=== PATIENT | female | born 1990 | race Two or more races ===

== ENCOUNTER 2018-09-20 16:09 | Emergency (ER) | payer SELFPAY ==
[~2018-09-20] VITALS: Ht 167.6 cm; Wt 143.6 kg
[2018-09-20] MEDS ORDERED: IV NORMAL SALINE 1000ML BAG 1,000 ML IV ONE (18:30)
[2018-09-20] MEDS ORDERED: ONDANSETRON PF 4 MG/2 ML VIAL. IV ONE (18:45)
[2018-09-20] MEDS ORDERED: MORPHINE SULFATE 4 MG/ML VIAL. IV ONE (18:45)
[2018-09-20] MEDS ORDERED: KETOROLAC 15 MG/ML VIAL. IV ONE (19:00)
[2018-09-20] MEDS ORDERED: PROCHLORPERAZINE 10 MG/2 ML VIAL. IV ONE (19:00)
--- NOTE | 2018-09-20 19:04 | RAD ---
CT Head and cervical spine without contrast 09/20/2018 Clinical Indication: Fall with head trauma and neck pain Comparison: None Technique: Multiple CT images of the head and cervical spine were obtained without contrast. *One or more of the following individualized dose reduction techniques were utilized for this examination: 1. Automated exposure control. 2. Adjustment of the mA and/or kV according to patient size. 3. Use of iterative reconstruction technique. Findings: Head: Ventricles and subarachnoid spaces are normal in size and configuration for age. No acute intracranial hemorrhage or extra-axial fluid collection. The chakraborty-white matter interfaces are maintained. No midline shift. The basal cisterns are patent. Inferior left maxillary sinus mucosal retention cyst. Cervical spine: No acute cervical spine fracture or traumatic malalignment. Atlantoaxial articulation is maintained. Vertebral body heights and disc spaces are maintained. The paraspinal soft tissues are unremarkable. No significant spinal canal or neural foraminal narrowing. The visualized lung apices are clear. There is a right central venous catheter partially visualized. Impression: Head: No acute intracranial hemorrhage Cervical spine: No acute cervical spine fracture or traumatic malalignment. Electronically signed by: Surendra Haney MD (09/20/2018 7:01 PM) [facility]
--- NOTE | 2018-09-20 19:40 | PHYS DOC ---
Past Medical History Past Medical History: Anxiety, Cancer, Migraines, Other Additional Past Medical Histor: WPW,Seizure, appendocele ca Past Surgical History: Appendectomy, Cholecystectomy, Hysterectomy, Tonsillectomy, Other Additional Past Surgical Histo: Rt.knee repair acl/mcl, cardiac ablation Alcohol Use: None Drug Use: None Adult General Chief Complaint Chief Complaint: MECHANICAL FALL HPI HPI Patient is a 28 year old female who presents to the emergency Department today with multiple complaints after falling approximately 8 feet from the top of the ladder. Patient states she was standing on the top of a ladder when she lost her balance and fell backwards. Patient states that it was a witnessed fall and that her sister states that she had lost consciousness for approximately 5 or 6 seconds. Patient states she vomited times one following the fall. In addition patient states that she saw bright lights in her right eye. Patient now complains of head, neck, right forearm, right lateral ankle, and right knee pain after the fall. In addition is a fall patient reports concerns about recent nausea and vomiting that she experienced on , Friday, and Friday this week. She states that she had vomited all day today until she fell but she had been vomiting every time she tried to eat anything for the 3 previous days. She states she had been taking Keflex for a recent urinary tract infection but was unable to keep it down for the last 3 days. The prescription of Keflex was 4 times a day for 10 days. Patient states she was able to take 7 days of medication before the vomiting started. She denies any dysuria, or increased urinary frequency at this time she denies any fever or abdominal pain. Review of Systems Review of Systems Constitutional: Denies fever or chills [] Eyes: See HPI HENT: Denies nasal congestion or sore throat [] Respiratory: Denies cough or shortness of breath [] Cardiovascular: No additional information not addressed in HPI [] GI: Denies abdominal pain or diarrhea, see HPI : Denies dysuria or hematuria, reports recent UTI [] Musculoskeletal: See HPI Integument: Denies rash or skin lesions [] Neurologic: Denies focal weakness or sensory changes; reports headache All other systems were reviewed and found to be within normal limits, except as documented in this note. Current Medications Current Medications Current Medications Medications (Trade) Dose Ordered Sig/Lyndsey Start Time Stop Time Status Last Admin Dose Admin Acetaminophen (Tylenol) 1,000 mg 1X ONCE 09/20/18 20:30 09/20/18 20:31 DC 09/20/18 20:23 1,000 MG Ketorolac Tromethamine (Toradol 15mg Vial) 15 mg 1X ONCE 09/20/18 19:00 09/20/18 19:01 DC Morphine Sulfate (Morphine Sulfate) 4 mg 1X ONCE 09/20/18 18:45 09/20/18 18:45 DC Ondansetron HCl (Zofran) 4 mg 1X ONCE 09/20/18 18:45 09/20/18 18:46 Cancel Prochlorperazine Edisylate (Compazine) 10 mg 1X ONCE 09/20/18 19:00 09/20/18 19:01 DC 09/20/18 19:58 10 MG Sodium Chloride 1,000 ml @ 1,000 mls/hr 1X ONCE 09/20/18 18:30 09/20/18 19:29 DC 09/20/18 19:59 1,000 MLS/HR Allergies Allergies Allergies Coded Allergies Type Severity Reaction Last Updated Verified Iodinated Contrast- Oral and IV Dye Allergy Severe Hives 05/02/17 Yes latex Allergy Severe Anaphylaxis 11/27/14 Yes ondansetron Allergy Severe Anaphylaxis 09/20/18 Yes fentanyl Allergy Intermediate ITCHY 09/20/18 Yes ketorolac Allergy Intermediate Hives 09/20/18 Yes morphine Allergy Intermediate "I JUST DON'T LIKE IT,IT MAKES ME FEEL LIKE I'M GOING TO 09/20/18 Yes tramadol Allergy Intermediate 09/20/18 Yes Physical Exam Physical Exam Constitutional: Well developed, well nourished, no acute distress, non-toxic appearance, obese. [] HENT: Normocephalic, atraumatic, bilateral external ears normal, bilateral TMs normal, oropharynx moist, no oral exudates, nose normal. [] Eyes: PERRLA, conjunctiva normal, no discharge. [] Neck: Normal range of motion, mildline bony cervical tenderness, supple, no stridor. [] Cardiovascular:Heart rate regular rhythm, no murmur [] Lungs & Thorax: Bilateral breath sounds clear to auscultation [] Skin: Warm, dry, no erythema, no rash, no bruising. [] Back: T spine and L spine bony tenderness Extremities: No cyanosis, no clubbing, ROM intact, no edema; reports tenderness with palpation of right anterior knee, negative anterior and posterior drawer testing, pt did not tolerate valgus maneuver; R lateral ankle tenderness to palpation, no deformity, limited ROM of R ankle due to pain. [] Neurologic: Alert and oriented X 3, normal motor function, normal sensory function, no focal deficits noted. [] Psychologic: Affect normal, judgement normal, mood normal. [] Current Patient Data Vital Signs Vital Signs Date Time Temp Pulse Resp B/P (MAP) Pulse Ox O2 Delivery O2 Flow Rate FiO2 09/20/18 20:30 102 99 09/20/18 16:50 98.3 20 133/73 (93) Room Air 98.3 Lab Values Laboratory Tests Test 09/20/18 19:46 09/20/18 19:50 Urine Collection Type Unknown Urine Color Yellow Urine Clarity Clear Urine pH 7.0 Urine Specific Orient 1.010 Urine Protein Negative mg/dL (NEG-TRACE) Urine Glucose (UA) Negative mg/dL (NEG) Urine Ketones (Stick) Negative mg/dL (NEG) Urine Blood Negative (NEG) Urine Nitrite Negative (NEG) Urine Bilirubin Negative (NEG) Urine Urobilinogen Dipstick 1.0 mg/dL (0.2 mg/dL) Urine Leukocyte Esterase Negative (NEG) Urine RBC Occ /HPF (0-2) Urine WBC Occ /HPF (0-4) Urine Squamous Epithelial Cells Mod /LPF Urine Bacteria 0 /HPF (0-FEW) Urine Mucus Slight /LPF Urine Yeast Present /HPF White Blood Count 11.8 x10^3/uL (4.0-11.0) H Red Blood Count 4.41 x10^6/uL (3.50-5.40) Hemoglobin 12.7 g/dL (12.0-15.5) Hematocrit 37.9 % (36.0-47.0) Mean Corpuscular Volume 86 fL (79-100) Mean Corpuscular Hemoglobin 29 pg (25-35) Mean Corpuscular Hemoglobin Concent 34 g/dL (31-37) Red Cell Distribution Width 14.2 % (11.5-14.5) Platelet Count 411 x10^3/uL (140-400) H Neutrophils (%) (Auto) 73 % (31-73) Lymphocytes (%) (Auto) 18 % (24-48) L Monocytes (%) (Auto) 7 % (0-9) Eosinophils (%) (Auto) 2 % (0-3) Basophils (%) (Auto) 1 % (0-3) Neutrophils # (Auto) 8.6 x10^3uL (1.8-7.7) H Lymphocytes # (Auto) 2.1 x10^3/uL (1.0-4.8) Monocytes # (Auto) 0.8 x10^3/uL (0.0-1.1) Eosinophils # (Auto) 0.2 x10^3/uL (0.0-0.7) Basophils # (Auto) 0.1 x10^3/uL (0.0-0.2) Sodium Level 138 mmol/L (136-145) Potassium Level 4.4 mmol/L (3.5-5.1) Chloride Level 100 mmol/L (98-107) Carbon Dioxide Level 26 mmol/L (21-32) Anion Gap 12 (6-14) Blood Urea Nitrogen 8 mg/dL (7-20) Creatinine 0.6 mg/dL (0.6-1.0) Estimated GFR (Cockcroft-Gault) 120.8 BUN/Creatinine Ratio 13 (6-20) Glucose Level 76 mg/dL (70-99) Calcium Level 9.1 mg/dL (8.5-10.1) Total Bilirubin 0.6 mg/dL (0.2-1.0) Aspartate Amino Transferase (AST) 39 U/L (15-37) H Alanine Aminotransferase (ALT) 36 U/L (14-59) Alkaline Phosphatase 107 U/L (46-116) Total Protein 7.3 g/dL (6.4-8.2) Albumin 3.3 g/dL (3.4-5.0) L Albumin/Globulin Ratio 0.8 (1.0-1.7) L Laboratory Tests 09/20/18 19:50 Laboratory Tests 09/20/18 19:50 EKG EKG [] Radiology/Procedures Radiology/Procedures PROCEDURE: CT HEAD AND CERVICAL SPINE WO CT Head and cervical spine without contrast 09/20/2018 Clinical Indication: Fall with head trauma and neck pain Comparison: None Technique: Multiple CT images of the head and cervical spine were obtained without contrast. *One or more of the following individualized dose reduction techniques were utilized for this examination: 1. Automated exposure control. 2. Adjustment of the mA and/or kV according to patient size. 3. Use of iterative reconstruction technique. Findings: Head: Ventricles and subarachnoid spaces are normal in size and configuration for age. No acute intracranial hemorrhage or extra-axial fluid collection. The chakraborty-white matter interfaces are maintained. No midline shift. The basal cisterns are patent. Inferior left maxillary sinus mucosal retention cyst. Cervical spine: No acute cervical spine fracture or traumatic malalignment. Atlantoaxial articulation is maintained. Vertebral body heights and disc spaces are maintained. The paraspinal soft tissues are unremarkable. No significant spinal canal or neural foraminal narrowing. The visualized lung apices are clear. There is a right central venous catheter partially visualized. Impression: Head: No acute intracranial hemorrhage Cervical spine: No acute cervical spine fracture or traumatic malalignment.[] Course & Med Decision Making Course & Med Decision Making Pertinent Labs and Imaging studies reviewed. (See chart for details) 1939- C-collar removed after CT results back and negative Pt was offered ankle air splint and declined, states she has walking boot at home if needed. Dx: fall from ladder, R ankle contusion, R knee contusion, thoracic back pain, lumbar back pain, head injury with LOC, R forearm contusion, nausea & vomiting IV infiltrated before all of the fluids were infused. Pt was given IV compazine and reported nausea was better. PT able to tolerate PO fluids and crackers, tylenol was given for pain. Pt advised that UTI has resolved and negative radiology studies. Recommend tylenol or ibuprofen as needed for pain. Apply ice to sore areas every hour and then as needed for comfort. Follow up with PCP this week, return to ER if symptoms worsen. Patient verbalized an understanding of home care, medications, follow-up, and return to ED instructions and was in agreement with the plan of care. [] Dragon Disclaimer Dragon Disclaimer This electronic medical record was generated, in whole or in part, using a voice recognition dictation system. Departure Departure Impression: Primary Impression: Fall from ladder Additional Impressions: Right ankle sprain Contusion of right knee, initial encounter Contusion of forearm, right Back pain Head injury, acute, with loss of consciousness Nausea & vomiting Disposition: 01 HOME, SELF-CARE Condition: STABLE Referrals: VALERIA EVERETT MD (PCP) Patient Instructions: Back Pain, Adult, [id number], Contusion, Nazr-cx-Mzxt, Fall Prevention and Home Safety, [id number], Nausea and Vomiting, Xdwz-[id number] Scripts No Active Prescriptions or Reported Meds Problem Qualifiers Primary Impression: Fall from ladder Encounter type: initial encounter Qualified Codes: W11.XXXA - Fall on and from ladder, initial encounter Additional Impressions: Right ankle sprain Encounter type: initial encounter Involved ligament of ankle: unspecified ligament Qualified Codes: S93.401A - Sprain of unspecified ligament of right ankle, initial encounter Contusion of forearm, right Encounter type: initial encounter Qualified Codes: S50.11XA - Contusion of right forearm, initial encounter Back pain Back pain location: back pain in other location Chronicity: acute Qualified Codes: M54.9 - Dorsalgia, unspecified Head injury, acute, with loss of consciousness Encounter type: initial encounter Qualified Codes: S06.9X9A - Unspecified intracranial injury with loss of consciousness of unspecified duration, initial encounter Nausea & vomiting Vomiting type: unspecified Vomiting Intractability: non-intractable Qualified Codes: R11.2 - Nausea with vomiting, unspecified [employer] Sep 20, 2018 19:40
[2018-09-20 19:55] LABS: BILIRUBIN,URINE NEGATIVE (NEG); CLARITY,URINE CLEAR; COLOR,URINE YELLOW; NITRITE,URINE NEGATIVE (NEG); PROTEIN,URINE NEGATIVE (NEG-TRACE)
[2018-09-20 20:12] LABS: BACTERIA,URINE 0 /HPF (0-FEW); RBC,URINE OCC /HPF (0-2); SQUAMOUS EPITHELIAL CELL,UR MOD /LPF; WBC,URINE OCC /HPF (0-4); YEAST,URINE PRESENT /HPF
[2018-09-20 20:14] LABS: BASO # 0.1 x10^3/uL (0.0-0.2); BASO % 1 % (0-3); EOS # 0.2 x10^3/uL (0.0-0.7); EOS % 2 % (0-3); HEMATOCRIT 37.9 % (36.0-47.0); HEMOGLOBIN 12.7 g/dL (12.0-15.5); LYMPH # 2.1 x10^3/uL (1.0-4.8); LYMPH % 18 % (24-48); MEAN CORPUSCULAR HEMOGLOBIN 29 pg (25-35); MEAN CORPUSCULAR HGB CONC 34 g/dL (31-37); MEAN CORPUSCULAR VOLUME 86 fL (79-100); MONO # 0.8 x10^3/uL (0.0-1.1); MONO % 7 % (0-9); NEUT # 8.6 x10^3uL (1.8-7.7); NEUT % 73 % (31-73); PLATELET COUNT 411 x10^3/uL (140-400); RED BLOOD COUNT 4.41 x10^6/uL (3.50-5.40); RED CELL DISTRIBUTION WIDTH 14.2 % (11.5-14.5); WHITE BLOOD COUNT 11.8 x10^3/uL (4.0-11.0)
--- NOTE | 2018-09-20 20:19 | RAD ---
3 view right ankle 09/20/2018 CLINICAL INDICATION: Fall from 8 foot ladder COMPARISON: None. FINDINGS: No acute fracture or traumatic malalignment. Joint spaces maintained. Ankle mortise and talar dome are maintained. IMPRESSION: No acute osseous abnormality. Electronically signed by: Surendra Haney MD (09/20/2018 8:15 PM) [facility]
--- NOTE | 2018-09-20 20:20 | RAD ---
Two-view right forearm 09/20/2018 CLINICAL INDICATION: Fall with right forearm pain. COMPARISON: None. FINDINGS: No acute fracture or traumatic malalignment. Visualized soft tissues unremarkable. IMPRESSION: No acute osseous abnormality. Electronically signed by: Surendra Haney MD (09/20/2018 8:16 PM) [facility]
--- NOTE | 2018-09-20 20:21 | RAD ---
Two-view thoracic spine 09/20/2018 CLINICAL INDICATION: Fall with back pain. COMPARISON: None. FINDINGS: AP and lateral views were submitted. Cervical thoracic junction is not well visualized due to overlying soft tissues. Vertebral body heights and disc spaces are maintained on the AP view. Right upper quadrant cholecystectomy clips. There is a right IJ chest port with distal tip terminating in the right atrium. IMPRESSION: No radiographic evidence of acute thoracic spinal abnormality. Electronically signed by: Surendra Haney MD (09/20/2018 8:17 PM) [facility]
--- NOTE | 2018-09-20 20:21 | RAD ---
3 view right knee 09/20/2018 CLINICAL INDICATION: Fall with right knee pain. COMPARISON: 06/10/2015 FINDINGS: No acute fracture or traumatic malalignment. Joint spaces maintained. No significant knee joint effusion. Normal bony alignment. IMPRESSION: No acute osseous abnormality. Electronically signed by: Surendra Haney MD (09/20/2018 8:18 PM) [facility]
--- NOTE | 2018-09-20 20:22 | RAD ---
3 view lumbar spine 09/20/2018 CLINICAL INDICATION: Fall with back pain. COMPARISON: None. FINDINGS: Lateral view is limited due to body habitus. Normal lumbar alignment. Vertebral body heights and disc spaces are preserved. Surgical clips overlying the right lower quadrant. No listhesis. IMPRESSION: No radiographic evidence of acute lumbar spine abnormality. Electronically signed by: Surendra Haney MD (09/20/2018 8:19 PM) [facility]
[2018-09-20 20:25] LABS: CALCIUM 9.1 mg/dL (8.5-10.1); CREATININE 0.6 mg/dL (0.6-1.0); GFR 120.8; POTASSIUM 4.4 mmol/L (3.5-5.1)
[2018-09-20 20:30] VITALS: BP 144/86
[2018-09-20] MEDS ORDERED: ACETAMINOPHEN 500 MG TABLET PO ONE (20:30)
[2018-09-20 20:31] LABS: ALBUMIN 3.3 g/dL (3.4-5.0); ALBUMIN/GLOBULIN RATIO 0.8 (1.0-1.7); TOTAL BILIRUBIN 0.6 mg/dL (0.2-1.0); TOTAL PROTEIN 7.3 g/dL (6.4-8.2)
== END 2018-09-20 20:55 | disposition home or self-care (01) ==
LOC: ER 16:09
DX: S06.899A Other specified intracranial injury with loss of consciousness of unspecified duration, initial encounter (principal); S93.491A Sprain of other ligament of right ankle, initial encounter; S50.11XA Contusion of right forearm, initial encounter; S80.01XA Contusion of right knee, initial encounter; R11.2 Nausea with vomiting, unspecified; M54.5 Low back pain; M54.2 Cervicalgia; M54.6 Pain in thoracic spine; F41.9 Anxiety disorder, unspecified; G43.909 Migraine, unspecified, not intractable, without status migrainosus; Z90.89 Acquired absence of other organs; Z90.49 Acquired absence of other specified parts of digestive tract; Z90.710 Acquired absence of both cervix and uterus; Z91.040 Latex allergy status; Z88.8 Allergy status to other drugs, medicaments and biological substances; Z88.5 Allergy status to narcotic agent; Z91.041 Radiographic dye allergy status; W11.XXXA Fall on and from ladder, initial encounter; Y93.89 Activity, other specified; Y92.89 Other specified places as the place of occurrence of the external cause; Y99.8 Other external cause status
CPT/HCPCS: 36415; 70450; 72072; 72100; 72125; 73090; 73562; 73610; 80053; 81001; 85025; 96361; 96374; 99285; J0780; J7030

== ENCOUNTER 2019-04-30 10:39 | Day surgery (SDC) | payer OTHER ==
[~2019-04-30] VITALS: Ht 169.5 cm; Wt 148.7 kg
[~2019-04-30 10:39] MED LIST: ALPR2TAB5 PO; BACITRACIN TOPICAL OINT 14GM TUBE. TP ONE; BACITRACIN/POLYMYXIN B OPHTH OINTMENT 3.5GM TUBE. ONE; BUPIVAC MPF-EPI 0.5%-1:200000 30 ML VIAL. ONE; BUPIVACAINE MPF 0.5% 30 ML VIAL. ONE; DIPH25CA58 PO; HEPARIN SODIUM 5,000 UNIT in IV NORMAL SALINE 500ML BAG 500 ML IRR ONE; IV RINGERS,LACTATED 1000ML 1,000 ML IV SCH; LIDO30CR TP; LORA1TAB PO; MULT-121 PO; NEOMY/BACITR/POLYMYXIN OINT PACKET. TP ONE; PROCHLORPERAZINE 10 MG/2 ML VIAL. IV PRN; ZOLP12.54 PO; ceFAZolin SODIUM 3 GM in IV DEXTROSE 5% 100ML 100 ML IV PRN
[2019-04-30] MEDS ORDERED: DEXAMETHASONE SOD PHOS 4 MG/ML VIAL ONE (11:58)
[2019-04-30] MEDS ORDERED: PROPOFOL 0 ML IV ONE (11:58)
[2019-04-30] MEDS ORDERED: ONDANSETRON PF 4 MG/2 ML VIAL. ONE (11:58)
[2019-04-30] MEDS ORDERED: fentaNYL PF VIAL 100 MCG/2 ML VIAL ONE (11:58)
[2019-04-30] MEDS ORDERED: LIDOCAINE 2% PF 5 ML VIAL. ONE (11:58)
[2019-04-30] MEDS ORDERED: SCOPOLAMINE 1.5MG PATCH. TD ONE (12:00)
[2019-04-30] MEDS ORDERED: diphenhydrAMINE 50 MG/ML VIAL ONE (12:26)
[2019-04-30] MEDS ORDERED: PROPOFOL 20 ML IV ONE ×2 (12:37→12:51)
[2019-04-30] MEDS ORDERED: FAMOTIDINE 20 MG/2 ML VIAL ONE (13:12)
[2019-04-30] MEDS ORDERED: SEVOFLURANE 61 TO 120 MINUTES. IH ONE (14:09)
[2019-04-30] MEDS: HYDROmorphone 2 MG/ML VIAL IV PRN ×2 (14:51→15:11)
--- NOTE | 2019-04-30 15:07 | PDOC ---
BRIEF OPERATIVE NOTE Date: Apr 30, 2019 Pre-Op Diagnosis subcutaneous mass, left posterior neck needs venous access Post-Op Diagnosis same Procedure Performed excision mass left posterior neck attempted placement left subclavian power port repositioning right power port Surgeon Collin Anesthesia Type: General Blood Loss 25cc IV Fluid 800cc Specimens Obtained [id number] mass Findings lipoma Complications none Operative Note dictation system unavailable at this time HESHAM ADDISON MD Apr 30, 2019 15:07
--- NOTE | 2019-04-30 15:11 | DISCH ---
DISCHARGE INSTRUCTIONS Condition on Discharge Condition on Discharge: Stable Activity After Discharge Activity Instructions for Disc: Activity as tolerated, Avoid exertion Lifting Instructions after Dis: No heavy lifting Driving Instructions after Dis: Do not drive today Diet after Discharge Diet after Discharge: GI Soft Wound Incision Care Wound/Incision Care: Ice to area for comfort Other wound/incision instructi: may shower Friday Follow-Up Follow Up With: Collin two weeks HESHAM ADDISON MD Apr 30, 2019 15:11
[2019-04-30] MEDS ORDERED: HYDROcodone/APAP 10/325 1 TAB TABLET ONE (15:13)
[2019-04-30] MEDS ORDERED: HYDR-2769 PO (15:23)
[2019-04-30] MEDS ORDERED: DOCU-150 PO (15:24)
[2019-04-30] MEDS ORDERED: HYDROcodone/APAP 10/325 1 TAB TABLET PO ONE (15:30)
[2019-04-30 16:00] VITALS: BP 139/68
--- NOTE | 2019-04-30 16:29 | RAD ---
AP chest, 04/30/2019: HISTORY: Check Port-A-Cath placement Comparison is made to a study from 11/22/2015. A right Port-A-Cath has been inserted extending into the inferior aspect of the superior vena cava. The heart is at the upper limits of normal in size accentuated by the AP technique. The pulmonary vascularity is normal. No pulmonary infiltrate is seen. There is no evidence of pleural fluid or pneumothorax. IMPRESSION: The right Port-A-Cath extends into the superior vena cava. Electronically signed by: Juan C Hnery MD (04/30/2019 4:27 PM) [facility]
--- NOTE | 2019-05-03 14:12 | OP ---
DATE OF SURGERY: 04/30/2019 This report unable to be dictated postop due to malfunction of the dictation system. PREOPERATIVE DIAGNOSIS: Subcutaneous mass, left posterior neck and needs venous access. POSTOPERATIVE DIAGNOSIS: Subcutaneous mass, left posterior neck and needs venous access. PROCEDURES: 1. Excision mass, left posterior neck. 2. Attempted placement, left subclavian PowerPort. 3. Repositioning right PowerPort. SURGEON: Hesham Addison MD ANESTHESIA: General. ESTIMATED BLOOD LOSS: 25 mL. IV FLUID: 800 mL. DESCRIPTION OF PROCEDURE: The patient brought to the operating suite, given a general LMA and placed in the right lateral decubitus position. Left posterior neck was prepped and draped in usual sterile fashion. The incision, which had been outlined with the patient's assistance in preop holding was infiltrated with local anesthetic, incised and a subcutaneous mass 7 x 6 x 2 cm was removed intact. Hemostasis with cautery. Wound closed with interrupted inverted 3-0 Vicryl in subcutaneous tissue and a subcuticular 4-0 Monocryl with Steri-Strips for the skin. The patient then placed supine. The infraclavicular areas were prepped and draped in usual sterile fashion. Left side was approached with the patient in Trendelenburg and local anesthetic. The left subclavian vein was cannulated. Guidewire passed and a pocket incision created. The catheter was cut to an appropriate length. Fluoroscopic observation attempting to dilate the tract for the catheter was unsuccessful due to the course. Right side was approached. Old port delivered and the catheter accepted a guidewire. In light of this, a new port was placed and then the catheter attached. There was good flow into and out at completion. Pocket incision was closed with 3-0 Vicryl. Skin incisions were closed with 4-0 Monocryl. Steri-Strips and sterile dressings applied. Postop upright chest x-ray showed the tip of the catheter to reside in superior vena cava without evidence of a pneumothorax. The patient tolerated the procedure well and was taken to postop area in stable condition. HESHAM ADDISON MD DR: JESSICA/kira JOB#: [id number] / [id number]
--- NOTE | 2019-05-04 15:06 | PATHOLOGY ---
[facility] Accession Number: [id number] . 01 Material submitted: . neck - EXCISION OF NECK MASS, LIPOMA . 01 Clinical history: . Neck mass . 02 Diagnosis: Adipose tissue, neck mass excision: - Lipoma. (JPM:stephane; 05/04/2019) MBR/05/04/2019 . 02 Comment: There is no evidence of malignancy. (LAQUITAM:stephane; 05/04/2019) . 02 Electronically signed: . Isaak Parmar MD, Pathologist NPI- [id number] . 01 Gross description: . The specimen is received in formalin, labeled "Hill, Kathy, lipoma." The container is not labeled with the specimen site. Per the requisition, the specimen site is "neck mass." Received is a partially encapsulated segment of yellow lobulated tissue measuring 5.8 x 5.5 x 2.9 cm. Sectioning reveals yellow homogeneous cut surfaces throughout and patient intake representative sections are submitted in A1-A3. (SD; 05/03/2019) SYU/SYU . 02 Pathologist provided ICD-10: D17.79 . 02 CPT . 773797 Specimen Comment: A courtesy copy of this report has been sent to Specimen Comment: [phone], . Specimen Comment: Report sent to / DR EVERETT Performed at: 01 [facility] [address], [place] [id number] MD Juliano Turcios MD Phone: [phone] Performed at: 02 [facility] [address], [place] [id number] MD Isaak Parmar MD Phone: [phone]
== END 2019-04-30 16:28 | disposition home or self-care (01) ==
LOC: SURG 10:39
PROVIDERS: ATTEND Surgery
DX: T82.898A Other specified complication of vascular prosthetic devices, implants and grafts, initial encounter (principal); D17.0 Benign lipomatous neoplasm of skin and subcutaneous tissue of head, face and neck; Y83.8 Other surgical procedures as the cause of abnormal reaction of the patient, or of later complication, without mention of misadventure at the time of the procedure; Z90.49 Acquired absence of other specified parts of digestive tract; Z90.710 Acquired absence of both cervix and uterus; Z98.890 Other specified postprocedural states; Z72.89 Other problems related to lifestyle
CPT/HCPCS: 21552; 36561; 36597; 71045; 77001; 88304; A7015; C1788; J0780; J1100; J1170; J1200; J1644; J2001; J2405; J2704; J3010; J3490; J7040; 36556

== ENCOUNTER 2019-05-04 14:50 | Inpatient (IN) | payer OTHER ==
[~2019-05-04] VITALS: Ht 168.9 cm; Wt 147.4 kg
[~2019-05-04 14:50] MED LIST changes: -BACITRACIN TOPICAL OINT 14GM TUBE. TP ONE; -BACITRACIN/POLYMYXIN B OPHTH OINTMENT 3.5GM TUBE. ONE; -BUPIVAC MPF-EPI 0.5%-1:200000 30 ML VIAL. ONE; -BUPIVACAINE MPF 0.5% 30 ML VIAL. ONE; +DOCU-150 PO; -HEPARIN SODIUM 5,000 UNIT in IV NORMAL SALINE 500ML BAG 500 ML IRR ONE; +HYDR-2769 PO; -IV RINGERS,LACTATED 1000ML 1,000 ML IV SCH; -NEOMY/BACITR/POLYMYXIN OINT PACKET. TP ONE; -PROCHLORPERAZINE 10 MG/2 ML VIAL. IV PRN; -ceFAZolin SODIUM 3 GM in IV DEXTROSE 5% 100ML 100 ML IV PRN
[2019-05-04 15:00] VITALS: BP 128/80
--- NOTE | 2019-05-04 16:12 | PDOC ---
Provider Note Provider Note SURG Kathy is four days post op attempted placement of left subclavian power port, repositioning right subclavian power port, excision mass left posterior neck. Developed fever, nausea and vomiting. Obs for labs and fluids HESHAM ADDISON MD May 04, 2019 16:12
[2019-05-04] MEDS ORDERED: ALPRAZolam 1 MG TABLET PO PRN (16:15)
[2019-05-04] MEDS ORDERED: ZOLPIDEM 5 MG TABLET. PO PRN ×2 (16:15→16:30)
[2019-05-04] MEDS ORDERED: LORazepam 1 MG TABLET PO PRN (16:15)
[2019-05-04] MEDS ORDERED: PROMETHAZINE 25 MG SUPP.RECT. PR PRN (16:15)
--- NOTE | 2019-05-04 16:41 | PDOC2 ---
CONSULT Date of Consult Date of Consult DATE: 05/04/19 TIME: 16:37 Reason for Consult Reason for Consult: Medical Management Referring Physician Referring Physician: Dr. 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 Since 2 days ago she has developed nausea and vomiting as well as fever and chills and pain in her post-op sites. She also noted a blotchy rash all over her body yesterday, scheduled an appointment for post-op follow up. Today had a fever of 101.3F and took tylenol and ibuprofen with improvement in her temperature. She has not been able to hold down her meds from her nausea and vomiting. She also notes left upper extremity and left lower extremity swelling and some pain over the past few days. No chest pain, no shortness of breath, no recent sick contacts. She works 70 hours per week for [employer], wishes to get home and back to work. She is 4 days post-op for a left posterior neck mass excision and right subclavian port-a-cath repositioning as well as attempted left subclavian port-a -cath insertion. Past Medical History Cardiovascular: Other (Lipkrp-Wdduckklg-Rhyyz s/p ablation) Pulmonary: No pertinent hx GI: No pertinent hx Heme/Onc: Cancer Hepatobiliary: No pertinent hx Psych: Anxiety Rheumatologic: No pertinent hx Infectious disease: No pertinent hx ENT: No pertinent hx Renal/: No pertinent hx Endocrine: No pertinent hx Past Surgical History Past Surgical History: Appendectomy, Cholecystectomy, Tonsillectomy, Hysterectomy, Other (Breast reduction. Cardiac ablation) Family History Family History: Cancer (Thyroid cancer in father. Breast cancer mother) Social History No ALCOHOL: rare Drugs: None Lives: with Family Domestic Violence: Neg Current Medications Current Medications Current Medications Potassium Chloride/Sodium Chloride 1,000 ml @ 100 mls/hr Q10H IV ; Start 05/04/19 at 16:15 Diphenhydramine HCl (Benadryl) 50 mg QHS PO ; Start 05/04/19 at 21:00 Docusate Sodium (Colace) 100 mg BID PO ; Start 05/04/19 at 21:00 Acetaminophen/ Hydrocodone Bitart (Lortab 10/325) 1 tab PRN Q4HRS PRN PO PAIN; Start 05/04/19 at 16:15 Lorazepam (Ativan) 1 mg PRN Q6HRS PRN PO SEVERE ANXIETY; Start 05/04/19 at 16:15 Alprazolam (Xanax) 2 mg PRN BID PRN PO ANXIETY / AGITATION; Start 05/04/19 at 16:15; Stop 05/04/19 at 16:22; Status DC Multivitamins (Thera M Plus) 1 tab DAILY PO ; Start 05/05/19 at 09:00 Zolpidem Tartrate (Ambien) 5 mg PRN QHS PRN PO INSOMNIA; Start 05/04/19 at 16:15; Stop 05/04/19 at 16:22; Status DC Promethazine HCl (Phenergan Supp) 25 mg PRN Q6HRS PRN MA NAUSEA/VOMITING; Start 05/04/19 at 16:15 Alprazolam (Xanax) 1 mg PRN TID PRN PO ANXIETY / AGITATION; Start 05/04/19 at 16:30 Zolpidem Tartrate (Ambien) 5 mg PRN QHS PRN PO INSOMNIA, MRX1; Start 05/04/19 at 16:30; Stop 05/04/19 at 16:31; Status DC Non-Formulary Medication 1 ea QHS PO ; Start 05/04/19 at 21:00 Active Scripts Active Reported Stool Softener (Docusate Sodium) 100 Mg Capsule 100 Mg PO BID Hydrocodone-Apap 10-325 (Hydrocodone Bit/Acetaminophen) 1 Tab Tablet 1 Tab PO Q4-6HRS PRN LAST DOSE GIVEN: 3:20 pm so next dose at 7:20 pm as needed for pain Lidocaine-Prilocaine Cream (Lidocaine/Prilocaine) 30 Gm Cream..g. 1 Tawnya TP UD Multiple Vitamins (Multivitamin) 1 Each Tablet 1 Each PO DAILY Zolpidem Tartrate Er (Zolpidem Tartrate) 12.5 Mg Tab.mphase 12.5 Mg PO PRN QHS PRN Benadryl (Diphenhydramine Hcl) 25 Mg Capsule 2 Cap PO DAILY Lorazepam 1 Mg Tablet 1 Tab PO PRN PRN Alprazolam 2 Mg Tablet 1 Tab PO PRN BID PRN Allergies Allergies: Coded Allergies: Iodinated Contrast- Oral and IV Dye (Verified Allergy, Severe, Hives, 04/30/19) difficulty breathing and throat swelling the second time she had iv contrast per patient latex (Verified Allergy, Severe, Anaphylaxis, 04/30/19) ondansetron (Verified Allergy, Severe, Anaphylaxis, 04/30/19) fentanyl (Verified Allergy, Intermediate, ITCHY, 04/30/19) ketorolac (Verified Allergy, Intermediate, Hives, 04/30/19) morphine (Verified Allergy, Intermediate, "I JUST DON'T LIKE IT,IT MAKES ME FEEL LIKE I'M GOING TO , 04/30/19) tramadol (Verified Allergy, Intermediate, 04/30/19) coconut (Verified Allergy, Unknown, Hives, 04/30/19) Uncoded Allergies: SEAFOODS (Allergy, Unknown, ANAPHYLAXIS, 04/29/19) ROS General: YES: Chills, Appetite; No: Night Sweats, Fatigue, Malaise, Other PSYCHOLOGICAL ROS: YES: Anxiety; No: Behavioral Disorder, Concentration difficultie, Decreased libido, Depression, Disorientation, Hallucinations, Hostility, Irritablity, Memory difficulties, Mood Swings, Obsessive thoughts, Physical abuse, Sexual abuse, Sleep disturbances, Suicidal ideation, Other Eyes: No Blurry vision, No Decreased vision, No Double vision, No Dry eyes, No Excessive tearing, No Eye Pain, No Itchy Eyes, No Loss of vision, No Photophobia, No Scotomata, No Uses contacts, No Uses glasses, No Other HEENT: No: Heacaches, Visual Changes, Hearing change, Nasal congestion, Nasal discharge, Oral lesions, Sinus pain, Sore Throat, Epistaxis, Sneezing, Snoring, Tinnitus, Vertigo, Vocal changes, Other ALLERGY AND IMMUNOLOGY: No: Hives, Insect Bite Sensitivity, Itchy/Watery Eyes, Nasal Congestion, Post Nasal Drip, Seasonal Allergies, Other Hematological and Lymphatic: YES: Blood Clots; No: Bleeding Problems, Blood Transfusions, Brusing, Night Sweats, Pallor, Swollen Lymph Nodes, Other ENDOCRINE: No: Breast Changes, Galactorrhea, Hair Pattern Changes, Hot Flashes, Malaise/lethargy, Mood Swings, Palpitations, Polydipsia/polyuria, Skin Changes, Temperature Intolerance, Unexpected Weight Changes, Other Breast: No New/Changing Breast Lumps, No Nipple changes, No Nipple discharge, No Other Respiratory: No: Cough, Hemoptysis, Orthopnea, Pleuritic Pain, Shortness of breath, SOB with excertion, Sputum Changes, Stridor, Tachypnea, Wheezing, Other Cardiovascular: No Chest Pain, No Palpitations, No Orthopnea, No Paroxysmal Noc. Dyspnea, No Edema, No Lt Headedness, No Other Gastrointestinal: Yes Nausea, Yes Vomiting; No Abdominal Pain, No Diarrhea, No Constipation, No Melena, No Hematochezia, No Other Genitourinary: No Dysuria, No Frequency, No Incontinence, No Hematuria, No Retention, No Discharge, No Urgency, No Pain, No Flank Pain, No Other, No , No , No , No , No , No , No Musculoskeletal: No Gait Disturbance, No Joint Pain, No Joint Stiffness, No Joint Swelling, No Muscle Pain, No Muscular Weakness, No Pain In:, No Swelling In:, No Other Neurological: No Behavorial Changes, No Bowel/Bladder ControlChng, No Confusion, No Dizziness, No Gait Disturbance, No Headaches, No Impaired Coord/balance, No Memory Loss, No Numbness/Tingling, No Seizures, No Speech Problems, No Tremors, No Visual Changes, No Weakness, No Other Skin: No Dry Skin, No Eczema, No Hair Changes, No Lumps, No Mole Changes, No Mottling, No Nail Changes, No Pruritus, No Rash, No Skin Lesion Changes, No Other, No Acne Physical Exam General: Alert, Oriented X3, Cooperative, No acute distress HEENT: Atraumatic, PERRLA, EOMI, Mucous membr. moist/pink Lungs: Clear to auscultation, Normal air movement Heart: Regular rate, Normal S1, Normal S2, No murmurs Abdomen: Normal bowel sounds, Soft, No tenderness, No hepatosplenomegaly, No masses Extremities: No clubbing, No cyanosis, No edema, Normal pulses, No tenderness/swelling Skin: Other (Left neck site tender, no redness, bilateral port sites clean, not red. Some bruising on left breast.) Neuro: Normal gait, Normal speech, Normal tone, Sensation intact, Reflexes 2+ Psych/Mental Status: Mental status NL, Mood NL MUSCULOSKELETAL: No joint tenderness, No deformity Vitals VITALS Vital Signs Date Time Temp Pulse Resp B/P (MAP) Pulse Ox O2 Delivery O2 Flow Rate FiO2 05/04/19 15:00 98.3 110 18 128/80 (96) 96 Room Air 98.3 Assessment/Plan Assessment/Plan A/P: Intractable nausea and vomiting - primary reason for admission, unable to hold down food or meds. Will give compazine, reglan. She had a cardiac arrest in 2016 after zofran administration, will avoid this. Abdominal exam is benign. Fever and chills - will check blood, urine cultures, CXR. Monitor for further fever. tylenol prn. Will get IS. Surgery for dressing changes to wounds Left upper and lower extremity swelling - left arm could be due to her recent surgical procedure. Left leg concerning as she previously had a DVT there (traumatic), will get US to r/o thrombosis Morbid obesity - counseled on weight loss, exercise H/O LLE DVT - due to sports trauma playing soccer. WPW s/p ablation 2016 - successful. 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 Anxiety - cont xanax prn. Can have IV ativan prn Insomnia - as above. also on XR ambien FEN - General diet, ADAT PPX - SCDs, r/o DVT, ambulatory FULL CODE Inpatient for fever/chills and intractable nausea and vomiting. LAVERN BURKETT MD May 04, 2019 16:41
[2019-05-04] MEDS: POTASSIUM CL 20MEQ-0.45% NACL 1,000 ML IV SCH (16:59)
[2019-05-04] MEDS: PROCHLORPERAZINE 10 MG/2 ML VIAL. IV PRN (16:59)
[2019-05-04] MEDS ORDERED: diphenhydrAMINE HCL 25 MG CAPSULE PO PRN (17:00)
--- NOTE | 2019-05-04 17:00 | NUR ---
Pt arrived to unit at 1540, from Dr Polanco's office. Pt had surgery for lipoma removal and central port replacement on 04/30. Dx admission fever/N/V post op. Pt alert and oriented x4, talkative and pleasant. Surgical incisions to left posterior neck, left upper chest and right upper chest. Neck and L chest have steri strips, R chest has well approximated incision with intact sutures, site of new port placement (L chest port removed). Pt stated that she did not want her port accessed, Pt is a hard stick, orders received from Dr Polanco for anesthesia stick. Access obtained by Anesthesiologist after REGIONAL ACCOUNT EXECUTIVE tried with no success. Home medications reviewed with Pt and restarted by Dr Polanco. Pt brought own Lortab and Ambien bottles from pharmacy. Thirty three half pills with sticker indicating Lortab sent to pharmacy for safekeeping and Ambien sent to pharmacy for verification and use during Pt stay. Pt requested for nursing and medical staff not to discuss anything related to Pt's medical history in front of boyfriend or any visitors for that matter. Admission assessment in progress.
[2019-05-04 17:05] LABS: BASO # 0.1 x10^3/uL (0.0-0.2); BASO % 1 % (0-3); EOS # 0.1 x10^3/uL (0.0-0.7); EOS % 1 % (0-3); HEMATOCRIT 39.1 % (36.0-47.0); HEMOGLOBIN 12.9 g/dL (12.0-15.5); LYMPH # 2.3 x10^3/uL (1.0-4.8); LYMPH % 23 % (24-48); MEAN CORPUSCULAR HEMOGLOBIN 29 pg (25-35); MEAN CORPUSCULAR HGB CONC 33 g/dL (31-37); MEAN CORPUSCULAR VOLUME 89 fL (79-100); MONO # 0.6 x10^3/uL (0.0-1.1); MONO % 6 % (0-9); NEUT # 6.9 x10^3uL (1.8-7.7); NEUT % 69 % (31-73); PLATELET COUNT 373 x10^3/uL (140-400); RED BLOOD COUNT 4.41 x10^6/uL (3.50-5.40); RED CELL DISTRIBUTION WIDTH 13.1 % (11.5-14.5)
[2019-05-04 17:27] LABS: ALBUMIN 3.7 g/dL (3.4-5.0); CALCIUM 9.3 mg/dL (8.5-10.1); CREATININE 0.8 mg/dL (0.6-1.0); GFR 86.7; POTASSIUM 3.9 mmol/L (3.5-5.1)
[2019-05-04] MEDS ORDERED: METOCLOPRAMIDE HCL 10 MG/2 ML VIAL. IV PRN (17:45)
[2019-05-04] MEDS: MORPHINE SULFATE 2 MG/ML VIAL. IV PRN (17:51)
[2019-05-04 19:00] VITALS: BP 106/69
--- NOTE | 2019-05-04 20:00 | NUR ---
patient frequently touching the sutures on her right chest, "the stitches are poking me in the face and neck." Site cleansed with Chrloraprep stick and bordered gauze applied.
[2019-05-04] MEDS ORDERED: diphenhydrAMINE HCL 25 MG CAPSULE PO SCH (21:00)
[2019-05-04] MEDS: DOCUSATE SODIUM 100 MG CAPSULE. PO SCH (21:30)
[2019-05-04] MEDS: ALPRAZolam 1 MG TABLET PO PRN (21:31)
[2019-05-04] MEDS: ZOLPIDEM 12.5 MG PO SCH (21:31)
--- NOTE | 2019-05-04 21:35 | NUR ---
Voided 25cc cloudy dark yellow urine. Sample to lab. MRSA sample sent earlier.
[2019-05-04 21:49] LABS: BILIRUBIN,URINE NEGATIVE (NEG); CLARITY,URINE CLOUDY; COLOR,URINE YELLOW; NITRITE,URINE NEGATIVE (NEG); PROTEIN,URINE NEGATIVE (NEG-TRACE); UROBILINOGEN,URINE 0.2 mg/dL (0.2 mg/dL)
[2019-05-04 21:58] LABS: SQUAMOUS EPITHELIAL CELL,UR MOD /LPF
[2019-05-04 21:59] LABS: AMORPHOUS SEDIMENT,UR PRESENT /HPF; BACTERIA,URINE FEW /HPF (0-FEW); RBC,URINE 0 /HPF (0-2); WBC,URINE RARE /HPF (0-4)
[2019-05-04 22:11] LABS: U PREG PATIENT NEGATIVE (NEG)
[2019-05-04 23:00] VITALS: BP 108/62
[2019-05-05] MEDS: MORPHINE SULFATE 2 MG/ML VIAL. IV PRN ×4 (01:46→20:41)
[2019-05-05] MEDS: PROCHLORPERAZINE 10 MG/2 ML VIAL. IV PRN ×4 (01:51→20:40)
[2019-05-05] MEDS: POTASSIUM CL 20MEQ-0.45% NACL 1,000 ML IV SCH ×3 (02:15→23:09)
[2019-05-05] MEDS: HYDROcodone/APAP 10/325 1 TAB TABLET PO PRN ×2 (05:32→11:42)
[2019-05-05 07:00] VITALS: BP 110/67
--- NOTE | 2019-05-05 07:48 | RAD ---
Left lower extremity venous ultrasound, 05/04/2019: History: Left leg swelling Duplex evaluation including grayscale, color flow and spectral Doppler analysis was performed. The femoral and popliteal veins show no filling defects to suggest DVT. The visualized calf veins are unremarkable. IMPRESSION: There is no sonographic evidence of deep vein thrombosis in the left lower extremity Electronically signed by: Juan C Henry MD (05/05/2019 7:45 AM) [facility]
[2019-05-05] MEDS: DOCUSATE SODIUM 100 MG CAPSULE. PO SCH ×2 (08:11→20:41)
[2019-05-05] MEDS: MULTIVITAMIN with MINERAL TABLET. PO SCH (08:11)
--- NOTE | 2019-05-05 08:23 | RAD ---
Chest, 2 views, 05/04/2019: HISTORY: Fever Comparison is made to a study from 04/30/2019. A right Port-A-Cath extends into the inferior aspect of the superior vena cava. The heart size and pulmonary vascularity are normal. No pulmonary infiltrate is seen. There is no evidence of pleural fluid. IMPRESSION: No acute cardiopulmonary abnormality is detected. Electronically signed by: Juan C Henry MD (05/05/2019 8:19 AM) [facility]
--- NOTE | 2019-05-05 08:39 | PDOC ---
ELIZABETH PENG [employer]SEMBL[employer] 05/05/19 0839: SURGICAL PROGRESS NOTE Subjective poor appetite feels worse today nausea, ashley after lortab feels chills headache body aches Vital Signs Vital Signs Date Time Temp Pulse Resp B/P (MAP) Pulse Ox O2 Delivery O2 Flow Rate FiO2 05/05/19 08:13 92 Room Air 05/05/19 07:00 98.4 88 18 110/67 (81) 98.4 I&O Intake and Output 05/05/19 07:00 Intake Total 500 ml Output Total 25 ml Balance 475 ml Intake Oral 500 ml Output Urine Total 25 ml # Voids 3 General: Alert, Oriented X3, Cooperative, No acute distress HEENT: Other (port incision c/d/i) Abdomen: Soft, No tenderness Labs Laboratory Tests Test 05/04/19 16:45 05/04/19 21:35 White Blood Count 10.0 x10^3/uL (4.0-11.0) Red Blood Count 4.41 x10^6/uL (3.50-5.40) Hemoglobin 12.9 g/dL (12.0-15.5) Hematocrit 39.1 % (36.0-47.0) Mean Corpuscular Volume 89 fL (79-100) Mean Corpuscular Hemoglobin 29 pg (25-35) Mean Corpuscular Hemoglobin Concent 33 g/dL (31-37) Red Cell Distribution Width 13.1 % (11.5-14.5) Platelet Count 373 x10^3/uL (140-400) Neutrophils (%) (Auto) 69 % (31-73) Lymphocytes (%) (Auto) 23 % (24-48) Monocytes (%) (Auto) 6 % (0-9) Eosinophils (%) (Auto) 1 % (0-3) Basophils (%) (Auto) 1 % (0-3) Neutrophils # (Auto) 6.9 x10^3uL (1.8-7.7) Lymphocytes # (Auto) 2.3 x10^3/uL (1.0-4.8) Monocytes # (Auto) 0.6 x10^3/uL (0.0-1.1) Eosinophils # (Auto) 0.1 x10^3/uL (0.0-0.7) Basophils # (Auto) 0.1 x10^3/uL (0.0-0.2) Sodium Level 140 mmol/L (136-145) Potassium Level 3.9 mmol/L (3.5-5.1) Chloride Level 104 mmol/L (98-107) Carbon Dioxide Level 25 mmol/L (21-32) Anion Gap 11 (6-14) Blood Urea Nitrogen 10 mg/dL (7-20) Creatinine 0.8 mg/dL (0.6-1.0) Estimated GFR (Cockcroft-Gault) 86.7 Glucose Level 85 mg/dL (70-99) Calcium Level 9.3 mg/dL (8.5-10.1) Albumin 3.7 g/dL (3.4-5.0) Urine Collection Type Unknown Urine Color Yellow Urine Clarity Cloudy Urine pH 5.0 Urine Specific Lydia 1.025 Urine Protein Negative mg/dL (NEG-TRACE) Urine Glucose (UA) Negative mg/dL (NEG) Urine Ketones (Stick) Negative mg/dL (NEG) Urine Blood Negative (NEG) Urine Nitrite Negative (NEG) Urine Bilirubin Negative (NEG) Urine Urobilinogen Dipstick 0.2 mg/dL (0.2 mg/dL) Urine Leukocyte Esterase Negative (NEG) Urine RBC 0 /HPF (0-2) Urine WBC Rare /HPF (0-4) Urine Squamous Epithelial Cells Mod /LPF Urine Amorphous Sediment Present /HPF Urine Bacteria Few /HPF (0-FEW) Urine Mucus Mod /LPF Urine Test Negative (NEG) Laboratory Tests Test 05/04/19 16:45 05/04/19 21:35 White Blood Count 10.0 x10^3/uL (4.0-11.0) Red Blood Count 4.41 x10^6/uL (3.50-5.40) Hemoglobin 12.9 g/dL (12.0-15.5) Hematocrit 39.1 % (36.0-47.0) Mean Corpuscular Volume 89 fL (79-100) Mean Corpuscular Hemoglobin 29 pg (25-35) Mean Corpuscular Hemoglobin Concent 33 g/dL (31-37) Red Cell Distribution Width 13.1 % (11.5-14.5) Platelet Count 373 x10^3/uL (140-400) Neutrophils (%) (Auto) 69 % (31-73) Lymphocytes (%) (Auto) 23 % (24-48) Monocytes (%) (Auto) 6 % (0-9) Eosinophils (%) (Auto) 1 % (0-3) Basophils (%) (Auto) 1 % (0-3) Neutrophils # (Auto) 6.9 x10^3uL (1.8-7.7) Lymphocytes # (Auto) 2.3 x10^3/uL (1.0-4.8) Monocytes # (Auto) 0.6 x10^3/uL (0.0-1.1) Eosinophils # (Auto) 0.1 x10^3/uL (0.0-0.7) Basophils # (Auto) 0.1 x10^3/uL (0.0-0.2) Sodium Level 140 mmol/L (136-145) Potassium Level 3.9 mmol/L (3.5-5.1) Chloride Level 104 mmol/L (98-107) Carbon Dioxide Level 25 mmol/L (21-32) Anion Gap 11 (6-14) Blood Urea Nitrogen 10 mg/dL (7-20) Creatinine 0.8 mg/dL (0.6-1.0) Estimated GFR (Cockcroft-Gault) 86.7 Glucose Level 85 mg/dL (70-99) Calcium Level 9.3 mg/dL (8.5-10.1) Albumin 3.7 g/dL (3.4-5.0) Urine Collection Type Unknown Urine Color Yellow Urine Clarity Cloudy Urine pH 5.0 Urine Specific Lydia 1.025 Urine Protein Negative mg/dL (NEG-TRACE) Urine Glucose (UA) Negative mg/dL (NEG) Urine Ketones (Stick) Negative mg/dL (NEG) Urine Blood Negative (NEG) Urine Nitrite Negative (NEG) Urine Bilirubin Negative (NEG) Urine Urobilinogen Dipstick 0.2 mg/dL (0.2 mg/dL) Urine Leukocyte Esterase Negative (NEG) Urine RBC 0 /HPF (0-2) Urine WBC Rare /HPF (0-4) Urine Squamous Epithelial Cells Mod /LPF Urine Amorphous Sediment Present /HPF Urine Bacteria Few /HPF (0-FEW) Urine Mucus Mod /LPF Urine Test Negative (NEG) Problem List Problems Medical Problems: (1) Fever and chills Status: Acute (2) Intractable vomiting with nausea Status: Acute (3) Left upper extremity swelling Status: Acute (4) Swelling of left lower extremity Status: Acute Assessment/Plan imaging and labs stable observation HESHAM ADDISON MD 05/05/19 1103: SURGICAL PROGRESS NOTE Assessment/Plan pt seen asking if she could go home has tolerated some full liquids, afebrile see how lunch goes possible home today ELIZABETH PENG APRN May 05, 2019 08:39 HESHAM ADDISON MD May 05, 2019 11:03
--- NOTE | 2019-05-05 09:36 | RAD ---
Left upper extremity venous ultrasound, 05/04/2019: HISTORY: Arm swelling Duplex evaluation of the major veins in the left upper extremity was attempted including grayscale, color-flow and spectral Doppler analysis. Patent internal jugular, subclavian and axillary veins were visible. The basilic veins could not be adequately visualized due to their depth. Patent basilic, cephalic, radial and ulnar veins were visualized. IMPRESSION: No DVT was identified, although the basilic veins in the upper arm were not adequately visualized. Electronically signed by: Juan C Henry MD (05/05/2019 9:33 AM) [facility]
--- NOTE | 2019-05-05 10:31 | NUR ---
SW following for discharge planning. Discussed with RN, pt is from home with boyfriend. RN advised no SW needs at this time. SW will continue to follow.
--- NOTE | 2019-05-05 10:45 | PDOC ---
PROGRESS NOTES History of Present Illness History of Present Illness Assessment/Plan Assessment/Plan A/P: Intractable nausea and vomiting - primary reason for admission, unable to hold down food or meds. Will give compazine, reglan. She had a cardiac arrest in 2016 after zofran administration, will avoid this. Abdominal exam is benign. Fever and chills - will check blood, urine cultures, CXR. Monitor for further fever. tylenol prn. Will get IS. Surgery for dressing changes to wounds Left upper and lower extremity swelling - left arm could be due to her recent surgical procedure. Left leg concerning as she previously had a DVT there (traumatic), will get US to r/o thrombosis Morbid obesity - counseled on weight loss, exercise H/O LLE DVT - due to sports trauma playing soccer. WPW s/p ablation 2016 - successful. 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 Anxiety - cont xanax prn. Can have IV ativan prn Insomnia - as above. also on XR ambien morbid obesity, extreme FEN - General diet, ADAT PPX - SCDs, r/o DVT, ambulatory FULL CODE Inpatient for fever/chills and intractable nausea and vomiting. iv fluid support 05/05 still has persistent nausea 27 min pt exam, chart review, > 50% of time spent with exam, chart review, pt care coordination Vitals Vitals Vital Signs Date Time Temp Pulse Resp B/P (MAP) Pulse Ox O2 Delivery O2 Flow Rate FiO2 05/05/19 10:09 92 Room Air 05/05/19 07:00 98.4 88 18 110/67 (81) 98.4 Physical Exam General: Alert, Oriented X3, Cooperative, No acute distress Heart: Regular rate, Normal S1, Normal S2, No murmurs Lungs: Clear Abdomen: Soft, No tenderness Extremities: No clubbing, No cyanosis, No edema, Normal pulses, No tenderness/swelling Skin: Other (Left neck site tender, no redness, bilateral port sites clean, not red. Some bruising on left breast.) Labs LABS Left upper extremity venous ultrasound, 05/04/2019: HISTORY: Arm swelling Duplex evaluation of the major veins in the left upper extremity was attempted including grayscale, color-flow and spectral Doppler analysis. Patent internal jugular, subclavian and axillary veins were visible. The basilic veins could not be adequately visualized due to their depth. Patent basilic, cephalic, radial and ulnar veins were visualized. IMPRESSION: No DVT was identified, although the basilic veins in the upper arm were not adequately visualized. Electronically signed by: Juan C Henry MD (05/05/2019 9:33 AM) [facility] HISTORY: Fever Comparison is made to a study from 04/30/2019. A right Port-A-Cath extends into the inferior aspect of the superior vena cava. The heart size and pulmonary vascularity are normal. No pulmonary infiltrate is seen. There is no evidence of pleural fluid. IMPRESSION: No acute cardiopulmonary abnormality is detected. Electronically signed by: Juan C Henry MD (05/05/2019 8:19 AM) [facility] Laboratory Tests Test 05/04/19 16:45 05/04/19 21:35 White Blood Count 10.0 x10^3/uL (4.0-11.0) Red Blood Count 4.41 x10^6/uL (3.50-5.40) Hemoglobin 12.9 g/dL (12.0-15.5) Hematocrit 39.1 % (36.0-47.0) Mean Corpuscular Volume 89 fL (79-100) Mean Corpuscular Hemoglobin 29 pg (25-35) Mean Corpuscular Hemoglobin Concent 33 g/dL (31-37) Red Cell Distribution Width 13.1 % (11.5-14.5) Platelet Count 373 x10^3/uL (140-400) Neutrophils (%) (Auto) 69 % (31-73) Lymphocytes (%) (Auto) 23 % (24-48) Monocytes (%) (Auto) 6 % (0-9) Eosinophils (%) (Auto) 1 % (0-3) Basophils (%) (Auto) 1 % (0-3) Neutrophils # (Auto) 6.9 x10^3uL (1.8-7.7) Lymphocytes # (Auto) 2.3 x10^3/uL (1.0-4.8) Monocytes # (Auto) 0.6 x10^3/uL (0.0-1.1) Eosinophils # (Auto) 0.1 x10^3/uL (0.0-0.7) Basophils # (Auto) 0.1 x10^3/uL (0.0-0.2) Sodium Level 140 mmol/L (136-145) Potassium Level 3.9 mmol/L (3.5-5.1) Chloride Level 104 mmol/L (98-107) Carbon Dioxide Level 25 mmol/L (21-32) Anion Gap 11 (6-14) Blood Urea Nitrogen 10 mg/dL (7-20) Creatinine 0.8 mg/dL (0.6-1.0) Estimated GFR (Cockcroft-Gault) 86.7 Glucose Level 85 mg/dL (70-99) Calcium Level 9.3 mg/dL (8.5-10.1) Albumin 3.7 g/dL (3.4-5.0) Urine Collection Type Unknown Urine Color Yellow Urine Clarity Cloudy Urine pH 5.0 Urine Specific [place] 1.025 Urine Protein Negative mg/dL (NEG-TRACE) Urine Glucose (UA) Negative mg/dL (NEG) Urine Ketones (Stick) Negative mg/dL (NEG) Urine Blood Negative (NEG) Urine Nitrite Negative (NEG) Urine Bilirubin Negative (NEG) Urine Urobilinogen Dipstick 0.2 mg/dL (0.2 mg/dL) Urine Leukocyte Esterase Negative (NEG) Urine RBC 0 /HPF (0-2) Urine WBC Rare /HPF (0-4) Urine Squamous Epithelial Cells Mod /LPF Urine Amorphous Sediment Present /HPF Urine Bacteria Few /HPF (0-FEW) Urine Mucus Mod /LPF Urine Test Negative (NEG) Assessment and Plan Assessmemt and Plan Problems Medical Problems: (1) Fever and chills Status: Acute (2) Intractable vomiting with nausea Status: Acute (3) Left upper extremity swelling Status: Acute (4) Swelling of left lower extremity Status: Acute Comment Review of Relevant I have reviewed the following items lady (where applicable) has been applied. Labs Laboratory Tests Test 05/04/19 16:45 05/04/19 21:35 White Blood Count 10.0 x10^3/uL (4.0-11.0) Red Blood Count 4.41 x10^6/uL (3.50-5.40) Hemoglobin 12.9 g/dL (12.0-15.5) Hematocrit 39.1 % (36.0-47.0) Mean Corpuscular Volume 89 fL (79-100) Mean Corpuscular Hemoglobin 29 pg (25-35) Mean Corpuscular Hemoglobin Concent 33 g/dL (31-37) Red Cell Distribution Width 13.1 % (11.5-14.5) Platelet Count 373 x10^3/uL (140-400) Neutrophils (%) (Auto) 69 % (31-73) Lymphocytes (%) (Auto) 23 % (24-48) Monocytes (%) (Auto) 6 % (0-9) Eosinophils (%) (Auto) 1 % (0-3) Basophils (%) (Auto) 1 % (0-3) Neutrophils # (Auto) 6.9 x10^3uL (1.8-7.7) Lymphocytes # (Auto) 2.3 x10^3/uL (1.0-4.8) Monocytes # (Auto) 0.6 x10^3/uL (0.0-1.1) Eosinophils # (Auto) 0.1 x10^3/uL (0.0-0.7) Basophils # (Auto) 0.1 x10^3/uL (0.0-0.2) Sodium Level 140 mmol/L (136-145) Potassium Level 3.9 mmol/L (3.5-5.1) Chloride Level 104 mmol/L (98-107) Carbon Dioxide Level 25 mmol/L (21-32) Anion Gap 11 (6-14) Blood Urea Nitrogen 10 mg/dL (7-20) Creatinine 0.8 mg/dL (0.6-1.0) Estimated GFR (Cockcroft-Gault) 86.7 Glucose Level 85 mg/dL (70-99) Calcium Level 9.3 mg/dL (8.5-10.1) Albumin 3.7 g/dL (3.4-5.0) Urine Collection Type Unknown Urine Color Yellow Urine Clarity Cloudy Urine pH 5.0 Urine Specific [place] 1.025 Urine Protein Negative mg/dL (NEG-TRACE) Urine Glucose (UA) Negative mg/dL (NEG) Urine Ketones (Stick) Negative mg/dL (NEG) Urine Blood Negative (NEG) Urine Nitrite Negative (NEG) Urine Bilirubin Negative (NEG) Urine Urobilinogen Dipstick 0.2 mg/dL (0.2 mg/dL) Urine Leukocyte Esterase Negative (NEG) Urine RBC 0 /HPF (0-2) Urine WBC Rare /HPF (0-4) Urine Squamous Epithelial Cells Mod /LPF Urine Amorphous Sediment Present /HPF Urine Bacteria Few /HPF (0-FEW) Urine Mucus Mod /LPF Urine Test Negative (NEG) Laboratory Tests Test 05/04/19 16:45 05/04/19 21:35 White Blood Count 10.0 x10^3/uL (4.0-11.0) Red Blood Count 4.41 x10^6/uL (3.50-5.40) Hemoglobin 12.9 g/dL (12.0-15.5) Hematocrit 39.1 % (36.0-47.0) Mean Corpuscular Volume 89 fL (79-100) Mean Corpuscular Hemoglobin 29 pg (25-35) Mean Corpuscular Hemoglobin Concent 33 g/dL (31-37) Red Cell Distribution Width 13.1 % (11.5-14.5) Platelet Count 373 x10^3/uL (140-400) Neutrophils (%) (Auto) 69 % (31-73) Lymphocytes (%) (Auto) 23 % (24-48) Monocytes (%) (Auto) 6 % (0-9) Eosinophils (%) (Auto) 1 % (0-3) Basophils (%) (Auto) 1 % (0-3) Neutrophils # (Auto) 6.9 x10^3uL (1.8-7.7) Lymphocytes # (Auto) 2.3 x10^3/uL (1.0-4.8) Monocytes # (Auto) 0.6 x10^3/uL (0.0-1.1) Eosinophils # (Auto) 0.1 x10^3/uL (0.0-0.7) Basophils # (Auto) 0.1 x10^3/uL (0.0-0.2) Sodium Level 140 mmol/L (136-145) Potassium Level 3.9 mmol/L (3.5-5.1) Chloride Level 104 mmol/L (98-107) Carbon Dioxide Level 25 mmol/L (21-32) Anion Gap 11 (6-14) Blood Urea Nitrogen 10 mg/dL (7-20) Creatinine 0.8 mg/dL (0.6-1.0) Estimated GFR (Cockcroft-Gault) 86.7 Glucose Level 85 mg/dL (70-99) Calcium Level 9.3 mg/dL (8.5-10.1) Albumin 3.7 g/dL (3.4-5.0) Urine Collection Type Unknown Urine Color Yellow Urine Clarity Cloudy Urine pH 5.0 Urine Specific [place] 1.025 Urine Protein Negative mg/dL (NEG-TRACE) Urine Glucose (UA) Negative mg/dL (NEG) Urine Ketones (Stick) Negative mg/dL (NEG) Urine Blood Negative (NEG) Urine Nitrite Negative (NEG) Urine Bilirubin Negative (NEG) Urine Urobilinogen Dipstick 0.2 mg/dL (0.2 mg/dL) Urine Leukocyte Esterase Negative (NEG) Urine RBC 0 /HPF (0-2) Urine WBC Rare /HPF (0-4) Urine Squamous Epithelial Cells Mod /LPF Urine Amorphous Sediment Present /HPF Urine Bacteria Few /HPF (0-FEW) Urine Mucus Mod /LPF Urine Test Negative (NEG) Medications Current Medications Potassium Chloride/Sodium Chloride 1,000 ml @ 100 mls/hr Q10H IV Last administered on 05/05/19at 02:15; Start 05/04/19 at 16:15 Diphenhydramine HCl (Benadryl) 50 mg QHS PO ; Start 05/04/19 at 21:00; Stop 05/04/19 at 21:00; Status DC Docusate Sodium (Colace) 100 mg BID PO Last administered on 05/05/19at 08:11; Start 05/04/19 at 21:00 Acetaminophen/ Hydrocodone Bitart (Lortab 10/325) 1 tab PRN Q4HRS PRN PO PAIN Last administered on 05/05/19at 05:32; Start 05/04/19 at 16:15 Lorazepam (Ativan) 1 mg PRN Q6HRS PRN PO SEVERE ANXIETY; Start 05/04/19 at 16:15 Alprazolam (Xanax) 2 mg PRN BID PRN PO ANXIETY / AGITATION; Start 05/04/19 at 16:15; Stop 05/04/19 at 16:22; Status DC Multivitamins (Thera M Plus) 1 tab DAILY PO Last administered on 05/05/19at 08:11; Start 05/05/19 at 09:00 Zolpidem Tartrate (Ambien) 5 mg PRN QHS PRN PO INSOMNIA; Start 05/04/19 at 16:1 5; Stop 05/04/19 at 16:22; Status DC Promethazine HCl (Phenergan Supp) 25 mg PRN Q6HRS PRN NE NAUSEA/VOMITING; Start 05/04/19 at 16:15 Alprazolam (Xanax) 1 mg PRN TID PRN PO ANXIETY / AGITATION Last administered on 05/04/19at 21:31; Start 05/04/19 at 16:30 Zolpidem Tartrate (Ambien) 5 mg PRN QHS PRN PO INSOMNIA, MRX1; Start 05/04/19 at 16:30; Stop 05/04/19 at 16:31; Status DC Non-Formulary Medication 1 ea QHS PO Last administered on 05/04/19at 21:31; Start 05/04/19 at 21:00 Diphenhydramine HCl (Benadryl) 50 mg PRN Q6HRS PRN PO itching Last administered on 05/04/19at 17:51; Start 05/04/19 at 17:00 Prochlorperazine Edisylate (Compazine) 10 mg PRN Q6HRS PRN IV NAUSEA/VOMITING Last administered on 05/05/19at 08:12; Start 05/04/19 at 16:45 Morphine Sulfate (Morphine Sulfate) 2 mg PRN Q6HRS PRN IV PAIN Last administered on 05/05/19at 08:13; Start 05/04/19 at 17:30 Metoclopramide HCl (Reglan Vial) 10 mg PRN Q6HRS PRN IV NAUSEA/VOMITING; Start 05/04/19 at 17:45 Active Scripts Active Reported Stool Softener (Docusate Sodium) 100 Mg Capsule 100 Mg PO BID Hydrocodone-Apap 10-325 (Hydrocodone Bit/Acetaminophen) 1 Tab Tablet 1 Tab PO Q4-6HRS PRN LAST DOSE GIVEN: 3:20 pm so next dose at 7:20 pm as needed for pain Lidocaine-Prilocaine Cream (Lidocaine/Prilocaine) 30 Gm Cream..g. 1 Tawnya TP UD Multiple Vitamins (Multivitamin) 1 Each Tablet 1 Each PO DAILY Zolpidem Tartrate Er (Zolpidem Tartrate) 12.5 Mg Tab.mphase 12.5 Mg PO PRN QHS PRN Benadryl (Diphenhydramine Hcl) 25 Mg Capsule 2 Cap PO DAILY Lorazepam 1 Mg Tablet 1 Tab PO PRN PRN Alprazolam 2 Mg Tablet 1 Tab PO PRN BID PRN Vitals/I & O Vital Sign - Last 24 Hours 05/04/19 05/04/19 05/04/19 05/04/19 15:00 16:45 17:51 19:00 Temp 98.3 98.1 98.3 98.1 Pulse 110 97 Resp 18 18 B/P (MAP) 128/80 (96) 106/69 (81) Pulse Ox 96 96 66 O2 Delivery Room Air Room Air Room Air Room Air 05/04/19 05/05/19 05/05/19 05/05/19 23:00 01:46 02:02 02:20 Temp 98.0 98.0 98.0 98.0 Pulse 95 Resp 18 20 20 B/P (MAP) 108/62 (77) Pulse Ox 92 O2 Delivery Room Air Room Air 05/05/19 05/05/19 05/05/19 05/05/19 05:32 07:00 07:20 08:13 Temp 98.4 98.4 Pulse 88 Resp 16 18 B/P (MAP) 110/67 (81) Pulse Ox 94 92 92 O2 Delivery Room Air Room Air Room Air Room Air 05/05/19 10:09 Pulse Ox 92 O2 Delivery Room Air Intake and Output 05/04/19 05/04/19 05/05/19 15:00 23:00 07:00 Intake Total 500 ml Output Total 25 ml Balance 475 ml CAT CHRIS MD May 05, 2019 10:44
[2019-05-05 11:00] VITALS: BP 100/61
[2019-05-05 15:00] VITALS: BP 116/74
[2019-05-05] MEDS ORDERED: IV NORMAL SALINE 1000ML BAG 1,000 ML IV ONE (15:15)
--- NOTE | 2019-05-05 16:46 | RAD ---
CT of the abdomen and pelvis without contrast, 05/05/2019: HISTORY: Abdominal pain, history of appendiceal cancer Multidetector CT imaging was performed without oral or IV contrast as requested. Comparison is made to a study from 10/18/2015. The gallbladder is surgically absent. The unopacified liver shows no abnormality. No pancreatic abnormality is seen. The spleen is of normal size. The unopacified kidneys are unremarkable. No adrenal abnormality is detected. The abdominal aorta is of normal caliber. No abdominal or pelvic adenopathy is seen. Reportedly the patient has undergone a prior hysterectomy. There is a 5.3 cm pelvic mass on the left which is likely of ovarian origin. This may be a cyst, although an accurate CT number cannot be obtained on these scans due to streak artifacts. The bowel loops are not dilated. There are surgical sutures related to the cecum in this patient with a given history of appendiceal surgery. No free fluid or free air is evident in the abdomen or pelvis. IMPRESSION: 1. Left-sided pelvic mass which is probably of ovarian origin. Sonographic evaluation is suggested, although that may be compromised by the patient's size. 2. Otherwise no acute abdominal or pelvic abnormality is detected. PQRS Compliance Statement: One or more of the following individualized dose reduction techniques were utilized for this examination: 1. Automated exposure control 2. Adjustment of the mA and/or kV according to patient size 3. Use of iterative reconstruction technique Electronically signed by: Juan C Henry MD (05/05/2019 4:43 PM) [facility]
--- NOTE | 2019-05-05 16:55 | PDOC2 ---
GI CONSULT Reason For Consult: Intractable vomiting, h/o appendix cancer HPI: HPI: 28 y/o female admitted w/ n/v and fever. Ate a cheese sandwich and some fruit for lunch - tolerating this w/o vomiting. Last vomited yesterday. Still has some nausea but feels better overall. Reviewed surgery note - possible DC tod ay. Symptoms began Friday. Wasn't feeling well after neck mass (lipoma) excision and port repositioning on Friday. Otherwise denies precipitating events. Denies reflux/heartburn, dysphagia, hematemesis, abd pain, diarrhea, constipation, and weight loss. Hospitalist ordered CT A/P which is pending. We saw her in 2017 for n/v, abd cramping, and fever. Extensive records reviewed at that time. S/p cholecystectomy for biliary dyskinesia. 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 In 01/2017, she underwent laparoscopic robotic-assisted hysterectomy, bilateral salpingectomy, and right oophorectomy for dysfunctional uterine bleeding w/ post-operative complication of pelvic abscess requiring transvaginal drainage of seroma. Chronic intermittent issues w/ nausea, dyspepsia, abd pain (burnin g/cramping/bloating), blood-streaked stools, and subjective fever. EGD and colonoscopy path 12/2015 (Dr. Bishop): antral biopsy w/ reactive gastropathy (no H. pylori), and normal descending colon biopsy. EGD and colonoscopy 06/2016 (Dr. Parrish): normal except for internal hemorrhoids and prominent external hemorrhoidal vein. EGD, EUS, and colonoscopy 10/2016 (Dr. Garvin): normal EGD, normal pancreatobiliary exam, poor prep w/ solid stool (incomplete exam), and large internal hemorrhoids. SBS 10/2016: unremarkable. Abd US 10/2016: fatty liver, s/p cholecystectomy. Colonoscopy 12/2016 (Dr. Calhoun): granularity at appendiceal orifice (path w/o significant abnormalities). EGD 03/2017 (Dr. Calhoun): normal esophagus, bile-induced gastritis (no H. pylori or intestinal metaplasia), normal duodenum. 4 hour GES 04/2017: normal. Suggestions have been made to try Miralax, Metamucil, Levsin, and use wet wipes. SBS negative 04/2017. BRYCE negative 04/2017, Cortisol 4.1 at that time. She now reports EGD at [facility] ~6 months ago for hematemesis after swallowing a quarter doing a magic trick with her niece. EGD reportedly revealed an ulcer. She was advised to take Protonix. She didn't take it for long because she was uninsured. Now works at [employer] at [employer]. 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 s/p appendectomy, laparoscopic robotic-assisted hysterectomy, bilateral salpingectomy, right oophorectomy, transvaginal drainage of seroma, tonsillectomy, wisdom teeth extraction FH: Family History: Cancer, Other (adopted - biological father had colon cancer and biological mother had breast cancer) Social History: Smoke: No ALCOHOL: rare Drugs: None ROS: GEN: Denies fevers, chills, sweats HEENT: Denies blurred vision, sore throat CV: Denies chest pain RESP: Denies shortness of air, cough GI: Per HPI : Denies hematuria, dysuria ENDO: Denies weight changes NEURO: Denies confusion, dizziness MSK: Denies weakness, joint pain/swelling SKIN: Denies jaundice, pruritus Vitals: Vitals: Vital Signs Date Time Temp Pulse Resp B/P (MAP) Pulse Ox O2 Delivery O2 Flow Rate FiO2 05/05/19 15:00 98.4 101 18 116/74 (88) 96 Room Air 98.4 Labs: Labs: Laboratory Tests Test 05/04/19 16:45 05/04/19 19:50 05/04/19 21:35 White Blood Count 10.0 x10^3/uL (4.0-11.0) Red Blood Count 4.41 x10^6/uL (3.50-5.40) Hemoglobin 12.9 g/dL (12.0-15.5) Hematocrit 39.1 % (36.0-47.0) Mean Corpuscular Volume 89 fL (79-100) Mean Corpuscular Hemoglobin 29 pg (25-35) Mean Corpuscular Hemoglobin Concent 33 g/dL (31-37) Red Cell Distribution Width 13.1 % (11.5-14.5) Platelet Count 373 x10^3/uL (140-400) Neutrophils (%) (Auto) 69 % (31-73) Lymphocytes (%) (Auto) 23 % (24-48) Monocytes (%) (Auto) 6 % (0-9) Eosinophils (%) (Auto) 1 % (0-3) Basophils (%) (Auto) 1 % (0-3) Neutrophils # (Auto) 6.9 x10^3uL (1.8-7.7) Lymphocytes # (Auto) 2.3 x10^3/uL (1.0-4.8) Monocytes # (Auto) 0.6 x10^3/uL (0.0-1.1) Eosinophils # (Auto) 0.1 x10^3/uL (0.0-0.7) Basophils # (Auto) 0.1 x10^3/uL (0.0-0.2) Sodium Level 140 mmol/L (136-145) Potassium Level 3.9 mmol/L (3.5-5.1) Chloride Level 104 mmol/L (98-107) Carbon Dioxide Level 25 mmol/L (21-32) Anion Gap 11 (6-14) Blood Urea Nitrogen 10 mg/dL (7-20) Creatinine 0.8 mg/dL (0.6-1.0) Estimated GFR (Cockcroft-Gault) 86.7 Glucose Level 85 mg/dL (70-99) Calcium Level 9.3 mg/dL (8.5-10.1) Albumin 3.7 g/dL (3.4-5.0) Nasal Screen MRSA (PCR) Negative (Negative) Urine Collection Type Unknown Urine Color Yellow Urine Clarity Cloudy Urine pH 5.0 Urine Specific [place] 1.025 Urine Protein Negative mg/dL (NEG-TRACE) Urine Glucose (UA) Negative mg/dL (NEG) Urine Ketones (Stick) Negative mg/dL (NEG) Urine Blood Negative (NEG) Urine Nitrite Negative (NEG) Urine Bilirubin Negative (NEG) Urine Urobilinogen Dipstick 0.2 mg/dL (0.2 mg/dL) Urine Leukocyte Esterase Negative (NEG) Urine RBC 0 /HPF (0-2) Urine WBC Rare /HPF (0-4) Urine Squamous Epithelial Cells Mod /LPF Urine Amorphous Sediment Present /HPF Urine Bacteria Few /HPF (0-FEW) Urine Mucus Mod /LPF Urine Test Negative (NEG) Allergies: Coded Allergies: Fish Containing Products (Verified Allergy, Severe, Anaphylaxis, 05/05/19) Iodinated Contrast- Oral and IV Dye (Verified Allergy, Severe, Hives, 04/30/19) difficulty breathing and throat swelling the second time she had iv contrast per patient latex (Verified Allergy, Severe, Anaphylaxis, 04/30/19) ondansetron (Verified Allergy, Severe, Anaphylaxis, 04/30/19) shellfish derived (Verified Allergy, Severe, Anaphylaxis, 05/05/19) coconut (Verified Allergy, Intermediate, Hives, 05/05/19) fentanyl (Verified Allergy, Intermediate, ITCHY, 04/30/19) ketorolac (Verified Allergy, Intermediate, Hives, 04/30/19) morphine (Verified Allergy, Intermediate, "I JUST DON'T LIKE IT,IT MAKES ME FEEL LIKE I'M GOING TO , 04/30/19) tramadol (Verified Allergy, Intermediate, 04/30/19) Medications: Current Medications Medications (Trade) Dose Ordered Sig/Lyndsey Route PRN Reason Start Time Stop Time Status Last Admin Dose Admin Docusate Sodium (Colace) 100 mg BID PO 05/04/19 21:00 05/05/19 08:11 Multivitamins (Thera M Plus) 1 tab DAILY PO 05/05/19 09:00 05/05/19 08:11 Non-Formulary Medication 1 ea QHS PO 05/04/19 21:00 05/04/19 21:31 Diphenhydramine HCl (Benadryl) 50 mg PRN Q6HRS PRN PO itching 05/04/19 17:00 05/04/19 17:51 Prochlorperazine Edisylate (Compazine) 10 mg PRN Q6HRS PRN IV NAUSEA/VOMITING 05/04/19 16:45 05/05/19 14:20 Morphine Sulfate (Morphine Sulfate) 2 mg PRN Q6HRS PRN IV PAIN 05/04/19 17:30 05/05/19 14:20 Imaging: Imaging: CXR 05/04 IMPRESSION: No acute cardiopulmonary abnormality is detected. LE US IMPRESSION: There is no sonographic evidence of deep vein thrombosis in the left lower extremity UE US IMPRESSION: No DVT was identified, although the basilic veins in the upper arm were not adequately visualized. PE: GEN: NAD HEENT: Atraumatic, PERRL LUNGS: CTAB HEART: RRR ABD: NABS, obese, soft, non-tender EXTREMITY: No edema SKIN: No rashes, no jaundice NEURO/PSYCH: A & O �3 A/P: A/P: Recent lipoma excision and port repositioning N/v, ?fever -- Chronic GI issues as above. ?possible discharge today Vomiting resolved, tolerating PO. Never had abd pain. Add PPI, ask for records from [facility], recheck Cortisol. Narcotics won't help nausea - avoid if possible. ALONDRA COTA May 05, 2019 16:55
[2019-05-05] MEDS: PANTOPRAZOLE 40 MG TABLET.DR. PO SCH (17:42)
[2019-05-05] MEDS: ALPRAZolam 1 MG TABLET PO PRN ×2 (17:42→20:41)
[2019-05-05 19:00] VITALS: BP 110/64
[2019-05-05] MEDS: ZOLPIDEM 12.5 MG PO SCH (20:53)
[2019-05-05 23:00] VITALS: BP 105/65
[2019-05-06] MEDS: PROCHLORPERAZINE 10 MG/2 ML VIAL. IV PRN (02:58)
[2019-05-06] MEDS: MORPHINE SULFATE 2 MG/ML VIAL. IV PRN (02:59)
[2019-05-06 03:00] VITALS: BP_SYST 100; BP_SYST 137; BP_DIAS 81; BP_DIAS 91
[2019-05-06 07:00] VITALS: BP 121/86
[2019-05-06] MEDS: POTASSIUM CL 20MEQ-0.45% NACL 1,000 ML IV SCH (08:15)
[2019-05-06] MEDS: DOCUSATE SODIUM 100 MG CAPSULE. PO SCH (08:20)
[2019-05-06] MEDS: PANTOPRAZOLE 40 MG TABLET.DR. PO SCH (08:20)
[2019-05-06] MEDS: MULTIVITAMIN with MINERAL TABLET. PO SCH (08:20)
[2019-05-06] MEDS: ALPRAZolam 1 MG TABLET PO PRN (08:23)
[2019-05-06] MEDS: HYDROcodone/APAP 10/325 1 TAB TABLET PO PRN (08:24)
[2019-05-06] MEDS ORDERED: OXYC1TAB15 PO (08:36)
[2019-05-06] MEDS ORDERED: PROM25SU3 PR (08:36)
--- NOTE | 2019-05-06 08:39 | DISCH ---
DISCHARGE INSTRUCTIONS Condition on Discharge Condition on Discharge: Stable Activity After Discharge Activity Instructions for Disc: Activity as tolerated, Avoid exertion Lifting Instructions after Dis: No heavy lifting Driving Instructions after Dis: Do not drive today Diet after Discharge Diet after Discharge: GI Soft Wound Incision Care Wound/Incision Care: Ice to area for comfort, May get incision wet Other wound/incision instructi: ok to shower Contacting the after DC Call your doctor for: Concerns you may have Follow-Up Follow up with: Dr Polanco 1 week, call to schedule [phone] ELIZABETH PENG APRN May 06, 2019 08:39
--- NOTE | 2019-05-06 09:16 | PDOC ---
PROGRESS NOTES History of Present Illness History of Present Illness DISCHARGE DX Assessment/Plan A/P: Intractable nausea and vomiting - primary reason for admission, unable to hold down food or meds. Will give compazine, reglan. She had a cardiac arrest in 2016 after zofran administration, will avoid this. Abdominal exam is benign. Fever and chills - will check blood, urine cultures, CXR. Monitor for further fever. tylenol prn. Will get IS. Surgery for dressing changes to wounds Left upper and lower extremity swelling - left arm could be due to her recent surgical procedure. Left leg concerning as she previously had a DVT there (traumatic), will get US to r/o thrombosis Morbid obesity - counseled on weight loss, exercise H/O LLE DVT - due to sports trauma playing soccer. WPW s/p ablation 2016 - successful. 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 Anxiety - cont xanax prn. Can have IV ativan prn Insomnia - as above. also on XR ambien morbid obesity, extreme 5.3 cm pelvic mass on the left which is likely of ovarian origin. This may be a cyst, although an accurate CT number cannot be obtained on these scans due to streak artifacts. 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 FEN - General diet, ADAT PPX - SCDs, r/o DVT, ambulatory FULL CODE Inpatient for fever/chills and intractable nausea and vomiting. iv fluid support 05/05 still has persistent nausea 28 min pt exam, chart review D/C PLANNING, > 50% of time spent with exam, chart review, pt care coordination Vitals Vitals Vital Signs Date Time Temp Pulse Resp B/P (MAP) Pulse Ox O2 Delivery O2 Flow Rate FiO2 05/06/19 08:24 97 Room Air 05/06/19 07:00 97.7 85 16 121/86 (98) 97.7 Physical Exam General: Alert, Oriented X3, Cooperative, No acute distress Heart: Regular rate, Normal S1, Normal S2, No murmurs Lungs: Clear Abdomen: Soft, No tenderness Extremities: No clubbing, No cyanosis, No edema, Normal pulses, No tenderness/swelling Skin: Other (Left neck site tender, no redness, bilateral port sites clean, not red. Some bruising on left breast.) Labs LABS PROCEDURE: CT ABDOMEN PELVIS WO CONTRAST CT of the abdomen and pelvis without contrast, 05/05/2019: HISTORY: Abdominal pain, history of appendiceal cancer Multidetector CT imaging was performed without oral or IV contrast as requested. Comparison is made to a study from 10/18/2015. The gallbladder is surgically absent. The unopacified liver shows no abnormality. No pancreatic abnormality is seen. The spleen is of normal size. The unopacified kidneys are unremarkable. No adrenal abnormality is detected. The abdominal aorta is of normal caliber. No abdominal or pelvic adenopathy is seen. Reportedly the patient has undergone a prior hysterectomy. There is a 5.3 cm pelvic mass on the left which is likely of ovarian origin. This may be a cyst, although an accurate CT number cannot be obtained on these scans due to streak artifacts. The bowel loops are not dilated. There are surgical sutures related to the cecum in this patient with a given history of appendiceal surgery. No free fluid or free air is evident in the abdomen or pelvis. IMPRESSION: 1. Left-sided pelvic mass which is probably of ovarian origin. Sonographic evaluation is suggested, although that may be compromised by the patient's size. 2. Otherwise no acute abdominal or pelvic abnormality is detected. PQRS Compliance Statement: One or more of the following individualized dose reduction techniques were utilized for this examination: 1. Automated exposure control 2. Adjustment of the mA and/or kV according to patient size 3. Use of iterative reconstruction technique Electronically signed by: Juan C Henry MD (05/05/2019 4:43 PM) [facility] Assessment and Plan Assessmemt and Plan Problems Medical Problems: (1) Fever and chills Status: Acute (2) Intractable vomiting with nausea Status: Acute (3) Left upper extremity swelling Status: Acute (4) Swelling of left lower extremity Status: Acute Comment Review of Relevant I have reviewed the following items lady (where applicable) has been applied. Labs Laboratory Tests Test 05/04/19 16:45 05/04/19 19:50 05/04/19 21:35 White Blood Count 10.0 x10^3/uL (4.0-11.0) Red Blood Count 4.41 x10^6/uL (3.50-5.40) Hemoglobin 12.9 g/dL (12.0-15.5) Hematocrit 39.1 % (36.0-47.0) Mean Corpuscular Volume 89 fL (79-100) Mean Corpuscular Hemoglobin 29 pg (25-35) Mean Corpuscular Hemoglobin Concent 33 g/dL (31-37) Red Cell Distribution Width 13.1 % (11.5-14.5) Platelet Count 373 x10^3/uL (140-400) Neutrophils (%) (Auto) 69 % (31-73) Lymphocytes (%) (Auto) 23 % (24-48) Monocytes (%) (Auto) 6 % (0-9) Eosinophils (%) (Auto) 1 % (0-3) Basophils (%) (Auto) 1 % (0-3) Neutrophils # (Auto) 6.9 x10^3uL (1.8-7.7) Lymphocytes # (Auto) 2.3 x10^3/uL (1.0-4.8) Monocytes # (Auto) 0.6 x10^3/uL (0.0-1.1) Eosinophils # (Auto) 0.1 x10^3/uL (0.0-0.7) Basophils # (Auto) 0.1 x10^3/uL (0.0-0.2) Sodium Level 140 mmol/L (136-145) Potassium Level 3.9 mmol/L (3.5-5.1) Chloride Level 104 mmol/L (98-107) Carbon Dioxide Level 25 mmol/L (21-32) Anion Gap 11 (6-14) Blood Urea Nitrogen 10 mg/dL (7-20) Creatinine 0.8 mg/dL (0.6-1.0) Estimated GFR (Cockcroft-Gault) 86.7 Glucose Level 85 mg/dL (70-99) Calcium Level 9.3 mg/dL (8.5-10.1) Albumin 3.7 g/dL (3.4-5.0) Nasal Screen MRSA (PCR) Negative (Negative) Urine Collection Type Unknown Urine Color Yellow Urine Clarity Cloudy Urine pH 5.0 Urine Specific [place] 1.025 Urine Protein Negative mg/dL (NEG-TRACE) Urine Glucose (UA) Negative mg/dL (NEG) Urine Ketones (Stick) Negative mg/dL (NEG) Urine Blood Negative (NEG) Urine Nitrite Negative (NEG) Urine Bilirubin Negative (NEG) Urine Urobilinogen Dipstick 0.2 mg/dL (0.2 mg/dL) Urine Leukocyte Esterase Negative (NEG) Urine RBC 0 /HPF (0-2) Urine WBC Rare /HPF (0-4) Urine Squamous Epithelial Cells Mod /LPF Urine Amorphous Sediment Present /HPF Urine Bacteria Few /HPF (0-FEW) Urine Mucus Mod /LPF Urine Test Negative (NEG) Microbiology 05/04/19 Blood Culture - Preliminary, Resulted NO GROWTH AFTER 1 DAY Medications Current Medications Potassium Chloride/Sodium Chloride 1,000 ml @ 100 mls/hr Q10H IV Last administered on 05/05/19at 23:09; Start 05/04/19 at 16:15 Diphenhydramine HCl (Benadryl) 50 mg QHS PO ; Start 05/04/19 at 21:00; Stop 05/04/19 at 21:00; Status DC Docusate Sodium (Colace) 100 mg BID PO Last administered on 05/06/19at 08:20; Start 05/04/19 at 21:00 Acetaminophen/ Hydrocodone Bitart (Lortab 10/325) 1 tab PRN Q4HRS PRN PO PAIN Last administered on 05/06/19at 08:24; Start 05/04/19 at 16:15 Lorazepam (Ativan) 1 mg PRN Q6HRS PRN PO SEVERE ANXIETY; Start 05/04/19 at 16:15 Alprazolam (Xanax) 2 mg PRN BID PRN PO ANXIETY / AGITATION; Start 05/04/19 at 16:15; Stop 05/04/19 at 16:22; Status DC Multivitamins (Thera M Plus) 1 tab DAILY PO Last administered on 05/06/19at 08:20; Start 05/05/19 at 09:00 Zolpidem Tartrate (Ambien) 5 mg PRN QHS PRN PO INSOMNIA; Start 05/04/19 at 16:15; Stop 05/04/19 at 16:22; Status DC Promethazine HCl (Phenergan Supp) 25 mg PRN Q6HRS PRN [place] NAUSEA/VOMITING; Start 05/04/19 at 16:15 Alprazolam (Xanax) 1 mg PRN TID PRN PO ANXIETY / AGITATION Last administered on 05/06/19at 08:23; Start 05/04/19 at 16:30 Zolpidem Tartrate (Ambien) 5 mg PRN QHS PRN PO INSOMNIA, MRX1; Start 05/04/19 at 16:30; Stop 05/04/19 at 16:31; Status DC Non-Formulary Medication 1 ea QHS PO Last administered on 05/05/19at 20:53; Start 05/04/19 at 21:00 Diphenhydramine HCl (Benadryl) 50 mg PRN Q6HRS PRN PO itching Last administered on 05/04/19at 17:51; Start 05/04/19 at 17:00 Prochlorperazine Edisylate (Compazine) 10 mg PRN Q6HRS PRN IV NAUSEA/VOMITING Last administered on 05/06/19at 02:58; Start 05/04/19 at 16:45 Morphine Sulfate (Morphine Sulfate) 2 mg PRN Q6HRS PRN IV PAIN Last administered on 05/06/19at 02:59; Start 05/04/19 at 17:30 Metoclopramide HCl (Reglan Vial) 10 mg PRN Q6HRS PRN IV NAUSEA/VOMITING; Start 05/04/19 at 17:45 Sodium Chloride 1,000 ml @ 100 mls/hr 1X ONCE IV ; Start 05/05/19 at 15:15; Stop 05/06/19 at 01:14; Status Cancel Pantoprazole Sodium (Protonix) 40 mg DAILYAC PO Last administered on 05/06/19at 08:20; Start 05/05/19 at 17:00 Active Scripts Active Percocet 5-325 Mg Tablet (Oxycodone/Acetaminophen) 1 Each Tablet 1 Tab PO PRN Q4HRS PRN Promethegan (Promethazine Hcl) 25 Mg Supp.rect 25 Mg [place] PRN Q6HRS PRN Reported Stool Softener (Docusate Sodium) 100 Mg Capsule 100 Mg PO BID Lidocaine-Prilocaine Cream (Lidocaine/Prilocaine) 30 Gm Cream..g. 1 Tawnya TP UD Multiple Vitamins (Multivitamin) 1 Each Tablet 1 Each PO DAILY Zolpidem Tartrate Er (Zolpidem Tartrate) 12.5 Mg Tab.mphase 12.5 Mg PO PRN QHS PRN Benadryl (Diphenhydramine Hcl) 25 Mg Capsule 2 Cap PO DAILY Lorazepam 1 Mg Tablet 1 Tab PO PRN PRN Alprazolam 2 Mg Tablet 1 Tab PO PRN BID PRN Vitals/I & O Vital Sign - Last 24 Hours 05/05/19 05/05/19 05/05/19 05/05/19 11:00 11:42 12:39 14:20 Temp 98.4 98.4 Pulse 91 Resp 18 B/P (MAP) 100/61 (74) Pulse Ox 95 95 95 95 O2 Delivery Room Air Room Air Room Air Room Air 05/05/19 05/05/19 05/05/19 05/05/19 15:00 19:00 20:00 20:41 Temp 98.4 98.9 98.4 98.9 Pulse 101 86 Resp 18 18 B/P (MAP) 116/74 (88) 110/64 (79) Pulse Ox 96 96 96 O2 Delivery Room Air Room Air Room Air Room Air 05/05/19 05/06/19 05/06/19 05/06/19 23:00 02:59 03:00 03:29 Temp 98.6 98.8 98.6 98.8 Pulse 101 84 Resp 18 18 B/P (MAP) 105/65 (78) 100/81 (87) Pulse Ox 96 96 97 97 O2 Delivery Room Air Room Air Room Air Room Air 05/06/19 05/06/19 07:00 08:24 Temp 97.7 97.7 Pulse 85 Resp 16 B/P (MAP) 121/86 (98) Pulse Ox 99 97 O2 Delivery Room Air Room Air CAT CHRIS MD May 06, 2019 09:16
--- NOTE | 2019-05-06 09:20 | NUR ---
Discharge Note: TREVON ALMAGUER LOGAN Discharge instructions and discharge home medications reviewed with Patient and a copy given. All questions have been answered and understanding verbalized. The following instructions and handouts were given: information about nausea and vomiting, follow up info. Discontinued lines and drains: IV line in right hand removed, catheter tip intact. Patient discharged to home with self care with , patient ambulated to discharge vehicle. [employer] got ambien and hydrocodone from pharmacy and returned to patient.
--- NOTE | 2019-05-06 09:24 | PDOC3 ---
Discharge Summary Date of Admission: May 04, 2019 Date of Discharge: May 06, 2019 Follow-Up: 3-5 days Admitting Diagnosis comment: DISCHARGE DX Assessment/Plan A/P: Intractable nausea and vomiting - primary reason for admission, unable to hold down food or meds. Will give compazine, reglan. She had a cardiac arrest in 2016 after zofran administration, will avoid this. Abdominal exam is benign. Fever and chills - will check blood, urine cultures, CXR. Monitor for further fever. tylenol prn. Will get IS. Surgery for dressing changes to wounds Left upper and lower extremity swelling - left arm could be due to her recent surgical procedure. Left leg concerning as she previously had a DVT there (traumatic), will get US to r/o thrombosis Morbid obesity - counseled on weight loss, exercise H/O LLE DVT - due to sports trauma playing soccer. WPW s/p ablation 2016 - successful. 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 Anxiety - cont xanax prn. Can have IV ativan prn Insomnia - as above. also on XR ambien morbid obesity, extreme 5.3 cm pelvic mass on the left which is likely of ovarian origin. This may be a cyst, although an accurate CT number cannot be obtained on these scans due to streak artifacts. 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 FEN - General diet, ADAT PPX - SCDs, r/o DVT, ambulatory FULL CODE Inpatient for fever/chills and intractable nausea and vomiting. iv fluid support 05/05 still has persistent nausea 28 min pt exam, chart review D/C PLANNING, > 50% of time spent with exam, chart review, pt care coordination Vitals Vitals Vital Signs Date Time Temp Pulse Resp B/P (MAP) Pulse Ox O2 Delivery O2 Flow Rate FiO2 05/06/19 08:24 97 Room Air 05/06/19 07:00 97.7 85 16 121/86 (98) 97.7 Physical Exam General: Alert, Oriented X3, Cooperative, No acute distress Heart: Regular rate, Normal S1, Normal S2, No murmurs Lungs: Clear Abdomen: Soft, No tenderness Extremities: No clubbing, No cyanosis, No edema, Normal pulses, No tenderness/swelling Skin: Other (Left neck site tender, no redness, bilateral port sites clean, not red. Some bruising on left breast.) Labs LABS PROCEDURE: CT ABDOMEN PELVIS WO CONTRAST CT of the abdomen and pelvis without contrast, 05/05/2019: HISTORY: Abdominal pain, history of appendiceal cancer Multidetector CT imaging was performed without oral or IV contrast as requested. Comparison is made to a study from 10/18/2015. The gallbladder is surgically absent. The unopacified liver shows no abnormality. No pancreatic abnormality is seen. The spleen is of normal size. The unopacified kidneys are unremarkable. No adrenal abnormality is detected. The abdominal aorta is of normal caliber. No abdominal or pelvic adenopathy is seen. Reportedly the patient has undergone a prior hysterectomy. There is a 5.3 cm pelvic mass on the left which is likely of ovarian origin. This may be a cyst, although an accurate CT number cannot be obtained on these scans due to streak artifacts. The bowel loops are not dilated. There are surgical sutures related to the cecum in this patient with a given history of appendiceal surgery. No free fluid or free air is evident in the abdomen or pelvis. IMPRESSION: 1. Left-sided pelvic mass which is probably of ovarian origin. Sonographic evaluation is suggested, although that may be compromised by the patient's size. 2. Otherwise no acute abdominal or pelvic abnormality is detected. FINAL DIAGNOSIS Problems Medical Problems: (1) Fever and chills Status: Acute (2) Intractable vomiting with nausea Status: Acute (3) Left upper extremity swelling Status: Acute (4) Swelling of left lower extremity Status: Acute Brief Hospital Course Ms. Shultz is a 28 old [sex] who presented with [NECK MASS, VOMITING, INTRACTABLE ] CONDITION AT DISCHARGE: Improved Discharge Medications Current Medications Potassium Chloride/Sodium Chloride 1,000 ml @ 100 mls/hr Q10H IV Last administered on 05/05/19at 23:09; Start 05/04/19 at 16:15 Diphenhydramine HCl (Benadryl) 50 mg QHS PO ; Start 05/04/19 at 21:00; Stop 05/04/19 at 21:00; Status DC Docusate Sodium (Colace) 100 mg BID PO Last administered on 05/06/19 08:20; Start 05/04/19 at 21:00 Acetaminophen/ Hydrocodone Bitart (Lortab 10/325) 1 tab PRN Q4HRS PRN PO PAIN Last administered on 05/06/19at 08:24; Start 05/04/19 at 16:15 Lorazepam (Ativan) 1 mg PRN Q6HRS PRN PO SEVERE ANXIETY; Start 05/04/19 at 16:15 Alprazolam (Xanax) 2 mg PRN BID PRN PO ANXIETY / AGITATION; Start 05/04/19 at 16:15; Stop 05/04/19 at 16:22; Status DC Multivitamins (Thera M Plus) 1 tab DAILY PO Last administered on 05/06/19 08:2 0; Start 05/05/19 at 09:00 Zolpidem Tartrate (Ambien) 5 mg PRN QHS PRN PO INSOMNIA; Start 05/04/19 at 16:15; Stop 05/04/19 at 16:22; Status DC Promethazine HCl (Phenergan Supp) 25 mg PRN Q6HRS PRN [place] NAUSEA/VOMITING; Start 05/04/19 at 16:15 Alprazolam (Xanax) 1 mg PRN TID PRN PO ANXIETY / AGITATION Last administered on 05/06/19at 08:23; Start 05/04/19 at 16:30 Zolpidem Tartrate (Ambien) 5 mg PRN QHS PRN PO INSOMNIA, MRX1; Start 05/04/19 at 16:30; Stop 05/04/19 at 16:31; Status DC Non-Formulary Medication 1 ea QHS PO Last administered on 05/05/19at 20:53; Start 05/04/19 at 21:00 Diphenhydramine HCl (Benadryl) 50 mg PRN Q6HRS PRN PO itching Last administered on 05/04/19at 17:51; Start 05/04/19 at 17:00 Prochlorperazine Edisylate (Compazine) 10 mg PRN Q6HRS PRN IV NAUSEA/VOMITING Last administered on 05/06/19at 02:58; Start 05/04/19 at 16:45 Morphine Sulfate (Morphine Sulfate) 2 mg PRN Q6HRS PRN IV PAIN Last administered on 05/06/19at 02:59; Start 05/04/19 at 17:30 Metoclopramide HCl (Reglan Vial) 10 mg PRN Q6HRS PRN IV NAUSEA/VOMITING; Start 05/04/19 at 17:45 Sodium Chloride 1,000 ml @ 100 mls/hr 1X ONCE IV ; Start 05/05/19 at 15:15; Stop 05/06/19 at 01:14; Status Cancel Pantoprazole Sodium (Protonix) 40 mg DAILYAC PO Last administered on 05/06/19at 08:20; Start 05/05/19 at 17:00 Active Scripts Active Percocet 5-325 Mg Tablet (Oxycodone/Acetaminophen) 1 Each Tablet 1 Tab PO PRN Q4HRS PRN Promethegan (Promethazine Hcl) 25 Mg Supp.rect 25 Mg [place] PRN Q6HRS PRN Reported Stool Softener (Docusate Sodium) 100 Mg Capsule 100 Mg PO BID Lidocaine-Prilocaine Cream (Lidocaine/Prilocaine) 30 Gm Cream..g. 1 [place] TP UD Multiple Vitamins (Multivitamin) 1 Each Tablet 1 Each PO DAILY Zolpidem Tartrate Er (Zolpidem Tartrate) 12.5 Mg Tab.mphase 12.5 Mg PO PRN QHS PRN Benadryl (Diphenhydramine Hcl) 25 Mg Capsule 2 Cap PO DAILY Lorazepam 1 Mg Tablet 1 Tab PO PRN PRN Alprazolam 2 Mg Tablet 1 Tab PO PRN BID PRN Vital Signs Vital Signs Date Time Temp Pulse Resp B/P (MAP) Pulse Ox O2 Delivery O2 Flow Rate FiO2 05/06/19 08:24 97 Room Air 05/06/19 07:00 97.7 85 16 121/86 (98) 97.7 Labs Laboratory Tests Test 05/04/19 16:45 05/04/19 19:50 05/04/19 21:35 White Blood Count 10.0 x10^3/uL (4.0-11.0) Red Blood Count 4.41 x10^6/uL (3.50-5.40) Hemoglobin 12.9 g/dL (12.0-15.5) Hematocrit 39.1 % (36.0-47.0) Mean Corpuscular Volume 89 fL (79-100) Mean Corpuscular Hemoglobin 29 pg (25-35) Mean Corpuscular Hemoglobin Concent 33 g/dL (31-37) Red Cell Distribution Width 13.1 % (11.5-14.5) Platelet Count 373 x10^3/uL (140-400) Neutrophils (%) (Auto) 69 % (31-73) Lymphocytes (%) (Auto) 23 % (24-48) Monocytes (%) (Auto) 6 % (0-9) Eosinophils (%) (Auto) 1 % (0-3) Basophils (%) (Auto) 1 % (0-3) Neutrophils # (Auto) 6.9 x10^3uL (1.8-7.7) Lymphocytes # (Auto) 2.3 x10^3/uL (1.0-4.8) Monocytes # (Auto) 0.6 x10^3/uL (0.0-1.1) Eosinophils # (Auto) 0.1 x10^3/uL (0.0-0.7) Basophils # (Auto) 0.1 x10^3/uL (0.0-0.2) Sodium Level 140 mmol/L (136-145) Potassium Level 3.9 mmol/L (3.5-5.1) Chloride Level 104 mmol/L (98-107) Carbon Dioxide Level 25 mmol/L (21-32) Anion Gap 11 (6-14) Blood Urea Nitrogen 10 mg/dL (7-20) Creatinine 0.8 mg/dL (0.6-1.0) Estimated GFR (Cockcroft-Gault) 86.7 Glucose Level 85 mg/dL (70-99) Calcium Level 9.3 mg/dL (8.5-10.1) Albumin 3.7 g/dL (3.4-5.0) Nasal Screen MRSA (PCR) Negative (Negative) Urine Collection Type Unknown Urine Color Yellow Urine Clarity Cloudy Urine pH 5.0 Urine Specific [place] 1.025 Urine Protein Negative mg/dL (NEG-TRACE) Urine Glucose (UA) Negative mg/dL (NEG) Urine Ketones (Stick) Negative mg/dL (NEG) Urine Blood Negative (NEG) Urine Nitrite Negative (NEG) Urine Bilirubin Negative (NEG) Urine Urobilinogen Dipstick 0.2 mg/dL (0.2 mg/dL) Urine Leukocyte Esterase Negative (NEG) Urine RBC 0 /HPF (0-2) Urine WBC Rare /HPF (0-4) Urine Squamous Epithelial Cells Mod /LPF Urine Amorphous Sediment Present /HPF Urine Bacteria Few /HPF (0-FEW) Urine Mucus Mod /LPF Urine Test Negative (NEG) Allergies Allergies Coded Allergies Type Severity Reaction Last Updated Verified Fish Containing Products Allergy Severe Anaphylaxis 05/05/19 Yes Iodinated Contrast- Oral and IV Dye Allergy Severe Hives 04/30/19 Yes latex Allergy Severe Anaphylaxis 04/30/19 Yes ondansetron Allergy Severe Anaphylaxis 04/30/19 Yes shellfish derived Allergy Severe Anaphylaxis 05/05/19 Yes coconut Allergy Intermediate Hives 05/05/19 Yes fentanyl Allergy Intermediate ITCHY 04/30/19 Yes ketorolac Allergy Intermediate Hives 04/30/19 Yes morphine Allergy Intermediate "I JUST DON'T LIKE IT,IT MAKES ME FEEL LIKE I'M GOING TO 04/30/19 Yes tramadol Allergy Intermediate 04/30/19 Yes Disposition/Orders: D/C to Home Patient Instructions D/C PLANNING 28 MIN CAT CHRIS MD May 06, 2019 09:24
== END 2019-05-06 09:20 | disposition home or self-care (01) | DRG 392 ==
LOC: 4 NORTH 14:50
PROVIDERS: ADMIT Surgery; ATTEND Surgery
DX: R11.2 Nausea with vomiting, unspecified (principal); Z68.43 Body mass index [BMI] 50.0-59.9, adult; E66.01 Morbid (severe) obesity due to excess calories; F41.9 Anxiety disorder, unspecified; J45.909 Unspecified asthma, uncomplicated; G47.00 Insomnia, unspecified; Z86.718 Personal history of other venous thrombosis and embolism; Z80.8 Family history of malignant neoplasm of other organs or systems; Z85.038 Personal history of other malignant neoplasm of large intestine; Z90.49 Acquired absence of other specified parts of digestive tract; Z90.710 Acquired absence of both cervix and uterus; Z80.3 Family history of malignant neoplasm of breast; Z80.0 Family history of malignant neoplasm of digestive organs; Z91.041 Radiographic dye allergy status; Z86.74 Personal history of sudden cardiac arrest; Z88.8 Allergy status to other drugs, medicaments and biological substances; Z88.6 Allergy status to analgesic agent; Z91.040 Latex allergy status; Z88.5 Allergy status to narcotic agent; Z91.013 Allergy to seafood; Z90.721 Acquired absence of ovaries, unilateral
CPT/HCPCS: 36415; 71046; 74176; 80048; 81001; 81025; 82040; 82533; 85025; 87040; 87641; 93971; G0238; J0780; J2270; Q0163

== ENCOUNTER 2019-07-20 14:33 | Emergency (ER) | payer OTHER ==
[~2019-07-20] VITALS: Ht 170.2 cm; Wt 147.0 kg
[~2019-07-20 14:33] MED LIST changes: +DICY10CA3 PO; +FURO40TA4 PO; +HYDR-2761 PO; +LOPE2CAP PO; +OXYC1TAB15 PO; +PANT40TA77 PO; +PRED-220 PO; +PROM25SU3 PR; +QUET25TA5 PO; +TRAZ-118 PO
[2019-07-20 16:48] LABS: BILIRUBIN,URINE NEGATIVE (NEG); CLARITY,URINE CLEAR; COLOR,URINE YELLOW; NITRITE,URINE NEGATIVE (NEG); PROTEIN,URINE NEGATIVE (NEG-TRACE); UROBILINOGEN,URINE 0.2 mg/dL (0.2 mg/dL)
[2019-07-20 16:49] LABS: BACTERIA,URINE FEW /HPF (0-FEW); RBC,URINE 0 /HPF (0-2); SQUAMOUS EPITHELIAL CELL,UR MANY /LPF; WBC,URINE OCC /HPF (0-4)
[2019-07-20] MEDS: diphenhydrAMINE 50 MG/ML VIAL IVP ONE ×2 (16:57→17:20)
[2019-07-20 16:58] LABS: BASO # 0.1 x10^3/uL (0.0-0.2); BASO % 1 % (0-3); EOS # 0.2 x10^3/uL (0.0-0.7); EOS % 2 % (0-3); HEMATOCRIT 31.7 % (36.0-47.0); HEMOGLOBIN 10.7 g/dL (12.0-15.5); LYMPH % 15 % (24-48); MEAN CORPUSCULAR HEMOGLOBIN 30 pg (25-35); MEAN CORPUSCULAR HGB CONC 34 g/dL (31-37); MEAN CORPUSCULAR VOLUME 89 fL (79-100); MONO # 0.8 x10^3/uL (0.0-1.1); MONO % 6 % (0-9); NEUT # 9.8 x10^3/uL (1.8-7.7); NEUT % 76 % (31-73); PLATELET COUNT 385 x10^3/uL (140-400); RED BLOOD COUNT 3.57 x10^6/uL (3.50-5.40); RED CELL DISTRIBUTION WIDTH 13.2 % (11.5-14.5); WHITE BLOOD COUNT 12.8 x10^3/uL (4.0-11.0)
[2019-07-20] MEDS: PROCHLORPERAZINE 10 MG/2 ML VIAL. IV ONE (16:58)
[2019-07-20] MEDS: MORPHINE SULFATE 4 MG/ML VIAL. IV ONE (16:58)
[2019-07-20 17:09] LABS: PROTHROMBIN TIME PATIENT 13.4 SEC (11.7-14.0)
[2019-07-20 17:11] LABS: CALCIUM 8.8 mg/dL (8.5-10.1); CREATININE 1.3 mg/dL (0.6-1.0); GFR 49.1; POTASSIUM 3.9 mmol/L (3.5-5.1)
[2019-07-20 17:17] LABS: ALBUMIN 3.2 g/dL (3.4-5.0); ALBUMIN/GLOBULIN RATIO 0.8 (1.0-1.7); MAGNESIUM 1.7 mg/dL (1.8-2.4); TOTAL BILIRUBIN 0.2 mg/dL (0.2-1.0); TOTAL PROTEIN 7.3 g/dL (6.4-8.2)
[2019-07-20 17:25] LABS: CREATINE KINASE 42 U/L (26-192)
[2019-07-20 17:53] VITALS: BP 120/56
--- NOTE | 2019-07-20 17:54 | PHYS DOC ---
Past Medical History Past Medical History: Anxiety, Cancer (appendix), Migraines, Renal Failure (acute 06/2019), Other Additional Past Medical Histor: WPW,Seizure, appendocele ca, sepsis 06/2019, gastritis, oliguria, insomnia, Past Medical History BRACCA carrier, thyroid mass Past Surgical History: Appendectomy, Cholecystectomy, Hysterectomy, Tonsillectomy, Other Additional Past Surgical Histo: Rt.knee repair acl/mcl, cardiac ablation, breast reduction, portacath Past Surgical History portacath removal Alcohol Use: None Drug Use: None Social History Narrative: lives with Adult General Chief Complaint Chief Complaint: FLANK PAIN HPI HPI Patient is a 29 year old obese female who presents to the emergency department with complaints of decreased urine output for the last 2 days. Patient states th e last time she voided normally was on Friday. She states she has only voided small amounts since then. She also complains of mid to low back pain and bilateral flank pain with nausea and vomiting �3 today. She denies any diarrhea, she reports her last bowel movement was today and normal for herself. Patient denies any chest pain, shortness of breath, or lower extremity swelling. She does complain of a rapid heart rate at this time. She denies any shortness of breath or coughing, she also denies any dizziness or headache. Currently, she rates the discomfort in her back a 10 out of 10 on pain scale, there are no alleviating or exacerbating factors. Patient states she was admitted here for 20 days last month after being diagnosed with sepsis that they thought was from her Port-A-Cath. Patient states that her Port-A-Cath was removed during that stay. Patient states she last had a fever on Friday of 102.4, she has not had a fever since then. Review of Systems Review of Systems Constitutional: see HPI Eyes: Denies change in visual acuity, redness, or eye pain [] HENT: Denies nasal congestion or sore throat [] Respiratory: Denies cough or shortness of breath [] Cardiovascular: No additional information not addressed in HPI [] GI: see HPI : Denies dysuria or hematuria; see HPI[] Musculoskeletal: Denies joint pain; see HPI Integument: Denies rash or skin lesions [] Neurologic: Denies headache, focal weakness or sensory changes [] Endocrine: Denies polyuria or polydipsia [] Complete systems were reviewed and found to be within normal limits, except as documented in this note. Current Medications Current Medications Current Medications Medications (Trade) Dose Ordered Sig/Lyndsey Start Time Stop Time Status Last Admin Dose Admin Diphenhydramine HCl (Benadryl) 25 mg 1X ONCE 07/20/19 17:15 07/20/19 17:17 DC 07/20/19 17:20 25 MG Morphine Sulfate (Morphine Sulfate) 4 mg 1X ONCE 07/20/19 15:45 07/20/19 15:51 DC 07/20/19 17:07 4 MG Prochlorperazine Edisylate (Compazine) 10 mg 1X ONCE 07/20/19 15:45 07/20/19 15:46 DC 07/20/19 17:07 10 MG Allergies Allergies Allergies Coded Allergies Type Severity Reaction Last Updated Verified Fish Containing Products Allergy Severe Anaphylaxis 05/05/19 Yes Iodinated Contrast Media Allergy Severe Hives 04/30/19 Yes latex Allergy Severe Anaphylaxis 04/30/19 Yes ondansetron Allergy Severe Anaphylaxis 04/30/19 Yes shellfish derived Allergy Severe Anaphylaxis 05/05/19 Yes coconut Allergy Intermediate Hives 05/05/19 Yes fentanyl Allergy Intermediate ITCHY 04/30/19 Yes ketorolac Allergy Intermediate Hives 04/30/19 Yes morphine Allergy Intermediate "I JUST DON'T LIKE IT,IT MAKES ME FEEL LIKE I'M GOING TO 04/30/19 Yes tramadol Allergy Intermediate 04/30/19 Yes Physical Exam Physical Exam Constitutional: Well developed, well nourished, no acute distress, non-toxic appearance, obese. [] HENT: Normocephalic, atraumatic, bilateral external ears normal, oropharynx moist, no oral exudates, nose normal. [] Eyes: PERRLA, EOMI, conjunctiva normal, no discharge. [] Neck: Normal range of motion, no stridor. [] Cardiovascular:Heart rate regular tachycardic rhythm, no murmur [] Lungs & Thorax: Bilateral breath sounds clear to auscultation in all samayoa [] Abdomen: soft, no tenderness, no masses, no pulsatile masses. [] Skin: Warm, dry, no erythema, no rash. [] Back: No bony tenderness, Bilateral CVA tenderness. [] Extremities: No tenderness, no cyanosis, no clubbing, ROM intact, no edema. [] Neurologic: Alert and oriented X 3, no focal deficits noted. [] Psychologic: Affect normal, judgement normal, mood normal. [] Current Patient Data Vital Signs Vital Signs Date Time Temp Pulse Resp B/P (MAP) Pulse Ox O2 Delivery O2 Flow Rate FiO2 07/20/19 17:53 102 16 120/56 (77) 98 Room Air 07/20/19 15:05 98.4 98.4 Lab Values Laboratory Tests Test 07/20/19 16:00 07/20/19 16:45 Urine Collection Type Unknown Urine Color Yellow Urine Clarity Clear Urine pH 5.0 Urine Specific [place] 1.010 Urine Protein Negative mg/dL (NEG-TRACE) Urine Glucose (UA) Negative mg/dL (NEG) Urine Ketones (Stick) Negative mg/dL (NEG) Urine Blood Negative (NEG) Urine Nitrite Negative (NEG) Urine Bilirubin Negative (NEG) Urine Urobilinogen Dipstick 0.2 mg/dL (0.2 mg/dL) Urine Leukocyte Esterase Negative (NEG) Urine RBC 0 /HPF (0-2) Urine WBC Occ /HPF (0-4) Urine Squamous Epithelial Cells Many /LPF Urine Bacteria Few /HPF (0-FEW) Urine Mucus Slight /LPF White Blood Count 12.8 x10^3/uL (4.0-11.0) H Red Blood Count 3.57 x10^6/uL (3.50-5.40) Hemoglobin 10.7 g/dL (12.0-15.5) L Hematocrit 31.7 % (36.0-47.0) L Mean Corpuscular Volume 89 fL (79-100) Mean Corpuscular Hemoglobin 30 pg (25-35) Mean Corpuscular Hemoglobin Concent 34 g/dL (31-37) Red Cell Distribution Width 13.2 % (11.5-14.5) Platelet Count 385 x10^3/uL (140-400) Neutrophils (%) (Auto) 76 % (31-73) H Lymphocytes (%) (Auto) 15 % (24-48) L Monocytes (%) (Auto) 6 % (0-9) Eosinophils (%) (Auto) 2 % (0-3) Basophils (%) (Auto) 1 % (0-3) Neutrophils # (Auto) 9.8 x10^3/uL (1.8-7.7) H Lymphocytes # (Auto) 2.0 x10^3/uL (1.0-4.8) Monocytes # (Auto) 0.8 x10^3/uL (0.0-1.1) Eosinophils # (Auto) 0.2 x10^3/uL (0.0-0.7) Basophils # (Auto) 0.1 x10^3/uL (0.0-0.2) Prothrombin Time 13.4 SEC (11.7-14.0) Prothrombin Time INR 1.1 (0.8-1.1) Activated Partial Thromboplast Time 28 SEC (24-38) Sodium Level 142 mmol/L (136-145) Potassium Level 3.9 mmol/L (3.5-5.1) Chloride Level 106 mmol/L (98-107) Carbon Dioxide Level 24 mmol/L (21-32) Anion Gap 12 (6-14) Blood Urea Nitrogen 13 mg/dL (7-20) Creatinine 1.3 mg/dL (0.6-1.0) H Estimated GFR (Cockcroft-Gault) 49.1 BUN/Creatinine Ratio 10 (6-20) Glucose Level 126 mg/dL (70-99) H Lactic Acid Level 1.9 mmol/L (0.4-2.0) Calcium Level 8.8 mg/dL (8.5-10.1) Magnesium Level 1.7 mg/dL (1.8-2.4) L Total Bilirubin 0.2 mg/dL (0.2-1.0) Aspartate Amino Transferase (AST) 19 U/L (15-37) Alanine Aminotransferase (ALT) 21 U/L (14-59) Alkaline Phosphatase 85 U/L (46-116) Creatine Kinase 42 U/L (26-192) Creatine Kinase MB (Mass) < 0.5 ng/mL (0.0-3.6) Creatine Kinase MB Relative Index % (0-4) Troponin I Quantitative < 0.017 ng/mL (0.000-0.055) IY-Uvu-[id number]-Type Natriuretic Peptide 198 pg/mL (0-124) H Total Protein 7.3 g/dL (6.4-8.2) Albumin 3.2 g/dL (3.4-5.0) L Albumin/Globulin Ratio 0.8 (1.0-1.7) L Laboratory Tests 07/20/19 16:45 Laboratory Tests 07/20/19 16:45 EKG EKG 1522- ST rate 112, nonspecific T-wave changes, no STEMI, read by Dr. Hess. [] Radiology/Procedures Radiology/Procedures [] Course & Med Decision Making Course & Med Decision Making Pertinent Labs and Imaging studies reviewed. (See chart for details) dx: decreased urine output, feared condition not demonstrated. 1740- Spoke with patient's PCP Dr. Hi, advised of continued anemia, improving Geospatial Extractor Analysis, normal BUN, normal UA, and negative cardiac work-up. Per Dr. Hi d/c patient to home and advise her to follow up w/urology as planned, see him in the office if needed. Pt was given 50 mg of benadryl, 4 mg or morphine, and 10 mg of compazine in the ER. Her pain improved some and her nausea went away. Pt was advised of lab results and encouraged to take home medications as prescribed and advised to follow up with urology as planned and Dr. Hi as needed. Return to ER if symptoms worsen. Patient verbalized an understanding of home care, medications, follow-up, and return to ED instructions and was in agreement with the plan of care. [] Dragon Disclaimer Dragon Disclaimer This electronic medical record was generated, in whole or in part, using a voice recognition dictation system. Departure Departure Impression: Primary Impression: Decreased urine output Additional Impression: Feared condition not demonstrated Disposition: 01 HOME, SELF-CARE Condition: STABLE Referrals: CARY HI MD (PCP) Patient Instructions: Normal Exam in Emergency Department Additional Instructions: Your Creatinine is 1.3 today which is better than when you were recently discharged. There was no infection present in your urine. Follow up with urology as planned. Your results were shared with Dr. Hi. Return to the ER as needed. Problem Qualifiers SOO SALDANA DRY STARCH SUPERVISOR Jul 20, 2019 17:54
--- NOTE | 2019-07-20 18:36 | EKG ---
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
== END 2019-07-20 18:12 | disposition home or self-care (01) ==
LOC: ER 14:33
DX: R39.12 Poor urinary stream (principal); M54.5 Low back pain; R10.9 Unspecified abdominal pain; R11.2 Nausea with vomiting, unspecified; R00.0 Tachycardia, unspecified; F41.9 Anxiety disorder, unspecified; G43.909 Migraine, unspecified, not intractable, without status migrainosus; Z90.89 Acquired absence of other organs; Z90.49 Acquired absence of other specified parts of digestive tract; Z90.710 Acquired absence of both cervix and uterus; Z88.5 Allergy status to narcotic agent; Z91.041 Radiographic dye allergy status; Z91.013 Allergy to seafood; Z91.018 Allergy to other foods; Z88.8 Allergy status to other drugs, medicaments and biological substances
CPT/HCPCS: 36415; 80053; 81001; 82553; 83605; 83735; 83880; 84484; 85025; 85610; 85730; 93005; 96374; 96375; 99285; J0780; J1200; J2270

== ENCOUNTER 2019-07-29 10:00 | Day surgery (SDC) | payer OTHER ==
[~2019-07-29] VITALS: Ht 167.6 cm; Wt 151.5 kg
[~2019-07-29 10:00] MED LIST changes: -ALBE200T2 PO; -BENZ200C47 PO; -CYCL10TA2 PO; -ESCITALOPRAM OX10 MG PO; -FLUT16SP NS; -HYDR-3164 PO; +IV RINGERS,LACTATED 1000ML 1,000 ML IV SCH; +LIDOCAINE 1% PF 2 ML VIAL. ID PRN; -LIDOCAINE 1%/EPI 1:100,000 20 ML VIAL. ONE; -LIDOCAINE 2% PF 5 ML VIAL. ONE; -METH4TAB6 PO; -ONDANSETRON PF 4 MG/2 ML VIAL. ONE; -PROC10TA57 PO; +PROCHLORPERAZINE 10 MG/2 ML VIAL. IV PRN; -PROPOFOL 50 ML IV ONE; -RACEPINEPHRINE 2.25% 0.5 ML NEBU. ONE; -diphenhydrAMINE 50 MG/ML VIAL ONE
[2019-07-29 10:26] VITALS: BP 121/88
[2019-07-29] MEDS ORDERED: PROPOFOL 40 ML IV ONE (10:58)
[2019-07-29] MEDS ORDERED: MIDAZOLAM HCL/PF 2 MG/2 ML VIAL. ONE (10:58)
[2019-07-29 11:04] LABS: BASO % 1 % (0-3); EOS # 0.1 x10^3/uL (0.0-0.7); EOS % 2 % (0-3); HEMATOCRIT 34.5 % (36.0-47.0); HEMOGLOBIN 11.5 g/dL (12.0-15.5); LYMPH # 1.3 x10^3/uL (1.0-4.8); LYMPH % 18 % (24-48); MEAN CORPUSCULAR HEMOGLOBIN 30 pg (25-35); MEAN CORPUSCULAR HGB CONC 33 g/dL (31-37); MEAN CORPUSCULAR VOLUME 88 fL (79-100); MONO # 0.5 x10^3/uL (0.0-1.1); MONO % 7 % (0-9); NEUT # 5.1 x10^3/uL (1.8-7.7); NEUT % 73 % (31-73); PLATELET COUNT 293 x10^3/uL (140-400); RED CELL DISTRIBUTION WIDTH 13.2 % (11.5-14.5)
[2019-07-29 11:09] LABS: PROTHROMBIN TIME PATIENT 13.8 SEC (11.7-14.0)
[2019-07-29 11:22] LABS: CALCIUM 10.1 mg/dL (8.5-10.1); CREATININE 1.1 mg/dL (0.6-1.0); GFR 59.6
[2019-07-29] MEDS ORDERED: BENZ200C47 PO (11:50)
[2019-07-29] MEDS ORDERED: METH4TAB6 PO (11:50)
[2019-07-29] MEDS ORDERED: ESCITALOPRAM OX10 MG PO (11:50)
[2019-07-29] MEDS ORDERED: CYCL10TA2 PO (11:50)
[2019-07-29] MEDS ORDERED: FLUT16SP NS (11:50)
[2019-07-29] MEDS ORDERED: diphenhydrAMINE 50 MG/ML VIAL ONE (12:35)
[2019-07-29] MEDS ORDERED: RACEPINEPHRINE 2.25% 0.5 ML NEBU. NEB ONE (12:45)
[2019-07-29] MEDS ORDERED: diphenhydrAMINE 50 MG/ML VIAL IVP ONE (12:45)
[2019-07-29] MEDS ORDERED: DEXAMETHASONE SOD PHOS 4 MG/ML VIAL ONE ×3 (12:49→12:51)
[2019-07-29] MEDS ORDERED: DEXAMETHASONE SOD PHOS 20 MG/5 ML VIAL. ONE (12:51)
[2019-07-29] MEDS ORDERED: DEXAMETHASONE SOD PHOS 20 MG/5 ML VIAL. IV ONE ×2 (13:00→13:15)
[2019-07-29 13:09] VITALS: BP 150/77
--- NOTE | 2019-07-30 16:15 | RAD ---
Procedure: Ultrasound and fluoroscopically guided placement of right internal jugular power port.. 07/30/2019 2:12 PM Clinical Indication: Need for long-term central venous access Sedation: Provided by the anesthesia department. Fluoroscopy time: 0.3 minutes Dose area product: 6Gycm2 Consent: The procedure was explained in its entirety to the patient or the patients designated sales representative electric service by a member of the treatment team, including a discussion of the risks, benefits and commonly accepted alternatives to the procedure, as well as the expected consequences of no therapy whatsoever. Discussion of the risks included, but was not limited to, those that are most frequent and those that are rare but possibly severe or life-threatening, as well as the possibility of unforeseen complications. Technique and Findings: All elements of maximal sterile barrier technique including the use of a cap, mask, sterile gown, sterile gloves, large sterile sheet, appropriate hand hygiene, and 2% chlorhexidine for cutaneous antisepsis (or acceptable alternative antiseptic per current guidelines) were followed for this procedure. Following informed consent, and a timeout procedure, the patient was prepped and draped in the usual sterile fashion. Ultrasound interrogation of the right neck revealed patency and compressibility of the right internal jugular vein. A 21-gauge micropuncture was then used to gain access to this vein under ultrasound guidance. A hard copy ultrasound image was recorded. The needle was exchanged over a wire for a sheath. A 1 inch incision was made several centimeters inferior to the venotomy site. A catheter was tunneled from this site dermatotomy site in the neck. Catheter was advanced through peel-away sheath such that its tip was in the proximal right atrium with the patient supine. The catheter was trimmed to length and connected to the port reservoir. The port was found to flush and aspirate normally. The wound was closed in layers using 4-0 Vicryl suture. Sterile dressings were applied. Impression: Successful ultrasound and fluoroscopically guided placement of a right internal jugular PowerPort
== END 2019-07-29 13:24 | disposition home or self-care (01) ==
LOC: SURG 10:00
PROVIDERS: ATTEND Anesthesiology
DX: Z45.2 Encounter for adjustment and management of vascular access device (principal); I87.8 Other specified disorders of veins
CPT/HCPCS: 36415; 36561; 76937; 77001; 80048; 85025; 85610; C1751; C1892; J0696; J0780; J1100; J1200; J2250; J2704

== ENCOUNTER → 2019-07-29 | Outpatient (CLI) | payer OTHER ==
[~2019-07-29] MED LIST changes: +ALBE200T2 PO; +BENZ200C47 PO; +CYCL10TA2 PO; +ESCITALOPRAM OX10 MG PO; +FLUT16SP NS; +HYDR-3164 PO; +LIDOCAINE 1%/EPI 1:100,000 20 ML VIAL. ONE; +LIDOCAINE 2% PF 5 ML VIAL. ONE; +METH4TAB6 PO; +ONDANSETRON PF 4 MG/2 ML VIAL. ONE; +PROC10TA57 PO; +PROPOFOL 50 ML IV ONE; +RACEPINEPHRINE 2.25% 0.5 ML NEBU. ONE; +diphenhydrAMINE 50 MG/ML VIAL ONE
[2019-07-29 13:09] VITALS: BP 150/77
== END ==
LOC: INTRAD 11:02
PROVIDERS: ATTEND Family Medicine
DX: Z45.2 Encounter for adjustment and management of vascular access device (principal); Z53.9 Procedure and treatment not carried out, unspecified reason
CPT/HCPCS: J2001; J2704

== ENCOUNTER 2019-09-17 14:57 | Emergency (ER) | payer SELFPAY ==
[~2019-09-17] VITALS: Ht 167.6 cm; Wt 145.1 kg
[~2019-09-17 14:57] MED LIST changes: +BENZ200C47 PO; +CYCL10TA2 PO; +ESCITALOPRAM OX10 MG PO; +FLUT16SP NS; -IV RINGERS,LACTATED 1000ML 1,000 ML IV SCH; -LIDOCAINE 1% PF 2 ML VIAL. ID PRN; +METH4TAB6 PO; -PROCHLORPERAZINE 10 MG/2 ML VIAL. IV PRN
[2019-09-17 15:39] LABS: BILIRUBIN,URINE NEGATIVE (NEG); CLARITY,URINE CLEAR; COLOR,URINE YELLOW; NITRITE,URINE NEGATIVE (NEG); PROTEIN,URINE NEGATIVE (NEG-TRACE); UROBILINOGEN,URINE 0.2 mg/dL (0.2 mg/dL)
[2019-09-17 15:49] LABS: SQUAMOUS EPITHELIAL CELL,UR MANY /LPF
[2019-09-17 15:51] LABS: BACTERIA,URINE MODERATE /HPF (0-FEW); RBC,URINE 0 /HPF (0-2)
[2019-09-17 15:53] LABS: BARBITURATES NEG (NEG); BENZODIAZEPINES NEG (NEG); CANNABINOIDS NEG (NEG); COCAINE NEG (NEG); METHADONE NEG (NEG); OPIATES NEG (NEG); PHENCYCLIDINE NEG (NEG)
--- NOTE | 2019-09-17 15:53 | PHYS DOC ---
Past Medical History Past Medical History: Anxiety, Cancer, Migraines, Renal Failure, Other Additional Past Medical Histor: WPW,Seizure, appendocele ca, sepsis 06/2019, gastritis, oliguria, insomnia, Past Surgical History: Appendectomy, Cholecystectomy, Hysterectomy, Tonsillectomy, Other Additional Past Surgical Histo: Rt.knee repair acl/mcl, cardiac ablation, breast reduction, portacath Alcohol Use: None Drug Use: None Adult General Chief Complaint Chief Complaint: ABDOMINAL PAIN HPI HPI Patient is a 29 year old female who presents with 2 weeks ago was helping a friend that she's had a baby cleaning up the house. That been food left in a cup pot and when they got to the house maggots were everywhere. Patient states that she'll cleaning everything up. Patient states that she then began to notice in her stools and on her bedsheets worms. Patient asked he has pictures of these worms that she shown staph. Patient states one week ago she began having generalized abdominal pain and vomiting these worms up. She states she is not vomiting every time she eats or drinks but once or twice a day. Patient states that the pain will wrap around to her back at times. Patient states it feels like she's been "punched in the stomach". She rates her pain a 7 out of 10. Review of Systems Review of Systems GI: Worms in stool and vomit. Generalized abdominal pain, nausea, vomiting, denies bloody stools or diarrhea [] Integument: Bruising, red blotches to her legs. Denies rash or skin lesions [] All other systems were reviewed and found to be within normal limits, except as documented in this note. Current Medications Current Medications Current Medications Medications (Trade) Dose Ordered Sig/Lyndsey Start Time Stop Time Status Last Admin Dose Admin Acetaminophen/ Hydrocodone Bitart (Lortab 5/325) 1 tab 1X ONCE 09/17/19 18:00 09/17/19 18:01 DC 09/17/19 18:05 1 TAB Prochlorperazine Edisylate (Compazine) 10 mg 1X ONCE 09/17/19 17:15 09/17/19 17:17 DC 09/17/19 18:06 10 MG Sodium Chloride 1,000 ml @ 1,000 mls/hr 1X ONCE 09/17/19 18:00 09/17/19 18:59 09/17/19 18:05 1,000 MLS/HR Allergies Allergies Allergies Coded Allergies Type Severity Reaction Last Updated Verified Fish Containing Products Allergy Severe Anaphylaxis 05/05/19 Yes Iodinated Contrast Media Allergy Severe Hives 04/30/19 Yes latex Allergy Severe Anaphylaxis 04/30/19 Yes ondansetron Allergy Severe Anaphylaxis 04/30/19 Yes shellfish derived Allergy Severe Anaphylaxis 05/05/19 Yes coconut Allergy Intermediate Hives 05/05/19 Yes fentanyl Allergy Intermediate ITCHY 04/30/19 Yes ketorolac Allergy Intermediate Hives 04/30/19 Yes morphine Allergy Intermediate "I JUST DON'T LIKE IT,IT MAKES ME FEEL LIKE I'M GOING TO 04/30/19 Yes tramadol Allergy Intermediate 04/30/19 Yes Physical Exam Physical Exam Constitutional: Well developed, well nourished, no acute distress, non-toxic appearance. [] HENT: Normocephalic, atraumatic, bilateral external ears normal, oropharynx moist, no oral exudates, nose normal. [] Eyes: PERRLA, EOMI, conjunctiva normal, no discharge. [] Neck: Normal range of motion, no tenderness, supple, no stridor. [] Cardiovascular:Heart rate regular rhythm, no murmur [] Lungs & Thorax: Bilateral breath sounds clear to auscultation [] Abdomen: Bowel sounds normal, soft, no tenderness, no masses, no pulsatile masses. [] Skin: 2 bruises to the left upper thigh. Warm, dry, no erythema, no rash. [] Back: No tenderness, no CVA tenderness. [] Extremities: No tenderness, no cyanosis, no clubbing, ROM intact, no edema. [] Neurologic: Alert and oriented X 3, normal motor function, normal sensory function, no focal deficits noted. [] Psychologic: Affect normal, judgement normal, mood normal. [] Current Patient Data Vital Signs Vital Signs Date Time Temp Pulse Resp B/P (MAP) Pulse Ox O2 Delivery O2 Flow Rate FiO2 09/17/19 16:10 98.7 116 18 125/62 (83) 96 Room Air 98.7 Lab Values Laboratory Tests Test 09/17/19 15:22 09/17/19 16:55 09/17/19 17:53 Urine Collection Type Unknown Urine Color Yellow Urine Clarity Clear Urine pH 5.0 Urine Specific [place] 1.020 Urine Protein Negative mg/dL (NEG-TRACE) Urine Glucose (UA) Negative mg/dL (NEG) Urine Ketones (Stick) Negative mg/dL (NEG) Urine Blood Negative (NEG) Urine Nitrite Negative (NEG) Urine Bilirubin Negative (NEG) Urine Urobilinogen Dipstick 0.2 mg/dL (0.2 mg/dL) Urine Leukocyte Esterase Trace (NEG) Urine RBC 0 /HPF (0-2) Urine WBC 1-4 /HPF (0-4) Urine Squamous Epithelial Cells Many /LPF Urine Bacteria Moderate /HPF (0-FEW) Urine Mucus Mod /LPF Urine Opiates Screen Neg (NEG) Urine Methadone Screen Neg (NEG) Urine Barbiturates Neg (NEG) Urine Phencyclidine Screen Neg (NEG) Urine Amphetamine/Methamphetamine Neg (NEG) Urine Benzodiazepines Screen Neg (NEG) Urine Cocaine Screen Neg (NEG) Urine Cannabinoids Screen Neg (NEG) Urine Ethyl Alcohol Neg (NEG) White Blood Count 14.9 x10^3/uL (4.0-11.0) H Red Blood Count 4.08 x10^6/uL (3.50-5.40) Hemoglobin 11.8 g/dL (12.0-15.5) L Hematocrit 36.2 % (36.0-47.0) Mean Corpuscular Volume 89 fL (79-100) Mean Corpuscular Hemoglobin 29 pg (25-35) Mean Corpuscular Hemoglobin Concent 33 g/dL (31-37) Red Cell Distribution Width 13.0 % (11.5-14.5) Platelet Count 357 x10^3/uL (140-400) Neutrophils (%) (Auto) 79 % (31-73) H Lymphocytes (%) (Auto) 14 % (24-48) L Monocytes (%) (Auto) 5 % (0-9) Eosinophils (%) (Auto) 0 % (0-3) Basophils (%) (Auto) 1 % (0-3) Neutrophils # (Auto) 11.8 x10^3/uL (1.8-7.7) H Lymphocytes # (Auto) 2.1 x10^3/uL (1.0-4.8) Monocytes # (Auto) 0.8 x10^3/uL (0.0-1.1) Eosinophils # (Auto) 0.0 x10^3/uL (0.0-0.7) Basophils # (Auto) 0.2 x10^3/uL (0.0-0.2) Sodium Level 141 mmol/L (136-145) Potassium Level 3.7 mmol/L (3.5-5.1) Chloride Level 105 mmol/L (98-107) Carbon Dioxide Level 26 mmol/L (21-32) Anion Gap 10 (6-14) Blood Urea Nitrogen 9 mg/dL (7-20) Creatinine 0.9 mg/dL (0.6-1.0) Estimated GFR (Cockcroft-Gault) 75.1 BUN/Creatinine Ratio 10 (6-20) Glucose Level 95 mg/dL (70-99) Calcium Level 9.1 mg/dL (8.5-10.1) Total Bilirubin 0.4 mg/dL (0.2-1.0) Aspartate Amino Transferase (AST) 14 U/L (15-37) L Alanine Aminotransferase (ALT) 16 U/L (14-59) Alkaline Phosphatase 105 U/L (46-116) Total Protein 7.6 g/dL (6.4-8.2) Albumin 3.2 g/dL (3.4-5.0) L Albumin/Globulin Ratio 0.7 (1.0-1.7) L Lipase 151 U/L (73-393) Ethyl Alcohol Level < 3 mg/dL (0-10) Lactic Acid Level 1.4 mmol/L (0.4-2.0) Laboratory Tests 09/17/19 16:55 Laboratory Tests 09/17/19 16:55 EKG EKG [] Radiology/Procedures Radiology/Procedures [] Impressions: [facility] [address] [place], [place] [id number] IMAGING REPORT Signed PATIENT: BRITT ALMAGUER V ACCOUNT: [id number] : 1990 LOCATION: ER AGE: 29 SEX: F EXAM STATUS: REG ER ORD. PHYSICIAN: ORVILLE SANCHEZ APRN REASON: worms in stool, worms in vomit, abd pain PROCEDURE: CT ABDOMEN PELVIS WO CONTRAST CT abdomen pelvis without contrast dated 09/17/2019. No comparison available. Clinical data indication: Abdominal pain and vomiting. Worms in stool. TECHNIQUE: Contiguous axial imaging of the abdomen and pelvis performed without the administration of intravenous contrast. One or more of the following individualized dose reduction techniques were utilized for this examination: 1. Automated exposure control 2. Adjustment of the mA and/or kV according to patient size 3. Use of iterative reconstruction technique. FINDINGS: Limited images of lung bases are clear. Heart size within normal limits. No pleural or pericardial effusion. Solid abdominal viscera not well evaluated in the absence of contrast material. No apparent attenuation abnormality of the liver or spleen. Pancreas, adrenal glands and kidneys are unremarkable. No hydronephrosis. The gallbladder is surgically absent. Unopacified GI tract normal in caliber and contour. No focal bowel wall thickening. No inflammatory stranding in the mesentery. Appendix is surgically absent. No ascites or lymphadenopathy. Abdominal aorta normal in caliber. Images of pelvis show nondistended urinary bladder. The uterus is surgically absent. No free pelvic fluid or pelvic lymphadenopathy. Bone windows show no acute findings. IMPRESSION: 1. No acute abnormality of abdomen or pelvis. 2. Status post cholecystectomy, hysterectomy and appendectomy. Electronically signed by: Kannan Robertson MD (09/17/2019 5:35 PM) [facility] DICTATED and SIGNED BY: KANNAN ROBERTSON MD DATE: 09/17/19 1735 [facility] [address] [place] [address] IMAGING REPORT Signed PATIENT: BRITT ALMAGUER V ACCOUNT: [id number] : 1990 LOCATION: ER AGE: 29 SEX: F EXAM STATUS: REG ER ORD. PHYSICIAN: ORVILLE SANCHEZ APRN REASON: vomiting - waiting on preg test PROCEDURE: CHEST PA & LATERAL Two-view chest dated 09/17/2019. Comparison made to 07/13/2019. CLINICAL INDICATION: Vomiting. FINDINGS: PA and lateral views obtained. Heart and mediastinal contours are stable. Right-sided port in place, new from prior study. The previously described left-sided dialysis catheter has been removed. Lungs are clear. No consolidation or pleural effusion. No pneumothorax. IMPRESSION: No acute radiographic abnormality. Electronically signed by: Kannan Robertson MD (09/17/2019 5:40 PM) [facility] DICTATED and SIGNED BY: KANNAN ROBERTSON MD DATE: 09/17/19 047 Course & Med Decision Making Course & Med Decision Making Alert and oriented. Speaks in full clear sentences. Abdomen is soft and nontender. Patient states she's also noticed random bruising in blotches on her legs. Patient also had pictures of blotches that she saw her legs. There is no redness or blotching seemed to her legs bilaterally at this time. I have seen to bruises on her right upper thigh. Lungs are clear to auscultation all lobes. Vital signs within normal limits. Skin pink warm and dry. Ambulatory with a steady gait. No extremity edema. Patient denies chest pain, shortness of air, fever, recent illness, diarrhea, weakness, visual changes, headache, dizziness, numbness or tingling, dysuria, blood in her stools or vomit. During rectal exam there were no worms seen. Patient states the rectal itching is worse at night. Rectal Exam: Normal tone, No mass, Positive control Stool: Brown, no worms Tape Test: No worms seen Light test in a dark room: No worms seen Blood work is unremarkable. Patient's heart rate is in the 110's. Status the patient that she needs fluids because she's been vomiting for the last week and she is probably dehydrated. Patient states that she really needs to get home and she does not want the whole back of fluids it would take too long. Patient has agreed to have the bag of fluids and to drink fluids in the emergency room. Patient states she could just go home and drink a lot of fluids. I stated that you have been nauseated and throwing up and below to keep fluids down and she states yes. Patient agrees to have to bag of normal saline and drinking some fluid in the emergency room. We'll send her home with medication, pain medicine and nausea medicine. Patient is told she needs to follow up as soon as possible with her primary care physician. She agrees to this plan. Kenney Disclaimer Kenney Disclaimer This electronic medical record was generated, in whole or in part, using a voice recognition dictation system. Departure Departure Impression: Primary Impression: Pinworm infection Additional Impressions: Abdominal panniculus Nausea & vomiting Disposition: 01 HOME, SELF-CARE Condition: STABLE Referrals: CARY HI MD (PCP) Patient Instructions: Nausea and Vomiting, Pinworms Additional Instructions: Follow-up with her primary care provider. Take medications as prescribed. Wash hands frequently and all bedding as pinworms are contagious. Scripts Hydrocodone/Apap 5-325 (NORCO 5-325 TABLET) 1 Each Tablet 1 TAB PO PRN Q6HRS PRN for PAIN, #8 TAB 0 Refills Prov: ORVILLE SANCHEZ APRN 09/17/19 Prochlorperazine Maleate (Compazine) 10 Mg Tablet 1 TAB PO Q6HRS for 7 Days, #28 TAB 0 Refills Prov: ORVILLE SANCHEZ APRN 09/17/19 Albendazole (ALBENZA) 200 Mg Tablet 2 TAB PO ONCE for 2 Days, #4 TAB 0 Refills Take 400mg today and then 400mg in 2 weeks. Prov: ORVILLE SANCHEZ APRN 09/17/19 Problem Qualifiers Additional Impressions: Nausea & vomiting Vomiting type: unspecified Vomiting Intractability: non-intractable Qualified Codes: R11.2 - Nausea with vomiting, unspecified ORVILLE SANCHEZ APRN Sep 17, 2019 15:53
[2019-09-17 15:54] LABS: AMPHETAMINE/METHAMPHETAMINE NEG (NEG)
[2019-09-17] MEDS ORDERED: IV NORMAL SALINE 1000ML BAG 1,000 ML IV ONE ×2 (16:00→18:00)
[2019-09-17 17:06] LABS: BASO # 0.2 x10^3/uL (0.0-0.2); BASO % 1 % (0-3); EOS % 0 % (0-3); HEMATOCRIT 36.2 % (36.0-47.0); HEMOGLOBIN 11.8 g/dL (12.0-15.5); LYMPH # 2.1 x10^3/uL (1.0-4.8); LYMPH % 14 % (24-48); MEAN CORPUSCULAR HEMOGLOBIN 29 pg (25-35); MEAN CORPUSCULAR HGB CONC 33 g/dL (31-37); MEAN CORPUSCULAR VOLUME 89 fL (79-100); MONO # 0.8 x10^3/uL (0.0-1.1); MONO % 5 % (0-9); NEUT # 11.8 x10^3/uL (1.8-7.7); NEUT % 79 % (31-73); PLATELET COUNT 357 x10^3/uL (140-400); RED BLOOD COUNT 4.08 x10^6/uL (3.50-5.40); WHITE BLOOD COUNT 14.9 x10^3/uL (4.0-11.0)
[2019-09-17] MEDS ORDERED: PROCHLORPERAZINE 10 MG/2 ML VIAL. IM ONE (17:15)
[2019-09-17 17:21] LABS: CALCIUM 9.1 mg/dL (8.5-10.1); CREATININE 0.9 mg/dL (0.6-1.0); GFR 75.1; POTASSIUM 3.7 mmol/L (3.5-5.1)
[2019-09-17 17:28] LABS: ALBUMIN 3.2 g/dL (3.4-5.0); ALBUMIN/GLOBULIN RATIO 0.7 (1.0-1.7); TOTAL BILIRUBIN 0.4 mg/dL (0.2-1.0); TOTAL PROTEIN 7.6 g/dL (6.4-8.2)
--- NOTE | 2019-09-17 17:37 | RAD ---
CT abdomen pelvis without contrast dated 09/17/2019. No comparison available. Clinical data indication: Abdominal pain and vomiting. Worms in stool. TECHNIQUE: Contiguous axial imaging of the abdomen and pelvis performed without the administration of intravenous contrast. One or more of the following individualized dose reduction techniques were utilized for this examination: 1. Automated exposure control 2. Adjustment of the mA and/or kV according to patient size 3. Use of iterative reconstruction technique. FINDINGS: Limited images of lung bases are clear. Heart size within normal limits. No pleural or pericardial effusion. Solid abdominal viscera not well evaluated in the absence of contrast material. No apparent attenuation abnormality of the liver or spleen. Pancreas, adrenal glands and kidneys are unremarkable. No hydronephrosis. The gallbladder is surgically absent. Unopacified GI tract normal in caliber and contour. No focal bowel wall thickening. No inflammatory stranding in the mesentery. Appendix is surgically absent. No ascites or lymphadenopathy. Abdominal aorta normal in caliber. Images of pelvis show nondistended urinary bladder. The uterus is surgically absent. No free pelvic fluid or pelvic lymphadenopathy. Bone windows show no acute findings. IMPRESSION: 1. No acute abnormality of abdomen or pelvis. 2. Status post cholecystectomy, hysterectomy and appendectomy. Electronically signed by: Kannan Robertson MD (09/17/2019 5:35 PM) [facility]
--- NOTE | 2019-09-17 17:43 | RAD ---
Two-view chest dated 09/17/2019. Comparison made to 07/13/2019. CLINICAL INDICATION: Vomiting. FINDINGS: PA and lateral views obtained. Heart and mediastinal contours are stable. Right-sided port in place, new from prior study. The previously described left-sided dialysis catheter has been removed. Lungs are clear. No consolidation or pleural effusion. No pneumothorax. IMPRESSION: No acute radiographic abnormality. Electronically signed by: Kannan Robertson MD (09/17/2019 5:40 PM) [facility]
[2019-09-17 18:00] VITALS: BP 116/70
[2019-09-17] MEDS ORDERED: HYDROcodone/APAP 5/325MG 1 TAB TABLET PO ONE (18:00)
[2019-09-17] MEDS ORDERED: PROC10TA57 PO (18:45)
[2019-09-17] MEDS ORDERED: HYDR-3164 PO (18:45)
[2019-09-17] MEDS ORDERED: ALBE200T2 PO (18:45)
== END 2019-09-17 19:05 | disposition home or self-care (01) ==
LOC: ER 14:57
DX: S70.12XA Contusion of left thigh, initial encounter (principal); B80 Enterobiasis; E65 Localized adiposity; R11.2 Nausea with vomiting, unspecified; G43.909 Migraine, unspecified, not intractable, without status migrainosus; N19 Unspecified kidney failure; Z90.49 Acquired absence of other specified parts of digestive tract; Z90.89 Acquired absence of other organs; Z88.4 Allergy status to anesthetic agent; Z88.5 Allergy status to narcotic agent; Z88.6 Allergy status to analgesic agent; Z91.040 Latex allergy status; Z91.013 Allergy to seafood; Z91.041 Radiographic dye allergy status; Z91.018 Allergy to other foods; Z88.8 Allergy status to other drugs, medicaments and biological substances; X58.XXXA Exposure to other specified factors, initial encounter; Y93.89 Activity, other specified; Y92.89 Other specified places as the place of occurrence of the external cause; Y99.8 Other external cause status
CPT/HCPCS: 36415; 71046; 74176; 80053; 80307; 81001; 83605; 83690; 85025; 87086; 96360; 96361; 96372; 99285; G0480; J0780; J7030

== ENCOUNTER 2019-11-12 14:30 | Emergency (ER) | payer SELFPAY ==
[~2019-11-12] VITALS: Ht 167.6 cm; Wt 140.6 kg
[~2019-11-12 14:30] MED LIST changes: +ALBE200T2 PO; +HYDR-3164 PO; +PROC10TA57 PO
[2019-11-12 15:14] VITALS: BP 153/80
--- NOTE | 2019-11-12 15:41 | PHYS DOC ---
Past Medical History Past Medical History: Anxiety, Cancer, Migraines, Renal Failure, Other Additional Past Medical Histor: WPW,Seizure, appendocele ca, sepsis 06/2019, gastritis, oliguria, insomnia, Past Surgical History: Appendectomy, Cholecystectomy, Hysterectomy, Tonsillectomy, Other Additional Past Surgical Histo: Rt.knee repair acl/mcl, cardiac ablation, breast reduction, portacath Alcohol Use: None Drug Use: None Adult General Chief Complaint Chief Complaint: FLU SYMPTOM HPI HPI Patient is a 29 year old female who presents with 1 week of dry cough, nausea, fever, nasal congestion, throat pain, body aches, diarrhea. She states she's been taking ibuprofen, Tylenol and cold and flu. States she last took Tylenol 8:00 this morning, ibuprofen at 11:00. Patient states she did not get her flu shot. She is rating her overall discomfort and pain an 8 out of 10. Review of Systems Review of Systems Constitutional: fever or chills [] Eyes: Denies change in visual acuity, redness, or eye pain [] HENT: nasal congestion or sore throat [] Respiratory: cough or denies shortness of breath [] GI: Denies abdominal pain. + nausea, +vomiting, denies bloody stools or +diarrhea [] Musculoskeletal: Body aches Denies back pain or joint pain [] All other systems were reviewed and found to be within normal limits, except as documented in this note. Allergies Allergies Allergies Coded Allergies Type Severity Reaction Last Updated Verified Fish Containing Products Allergy Severe Anaphylaxis 05/05/19 Yes Iodinated Contrast Media Allergy Severe Hives 04/30/19 Yes latex Allergy Severe Anaphylaxis 04/30/19 Yes ondansetron Allergy Severe Anaphylaxis 04/30/19 Yes shellfish derived Allergy Severe Anaphylaxis 05/05/19 Yes coconut Allergy Intermediate Hives 05/05/19 Yes fentanyl Allergy Intermediate ITCHY 04/30/19 Yes ketorolac Allergy Intermediate Hives 04/30/19 Yes morphine Allergy Intermediate "I JUST DON'T LIKE IT,IT MAKES ME FEEL LIKE I'M GOING TO 04/30/19 Yes tramadol Allergy Intermediate 04/30/19 Yes Physical Exam Physical Exam Constitutional: Well developed, well nourished, no acute distress, non-toxic appearance. [] HENT: Normocephalic, atraumatic, bilateral external ears normal, oropharynx moist, no oral exudates, nose normal. Bilateral Tympanic redness. Throat red without swelling or exudates. [] Eyes: PERRLA, EOMI, conjunctiva normal, no discharge. [] Neck: Normal range of motion, no tenderness, supple, no stridor. [] Cardiovascular:Heart rate regular rhythm, no murmur [] Lungs & Thorax: Bilateral breath sounds clear to auscultation [] Abdomen: Bowel sounds normal, soft, no tenderness, no masses, no pulsatile masses. [] Skin: Warm, dry, no erythema, no rash. [] Back: No tenderness, no CVA tenderness. [] Extremities: No tenderness, no cyanosis, no clubbing, ROM intact, no edema. [] Neurologic: Alert and oriented X 3, normal motor function, normal sensory function, no focal deficits noted. [] Psychologic: Affect normal, judgement normal, mood normal. [] Current Patient Data Vital Signs Vital Signs Date Time Temp Pulse Resp B/P (MAP) Pulse Ox O2 Delivery O2 Flow Rate FiO2 11/12/19 15:14 98.2 115 16 153/80 (104) 97 Room Air 98.2 Lab Values Laboratory Tests Test 11/12/19 15:44 Influenza Type A Antigen Negative (NEGATIVE) Influenza Type B Antigen Negative (NEGATIVE) EKG EKG [] Radiology/Procedures Radiology/Procedures [] Impressions: [facility] [address] [place] [address] IMAGING REPORT Signed PATIENT: BRITT ALMAGUER V ACCOUNT: [id number] : 1990 LOCATION: ER AGE: 29 SEX: F EXAM STATUS: REG ER ORD. PHYSICIAN: ORVILLE SANCHEZ APRN REASON: Congestion and cough PROCEDURE: CHEST PA & LATERAL EXAM: CHEST 2 VIEWS. HISTORY: Cough and congestion. COMPARISON: 09/17/2019. FINDINGS: Frontal and lateral views of the chest are obtained. A right-sided port catheter has its tip in the superior cavoatrial junction. There are no confluent infiltrates. The right costophrenic angle is partially excluded, but no pneumothorax or pleural effusion is identified. The heart is not enlarged. Cholecystectomy clips are noted. IMPRESSION: 1. No confluent infiltrates. Electronically signed by: Arthur Issa MD (11/12/2019 3:57 PM) [facility] DICTATED and SIGNED BY: MARGARET ISSA MD DATE: 11/12/19 155 Course & Med Decision Making Course & Med Decision Making Vital signs within normal limits. Afebrile. Abdomen is soft and nontender. No CVA tenderness. Lungs are clear to auscultation all lobes. Postnasal drip is seen. Throat is reddened but there is no swelling or exudates. Bilateral tympanic some reddened. Patient states that she is coughing up green mucus and sometimes blood-tinged. No extremity edema. Alert and oriented. Ambulatory with steady gait. Speaks in full clear sentences. Skin pink warm and dry. Denies any Abdominal pain, chest pain, numbness or tingling, dizziness, syncope, headache, visual changes, dysuria, back pain, neck pain, shortness of breath. Denies recent antibiotics. States she has been using suppository nausea medication at home and states she has plenty of it, so she does not need any prescriptions. Dragon Disclaimer Dragon Disclaimer This electronic medical record was generated, in whole or in part, using a voice recognition dictation system. Departure Departure Impression: Primary Impression: Cough Additional Impressions: Nasal congestion Acute ear pain Fever Nausea Diarrhea Disposition: HOME, SELF-CARE Condition: STABLE Referrals: CARY HI MD (PCP) Patient Instructions: Upper Respiratory Infection, Adult Additional Instructions: Follow up with primary care provider. Drink plenty of fluids. Continue using using your nausea medication. Try immodium for any diarrhea. Scripts Amoxicillin (AMOXICILLIN) 500 Mg Capsule 1 CAP PO BID, #20 CAP Prov: ORVILLE SANCHEZ DOG BARBER 11/12/19 Methylprednisolone (MEDROL) 4 Mg Tab.ds.pk 1 PKG PO UD, #1 PKG Prov: ORVILLE SANCHEZ DOG BARBER 11/12/19 Problem Qualifiers Additional Impressions: Acute ear pain Laterality: bilateral Qualified Codes: H92.03 - Otalgia, bilateral Fever Fever type: unspecified Qualified Codes: R50.9 - Fever, unspecified Diarrhea Diarrhea type: unspecified type Qualified Codes: R19.7 - Diarrhea, unspecified ORVILLE SANCHEZ DOG BARBER Nov 12, 2019 15:41
--- NOTE | 2019-11-12 16:00 | RAD ---
EXAM: CHEST 2 VIEWS. HISTORY: Cough and congestion. COMPARISON: 09/17/2019. FINDINGS: Frontal and lateral views of the chest are obtained. A right-sided port catheter has its tip in the superior cavoatrial junction. There are no confluent infiltrates. The right costophrenic angle is partially excluded, but no pneumothorax or pleural effusion is identified. The heart is not enlarged. Cholecystectomy clips are noted. IMPRESSION: 1. No confluent infiltrates. Electronically signed by: Arthur Issa MD (11/12/2019 3:57 PM) [place] [id number]
[2019-11-12 16:46] LABS: INFLUENZA A PATIENT NEGATIVE (NEGATIVE); INFLUENZA B PATIENT NEGATIVE (NEGATIVE)
[2019-11-12] MEDS ORDERED: AMOX500C PO (16:51)
[2019-11-12] MEDS ORDERED: METH4TAB2 PO (16:51)
== END 2019-11-12 17:02 | disposition home or self-care (01) ==
LOC: ER 14:30
DX: H92.03 Otalgia, bilateral (principal); R11.2 Nausea with vomiting, unspecified; R19.7 Diarrhea, unspecified; R50.9 Fever, unspecified; R09.81 Nasal congestion; F41.9 Anxiety disorder, unspecified; G43.909 Migraine, unspecified, not intractable, without status migrainosus; N18.9 Chronic kidney disease, unspecified; Z90.49 Acquired absence of other specified parts of digestive tract; Z90.89 Acquired absence of other organs; Z90.710 Acquired absence of both cervix and uterus; Z98.890 Other specified postprocedural states; Z91.013 Allergy to seafood; Z88.6 Allergy status to analgesic agent; Z91.041 Radiographic dye allergy status; Z91.040 Latex allergy status; Z88.8 Allergy status to other drugs, medicaments and biological substances; Z91.018 Allergy to other foods
CPT/HCPCS: 71046; 87070; 87804; 87880; 99285

== ENCOUNTER 2020-10-06 17:25 | Emergency (ER) | payer SELFPAY ==
[~2020-10-06] VITALS: Ht 170.2 cm; Wt 143.1 kg
[~2020-10-06 17:25] MED LIST changes: +AMOX500C PO; +LORA2TAB89 PO; +METH4TAB2 PO; +PRAM0.12 PO; -PROM25SU3 PR; +PROM25SU4 PR; +PROM25TA10 PO; +QUET50TA PO; -ZOLP12.54 PO; +ZOLP12.56 PO
[2020-10-06] MEDS ORDERED: IV NORMAL SALINE 1000ML BAG 1,000 ML IV ONE (18:45)
--- NOTE | 2020-10-06 18:58 | PHYS DOC ---
Past Medical History Past Medical History: Anxiety, Cancer, Migraines, Renal Failure, Seizure, Other Additional Past Medical Histor: WPW, appendocele ca, sepsis 06/2019, gastritis, oliguria, insomnia Past Surgical History: Appendectomy, Cholecystectomy, Hysterectomy, Tonsillectomy, Other Additional Past Surgical Histo: Rt.knee repair acl/mcl, cardiac ablation, breast reduction, portacath Smoking Status: Never Smoker Alcohol Use: None Drug Use: None General Adult EDM: Chief Complaint: ABDOMINAL PAIN HPI: HPI: Patient is a 30 year old female who presents with RLQ abdominal pain that is 8/10 and radiates to LLQ. Pt swallowed a tooth pick over a week ago and and had EGD and laproscopic surgery last week. EGD noted ulceration. Laproscopy without acute finding. Pt reports throwing up blood twice this morning and has noticed tarry stools since yesterday. Pt reports nausea and a fever that resolved with Tylenol. Pt also reports a darker color in urine that started yesterday. Review of Systems: Review of Systems: Constitutional: Denies chills, endorses fever Eyes: Denies redness or eye pain HENT: Denies nasal congestion or sore throat Respiratory: Denies cough or shortness of breath Cardiovascular: Denies chest pain, endorses palpitations GI: Endorses abdominal pain, nausea, and vomiting : Denies dysuria, endorses darker color of urine Musculoskeletal: Denies back pain or joint pain Integument: Denies rash or skin lesions Neurologic: Denies headache, focal weakness or sensory changes Complete systems were reviewed and found to be within normal limits, except as documented in this note. Allergies: Allergies: Allergies Coded Allergies Type Severity Reaction Last Updated Verified Fish Containing Products Allergy Severe Anaphylaxis 09/27/20 Yes Iodinated Contrast Media Allergy Severe Hives 09/27/20 Yes latex Allergy Severe Anaphylaxis 09/27/20 Yes ondansetron Allergy Severe Anaphylaxis 09/27/20 Yes shellfish derived Allergy Severe Anaphylaxis 09/27/20 Yes coconut Allergy Intermediate Hives 09/27/20 Yes fentanyl Allergy Intermediate ITCHY 09/27/20 Yes ketorolac Allergy Intermediate Hives 09/27/20 Yes tramadol Allergy Intermediate 09/27/20 Yes Physical Exam: PE: Constitutional: Well developed, well nourished, no acute distress, non-toxic negrita earance, appears comfortable HENT: Normocephalic, atraumatic Eyes: Conjunctiva normal, no discharge Neck: Normal range of motion, no tenderness, supple Lungs & Thorax: No respiratory distress, equal chest rise and fall Abdomen: Soft, mildly tender to palpation in RLQ, BSx4, no masses or organomegaly, scars healing well from abdominal surgery Skin: Warm, dry, no erythema, no rash Back: No tenderness, no CVA tenderness Extremities: No tenderness, ROM intact, no edema Neurologic: Alert and oriented X 3, normal motor function, normal sensory function, no focal deficits noted Psychologic: Affect normal, judgment normal Current Patient Data: Vital Signs: Vital Signs Date Time Temp Pulse Resp B/P (MAP) Pulse Ox O2 Delivery O2 Flow Rate FiO2 10/06/20 18:16 98.5 131 20 157/85 (109) 97 Room Air 98.5 EKG: EKG: [] Radiology/Procedures: Radiology/Procedures: PROCEDURE: ACUTE ABDOMEN SERIES ACUTE ABDOMEN SERIES History: Reason: abdominal pain ER#16 / Spl. Instructions: / History: Technique: Upright and supine views the abdomen. Comparison: CT September 28, 2020 Findings: No consolidation or pleural effusion. Normal heart size. No pneumothorax. Right chest wall port, unchanged. No pneumoperitoneum. Surgical clips right upper quadrant. Mild small bowel gas. Air stool scattered throughout the imaged colon. Postop changes right lower abdomen. Linear calcifications projecting over the left gluteal region. Impression: 1. Nonobstructed bowel gas pattern Electronically signed by: Modesto Beaver DO (10/06/2020 9:45 PM) [facility] Course & Med Decision Making: Course & Med Decision Making Pertinent Labs and Imaging studies reviewed. (See chart for details) 30 yo female pt presents with abdominal pain that is 8/10 that has been getting worse since . Pt swallowed a toothpick over a week ago and had laproscopic surgery and no abnormalities were found. Labs obtained and posted. Abdominal series obtained and demonstrated changes consistent with recent abdominal surgery. Hydrocodone was prescribed for pain control. K-tracs report was obtained and no there were no recent opiate prescriptions. Patient stable for discharge with outpatient follow-up with PCP/GI. Discussed findings and plan with patient, who acknowledges understanding and agreement. Kenney Disclaimer: Kenney Disclaimer: This electronic medical record was generated, in whole or in part, using a voice recognition dictation system. Departure Departure Impression: Primary Impression: Abdominal pain Qualified Codes: R10.30 - Lower abdominal pain, unspecified Disposition: 01 DC HOME SELF CARE/HOMELESS Condition: STABLE Referrals: CARY HI MD (PCP) LALITO ZAVALA MD Patient Instructions: Abdominal Pain (Nonspecific) Scripts Metoclopramide Hcl (REGLAN) 10 Mg Tablet 1 TAB PO Q6HRS PRN for NAUSEA, #14 TAB 0 Refills Prov: JANIE MEJIA DO 10/06/20 Hydrocodone/Apap 5-325 (NORCO 5-325 TABLET) 1 Each Tablet 0.5-1 TAB PO PRN Q6HRS PRN for PAIN, #10 TAB 0 Refills Prov: JANIE MEJIA DO 10/06/20 JANIE MEJIA DO Oct 06, 2020 18:58
[2020-10-06] MEDS ORDERED: FAMOTIDINE 20 MG/2 ML VIAL IVP ONE (19:15)
[2020-10-06] MEDS ORDERED: MORPHINE SULFATE 4 MG/ML VIAL. IV ONE ×2 (19:15→21:15)
[2020-10-06] MEDS ORDERED: METOCLOPRAMIDE HCL 10 MG/2 ML VIAL. IVP ONE (19:15)
[2020-10-06 19:37] LABS: BASO # 0.1 x10^3/uL (0.0-0.2); BASO % 1 % (0-3); EOS # 0.1 x10^3/uL (0.0-0.7); EOS % 1 % (0-3); HEMATOCRIT 39.6 % (36.0-47.0); LYMPH # 2.6 x10^3/uL (1.0-4.8); LYMPH % 22 % (24-48); MEAN CORPUSCULAR HEMOGLOBIN 29 pg (25-35); MEAN CORPUSCULAR HGB CONC 33 g/dL (31-37); MEAN CORPUSCULAR VOLUME 88 fL (79-100); MONO # 0.9 x10^3/uL (0.0-1.1); MONO % 8 % (0-9); NEUT # 8.1 x10^3/uL (1.8-7.7); NEUT % 69 % (31-73); PLATELET COUNT 309 x10^3/uL (140-400); RED BLOOD COUNT 4.53 x10^6/uL (3.50-5.40); RED CELL DISTRIBUTION WIDTH 13.1 % (11.5-14.5); WHITE BLOOD COUNT 11.8 x10^3/uL (4.0-11.0)
[2020-10-06 19:50] LABS: CALCIUM 9.1 mg/dL (8.5-10.1); CREATININE 0.9 mg/dL (0.6-1.0); GFR 74.6; POTASSIUM 3.7 mmol/L (3.5-5.1)
[2020-10-06 19:56] LABS: ALBUMIN 3.5 g/dL (3.4-5.0); ALBUMIN/GLOBULIN RATIO 0.7 (1.0-1.7); MAGNESIUM 2.4 mg/dL (1.8-2.4); TOTAL BILIRUBIN 0.5 mg/dL (0.2-1.0); TOTAL PROTEIN 8.2 g/dL (6.4-8.2)
[2020-10-06 20:21] LABS: BILIRUBIN,URINE NEGATIVE (NEG); CLARITY,URINE CLOUDY; COLOR,URINE YELLOW; NITRITE,URINE NEGATIVE (NEG); PROTEIN,URINE NEGATIVE (NEG-TRACE)
[2020-10-06 20:27] LABS: BACTERIA,URINE MANY /HPF (0-FEW); RBC,URINE 0 /HPF (0-2)
--- NOTE | 2020-10-06 21:48 | RAD ---
ACUTE ABDOMEN SERIES History: Reason: abdominal pain ER#16 / Spl. Instructions: / History: Technique: Upright and supine views the abdomen. Comparison: CT September 28, 2020 Findings: No consolidation or pleural effusion. Normal heart size. No pneumothorax. Right chest wall port, unchanged. No pneumoperitoneum. Surgical clips right upper quadrant. Mild small bowel gas. Air stool scattered throughout the imaged colon. Postop changes right lower abdomen. Linear calcifications projecting over the left gluteal region. Impression: 1. Nonobstructed bowel gas pattern Electronically signed by: Modesto Beaver DO (10/06/2020 9:45 PM) [facility]
[2020-10-06 22:05] VITALS: BP 147/70
[2020-10-06] MEDS ORDERED: ONDA4TAB12 PO (22:16)
[2020-10-06] MEDS ORDERED: HYDR-3164 PO (22:16)
[2020-10-06] MEDS ORDERED: METO10TA81 PO (22:19)
== END 2020-10-06 22:27 | disposition home or self-care (01) ==
LOC: ER 17:25
DX: R10.31 Right lower quadrant pain (principal); R10.32 Left lower quadrant pain; R11.0 Nausea; R50.9 Fever, unspecified; G43.909 Migraine, unspecified, not intractable, without status migrainosus; N19 Unspecified kidney failure; Z90.89 Acquired absence of other organs; Z90.49 Acquired absence of other specified parts of digestive tract; Z90.710 Acquired absence of both cervix and uterus; Z88.4 Allergy status to anesthetic agent; Z88.6 Allergy status to analgesic agent; Z88.5 Allergy status to narcotic agent; Z91.041 Radiographic dye allergy status; Z91.013 Allergy to seafood; Z91.018 Allergy to other foods; Z91.040 Latex allergy status
CPT/HCPCS: 36415; 74022; 80053; 81001; 83690; 83735; 85025; 87086; 96361; 96374; 96375; 96376; 99284; J2270; J2765; J3490; J7030

== ENCOUNTER 2021-03-02 03:43 | Emergency (ER) | payer SELFPAY ==
[~2021-03-02] VITALS: Ht 170.2 cm; Wt 145.5 kg
[~2021-03-02 03:43] MED LIST changes: +ALBE200T13 PO; -ALBE200T2 PO; +METO10TA81 PO; +ONDA4TAB12 PO
--- NOTE | 2021-03-02 04:10 | EKG ---
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
[2021-03-02] MEDS ORDERED: HYDR-2761 PO (04:36)
[2021-03-02 04:48] VITALS: BP 143/76
[2021-03-02] MEDS: HYDROcodone/APAP 5/325MG 1 TAB TABLET PO ONE (04:52)
== END 2021-03-02 05:01 | disposition home or self-care (01) ==
LOC: ER 03:43
DX: T23.101A Burn of first degree of right hand, unspecified site, initial encounter (principal); T31.0 Burns involving less than 10% of body surface; R20.2 Paresthesia of skin; M79.641 Pain in right hand; F41.9 Anxiety disorder, unspecified; G43.909 Migraine, unspecified, not intractable, without status migrainosus; N18.9 Chronic kidney disease, unspecified; Z90.89 Acquired absence of other organs; Z90.710 Acquired absence of both cervix and uterus; Z90.49 Acquired absence of other specified parts of digestive tract; Z98.890 Other specified postprocedural states; Z91.013 Allergy to seafood; Z91.041 Radiographic dye allergy status; Z91.040 Latex allergy status; Z88.8 Allergy status to other drugs, medicaments and biological substances; Z88.6 Allergy status to analgesic agent; Z85.9 Personal history of malignant neoplasm, unspecified; X08.8XXA Exposure to other specified smoke, fire and flames, initial encounter; Y93.89 Activity, other specified; Y92.89 Other specified places as the place of occurrence of the external cause; Y99.8 Other external cause status
CPT/HCPCS: 93005; 99283

== ENCOUNTER 2021-03-09 14:35 | Emergency (ER) | payer SELFPAY ==
[~2021-03-09] VITALS: Ht 172.7 cm; Wt 145.4 kg
[2021-03-09 14:56] VITALS: BP 137/88
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
--- NOTE | 2021-03-09 15:52 | RAD ---
EXAM: CHEST 1 VIEW History: Pain COMPARISON: 11/12/2019 TECHNIQUE: Single portable radiograph of the chest FINDINGS: The cardiac silhouette is unremarkable. The lungs are clear bilaterally. The costophrenic sulci are clear and well demarcated. Right-sided Port-A-Cath is identified. IMPRESSION: No acute cardiopulmonary findings. Electronically signed by: Micheal Brown MD (03/09/2021 3:50 PM) [id number]
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
[2021-03-09] MEDS ORDERED: ACETAMINOPHEN 325 MG TABLET. PO ONE (18:00)
[2021-03-09] MEDS ORDERED: CYCL10TA2 PO (18:06)
[2021-03-09] MEDS ORDERED: diazePAM 5 MG TABLET PO ONE (18:15)
== END 2021-03-09 18:16 | disposition home or self-care (01) ==
LOC: ER 14:35
DX: M79.641 Pain in right hand (principal); R07.89 Other chest pain; R21 Rash and other nonspecific skin eruption; G43.909 Migraine, unspecified, not intractable, without status migrainosus; Z91.041 Radiographic dye allergy status; Z91.040 Latex allergy status; Z88.4 Allergy status to anesthetic agent; Z88.5 Allergy status to narcotic agent; Z88.6 Allergy status to analgesic agent; Z91.013 Allergy to seafood; Z91.018 Allergy to other foods
CPT/HCPCS: 71045; 73120; 99284

== ENCOUNTER 2021-05-03 12:37 | Emergency (ER) | payer SELFPAY ==
[~2021-05-03] VITALS: Ht 167.6 cm; Wt 145.0 kg
[~2021-05-03 12:37] MED LIST changes: -DOCU-150 PO; +DOCU-158 PO; -LIDO30CR TP; +LIDO30CR2 TP
[2021-05-03] MEDS ORDERED: LIDOCAINE 2% Multi-Dose 20 ML VIAL. IJ ONE (14:45)
[2021-05-03 14:50] VITALS: BP 144/85
[2021-05-03] MEDS ORDERED: CEPH500C PO (15:23)
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
== END 2021-05-03 16:13 | disposition home or self-care (01) ==
LOC: ER 12:37
DX: S61.412A Laceration without foreign body of left hand, initial encounter (principal); G43.909 Migraine, unspecified, not intractable, without status migrainosus; N19 Unspecified kidney failure; Z91.013 Allergy to seafood; Z91.040 Latex allergy status; Z88.8 Allergy status to other drugs, medicaments and biological substances; Z91.018 Allergy to other foods; W26.0XXA Contact with knife, initial encounter; Y93.89 Activity, other specified; Y92.89 Other specified places as the place of occurrence of the external cause; Y99.8 Other external cause status
CPT/HCPCS: 12001; 99283

== ENCOUNTER 2021-05-21 15:25 | Emergency (ER) | payer SELFPAY ==
[~2021-05-21 15:25] MED LIST changes: +CEPH500C PO
[2021-05-22] MEDS ORDERED: METO10TA81 PO (13:39)
== END 2021-05-21 19:30 | disposition left against medical advice (07) ==
LOC: ER 15:25
DX: M79.643 Pain in unspecified hand (principal); R22.30 Localized swelling, mass and lump, unspecified upper limb; Z53.21 Procedure and treatment not carried out due to patient leaving prior to being seen by health care provider

== ENCOUNTER 2021-05-22 09:11 | Emergency (ER) | payer SELFPAY ==
[~2021-05-22] VITALS: Ht 170.2 cm; Wt 142.0 kg
[~2021-05-22 09:11] MED LIST changes: -QUET50TA PO; +QUET50TA3 PO
[2021-05-22] MEDS ORDERED: IV NORMAL SALINE 1000ML BAG 1,000 ML IV SCH (10:00)
[2021-05-22] MEDS ORDERED: FAMOTIDINE 20 MG/2 ML VIAL IVP ONE (10:00)
[2021-05-22] MEDS ORDERED: MORPHINE SULFATE 2 MG/ML INJ. IV ONE (10:00)
[2021-05-22] MEDS ORDERED: METOCLOPRAMIDE HCL 10 MG/2 ML VIAL. IVP ONE (10:00)
--- NOTE | 2021-05-22 10:28 | RAD ---
EXAM: Chest, single view. HISTORY: Cough and palpitations COMPARISON: 03/09/2021 FINDINGS: A frontal view of the chest obtained. There is no infiltrate, pleural effusion or pneumotho rax. The heart is normal in size. There is a right port catheter with the tip in the superior cavoatr ial junction. IMPRESSION: No acute pulmonary finding. Electronically signed by: Adrianne Pearson MD (05/22/2021 10:25 AM) [id number]
--- NOTE | 2021-05-22 10:40 | RAD ---
EXAM: Abdomen and pelvis CT without intravenous contrast. HISTORY: Nausea and vomiting. TECHNIQUE: Computed tomographic images of the abdomen and pelvis were obtained without contrast. Mult iplanar reformatting was performed. *One or more of the following individualized dose reduction techniques were utilized for this examina tion: 1. Automated exposure control. 2. Adjustment of the mA and/or kV according to patient size. 3. Use of iterative reconstruction technique. COMPARISON: 09/28/2020. FINDINGS: Evaluation of the lower thorax demonstrates no infiltrate or pleural effusion. The heart is normal in size. No hepatic lesion is seen. The gallbladder is surgically absent. The pancreas, splee n, adrenal glands and left kidney are unremarkable on this noncontrast exam. There is a 1 mm nonobstr ucting right renal stone. The appendix is surgically absent. There is no evidence of bowel obstructio n or abnormal bowel wall thickening. The bladder is nearly empty. The uterus is absent. There is a vieira spected 1.8 cm left ovarian follicle/follicular cyst. The right ovary appears to be absent. The aorta is normal in caliber. There is no lymphadenopathy. There is no suspicious or acute osseous finding. IMPRESSION: 1. No acute abdominal or pelvic finding. 2. 1 mm nonobstructing right renal stone. 3. 1.8 cm physiologic dominant left ovarian follicle/follicular cyst. Electronically signed by: Adrianne Pearson MD (05/22/2021 10:38 AM) [id number]
--- NOTE | 2021-05-22 10:58 | PHYS DOC ---
Past Medical History Past Medical History: Anxiety, Cancer, Migraines, Renal Failure, Seizure, Other Additional Past Medical Histor: WPW, appendocele ca, sepsis 06/2019, gastritis, oliguria, insomnia Past Surgical History: Appendectomy, Cholecystectomy, Hysterectomy, Tonsillectomy, Other Additional Past Surgical Histo: Rt.knee repair acl/mcl, cardiac ablation, breast reduction, portacath Smoking Status: Never Smoker Alcohol Use: None Drug Use: None General Adult EDM: Chief Complaint: MULTIPLE COMPLAINTS HPI: HPI: Patient is a 30 year old female who presents with 5 days of nausea vomiting, fever on Friday and Friday, nasal congestion, generalized weakness and body aches, intermittent palpitations. She states has been taking Tylenol ibuprofen. She said her main complaint is that she just cannot keep anything down. States she is had a slight cough. She denies shortness of breath, chest pain, abdominal pain, dizziness, syncope, vision change, numbness or tingling, focal weakness. She did get the [employer] vaccine. 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 She states about 3 weeks ago she was in here for a laceration to the left palm and it busted open about a week ago and was draining purulent fluid and was tender. She states it automatic lump making machine tender. Patient is rating her generalized aching pain at a 7 out of 10. Review of Systems: Review of Systems: Constitutional: + fever or chills. [] Eyes: Denies change in visual acuity. [] HENT: + nasal congestion or denies sore throat. [] Respiratory: + cough or denies shortness of breath. [] Cardiovascular: Denies chest pain or edema. [] GI: Denies abdominal pain, +nausea, +vomiting, denies bloody stools or diarrhea. [] : Denies dysuria. [] Musculoskeletal: Denies back pain or joint pain. + Generalized aches and weakness [] Integument: Denies rash. [] Neurologic: + Intermittent headache, denies focal weakness or sensory changes. [] Endocrine: Denies polyuria or polydipsia. [] Lymphatic: Denies swollen glands. [] Psychiatric: Denies depression or anxiety. [] Heart Score: C/O Chest Pain: No HEART Score for Chest Pain: HEART Score for Chest Pain Response (Comments) Value History Slighlty/Non-Suspicious 0 ECG Normal 0 Age < 45 0 Risk Factors 1 or 2 Risk Factors 1 Troponin < Normal Limit 0 Total 1 Risk Factors: Risk Factors: DM, Current or recent (<one month) smoker, HTN, HLP, family history of CAD, obesity. Risk Scores: Score 0 - 3: 2.5% MACE over next 6 weeks - Discharge Home Score 4 - 6: 20.3% MACE over next 6 weeks - Admit for Clinical Observation Score 7 - 10: 72.7% MACE over next 6 weeks - Early Invasive Strategies Current Medications: Current Medications Medications (Trade) Dose Ordered Sig/Lyndsey Start Time Stop Time Status Last Admin Dose Admin Famotidine (Pepcid Vial) 20 mg 1X ONCE 05/22/21 10:00 05/22/21 10:06 DC Metoclopramide HCl (Reglan Vial) 10 mg 1X ONCE 05/22/21 10:00 05/22/21 10:06 DC Morphine Sulfate (Morphine Sulfate) 2 mg 1X ONCE 05/22/21 10:00 05/22/21 10:09 DC Sodium Chloride 1,000 ml @ 1,000 mls/hr Q1H 05/22/21 10:00 05/22/21 10:59 Allergies: Allergies: Allergies Coded Allergies Type Severity Reaction Last Updated Verified Fish Containing Products Allergy Severe Anaphylaxis 09/27/20 Yes Iodinated Contrast Media Allergy Severe Hives 09/27/20 Yes latex Allergy Severe Anaphylaxis 09/27/20 Yes ondansetron Allergy Severe Anaphylaxis 09/27/20 Yes shellfish derived Allergy Severe Anaphylaxis 09/27/20 Yes coconut Allergy Intermediate Hives 09/27/20 Yes fentanyl Allergy Intermediate ITCHY 09/27/20 Yes ketorolac Allergy Intermediate Hives 09/27/20 Yes tramadol Allergy Intermediate 09/27/20 Yes Physical Exam: PE: Constitutional: Well developed, well nourished, no acute distress, non-toxic appearance. [] HENT: Normocephalic, atraumatic, bilateral external ears normal, oropharynx moist, no oral exudates, nose normal. [] Eyes: PERRLA, EOMI, conjunctiva normal, no discharge. [] Neck: Normal range of motion, no tenderness, supple, no stridor. [] Cardiovascular:Heart rate regular rhythm, no murmur [] Lungs & Thorax: Bilateral upper breath sounds clear lower diminished to auscultation [] Abdomen: Bowel sounds normal, soft, no tenderness, no masses, no pulsatile masses. [] Skin: Warm, dry, no erythema, no rash. [] Back: No tenderness, no CVA tenderness. [] Extremities: No tenderness, no cyanosis, no clubbing, ROM intact, no edema. [] Neurologic: Alert and oriented X 3, normal motor function, normal sensory function, no focal deficits noted. [] Psychologic: Affect normal, judgement normal, mood normal. [] EKG: EK and read by Dr. Rodriguez sinus rhythm and no STEMI Radiology/Procedures: Radiology/Procedures: [] Impression: [facility] [address] [place], [place] [id number] IMAGING REPORT Signed PATIENT: BRITT ALMAGUER V ACCOUNT: [id number] : 1990 LOCATION: ER AGE: 30 SEX: F EXAM STATUS: REG ER ORD. PHYSICIAN: ORVILLE SANCHEZ APRN REASON: nausea and vomiting, fever PROCEDURE: CT ABDOMEN PELVIS WO CONTRAST EXAM: Abdomen and pelvis CT without intravenous contrast. HISTORY: Nausea and vomiting. TECHNIQUE: Computed tomographic images of the abdomen and pelvis were obtained without contrast. Multiplanar reformatting was performed. *One or more of the following individualized dose reduction techniques were utilized for this examination: 1. Automated exposure control. 2. Adjustment of the mA and/or kV according to patient size. 3. Use of iterative reconstruction technique. COMPARISON: 09/28/2020. FINDINGS: Evaluation of the lower thorax demonstrates no infiltrate or pleural effusion. The heart is normal in size. No hepatic lesion is seen. The gallblad lesley is surgically absent. The pancreas, spleen, adrenal glands and left kidney are unremarkable on this noncontrast exam. There is a 1 mm nonobstructing right renal stone. The appendix is surgically absent. There is no evidence of bowel obstruction or abnormal bowel wall thickening. The bladder is nearly empty. The uterus is absent. There is a suspected 1.8 cm left ovarian follicle/follicular cyst. The right ovary appears to be absent. The aorta is normal in caliber. There is no lymphadenopathy. There is no suspicious or acute osseous finding. IMPRESSION: 1. No acute abdominal or pelvic finding. 2. 1 mm nonobstructing right renal stone. 3. 1.8 cm physiologic dominant left ovarian follicle/follicular cyst. Electronically signed by: Adrianne Zuñiga MD (05/22/2021 10:38 AM) [id number] DICTATED and SIGNED BY: ADRIANNE ZUÑIGA MD DATE: 05/22/21 [id number] [facility] [address] [place] [address] IMAGING REPORT Signed PATIENT: BRITT ALMAGUER V ACCOUNT: [id number] : 1990 LOCATION: ER AGE: 30 SEX: F EXAM STATUS: REG ER ORD. PHYSICIAN: ORVILLE SANCHEZ APRN REASON: cough, palpitations, fever PROCEDURE: PORTABLE CHEST 1V EXAM: Chest, single view. HISTORY: Cough and palpitations COMPARISON: 03/09/2021 FINDINGS: A frontal view of the chest obtained. There is no infiltrate, pleural effusion or pneumothorax. The heart is normal in size. There is a right port catheter with the tip in the superior cavoatrial junction. IMPRESSION: No acute pulmonary finding. Electronically signed by: Adrianne Zuñiga MD (05/22/2021 10:25 AM) [id number] DICTATED and SIGNED BY: ADRIANNE ZUÑIGA MD DATE: 05/22/21 [id number] Course & Med Decision Making: Course & Med Decision Making Pertinent Labs and Imaging studies reviewed. (See chart for details) See HPI. Alert and oriented x4. Ambulatory with a steady gait. Speaks in full clear sentences. Upper lung lobes are clear and lower lung lobes are diminished. No focal weakness. No extremity swelling. Abdomen is soft and nontender. No respiratory distress. Blood work came back within normal limits. CT abdomen pelvis showed no acute findings. There is a right renal stone that is nonobstructing and still in the kidney. Patient is stable and in no distress. She is given a liter of fluids and Reglan. Patient will be p.o. challenged and she will be discharged home. Patient was successfully p.o. challenge. Patient is stable and is discharged home. [] Dragon Disclaimer: Dragon Disclaimer: This electronic medical record was generated, in whole or in part, using a voice recognition dictation system. Departure Departure Impression: Primary Impression: Nausea & vomiting Qualified Codes: R11.2 - Nausea with vomiting, unspecified Disposition: HOME / SELF CARE / HOMELESS Condition: STABLE Referrals: CARY HI MD (PCP) Patient Instructions: Nausea and Vomiting, [id number] Additional Instructions: Follow-up with primary care provider. Drink plenty of fluids. Take medication as prescribed and with food. Scripts Metoclopramide Hcl (REGLAN) 10 Mg Tablet 1 TAB PO TID for 5 Days, #15 TAB 0 Refills before food and bedtime Prov: ORVILLE SANCHEZ APRN 05/22/21 ORVILLE SANCHEZ APRN May 22, 2021 10:58
[2021-05-22 11:04] LABS: BILIRUBIN,URINE NEGATIVE (NEG); CLARITY,URINE CLEAR; COLOR,URINE YELLOW; NITRITE,URINE NEGATIVE (NEG); PROTEIN,URINE NEGATIVE (NEG-TRACE); UROBILINOGEN,URINE 0.2 mg/dL (0.2 mg/dL)
[2021-05-22 11:16] LABS: BACTERIA,URINE FEW /HPF (0-FEW); RBC,URINE 0 /HPF (0-2); YEAST,URINE PRESENT /HPF
[2021-05-22 12:25] LABS: BASO % 0 % (0-3); EOS # 0.1 x10^3/uL (0.0-0.7); EOS % 2 % (0-3); HEMATOCRIT 40.4 % (36.0-47.0); HEMOGLOBIN 13.2 g/dL (12.0-15.5); LYMPH # 2.1 x10^3/uL (1.0-4.8); LYMPH % 23 % (24-48); MEAN CORPUSCULAR HEMOGLOBIN 29 pg (25-35); MEAN CORPUSCULAR HGB CONC 33 g/dL (31-37); MEAN CORPUSCULAR VOLUME 90 fL (79-100); MONO # 0.6 x10^3/uL (0.0-1.1); MONO % 7 % (0-9); NEUT # 6.3 x10^3/uL (1.8-7.7); NEUT % 69 % (31-73); PLATELET COUNT 335 x10^3/uL (140-400); RED BLOOD COUNT 4.49 x10^6/uL (3.50-5.40); WHITE BLOOD COUNT 9.2 x10^3/uL (4.0-11.0)
[2021-05-22 12:39] LABS: CALCIUM 8.9 mg/dL (8.5-10.1); CREATININE 0.7 mg/dL (0.6-1.0); GFR 99.6; POTASSIUM 4.4 mmol/L (3.5-5.1)
[2021-05-22 12:44] LABS: ALBUMIN 3.1 g/dL (3.4-5.0); ALBUMIN/GLOBULIN RATIO 0.9 (1.0-1.7); TOTAL BILIRUBIN 0.4 mg/dL (0.2-1.0); TOTAL PROTEIN 6.5 g/dL (6.4-8.2)
[2021-05-22] MEDS ORDERED: FLUCONAZOLE 100 MG TABLET. PO ONE (13:00)
[2021-05-22] MEDS ORDERED: METO10TA81 PO (13:39)
[2021-05-22 13:40] VITALS: BP 126/74
--- NOTE | 2021-05-22 17:57 | NUR ---
IP: Informed pt of negative covid test. Pt verbalized understanding.
== END 2021-05-22 13:40 | disposition home or self-care (01) ==
LOC: ER 09:11
DX: R11.2 Nausea with vomiting, unspecified (principal); Z20.822 Contact with and (suspected) exposure to COVID-19; R50.9 Fever, unspecified; R09.81 Nasal congestion; R53.1 Weakness; R00.2 Palpitations; R05 Cough; G43.909 Migraine, unspecified, not intractable, without status migrainosus; Z90.89 Acquired absence of other organs; Z90.49 Acquired absence of other specified parts of digestive tract; Z90.710 Acquired absence of both cervix and uterus; Z91.041 Radiographic dye allergy status; Z88.4 Allergy status to anesthetic agent; Z88.5 Allergy status to narcotic agent; Z88.6 Allergy status to analgesic agent; Z91.040 Latex allergy status; Z91.013 Allergy to seafood
CPT/HCPCS: 36415; 71045; 74176; 80053; 81001; 83690; 84484; 85025; 93005; 96361; 96374; 96375; 99285; J2270; J2765; J3490; J7030; U0003; U0005

== ENCOUNTER 2021-07-20 21:48 | Inpatient (IN) | payer SELFPAY ==
[~2021-07-20] VITALS: Ht 167.6 cm; Wt 168.5 kg
--- NOTE | 2021-07-20 22:14 | PHYS DOC ---
Past Medical History Past Medical History: Anxiety, Cancer, Migraines, Renal Failure, Seizure, Other Additional Past Medical Histor: WPW, appendocele ca, sepsis 06/2019, gastritis, oliguria, insomnia (ORVILLE SANCHEZ TRAVELING REPAIR ACCOUNTANT) Past Surgical History: Appendectomy, Cholecystectomy, Hysterectomy, Tons illectomy, Other Additional Past Surgical Histo: Rt.knee repair acl/mcl, cardiac ablation, breast reduction, portacath (ORVILLE SANCHEZ TRAVELING REPAIR ACCOUNTANT) Smoking Status: Never Smoker Alcohol Use: None Drug Use: None (ORVILLE SANCHEZ TRAVELING REPAIR ACCOUNTANT) General Adult EDM: Chief Complaint: RAPID HEART RATE HPI: HPI: Patient is a 31 year old female who presents with sleeping prior to coming began feeling her heart racing with chest tightness shortness of breath. She states that she passed out and her witnessed this. She states that she hit her right shoulder on the side of the bathtub. She states that she did not hit her head. She states she does have some right-sided neck tightness. She is on heparin as a blood thinner. Rating her discomfort about 9 out of 10. Patient has a history of anxiety, WPW, appendiceal cancer, ACL and MCL surgery, cardiac ablation, Port-A-Cath in place, migraine, renal failure, seizure, appendectomy, cholecystectomy, hysterectomy, tonsillectomy, gastritis, PE, oliguria, insomnia, A. fib, sepsis. (ORVILLE SANCHEZ TRAVELING REPAIR ACCOUNTANT) Review of Systems: Review of Systems: Constitutional: Denies fever or chills. [] Eyes: Denies change in visual acuity. [] HENT: Denies nasal congestion or sore throat. [] Respiratory: Denies cough or shortness of breath. [] Cardiovascular: + chest tightness pain, +tachycardia or denies edema. [] GI: Denies abdominal pain, nausea, vomiting, bloody stools or diarrhea. [] : Denies dysuria. [] Musculoskeletal: Denies back pain or +right shoulder joint pain. [] Integument: Denies rash. [] Neurologic: Denies headache, focal weakness or sensory changes. +Syncope[] Endocrine: Denies polyuria or polydipsia. [] Lymphatic: Denies swollen glands. [] Psychiatric: Denies depression or anxiety. [] (ORVILLE SANCHEZ TRAVELING REPAIR ACCOUNTANT) Heart Score: C/O Chest Pain: Yes HEART Score for Chest Pain: HEART Score for Chest Pain Response (Comments) Value History Slighlty/Non-Suspicious 0 ECG Nonspecific Repolarizatio 1 Age < 45 0 Risk Factors 1 or 2 Risk Factors 1 Troponin < Normal Limit 0 Total 2 Risk Factors: Risk Factors: DM, Current or recent (<one month) smoker, HTN, HLP, family history of CAD, obesity. Risk Scores: Score 0 - 3: 2.5% MACE over next 6 weeks - Discharge Home Score 4 - 6: 20.3% MACE over next 6 weeks - Admit for Clinical Observation Score 7 - 10: 72.7% MACE over next 6 weeks - Early Invasive Strategies (ORVILLE SANCHEZ APRN) Current Medications: Current Medications Medications (Trade) Dose Ordered Sig/Lyndsey Start Time Stop Time Status Last Admin Dose Admin Diltiazem HCl (Cardizem Iv Push) 10 mg 1X ONCE 07/20/21 22:00 07/20/21 22:01 UNV Sodium Chloride 1,000 ml @ 1,000 mls/hr Q1H 07/20/21 22:00 07/20/21 22:59 UNV (ORVILLE SANCHEZ APRN) Allergies: Allergies: Allergies Coded Allergies Type Severity Reaction Last Updated Verified Fish Containing Products Allergy Severe Anaphylaxis 09/27/20 Yes Iodinated Contrast Media Allergy Severe Hives 09/27/20 Yes latex Allergy Severe Anaphylaxis 09/27/20 Yes ondansetron Allergy Severe Anaphylaxis 09/27/20 Yes shellfish derived Allergy Severe Anaphylaxis 09/27/20 Yes coconut Allergy Intermediate Hives 09/27/20 Yes fentanyl Allergy Intermediate ITCHY 09/27/20 Yes ketorolac Allergy Intermediate Hives 09/27/20 Yes tramadol Allergy Intermediate 09/27/20 Yes (ORVILLE SANCHEZ APRN) Physical Exam: PE: Constitutional: Well developed, well nourished, no acute distress, non-toxic appearance. [] HENT: Normocephalic, atraumatic, bilateral external ears normal, oropharynx moist, no oral exudates, nose normal. [] Eyes: PERRLA, EOMI, conjunctiva normal, no discharge. [] Neck: Normal range of motion, no tenderness, supple, no stridor. [] Cardiovascular:Heart rate tachycardia regular rhythm, no murmur [] Lungs & Thorax: Bilateral breath sounds clear to auscultation [] Abdomen: Bowel sounds normal, soft, no tenderness, no masses, no pulsatile masses. [] Skin: Warm, clammy, no erythema, no rash. Right shoulder scant bruising[] Back: No tenderness, no CVA tenderness. [] Extremities: No tenderness, no cyanosis, no clubbing, Right shoulder ROM intact but limited due to pain, no edema. [] Neurologic: Alert and oriented X 3, normal motor function, normal sensory function, no focal deficits noted. [] Psychologic: Affect normal, judgement normal, mood normal. [] (ORVILLE SANCHEZ APRN) Current Patient Data: Labs: Laboratory Tests Test 07/20/21 22:50 White Blood Count 16.4 x10^3/uL (4.0-11.0) Red Blood Count 4.33 x10^6/uL (3.50-5.40) Hemoglobin 12.9 g/dL (12.0-15.5) Hematocrit 38.7 % (36.0-47.0) Mean Corpuscular Volume 90 fL (79-100) Mean Corpuscular Hemoglobin 30 pg (25-35) Mean Corpuscular Hemoglobin Concent 33 g/dL (31-37) Red Cell Distribution Width 12.8 % (11.5-14.5) Platelet Count 360 x10^3/uL (140-400) Neutrophils (%) (Auto) 77 % (31-73) Lymphocytes (%) (Auto) 17 % (24-48) Monocytes (%) (Auto) 5 % (0-9) Eosinophils (%) (Auto) 0 % (0-3) Basophils (%) (Auto) 1 % (0-3) Neutrophils # (Auto) 12.6 x10^3/uL (1.8-7.7) Lymphocytes # (Auto) 2.7 x10^3/uL (1.0-4.8) Monocytes # (Auto) 0.9 x10^3/uL (0.0-1.1) Eosinophils # (Auto) 0.1 x10^3/uL (0.0-0.7) Basophils # (Auto) 0.1 x10^3/uL (0.0-0.2) Prothrombin Time 12.9 SEC (11.7-14.0) Prothromb Time International Ratio 1.0 (0.8-1.1) Activated Partial Thromboplast Time 30 SEC (24-38) D-Dimer (Mitzi) 0.60 ug/mlFEU (0.00-0.50) (FRIDA PARRISH DO) EKG: EK and read by Dr. Parrish as Afib but no STEMI [address]rish as Sinus Tachycardia and no STEMI (ORVILLE SANCHEZ APRN) Radiology/Procedures: Radiology/Procedures: [] Impression: [facility] [address] [place] [address] IMAGING REPORT Signed PATIENT: BRITT ALMAGUER V ACCOUNT: [id number] : 1990 LOCATION: ER AGE: 31 SEX: F EXAM STATUS: PRE ER ORD. PHYSICIAN: ORVILLE SANCHEZ APRN REASON: hit shoulder on bath tub PROCEDURE: PORTABLE CHEST 1V Exam: Chest one view INDICATION: Hit shoulder on bathtub TECHNIQUE: Frontal view of the chest Comparisons: 05/22/2021 FINDINGS: Right anterior chest wall port with catheter tip at the SVC. The cardiomediastinal silhouette and pulmonary vessels are within normal limits. The lung and pleural spaces are clear. IMPRESSION: No acute cardiopulmonary process. Electronically signed by: Sissy Chambers MD (07/20/2021 10:49 PM) [facility] DICTATED and SIGNED BY: SISSY CHAMBERS MD DATE: 07/20/21 [id number] [facility] [address] [place] [address] IMAGING REPORT Signed PATIENT: BRITT ALMAGUER V ACCOUNT: [id number] : 1990 LOCATION: ER AGE: 31 SEX: F EXAM STATUS: PRE ER ORD. PHYSICIAN: ORVILLE SANCHEZ APRN REASON: hit shoulder on bath tub PROCEDURE: SHOULDER 2+V RIGHT Exam: Right shoulder 3 views INDICATION: Hit shoulder on bathtub TECHNIQUE: Frontal view of the right shoulder with internal and external rotation and transscapular Y views Comparisons: None FINDINGS: Bone mineralization is normal. No acute or healed fractures. Soft tissues are unremarkable. Joint spaces are well-maintained. IMPRESSION: No acute osseous abnormality Electronically signed by: Sisys Chambers MD (07/20/2021 10:48 PM) [facility] DICTATED and SIGNED BY: SISSY CHAMBERS MD DATE: 07/20/21 [id number] (ORVILLE SANCHEZ APRN) Radiology/Procedures: CT head without contrast: Reason for examination: Syncope. Helical images were obtained through the brain with no contrast administered. Reconstruction was performed in sagittal and coronal planes. Ventricular systems are symmetric and not dilated. No midline shift is seen. There is no evidence of intracranial hemorrhage, infarct, mass or edema. No abnormalities of seen at the orbits. The paranasal sinuses and mastoid air cells are clear. No acute skull abnormality is seen. IMPRESSION: No acute intracranial abnormality evident. CT cervical spine without contrast: Helical images were obtained through the cervical spine from skull base through the thoracic apices with no contrast administered. Reconstruction was performed in sagittal and coronal planes. C1 ring is intact. The odontoid process appears to be intact and normally centered between the lateral masses of C1. The vertebral bodies of the cervical spine are normally aligned anteriorly and posteriorly. No acute fracture or subluxation is seen. Posterior elements are intact. The intervertebral discs are maintained. Prevertebral soft tissues are normal. No spinal stenosis is apparent. IMPRESSION: No acute abnormality evident in the cervical spine. Exposure: One or more of the following individualized dose reduction techniques were utilized for this examination: 1. Automated exposure control 2. Adjustment of the mA and/or kV according to patient size 3. Use of iterative reconstruction technique. Electronically signed by: Francesca Song MD (07/21/2021 1:18 AM) (FRIDA PARRISH DO) Course & Med Decision Making: Course & Med Decision Making Pertinent Labs and Imaging studies reviewed. (See chart for details) See HPI. Alert and oriented x4. Ambulatory steady gait. Speaks in full clear sentences. Skin pink warm and clammy. Lungs are clear to all station all lobes. Her heart rate is at 130. Otherwise stable vital signs. 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 Patient states that her primary care has been following up with her heart medication. Limited range of motion to the right shoulder from injury. No deformity or swelling. Pulses are present. Cap refill less than 2 seconds. Chest x-ray shows no acute findings. EKG looks like a regular tachycardia. Shoulder x-ray shows no acute findings. Patient is given 10 mg diltiazem IV push per Dr. Parrish. 2300: Patient is reported off to Dr Parrish. [] (ORVILLE SANCHEZ TRAVELING REPAIR ACCOUNTANT) Course & Med Decision Making Patient was signed out to me at 2300, pending labs diagnostics and admission. Heart rate was tachycardic but appeared regular after diltiazem was administer ed. Unknown to us, the patient did have an allergy to diltiazem that she did not mention. She began to have hives, complained that her throat was swelling up after the medication was given. She was treated with epinephrine, Solu- Medrol, Pepcid, Benadryl with significant improvement. Her heart rate slowed to the low 100s and she felt much improved. The nurses were able to place a left hand IV, but were unable to draw additional labs after the initial set was hemolyzed. The patient would not allow for the lab draws after laborer/grade check attempted as well. Since the patient has a history of pulmonary embolisms, D- dimer was high today, I cannot rule out this diagnosis as a cause of her tachycardia and we will start her on a heparin drip and admit her to the hosp ital for an IR consult to assist with obtaining labs and further access. Patient is amenable to this plan. Patient will be admitted under Dr. Harris. Patient was admitted in improved condition (FRIDA PARRISH DO) Dragon Disclaimer: Kenney Disclaimer: This electronic medical record was generated, in whole or in part, using a voice recognition dictation system. (ORVILLE SANCHEZ TRAVELING REPAIR ACCOUNTANT) Departure Departure Impression: Primary Impression: Tachycardia Disposition: ADMITTED INPATIENT Admitting Physician: JODI Phillip) (FRIDA PARRISH DO) Condition: IMPROVED Referrals: CARY HI MD (PCP) Scripts Trazodone Hcl (TRAZODONE HCL) 50 Mg Tablet 50 MG PO PRN QHS PRN for INSOMNIA for 14 Days, #14 TAB Prov: CAT CHRIS MD 07/23/21 ORVILLE SANCHEZ APRN Jul 20, 2021 22:14 FRIDA PARRISH DO Jul 21, 2021 00:31
[2021-07-20] MEDS ORDERED: IV NORMAL SALINE 1000ML BAG 1,000 ML IV SCH (22:30)
--- NOTE | 2021-07-20 22:50 | RAD ---
Exam: Right shoulder 3 views INDICATION: Hit shoulder on bathtub TECHNIQUE: Frontal view of the right shoulder with internal and external rotation and transscapular Y views Comparisons: None FINDINGS: Bone mineralization is normal. No acute or healed fractures. Soft tissues are unremarkable. Joint spa shoaib are well-maintained. IMPRESSION: No acute osseous abnormality Electronically signed by: Sissy Blanco MD (07/20/2021 10:48 PM) [facility]
--- NOTE | 2021-07-20 22:51 | RAD ---
Exam: Chest one view INDICATION: Hit shoulder on bathtub TECHNIQUE: Frontal view of the chest Comparisons: 05/22/2021 FINDINGS: Right anterior chest wall port with catheter tip at the SVC. The cardiomediastinal silhouette and pulmonary vessels are within normal limits. The lung and pleural spaces are clear. IMPRESSION: No acute cardiopulmonary process. Electronically signed by: Sissy Blanco MD (07/20/2021 10:49 PM) [facility]
[2021-07-20 22:58] LABS: BASO # 0.1 x10^3/uL (0.0-0.2); BASO % 1 % (0-3); EOS # 0.1 x10^3/uL (0.0-0.7); EOS % 0 % (0-3); HEMATOCRIT 38.7 % (36.0-47.0); HEMOGLOBIN 12.9 g/dL (12.0-15.5); LYMPH # 2.7 x10^3/uL (1.0-4.8); LYMPH % 17 % (24-48); MEAN CORPUSCULAR HEMOGLOBIN 30 pg (25-35); MEAN CORPUSCULAR HGB CONC 33 g/dL (31-37); MEAN CORPUSCULAR VOLUME 90 fL (79-100); MONO # 0.9 x10^3/uL (0.0-1.1); MONO % 5 % (0-9); NEUT # 12.6 x10^3/uL (1.8-7.7); NEUT % 77 % (31-73); PLATELET COUNT 360 x10^3/uL (140-400); RED BLOOD COUNT 4.33 x10^6/uL (3.50-5.40); RED CELL DISTRIBUTION WIDTH 12.8 % (11.5-14.5); WHITE BLOOD COUNT 16.4 x10^3/uL (4.0-11.0)
[2021-07-20] MEDS ORDERED: diphenhydrAMINE 50 MG/ML VIAL ONE (23:14)
[2021-07-20 23:23] LABS: PROTHROMBIN TIME PATIENT 12.9 SEC (11.7-14.0)
[2021-07-20] MEDS ORDERED: METOCLOPRAMIDE HCL 10 MG/2 ML VIAL. IVP ONE (23:30)
[2021-07-20] MEDS ORDERED: diphenhydrAMINE 50 MG/ML VIAL IV ONE (23:45)
[2021-07-20] MEDS ORDERED: methylPREDNISolone SOD SUCC PF 125 MG/2 ML VIAL. IV ONE (23:45)
[2021-07-20] MEDS ORDERED: EPINEPHrine 1 MG/ML VIAL IM ONE (23:45)
[2021-07-20] MEDS ORDERED: FAMOTIDINE 20 MG/2 ML VIAL IVP ONE (23:45)
[2021-07-21] MEDS ORDERED: ANTI-COAG MONITOR BY PHARMACY. MC PRN (00:30)
[2021-07-21] MEDS ORDERED: ACETAMINOPHEN 500 MG TABLET PO ONE (00:30)
[2021-07-21] MEDS ORDERED: ACETAMINOPHEN 325 MG TABLET. PO PRN (00:30)
[2021-07-21] MEDS ORDERED: HEPARIN for IV BOLUS 10,000 UNIT/10 ML VIAL. IV PRN ×5 (00:30→13:45)
[2021-07-21] MEDS ORDERED: MORPHINE SULFATE 4 MG/ML INJ. IVP ONE (01:00)
--- NOTE | 2021-07-21 01:20 | RAD ---
CT head without contrast: Reason for examination: Syncope. Helical images were obtained through the brain with no contrast administered. Reconstruction was perf ormed in sagittal and coronal planes. Ventricular systems are symmetric and not dilated. No midline shift is seen. There is no evidence of intracranial hemorrhage, infarct, mass or edema. No abnormalities of seen at the orbits. The paranasa l sinuses and mastoid air cells are clear. No acute skull abnormality is seen. IMPRESSION: No acute intracranial abnormality evident. CT cervical spine without contrast: Helical images were obtained through the cervical spine from skull base through the thoracic apices w ith no contrast administered. Reconstruction was performed in sagittal and coronal planes. C1 ring is intact. The odontoid process appears to be intact and normally centered between the latera l masses of C1. The vertebral bodies of the cervical spine are normally aligned anteriorly and java j2ee software engineer iorly. No acute fracture or subluxation is seen. Posterior elements are intact. The intervertebral di scs are maintained. Prevertebral soft tissues are normal. No spinal stenosis is apparent. IMPRESSION: No acute abnormality evident in the cervical spine. Exposure: One or more of the following individualized dose reduction techniques were utilized for thi s examination: 1. Automated exposure control 2. Adjustment of the mA and/or kV according to patient size 3. Use of iterative reconstruction technique. Electronically signed by: Francesca Song MD (07/21/2021 1:18 AM) HOME
[2021-07-21] MEDS: HEPARIN 25,000UTS/250ML PREMIX 250 ML IV PRN ×2 (01:51→10:18)
[2021-07-21 02:15] VITALS: BP 127/68
--- NOTE | 2021-07-21 02:19 | EKG ---
[facility] [address] [place] [address] Test Date: 2021-07-20 Test Time: 21:57:56 Pat Name: BRITT ALMAGUER Department: Room: Gender: F Nurse Head: : 1990 Requested By: ORVILLE SANCHEZ Order Number: [id number] Reading MD: Measurements Intervals [place] Rate: 130 P: [place]: QRS: 23 QRSD: 76 T: 56 QT: 342 QTc: 510 Interpretive Statements ACCELERATED JUNCTIONAL RHYTHM COMPLEX(ES) WITH ABERRANT INTRAVENTRICULAR CONDUCTION ABNORMAL ECG RI6.02 No previous ECG available for comparison
--- NOTE | 2021-07-21 02:20 | EKG ---
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
[2021-07-21] MEDS: MORPHINE SULFATE 4 MG/ML INJ. IVP PRN ×6 (02:41→22:16)
[2021-07-21] MEDS ORDERED: LORA2TAB89 PO (03:09)
[2021-07-21] MEDS ORDERED: FAMO-63 PO (03:09)
[2021-07-21] MEDS ORDERED: DIPH25CA58 PO (03:09)
[2021-07-21] MEDS ORDERED: ATEN50TA PO (03:09)
[2021-07-21] MEDS ORDERED: ENOX120D SQ (03:11)
[2021-07-21] MEDS ORDERED: RIVA20TA2 PO (03:11)
[2021-07-21] MEDS ORDERED: PROM12.554 RC (03:11)
[2021-07-21 07:00] VITALS: BP 130/77
--- NOTE | 2021-07-21 09:08 | PDOC1 ---
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 Apparently she was sleeping she went to the bathroom and she started experiencing heart palpitations and she knew that she have atrial fibrillation. She did have a nausea vomiting episode that she knows she is has atrial fibrillation's whenever she vomits. Her did witness her passing out and stated that she did hit her right shoulder on the bathtub. Denies any head trauma however patient did have loss of consciousness in the first thing she remembered when she woke up was arriving at the hospital. Currently patient does have some right-sided neck tightness and pain. She is on Lovenox and Xarelto for blood thinner she follows up with a first breaker feeder for this. Patient is unclear with his history for her anticoagulation, but apparently she states that she had a pulmonary embolism while she was on blood thinners as well. Currently denies any headaches, chest pain, abdominal pain, diarrhea, dysuria, fevers or chills or cough. Past Medical/Surgical History: PMH/PSH: Past Medical History: Anxiety, Ovarian CA s/p chemoTx, Migraines, Renal Failure, Seizure, WPW, appendocele ca, sepsis 06/2019, gastritis, oliguria, insomnia Past Surgical History: Appendectomy, Cholecystectomy, [place]-BSO, Tonsillectomy, Rt.knee repair acl/mcl, cardiac ablation, breast reduction, portacath Allergies: Allergies: Coded Allergies: Fish Containing Products (Verified Allergy, Severe, Anaphylaxis, 09/27/20) Iodinated Contrast Media (Verified Allergy, Severe, Hives, 09/27/20) difficulty breathing and throat swelling the second time she had iv contrast per patient diltiazem (Verified Allergy, Severe, Anaphylaxis, 07/21/21) latex (Verified Allergy, Severe, Anaphylaxis, 09/27/20) ondansetron (Verified Allergy, Severe, Anaphylaxis, 09/27/20) shellfish derived (Verified Allergy, Severe, Anaphylaxis, 09/27/20) coconut (Verified Allergy, Intermediate, Hives, 09/27/20) fentanyl (Verified Allergy, Intermediate, ITCHY, 09/27/20) ketorolac (Verified Allergy, Intermediate, Hives, 09/27/20) tramadol (Verified Allergy, Intermediate, 09/27/20) Family History: Family History: Reviewed with no relevant findings Social History: Social History: Smoking Status: Never Smoker Alcohol Use: None Drug Use: None Current Medications: Current Medications Current Medications Sodium Chloride 1,000 ml @ 1,000 mls/hr Q1H IV Last administered on 07/20/21at 22:58; Start 07/20/21 at 22:30; Stop 07/20/21 at 23:29; Status DC Diltiazem HCl (Cardizem Iv Push) 10 mg 1X ONCE IVP Last administered on 07/20/21at 22:57; Start 07/20/21 at 22:30; Stop 07/20/21 at 22:31; Status DC Metoclopramide HCl (Reglan Vial) 10 mg 1X ONCE IVP Last administered on 07/20/21at 23:32; Start 07/20/21 at 23:30; Stop 07/20/21 at 23:31; Status DC Diphenhydramine HCl (Benadryl) 50 mg STK-MED ONCE .ROUTE ; Start 07/20/21 at 23:14; Stop 07/20/21 at 23:14; Status DC Methylprednisolone Sodium Succinate (SOLU-Medrol 125MG VIAL) 125 mg 1X ONCE IV Last administered on 07/20/21at 23:41; Start 07/20/21 at 23:45; Stop 07/20/21 at 23:46; Status DC Diphenhydramine HCl (Benadryl) 50 mg 1X ONCE IV Last administered on 07/20/21at 23:30; Start 07/20/21 at 23:45; Stop 07/20/21 at 23:46; Status DC Famotidine (Pepcid Vial) 20 mg 1X ONCE IVP Last administered on 07/20/21at 23:38; Start 07/20/21 at 23:45; Stop 07/20/21 at 23:46; Status DC Epinephrine HCl (Adrenalin) 0.3 mg 1X ONCE IM Last administered on 07/20/21at 23:31; Start 07/20/21 at 23:45; Stop 07/20/21 at 23:46; Status DC Acetaminophen (Tylenol) 1,000 mg 1X ONCE PO ; Start 07/21/21 at 00:30; Stop 07/21/21 at 00:31; Status DC Morphine Sulfate (Morphine Sulfate) 4 mg 1X ONCE IVP Last administered on 07/21/21at 00:35; Start 07/21/21 at 01:00; Stop 07/21/21 at 01:01; Status DC Heparin Sodium/ Dextrose 250 ml @ 0 mls/hr CONT PRN IV PER PROTOCOL Last administered on 07/21/21at 01:51; Start 07/21/21 at 00:30 Heparin Sodium (Porcine) (Heparin Sodium) 4,300 unit PRN Q6HRS PRN IV FOR UFH LEVEL LESS THAN 0.2; Start 07/21/21 at 00:30 Heparin Sodium (Porcine) (Heparin Sodium) 2,150 unit PRN Q6HRS PRN IV FOR UFH LEVEL 0.2 - 0.29; Start 07/21/21 at 00:30 Morphine Sulfate (Morphine Sulfate) 4 mg PRN Q4HRS PRN IVP SEVERE PAIN 7-10 Last administered on 07/21/21at 05:53; Start 07/21/21 at 00:30; Stop 07/22/21 at 00:29 Acetaminophen (Tylenol) 650 mg PRN Q4HRS PRN PO FEVER > 100.3'F; Start 07/21/21 at 00:30; Stop 07/22/21 at 00:29 Info (Anti-Coagulation Monitoring By Pharmacy) 1 each PRN DAILY PRN MC PER PROTOCOL Last administered on 07/21/21at 03:23; Start 07/21/21 at 00:30 Active Scripts Active Trazodone Hcl 50 Mg Tablet 1 Tab PO PRN QHS PRN 30 Days Reported Xarelto (Rivaroxaban) 20 Mg Tablet 1 Tab PO BID 30 Days with food Lovenox (Enoxaparin Sodium) 120 Mg/0.8 Ml Disp.syrin 120 Mg SQ BID Promethazine Hcl 12.5 Mg Supp.rect 1 Supp RC Q4-6HRS 4 Days Atenolol 50 Mg Tablet 1 Tab PO BID Pepcid (Famotidine) 20 Mg Tablet 20 Mg PO BID Benadryl (Diphenhydramine Hcl) 25 Mg Capsule 2 Cap PO QHS 30 Days Ativan (Lorazepam) 2 Mg Tablet 4 Mg PO BID Quetiapine Fumarate 50 Mg Tablet 1 Tab PO QHS Pramipexole Dihydrochloride (Pramipexole Di-Hcl) 0.125 Mg Tablet 2 Tab PO BID ROS: Review of Systems Review of System REVIEW OF SYSTEMS: GENERAL: Denies weakness SKIN: No bruising, hair changes or rashes. EYES: No blurred, double or loss of vision. NOSE AND THROAT: No history of nosebleeds, hoarseness or sore throat. HEART: No history of palpitations, chest pain or shortness of breath on exertion. LUNGS: Denies cough, hemoptysis, wheezing or shortness of breath. GASTROINTESTINAL: Denies changes in appetite, nausea, vomiting, diarrhea or constipation. GENITOURINARY: No history of frequency, urgency, hesitancy or nocturia. NEUROLOGIC: Denies history of numbness, tingling, or tremor. PSYCHIATRIC: No history of panic, anxiety or depression. ENDOCRINE: No history of heat or cold intolerance, polyuria or polydipsia. EXTREMITIES: Denies joint pain, pain on walking or stiffness. Physical Exam: Vital Signs: Vital Signs Date Time Temp Pulse Resp B/P (MAP) Pulse Ox O2 Delivery O2 Flow Rate FiO2 07/21/21 07:00 98.2 103 16 130/77 (94) 94 Room Air 98.2 Physcial Exam: GEN: No apparent distress. Alert and oriented HEENT: Normal cephalic, atraumatic, external auditory canals are patent EYES: Extraocular muscles are intact, pupil are equally round and reactive to light and accommodation MUSCULOSKELETAL: Well developed , well nourished, good range of motion ENDOCRINE: No thyromegaly was palpated LYMPHATICS: No cervical chain or axillary nodes were noted HEMATOPOIETIC: No bruising NECK: Supple, no JVD, no thyromegaly was noted LUNGS: Clear to auscultation in all lung [place] without rhonchi or wheezing HEART: RRR, S!, S2 present. Peripheral pulses intact, no obvious murmurs noted ABDOMEN: Soft, nontender. Positive bowel sounds, no organomegaly, normal bowel sounds EXTREMITIES: Without clubbing, cyanosis, or edema. Pedal pulses intact. Neg ative Homans sign NEUROLOGIC: Normal speech and tone. A&O x 3, moves all extremities, no obvious focal deficits PSYCHIATRIC: Normal affect, normal mood. Stable SKIN: No ulcerations or rashes, good skin turgor, no jaundice VASCULAR: Good capillary refill, neurovascular bundle appears to be intact Labs: Labs: Laboratory Tests Test 07/20/21 22:50 07/21/21 00:40 White Blood Count 16.4 x10^3/uL (4.0-11.0) Red Blood Count 4.33 x10^6/uL (3.50-5.40) Hemoglobin 12.9 g/dL (12.0-15.5) Hematocrit 38.7 % (36.0-47.0) Mean Corpuscular Volume 90 fL (79-100) Mean Corpuscular Hemoglobin 30 pg (25-35) Mean Corpuscular Hemoglobin Concent 33 g/dL (31-37) Red Cell Distribution Width 12.8 % (11.5-14.5) Platelet Count 360 x10^3/uL (140-400) Neutrophils (%) (Auto) 77 % (31-73) Lymphocytes (%) (Auto) 17 % (24-48) Monocytes (%) (Auto) 5 % (0-9) Eosinophils (%) (Auto) 0 % (0-3) Basophils (%) (Auto) 1 % (0-3) Neutrophils # (Auto) 12.6 x10^3/uL (1.8-7.7) Lymphocytes # (Auto) 2.7 x10^3/uL (1.0-4.8) Monocytes # (Auto) 0.9 x10^3/uL (0.0-1.1) Eosinophils # (Auto) 0.1 x10^3/uL (0.0-0.7) Basophils # (Auto) 0.1 x10^3/uL (0.0-0.2) Prothrombin Time 12.9 SEC (11.7-14.0) Prothromb Time International Ratio 1.0 (0.8-1.1) Activated Partial Thromboplast Time 30 SEC (24-38) D-Dimer (Mitzi) 0.60 ug/mlFEU (0.00-0.50) SARS-CoV-2 Antigen (Rapid) Negative (NEGATIVE) Laboratory Tests Test 07/20/21 22:50 07/21/21 00:40 White Blood Count 16.4 x10^3/uL (4.0-11.0) Red Blood Count 4.33 x10^6/uL (3.50-5.40) Hemoglobin 12.9 g/dL (12.0-15.5) Hematocrit 38.7 % (36.0-47.0) Mean Corpuscular Volume 90 fL (79-100) Mean Corpuscular Hemoglobin 30 pg (25-35) Mean Corpuscular Hemoglobin Concent 33 g/dL (31-37) Red Cell Distribution Width 12.8 % (11.5-14.5) Platelet Count 360 x10^3/uL (140-400) Neutrophils (%) (Auto) 77 % (31-73) Lymphocytes (%) (Auto) 17 % (24-48) Monocytes (%) (Auto) 5 % (0-9) Eosinophils (%) (Auto) 0 % (0-3) Basophils (%) (Auto) 1 % (0-3) Neutrophils # (Auto) 12.6 x10^3/uL (1.8-7.7) Lymphocytes # (Auto) 2.7 x10^3/uL (1.0-4.8) Monocytes # (Auto) 0.9 x10^3/uL (0.0-1.1) Eosinophils # (Auto) 0.1 x10^3/uL (0.0-0.7) Basophils # (Auto) 0.1 x10^3/uL (0.0-0.2) Prothrombin Time 12.9 SEC (11.7-14.0) Prothromb Time International Ratio 1.0 (0.8-1.1) Activated Partial Thromboplast Time 30 SEC (24-38) D-Dimer (Mitzi) 0.60 ug/mlFEU (0.00-0.50) SARS-CoV-2 Antigen (Rapid) Negative (NEGATIVE) Images: Images PROCEDURE: PORTABLE CHEST 1V Exam: Chest one view INDICATION: Hit shoulder on bathtub TECHNIQUE: Frontal view of the chest Comparisons: 05/22/2021 FINDINGS: Right anterior chest wall port with catheter tip at the SVC. The cardiomediastinal silhouette and pulmonary vessels are within normal limits. The lung and pleural spaces are clear. IMPRESSION: No acute cardiopulmonary process. PROCEDURE: CT HEAD AND CERVICAL SPINE WO CT head without contrast: Reason for examination: Syncope. Helical images were obtained through the brain with no contrast administered. Reconstruction was performed in sagittal and coronal planes. Ventricular systems are symmetric and not dilated. No midline shift is seen. There is no evidence of intracranial hemorrhage, infarct, mass or edema. No abnormalities of seen at the orbits. The paranasal sinuses and mastoid air cells are clear. No acute skull abnormality is seen. IMPRESSION: No acute intracranial abnormality evident. CT cervical spine without contrast: Helical images were obtained through the cervical spine from skull base through the thoracic apices with no contrast administered. Reconstruction was performed in sagittal and coronal planes. C1 ring is intact. The odontoid process appears to be intact and normally centered between the lateral masses of C1. The vertebral bodies of the cervical spine are normally aligned anteriorly and posteriorly. No acute fracture or subluxation is seen. Posterior elements are intact. The intervertebral discs are maintained. Prevertebral soft tissues are normal. No spinal stenosis is apparent. IMPRESSION: No acute abnormality evident in the cervical spine. PROCEDURE: SHOULDER 2+V RIGHT Exam: Right shoulder 3 views INDICATION: Hit shoulder on bathtub TECHNIQUE: Frontal view of the right shoulder with internal and external rotation and transscapular Y views Comparisons: None FINDINGS: Bone mineralization is normal. No acute or healed fractures. Soft tissues are unremarkable. Joint spaces are well-maintained. IMPRESSION: No acute osseous abnormality Assessment/Plan Assessment/Plan Syncope, cardiogenic versus vasovagal etiology A. fib RVR Anaphylactic reaction to calcium channel lorne History of WPW status post cardiac ablation History of anxiety History of appendiceal carcinoma History of insomnia History of migraines Port-A-Cath placement Morbid obesity History of DVT/PE Admit to hospitalist services for further management Continue telemetry monitoring Resume home cardiac medications Cardiology consult Lovenox/Xarelto for DVT prophylaxis Protonix GI prophylaxis ADA diet CODE STATUS full Discussed with RN and SW Disposition inpatient management as above DPOA: Justifications for Admission Other Justification SHERRIE CHANEL MD Jul 21, 2021 09:08
[2021-07-21 11:00] VITALS: BP 134/80
[2021-07-21 13:17] LABS: CALCIUM 8.8 mg/dL (8.5-10.1); CREATININE 0.8 mg/dL (0.6-1.0); GFR 84.8; POTASSIUM 3.7 mmol/L (3.5-5.1)
[2021-07-21] MEDS: diphenhydrAMINE 50 MG/ML VIAL IVP PRN ×2 (13:22→19:21)
[2021-07-21 13:24] LABS: ALBUMIN 3.3 g/dL (3.4-5.0); ALBUMIN/GLOBULIN RATIO 0.9 (1.0-1.7); MAGNESIUM 1.8 mg/dL (1.8-2.4); TOTAL BILIRUBIN 0.6 mg/dL (0.2-1.0); TOTAL PROTEIN 7.1 g/dL (6.4-8.2)
[2021-07-21] MEDS ORDERED: HEPARIN 25,000UTS/250ML PREMIX 250 ML IV PRN (13:45)
[2021-07-21 15:00] VITALS: BP 140/79
--- NOTE | 2021-07-21 15:31 | PDOC2 ---
CONSULT Date of Consult Date of Consult DATE: 07/21/21 TIME: 15:24 Reason for Consult Reason for Consult: Syncope Referring Physician Referring Physician: Dr. Harris Identification/Chief Complaint Chief Complaint Syncope Source Source: Chart review, Patient History of Present Illness Reason for Visit: The patient is a 31-year-old female who reports an episode of syncope at home last evening. She was then brought to the emergency room. She had a fall and struck one of her shoulders but denies striking her head. CT head scan shows no acute intracranial changes. CT of the spine also showed no acute changes. Chest x-ray showed no acute cardiopulmonary processes. The patient of note had been apparently both on Xarelto 20 mg a day and Lovenox. Her initial rhythm in the emergency room was rapid. She was given Cardizem and had an allergic reaction which was successfully treated. Her EKGs after this episode showed sinus tachycardia and she has remained in a sinus rhythm overnight. Initial troponin was normal. She is feeling better this morning. 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 Encarnacion as a teenager. She is on atenolol 50 mg twice daily, Xarelto as well as Lovenox. She has not seen her day care teacher in many years and is followed through her primary service. Past Medical History Cardiovascular: Other (Fwlnp-Dlygkxxcu-Yufwz syndrome.) Pulmonary: Asthma GI: GERD, Peptic Ulcer disease, Other Heme/Onc: Cancer Hepatobiliary: No pertinent hx Psych: Anxiety Rheumatologic: No pertinent hx Infectious disease: No pertinent hx Renal/: Acute renal failure Endocrine: No pertinent hx Past Surgical History Past Surgical History: Appendectomy, Cholecystectomy, Tonsillectomy, Hysterectomy, Other (An ablation for Gziwk-Ekccmglhx-Kxnvh syndrome.) Family History Family History: Heart Disease Social History No ALCOHOL: none Drugs: None Lives: with Family Domestic Violence: Neg Current Problem List Problem List Problems Medical Problems: (1) Tachycardia Status: Acute Current Medications Current Medications Current Medications Sodium Chloride 1,000 ml @ 1,000 mls/hr Q1H IV Last administered on 07/20/21at 22:58; Start 07/20/21 at 22:30; Stop 07/20/21 at 23:29; Status DC Diltiazem HCl (Cardizem Iv Push) 10 mg 1X ONCE IVP Last administered on 07/20/21at 22:57; Start 07/20/21 at 22:30; Stop 07/20/21 at 22:31; Status DC Metoclopramide HCl (Reglan Vial) 10 mg 1X ONCE IVP Last administered on 07/20/21at 23:32; Start 07/20/21 at 23:30; Stop 07/20/21 at 23:31; Status DC Diphenhydramine HCl (Benadryl) 50 mg STK-MED ONCE .ROUTE ; Start 07/20/21 at 23:14; Stop 07/20/21 at 23:14; Status DC Methylprednisolone Sodium Succinate (SOLU-Medrol 125MG VIAL) 125 mg 1X ONCE IV Last administered on 07/20/21at 23:41; Start 07/20/21 at 23:45; Stop 07/20/21 at 23:46; Status DC Diphenhydramine HCl (Benadryl) 50 mg 1X ONCE IV Last administered on 07/20/21at 23:30; Start 07/20/21 at 23:45; Stop 07/20/21 at 23:46; Status DC Famotidine (Pepcid Vial) 20 mg 1X ONCE IVP Last administered on 07/20/21at 23:38; Start 07/20/21 at 23:45; Stop 07/20/21 at 23:46; Status DC Epinephrine HCl (Adrenalin) 0.3 mg 1X ONCE IM Last administered on 07/20/21at 23:31; Start 07/20/21 at 23:45; Stop 07/20/21 at 23:46; Status DC Acetaminophen (Tylenol) 1,000 mg 1X ONCE PO ; Start 07/21/21 at 00:30; Stop 07/21/21 at 00:31; Status DC Morphine Sulfate (Morphine Sulfate) 4 mg 1X ONCE IVP Last administered on 07/21/21at 00:35; Start 07/21/21 at 01:00; Stop 07/21/21 at 01:01; Status DC Heparin Sodium/ Dextrose 250 ml @ 0 mls/hr CONT PRN IV PER PROTOCOL Last administered on 07/21/21at 10:18; Start 07/21/21 at 00:30; Stop 07/21/21 at 14:28; Status DC Heparin Sodium (Porcine) (Heparin Sodium) 4,300 unit PRN Q6HRS PRN IV FOR UFH LEVEL LESS THAN 0.2; Start 07/21/21 at 00:30; Stop 07/21/21 at 14:28; Status DC Heparin Sodium (Porcine) (Heparin Sodium) 2,150 unit PRN Q6HRS PRN IV FOR UFH LEVEL 0.2 - 0.29; Start 07/21/21 at 00:30; Stop 07/21/21 at 14:28; Status DC Morphine Sulfate (Morphine Sulfate) 4 mg PRN Q4HRS PRN IVP SEVERE PAIN 7-10 Last administered on 07/21/21at 13:47; Start 07/21/21 at 00:30; Stop 07/22/21 at 00:29 Acetaminophen (Tylenol) 650 mg PRN Q4HRS PRN PO FEVER > 100.3'F; Start 07/21/21 at 00:30; Stop 07/22/21 at 00:29 Info (Anti-Coagulation Monitoring By Pharmacy) 1 each PRN DAILY PRN MC PER PROTOCOL Last administered on 07/21/21at 03:23; Start 07/21/21 at 00:30 Diphenhydramine HCl (Benadryl) 25 mg PRN Q6HRS PRN IVP ITCHING Last administered on 07/21/21at 13:22; Start 07/21/21 at 13:15 Atenolol (Tenormin) 50 mg BID PO ; Start 07/21/21 at 21:00 Lorazepam (Ativan) 4 mg BID PO Last administered on 07/21/21at 13:47; Start 07/21/21 at 14:00; Stop 07/21/21 at 15:01; Status DC Heparin Sodium/ Dextrose 250 ml @ 0 mls/hr CONT PRN IV PER PROTOCOL; Start 07/21/21 at 13:45 Heparin Sodium (Porcine) (Heparin Sodium) 30 UNITS / KG PRN Q6HRS PRN IV FOR PTT < 40; Start 07/21/21 at 13:45 Heparin Sodium (Porcine) (Heparin Sodium) 2,000 unit PRN Q6HRS PRN IV FOR PTT 40 - 58; Start 07/21/21 at 13:45 Heparin Sodium (Porcine) (Heparin Sodium) 1,000 unit PRN Q6HRS PRN IV FOR PTT 59 - 78; Start 07/21/21 at 13:45 Lorazepam (Ativan) 2 mg BID PO ; Start 07/21/21 at 21:00 Active Scripts Active Trazodone Hcl 50 Mg Tablet 1 Tab PO PRN QHS PRN 30 Days Reported Xarelto (Rivaroxaban) 20 Mg Tablet 1 Tab PO BID 30 Days with food Lovenox (Enoxaparin Sodium) 120 Mg/0.8 Ml Disp.syrin 120 Mg SQ BID Promethazine Hcl 12.5 Mg Supp.rect 1 Supp RC Q4-6HRS 4 Days Atenolol 50 Mg Tablet 1 Tab PO BID Pepcid (Famotidine) 20 Mg Tablet 20 Mg PO BID Benadryl (Diphenhydramine Hcl) 25 Mg Capsule 2 Cap PO QHS 30 Days Ativan (Lorazepam) 2 Mg Tablet 4 Mg PO BID Quetiapine Fumarate 50 Mg Tablet 1 Tab PO QHS Pramipexole Dihydrochloride (Pramipexole Di-Hcl) 0.125 Mg Tablet 2 Tab PO BID Allergies Allergies: Coded Allergies: Fish Containing Products (Verified Allergy, Severe, Anaphylaxis, 09/27/20) Iodinated Contrast Media (Verified Allergy, Severe, Hives, 09/27/20) difficulty breathing and throat swelling the second time she had iv contrast per patient diltiazem (Verified Allergy, Severe, Anaphylaxis, 07/21/21) latex (Verified Allergy, Severe, Anaphylaxis, 09/27/20) ondansetron (Verified Allergy, Severe, Anaphylaxis, 09/27/20) shellfish derived (Verified Allergy, Severe, Anaphylaxis, 09/27/20) coconut (Verified Allergy, Intermediate, Hives, 09/27/20) fentanyl (Verified Allergy, Intermediate, ITCHY, 09/27/20) ketorolac (Verified Allergy, Intermediate, Hives, 09/27/20) tramadol (Verified Allergy, Intermediate, 09/27/20) ROS General: YES: Fatigue Respiratory: YES: Other Cardiovascular: yes Other (Syncopal episode) Physical Exam General: Cooperative, No acute distress HEENT: Atraumatic Lungs: Clear to auscultation Heart: Regular rate Abdomen: Normal bowel sounds Vitals VITALS Vital Signs Date Time Temp Pulse Resp B/P (MAP) Pulse Ox O2 Delivery O2 Flow Rate FiO2 07/21/21 15:00 98.6 92 16 140/79 (99) 95 Room Air 98.6 Labs Labs Laboratory Tests Test 07/20/21 12:25 07/20/21 22:50 07/21/21 00:40 07/21/21 12:25 Sodium Level 137 mmol/L (136-145) Potassium Level 3.7 mmol/L (3.5-5.1) Chloride Level 101 mmol/L (98-107) Carbon Dioxide Level 23 mmol/L (21-32) Anion Gap 13 (6-14) Blood Urea Nitrogen 6 mg/dL (7-20) Creatinine 0.8 mg/dL (0.6-1.0) Estimated GFR (Cockcroft-Gault) 84.8 BUN/Creatinine Ratio 8 (6-20) Glucose Level 202 mg/dL (70-99) Calcium Level 8.8 mg/dL (8.5-10.1) Magnesium Level 1.8 mg/dL (1.8-2.4) Total Bilirubin 0.6 mg/dL (0.2-1.0) Aspartate Amino Transf (AST/SGOT) 5 U/L (15-37) Alanine Aminotransferase (ALT/SGPT) 26 U/L (14-59) Alkaline Phosphatase 103 U/L (46-116) EV-Cbu-R-Type Natriuretic Peptide 93 pg/mL (0-124) Total Protein 7.1 g/dL (6.4-8.2) Albumin 3.3 g/dL (3.4-5.0) Albumin/Globulin Ratio 0.9 (1.0-1.7) Thyroid Stimulating Hormone (TSH) 1.901 uIU/mL (0.358-3.74) White Blood Count 16.4 x10^3/uL (4.0-11.0) Red Blood Count 4.33 x10^6/uL (3.50-5.40) Hemoglobin 12.9 g/dL (12.0-15.5) Hematocrit 38.7 % (36.0-47.0) Mean Corpuscular Volume 90 fL (79-100) Mean Corpuscular Hemoglobin 30 pg (25-35) Mean Corpuscular Hemoglobin Concent 33 g/dL (31-37) Red Cell Distribution Width 12.8 % (11.5-14.5) Platelet Count 360 x10^3/uL (140-400) Neutrophils (%) (Auto) 77 % (31-73) Lymphocytes (%) (Auto) 17 % (24-48) Monocytes (%) (Auto) 5 % (0-9) Eosinophils (%) (Auto) 0 % (0-3) Basophils (%) (Auto) 1 % (0-3) Neutrophils # (Auto) 12.6 x10^3/uL (1.8-7.7) Lymphocytes # (Auto) 2.7 x10^3/uL (1.0-4.8) Monocytes # (Auto) 0.9 x10^3/uL (0.0-1.1) Eosinophils # (Auto) 0.1 x10^3/uL (0.0-0.7) Basophils # (Auto) 0.1 x10^3/uL (0.0-0.2) Prothrombin Time 12.9 SEC (11.7-14.0) Prothromb Time International Ratio 1.0 (0.8-1.1) Activated Partial Thromboplast Time 30 SEC (24-38) D-Dimer (Mitzi) 0.60 ug/mlFEU (0.00-0.50) SARS-CoV-2 RNA (HANNAH) Negative (Negative) SARS-CoV-2 Antigen (Rapid) Negative (NEGATIVE) Heparin Anti-Xa Act, Unfractionated > 1.10 IU/mL (0.30-0.70) Troponin I Quantitative < 0.017 ng/mL (0.000-0.055) Laboratory Tests Test 07/20/21 22:50 07/21/21 00:40 07/21/21 12:25 White Blood Count 16.4 x10^3/uL (4.0-11.0) Red Blood Count 4.33 x10^6/uL (3.50-5.40) Hemoglobin 12.9 g/dL (12.0-15.5) Hematocrit 38.7 % (36.0-47.0) Mean Corpuscular Volume 90 fL (79-100) Mean Corpuscular Hemoglobin 30 pg (25-35) Mean Corpuscular Hemoglobin Concent 33 g/dL (31-37) Red Cell Distribution Width 12.8 % (11.5-14.5) Platelet Count 360 x10^3/uL (140-400) Neutrophils (%) (Auto) 77 % (31-73) Lymphocytes (%) (Auto) 17 % (24-48) Monocytes (%) (Auto) 5 % (0-9) Eosinophils (%) (Auto) 0 % (0-3) Basophils (%) (Auto) 1 % (0-3) Neutrophils # (Auto) 12.6 x10^3/uL (1.8-7.7) Lymphocytes # (Auto) 2.7 x10^3/uL (1.0-4.8) Monocytes # (Auto) 0.9 x10^3/uL (0.0-1.1) Eosinophils # (Auto) 0.1 x10^3/uL (0.0-0.7) Basophils # (Auto) 0.1 x10^3/uL (0.0-0.2) Prothrombin Time 12.9 SEC (11.7-14.0) Prothromb Time International Ratio 1.0 (0.8-1.1) Activated Partial Thromboplast Time 30 SEC (24-38) D-Dimer (Mitzi) 0.60 ug/mlFEU (0.00-0.50) SARS-CoV-2 RNA (HANNAH) Negative (Negative) SARS-CoV-2 Antigen (Rapid) Negative (NEGATIVE) Heparin Anti-Xa Act, Unfractionated > 1.10 IU/mL (0.30-0.70) Troponin I Quantitative < 0.017 ng/mL (0.000-0.055) Images Images As above. Assessment/Plan Assessment/Plan 1. Syncopal episode. Patient is feeling significantly better today. She is remained in a sinus tachycardia overnight. As noted above she has a history of Dloxt-Bkyazxsdp-Kyhaq and a previous ablation. She has been treated for possible paroxysmal atrial fibrillation with atenolol and anticoagulation. At this time we will continue on present treatments and monitoring. We will gradually increase activity. Patient will require cardiac and probable EP follow-up post discharge. 2. Multiple allergies as listed above and a allergic reaction to the Cardizem. This has resolved and the patient is feeling significantly better. 3. History of renal insufficiency. We will continue to monitor lab. 4. History of a possible past pulmonary embolism. Patient is on both Xarelto and Lovenox. Will obtain further old records. JOSE SALVADOR MD Jul 21, 2021 15:31
[2021-07-21 19:20] VITALS: BP 149/86
[2021-07-21] MEDS: ATENOLOL 50 MG TABLET. PO SCH (19:21)
[2021-07-21] MEDS ORDERED: ALTEPLASE 1MG SYRINGE. INT CAT ONE ×2 (22:00)
[2021-07-21 23:10] VITALS: BP 145/83
[2021-07-22] MEDS: diphenhydrAMINE 50 MG/ML VIAL IVP PRN ×3 (00:20→11:36)
[2021-07-22] MEDS: MORPHINE SULFATE 4 MG/ML INJ. IV PRN ×5 (01:50→20:06)
[2021-07-22 03:14] VITALS: BP 143/85
[2021-07-22 06:05] VITALS: BP 125/71
[2021-07-22 08:14] LABS: CALCIUM 8.7 mg/dL (8.5-10.1); CREATININE 0.8 mg/dL (0.6-1.0); GFR 84.8; POTASSIUM 3.9 mmol/L (3.5-5.1)
[2021-07-22] MEDS ORDERED: traZODone 50 MG TABLET. PO PRN (08:15)
[2021-07-22] MEDS: FAMOTIDINE 20 MG TABLET. PO SCH ×2 (10:06→20:05)
[2021-07-22] MEDS: ATENOLOL 50 MG TABLET. PO SCH ×2 (10:06→20:05)
[2021-07-22] MEDS: PRAMIPEXOLE 0.25 MG TABLET. PO SCH ×2 (10:06→20:06)
[2021-07-22] MEDS ORDERED: METHOCARBAMOL 750 MG TABLET PO PRN (10:30)
[2021-07-22 11:00] VITALS: BP_SYST 107; BP_SYST 96; BP_DIAS 50; BP_DIAS 55
--- NOTE | 2021-07-22 12:26 | PDOC ---
[facility] PROGRESS NOTE Date of Service DOS: DATE: 07/22/21 TIME: 12:20 Chief Complaint Chief Complaint Syncope, cardiogenic, likely vasovagal etiology A. fib RVR Anaphylactic reaction to calcium channel lorne History of WPW status post cardiac ablation History of anxiety History of appendiceal carcinoma History of insomnia History of migraines Port-A-Cath placement Super super morbid obesity History of DVT/PE Pending DVT ultrasound of all extremities as she has had a history of a in her upper extremities Pending hematology consult Discontinued Xarelto Continue telemetry monitoring Resume home cardiac medications Appreciate cardiology recommendationscontinue with atenolol and anticoagulation. Consider outpatient EP evaluation Lovenox/Xarelto for DVT prophylaxis Protonix GI prophylaxis ADA diet CODE STATUS full Discussed with RN and SW Disposition inpatient management as above DPOA: History of Present Illness History of Present Illness 31-year-old female with a complicated past medical history which includes ovarian cancer that resulted in a TAHBSO chemotherapy, history of DVT/PE currently on Lovenox and Xarelto, WPW status post catheter ablation diagnosed when she was 11 years old, and morbid obesity who comes in after she fell in the bathroom after experiencing heart flutters. Apparently she was sleeping she went to the bathroom and she started experiencing heart palpitations and she knew that she have atrial fibrillation. She did have a nausea vomiting episode that she knows she is has atrial fibrillation's whenever she vomits. Her did witness her passing out and stated that she did hit her right shoulder on the bathtub. Denies any head trauma however patient did have loss of consciousness in the first thing she remembered when she woke up was arriving at the hospital. Currently patient does have some right-sided neck tightness and pain. She is on Lovenox and Xarelto for blood thinner she follows up with a bulb planter for this. Patient is unclear with his history for her anticoagulation, but apparently she states that she had a pulmonary embolism while she was on blood thinners as well. Currently denies any headaches, chest pain, abdominal pain, diarrhea, dysuria, fevers or chills or cough. 07/22/2021 No acute events overnight. No major telemetry events requiring increase in her rate control medications. Patient appears to have increased anxiety whenever her heart rate changes. However I have just not reported of any major telemetry events. I will order a DVT ultrasound of the extremities to rule out any new propagating clots. 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 I will also consider hematology consult for her anticoagulation regimen. Patient's chart, labs, images were reviewed and discussed with RN Vitals/I&O Vitals/I&O: Vital Signs Date Time Temp Pulse Resp B/P (MAP) Pulse Ox O2 Delivery O2 Flow Rate FiO2 07/22/21 10:06 80 07/22/21 06:05 98.3 21 125/71 (89) 96 Room Air 98.3 I & O 07/21/21 07/21/21 07/22/21 15:00 23:00 07:00 Intake Total 340 ml 120 ml 200 ml Output Total 1800 ml Balance 340 ml 120 ml -1600 ml Physical Exam General: Cooperative, No acute distress Heart: Regular rate Lungs: Clear, Other Abdomen: Normal bowel sounds Labs Labs: Laboratory Tests Test 07/21/21 12:25 07/21/21 15:35 07/22/21 03:30 Heparin Anti-Xa Act, Unfractionated > 1.10 IU/mL (0.30-0.70) Troponin I Quantitative < 0.017 ng/mL (0.000-0.055) < 0.017 ng/mL (0.000-0.055) < 0.017 ng/mL (0.000-0.055) Activated Partial Thromboplast Time 125 SEC (24-38) Sodium Level 140 mmol/L (136-145) Potassium Level 3.9 mmol/L (3.5-5.1) Chloride Level 106 mmol/L (98-107) Carbon Dioxide Level 23 mmol/L (21-32) Anion Gap 11 (6-14) Blood Urea Nitrogen 12 mg/dL (7-20) Creatinine 0.8 mg/dL (0.6-1.0) Estimated GFR (Cockcroft-Gault) 84.8 Glucose Level 144 mg/dL (70-99) Calcium Level 8.7 mg/dL (8.5-10.1) Assessment and Plan Assessmemt and Plan Problems Medical Problems: (1) Tachycardia Status: Acute Comment Review of Relevant I have reviewed the following items lady (where applicable) has been applied. Medications: Current Medications Medications (Trade) Dose Ordered Sig/Lyndsey Route PRN Reason Start Time Stop Time Status Last Admin Dose Admin Diphenhydramine HCl (Benadryl) 25 mg PRN Q6HRS PRN IVP ITCHING 07/21/21 13:15 07/22/21 11:36 Atenolol (Tenormin) 50 mg BID PO 07/21/21 21:00 07/22/21 10:06 Lorazepam (Ativan) 4 mg BID PO 07/21/21 14:00 07/21/21 15:01 DC 07/21/21 13:47 Heparin Sodium/ Dextrose 250 ml @ 0 mls/hr CONT PRN IV PER PROTOCOL 07/21/21 13:45 07/22/21 08:57 DC 07/22/21 00:23 Lorazepam (Ativan) 2 mg BID PO 07/21/21 21:00 07/22/21 10:06 Alteplase, Recombinant (Cathflo For Central Catheter Clearance) 1 mg 1X ONCE INT CAT 07/21/21 22:00 07/21/21 22:01 DC 07/21/21 22:00 Alteplase, Recombinant (Cathflo For Central Catheter Clearance) 1 mg 1X ONCE INT CAT 07/21/21 22:00 07/21/21 22:01 DC 07/21/21 22:00 Morphine Sulfate (Morphine Sulfate) 4 mg PRN Q4HRS PRN IV SEVERE PAIN 7-10 07/22/21 01:30 07/22/21 10:07 Enoxaparin Sodium (Lovenox 120mg Syringe) 120 mg BID SQ 07/22/21 09:00 07/22/21 10:08 Famotidine (Pepcid) 20 mg BID PO 07/22/21 09:00 07/22/21 10:06 Pramipexole Dihydrochloride (miraPEX) 0.25 mg BID PO 07/22/21 09:00 07/22/21 10:06 Justifications for Admission Other Justification SHERRIE CHANEL MD Jul 22, 2021 12:26
--- NOTE | 2021-07-22 13:14 | RAD ---
Clinical indications: Bilateral arm/leg pain and swelling. History of previous clot. BILATERAL UPPER EXTREMITY VENOUS DUPLEX EXAMINATION Findings: Duplex sonography (including chakraborty scale evaluation and color flow and waveform spectral lia lysis) of the inferior aspect of both internal jugular veins was performed. Duplex sonography (includ ing chakraborty scale evaluation and color flow and waveform spectral analysis) of both subclavian veins as far as it could be visualized prior to it's descent underneath the medial aspect of the clavicle was performed. Duplex sonography (including chakraborty scale evaluation and color flow and waveform spectral an alysis) of both axillary, brachial, basilic, cephalic, ulnar and radial veins was performed. Normal c ompressibility and augmentation of color Doppler flow after forearm compression is seen. Color-flow c ompletely fills the lumen of these veins. Therefore, there are no sonographic findings of deep venous thrombosis within these veins. Impression: There are no sonographic findings of deep venous thrombosis within the veins discussed ab ove of either upper extremity. LEFT LEG VENOUS DOPPLER STUDY: Findings: Duplex sonography (including chakraborty scale evaluation and color flow and waveform spectral lia lysis) of the proximal aspect of the greater saphenous vein and the proximal aspect of the profunda f emoral vein and the entire length of the common femoral and superficial femoral and popliteal veins a nd the tibioperoneal trunk and the proximal aspect of the posterior tibial and peroneal veins of the left leg was performed. Normal compressibility, augmentation of color Doppler flow after calf donald fransisco, and respiratory variation of Doppler flow is seen. Thus, there are no sonographic findings of d eep venous thrombosis within these veins. Impression: There are no sonographic findings of deep venous thrombosis within the veins discussed ab ove of the left lower extremity. RIGHT LEG VENOUS DOPPLER STUDY: Findings: Duplex sonography (including chakraborty scale evaluation and color flow and waveform spectral lia lysis) of the proximal aspect of the greater saphenous vein and proximal aspect of the profunda femor al vein and the entire length of the common femoral and superficial femoral and popliteal veins and t he tibioperoneal trunk and the proximal aspect of the posterior tibial and peroneal veins of the righ t leg was performed. Normal compressibility, augmentation of color Doppler flow after calf compressio n, and respiratory variation of Doppler flow is seen. Thus, there are no sonographic findings of deep venous thrombosis within these veins. Impression: There are no sonographic findings of deep venous thrombosis within the veins discussed ab ove of the right lower extremity. Electronically signed by: Bruno Jauregui MD (07/22/2021 1:12 PM) [id number]
--- NOTE | 2021-07-22 14:20 | PDOC ---
PROGRESS NOTES Date of Service DATE: 07/22/21 TIME: 14:17 Subjective Subjective Patient seen and examined Objective Objective Vital Signs Date Time Temp Pulse Resp B/P (MAP) Pulse Ox O2 Delivery O2 Flow Rate FiO2 07/22/21 10:06 80 07/22/21 08:05 Room Air 07/22/21 06:05 98.3 21 125/71 (89) 96 98.3 Intake and Output 07/22/21 07:00 Intake Total 660 ml Output Total 1800 ml Balance -1140 ml Intake Oral 660 ml Output Urine Total 1800 ml # Voids 4 # Bowel Movements 1 Physical Exam Abdomen: Normal bowel sounds Heart: Regular rate General: No acute distress Lungs: Clear to auscultation Assessment Assessment Problems Medical Problems: (1) Tachycardia Status: Acute 1. Syncopal episode. The patient is feeling better again today. She reports episodes of extra heartbeats overnight but monitor shows no significant arrhythmias. She is quite anxious regarding her rhythm. As noted above she has a history of Wqomd-Konhzshto-Qsgnb and a previous ablation. She has been treated for possible paroxysmal atrial fibrillation with atenolol and anticoagulation. At this time we will continue on present treatments and monitoring. We will gradually increase activity. We will place an outpatient monitor tomorrow. Patient will require EP follow-up post discharge. 2. Multiple allergies as listed above and a allergic reaction to the Cardizem. This has resolved and the patient is feeling significantly better. 3. History of renal insufficiency. We will continue to monitor lab. 4. History of a possible past pulmonary embolism. Patient is on both Xarelto and Lovenox. Possible hematology evaluation as per the primary service's note. Comment Review of Relevant I have reviewed the following items lady (where applicable) has been applied. Labs Laboratory Tests Test 07/20/21 22:50 07/21/21 00:40 07/21/21 12:25 07/21/21 15:35 White Blood Count 16.4 x10^3/uL (4.0-11.0) Red Blood Count 4.33 x10^6/uL (3.50-5.40) Hemoglobin 12.9 g/dL (12.0-15.5) Hematocrit 38.7 % (36.0-47.0) Mean Corpuscular Volume 90 fL (79-100) Mean Corpuscular Hemoglobin 30 pg (25-35) Mean Corpuscular Hemoglobin Concent 33 g/dL (31-37) Red Cell Distribution Width 12.8 % (11.5-14.5) Platelet Count 360 x10^3/uL (140-400) Neutrophils (%) (Auto) 77 % (31-73) Lymphocytes (%) (Auto) 17 % (24-48) Monocytes (%) (Auto) 5 % (0-9) Eosinophils (%) (Auto) 0 % (0-3) Basophils (%) (Auto) 1 % (0-3) Neutrophils # (Auto) 12.6 x10^3/uL (1.8-7.7) Lymphocytes # (Auto) 2.7 x10^3/uL (1.0-4.8) Monocytes # (Auto) 0.9 x10^3/uL (0.0-1.1) Eosinophils # (Auto) 0.1 x10^3/uL (0.0-0.7) Basophils # (Auto) 0.1 x10^3/uL (0.0-0.2) Prothrombin Time 12.9 SEC (11.7-14.0) Prothromb Time International Ratio 1.0 (0.8-1.1) Activated Partial Thromboplast Time 30 SEC (24-38) D-Dimer (Mitzi) 0.60 ug/mlFEU (0.00-0.50) SARS-CoV-2 RNA (HANNAH) Negative (Negative) SARS-CoV-2 Antigen (Rapid) Negative (NEGATIVE) Heparin Anti-Xa Act, Unfractionated > 1.10 IU/mL (0.30-0.70) Troponin I Quantitative < 0.017 ng/mL (0.000-0.055) < 0.017 ng/mL (0.000-0.055) Test 07/22/21 03:30 Activated Partial Thromboplast Time 125 SEC (24-38) Sodium Level 140 mmol/L (136-145) Potassium Level 3.9 mmol/L (3.5-5.1) Chloride Level 106 mmol/L (98-107) Carbon Dioxide Level 23 mmol/L (21-32) Anion Gap 11 (6-14) Blood Urea Nitrogen 12 mg/dL (7-20) Creatinine 0.8 mg/dL (0.6-1.0) Estimated GFR (Cockcroft-Gault) 84.8 Glucose Level 144 mg/dL (70-99) Calcium Level 8.7 mg/dL (8.5-10.1) Troponin I Quantitative < 0.017 ng/mL (0.000-0.055) Laboratory Tests Test 07/21/21 15:35 07/22/21 03:30 Troponin I Quantitative < 0.017 ng/mL (0.000-0.055) < 0.017 ng/mL (0.000-0.055) Activated Partial Thromboplast Time 125 SEC (24-38) Sodium Level 140 mmol/L (136-145) Potassium Level 3.9 mmol/L (3.5-5.1) Chloride Level 106 mmol/L (98-107) Carbon Dioxide Level 23 mmol/L (21-32) Anion Gap 11 (6-14) Blood Urea Nitrogen 12 mg/dL (7-20) Creatinine 0.8 mg/dL (0.6-1.0) Estimated GFR (Cockcroft-Gault) 84.8 Glucose Level 144 mg/dL (70-99) Calcium Level 8.7 mg/dL (8.5-10.1) Medications Current Medications Sodium Chloride 1,000 ml @ 1,000 mls/hr Q1H IV Last administered on 07/20/21at 22:58; Start 07/20/21 at 22:30; Stop 07/20/21 at 23:29; Status DC Diltiazem HCl (Cardizem Iv Push) 10 mg 1X ONCE IVP Last administered on 07/20/21at 22:57; Start 07/20/21 at 22:30; Stop 07/20/21 at 22:31; Status DC Metoclopramide HCl (Reglan Vial) 10 mg 1X ONCE IVP Last administered on 07/20/21at 23:32; Start 07/20/21 at 23:30; Stop 07/20/21 at 23:31; Status DC Diphenhydramine HCl (Benadryl) 50 mg STK-MED ONCE .ROUTE ; Start 07/20/21 at 23:14; Stop 07/20/21 at 23:14; Status DC Methylprednisolone Sodium Succinate (SOLU-Medrol 125MG VIAL) 125 mg 1X ONCE IV Last administered on 07/20/21at 23:41; Start 07/20/21 at 23:45; Stop 07/20/21 at 23:46; Status DC Diphenhydramine HCl (Benadryl) 50 mg 1X ONCE IV Last administered on 07/20/21at 23:30; Start 07/20/21 at 23:45; Stop 07/20/21 at 23:46; Status DC Famotidine (Pepcid Vial) 20 mg 1X ONCE IVP Last administered on 07/20/21at 23:38; Start 07/20/21 at 23:45; Stop 07/20/21 at 23:46; Status DC Epinephrine HCl (Adrenalin) 0.3 mg 1X ONCE IM Last administered on 07/20/21at 23:31; Start 07/20/21 at 23:45; Stop 07/20/21 at 23:46; Status DC Acetaminophen (Tylenol) 1,000 mg 1X ONCE PO ; Start 07/21/21 at 00:30; Stop 07/21/21 at 00:31; Status DC Morphine Sulfate (Morphine Sulfate) 4 mg 1X ONCE IVP Last administered on 07/21/21at 00:35; Start 07/21/21 at 01:00; Stop 07/21/21 at 01:01; Status DC Heparin Sodium/ Dextrose 250 ml @ 0 mls/hr CONT PRN IV PER PROTOCOL Last administered on 07/21/21at 10:18; Start 07/21/21 at 00:30; Stop 07/21/21 at 14:28; Status DC Heparin Sodium (Porcine) (Heparin Sodium) 4,300 unit PRN Q6HRS PRN IV FOR UFH LEVEL LESS THAN 0.2; Start 07/21/21 at 00:30; Stop 07/21/21 at 14:28; Status DC Heparin Sodium (Porcine) (Heparin Sodium) 2,150 unit PRN Q6HRS PRN IV FOR UFH LEVEL 0.2 - 0.29; Start 07/21/21 at 00:30; Stop 07/21/21 at 14:28; Status DC Morphine Sulfate (Morphine Sulfate) 4 mg PRN Q4HRS PRN IVP SEVERE PAIN 7-10 Last administered on 07/21/21at 22:16; Start 07/21/21 at 00:30; Stop 07/22/21 at 00:29; Status DC Acetaminophen (Tylenol) 650 mg PRN Q4HRS PRN PO FEVER > 100.3'F; Start 07/21/21 at 00:30; Stop 07/22/21 at 00:29; Status DC Info (Anti-Coagulation Monitoring By Pharmacy) 1 each PRN DAILY PRN MC PER PROTOCOL Last administered on 07/21/21at 03:23; Start 07/21/21 at 00:30 Diphenhydramine HCl (Benadryl) 25 mg PRN Q6HRS PRN IVP ITCHING Last administered on 07/22/21at 11:36; Start 07/21/21 at 13:15 Atenolol (Tenormin) 50 mg BID PO Last administered on 07/22/21at 10:06; Start 07/21/21 at 21:00 Lorazepam (Ativan) 4 mg BID PO Last administered on 07/21/21at 13:47; Start 07/21/21 at 14:00; Stop 07/21/21 at 15:01; Status DC Heparin Sodium/ Dextrose 250 ml @ 0 mls/hr CONT PRN IV PER PROTOCOL Last administered on 07/22/21at 00:23; Start 07/21/21 at 13:45; Stop 07/22/21 at 08:57; Status DC Heparin Sodium (Porcine) (Heparin Sodium) 30 UNITS / KG PRN Q6HRS PRN IV FOR PTT < 40; Start 07/21/21 at 13:45; Stop 07/22/21 at 08:57; Status DC Heparin Sodium (Porcine) (Heparin Sodium) 2,000 unit PRN Q6HRS PRN IV FOR PTT 40 - 58; Start 07/21/21 at 13:45; Stop 07/22/21 at 08:57; Status DC Heparin Sodium (Porcine) (Heparin Sodium) 1,000 unit PRN Q6HRS PRN IV FOR PTT 59 - 78; Start 07/21/21 at 13:45; Stop 07/22/21 at 08:57; Status DC Lorazepam (Ativan) 2 mg BID PO Last administered on 07/22/21at 10:06; Start 07/21/21 at 21:00 Alteplase, Recombinant (Cathflo For Central Catheter Clearance) 1 mg 1X ONCE INT CAT Last administered on 07/21/21at 22:00; Start 07/21/21 at 22:00; Stop 07/21/21 at 22:01; Status DC Alteplase, Recombinant (Cathflo For Central Catheter Clearance) 1 mg 1X ONCE INT CAT Last administered on 07/21/21at 22:00; Start 07/21/21 at 22:00; Stop 07/21/21 at 22:01; Status DC Morphine Sulfate (Morphine Sulfate) 4 mg PRN Q4HRS PRN IV SEVERE PAIN 7-10 Last administered on 07/22/21at 10:07; Start 07/22/21 at 01:30 Diphenhydramine HCl (Benadryl) 50 mg QHS PO ; Start 07/22/21 at 21:00 Enoxaparin Sodium (Lovenox 120mg Syringe) 120 mg BID SQ Last administered on 07/22/21at 10:08; Start 07/22/21 at 09:00 Famotidine (Pepcid) 20 mg BID PO Last administered on 07/22/21at 10:06; Start 07/22/21 at 09:00 Trazodone HCl (Desyrel) 50 mg PRN QHS PRN PO INSOMNIA; Start 07/22/21 at 08:15 Pramipexole Dihydrochloride (miraPEX) 0.25 mg BID PO Last administered on 07/22/21at 10:06; Start 07/22/21 at 09:00 Quetiapine Fumarate (SEROquel) 50 mg QHS PO ; Start 07/22/21 at 21:00 Rivaroxaban (Xarelto) 20 mg DAILYWSUP PO ; Start 07/22/21 at 17:00; Stop 07/22/21 at 12:20; Status DC Methocarbamol (Robaxin) 750 mg PRN BID PRN PO MUSCLE SPASMS; Start 07/22/21 at 10:30 Active Scripts Active Trazodone Hcl 50 Mg Tablet 1 Tab PO PRN QHS PRN 30 Days Reported Xarelto (Rivaroxaban) 20 Mg Tablet 1 Tab PO BID 30 Days with food Lovenox (Enoxaparin Sodium) 120 Mg/0.8 Ml Disp.syrin 120 Mg SQ BID Promethazine Hcl 12.5 Mg Supp.rect 1 Supp RC Q4-6HRS 4 Days Atenolol 50 Mg Tablet 1 Tab PO BID Pepcid (Famotidine) 20 Mg Tablet 20 Mg PO BID Benadryl (Diphenhydramine Hcl) 25 Mg Capsule 2 Cap PO QHS 30 Days Ativan (Lorazepam) 2 Mg Tablet 4 Mg PO BID Quetiapine Fumarate 50 Mg Tablet 1 Tab PO QHS Pramipexole Dihydrochloride (Pramipexole Di-Hcl) 0.125 Mg Tablet 2 Tab PO BID Vitals/I & O Vital Sign - Last 24 Hours 07/21/21 07/21/21 07/21/21 07/21/21 15:00 16:23 19:20 19:21 Temp 98.6 98.3 98.6 98.3 Pulse 92 94 Resp 16 20 18 20 B/P (MAP) 140/79 (99) 149/86 (107) Pulse Ox 95 97 O2 Delivery Room Air Room Air 07/21/21 07/21/21 07/21/21 07/21/21 19:21 19:51 19:51 22:16 Pulse 92 Resp 20 20 B/P (MAP) 149/86 O2 Delivery Room Air 07/21/21 07/22/21 07/22/21 07/22/21 23:10 01:50 03:14 06:05 Temp 98.0 98.0 98.3 98.0 98.0 98.3 Pulse 78 92 81 Resp 18 21 B/P (MAP) 145/83 (103) 143/85 (104) 125/71 (89) Pulse Ox 97 96 96 O2 Delivery Room Air Room Air Room Air 07/22/21 07/22/21 08:05 10:06 Pulse 80 O2 Delivery Room Air Intake and Output 07/21/21 07/21/21 07/22/21 15:00 23:00 07:00 Intake Total 340 ml 120 ml 200 ml Output Total 1800 ml Balance 340 ml 120 ml -1600 ml Justifications for Admission Other Justification JOSE SALVADOR MD Jul 22, 2021 14:20
[2021-07-22 15:00] VITALS: BP 118/84
[2021-07-22] MEDS ORDERED: diphenhydrAMINE 50 MG/ML VIAL IV ONE (15:30)
[2021-07-22] MEDS ORDERED: RIVAROXABAN 10 MG TABLET. PO SCH (17:00)
[2021-07-22 19:26] VITALS: BP 133/78
[2021-07-22] MEDS ORDERED: QUEtiapine 25 MG TABLET. PO SCH (21:00)
[2021-07-22] MEDS ORDERED: diphenhydrAMINE HCL 25 MG CAPSULE PO SCH (21:00)
[2021-07-22 22:20] VITALS: BP 112/77
[2021-07-23 03:03] VITALS: BP 91/55
[2021-07-23] MEDS: diphenhydrAMINE 50 MG/ML VIAL IVP PRN ×2 (04:30→11:29)
[2021-07-23] MEDS: MORPHINE SULFATE 4 MG/ML INJ. IV PRN ×3 (04:31→12:52)
[2021-07-23 04:47] LABS: HEMATOCRIT 34.1 % (36.0-47.0); HEMOGLOBIN 11.2 g/dL (12.0-15.5); RED BLOOD COUNT 3.74 x10^6/uL (3.50-5.40); RED CELL DISTRIBUTION WIDTH 12.8 % (11.5-14.5); WHITE BLOOD COUNT 12.4 x10^3/uL (4.0-11.0)
[2021-07-23 07:00] VITALS: BP 107/71
[2021-07-23] MEDS: PRAMIPEXOLE 0.25 MG TABLET. PO SCH (08:40)
[2021-07-23] MEDS: ATENOLOL 50 MG TABLET. PO SCH (08:41)
[2021-07-23] MEDS: FAMOTIDINE 20 MG TABLET. PO SCH (08:41)
--- NOTE | 2021-07-23 10:33 | PDOC ---
PROGRESS NOTES Date of Service: DATE: 07/23/21 TIME: 10:32 Chief Complaint Chief Complaint DISCHARGE DX Syncope, cardiogenic, likely vasovagal etiology A. 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 / treated for possible paroxysmal atrial fibrillation with atenolol and anticoagulation Pending DVT ultrasound of all extremities as she has had a history of a in her upper extremities Pending hematology consult Discontinued Xarelto Continue telemetry monitoring Resume home cardiac medications Appreciate cardiology recommendationscontinue with atenolol and anticoagulation. Consider outpatient EP evaluation Lovenox/Xarelto for DVT prophylaxis Protonix GI prophylaxis ADA diet CODE STATUS full Discussed with RN and SW Disposition inpatient management as above DPOA: History of Present Illness History of Present Illness 31-year-old female with a complicated past medical history which includes ovarian cancer that resulted in a TAHBSO chemotherapy, history of DVT/PE currently on Lovenox and Xarelto, WPW status post catheter ablation diagnosed when she was 11 years old, and morbid obesity who comes in after she fell in the bathroom after experiencing heart flutters. Apparently she was sleeping she went to the bathroom and she started experiencing heart palpitations and she knew that she have atrial fibrillation. She did have a nausea vomiting episode that she knows she is has atrial fibrillation's whenever she vomits. Her did witness her passing out and stated that she did hit her right shoulder on the bathtub. Denies any head trauma however patient did have loss of consciousness in the first thing she remembered when she woke up was arriving at the hospital. Currently patient does have some right-sided neck tightness and pain. She is on Lovenox and Xarelto for blood thinner she follows up with a truck driver helper for this. Patient is unclear with his history for her anticoagulation, but apparently she states that she had a pulmonary embolism while she was on blood thinners as well. Currently denies any headaches, chest pain, abdominal pain, diarrhea, dysuria, fevers or chills or cough. 07/22/2021 No acute events overnight. No major telemetry events requiring increase in her rate control medications. Patient appears to have increased anxiety whenever her heart rate changes. However I have just not reported of any major telemetry events. I will order a DVT ultrasound of the extremities to rule out any new propagating clots. Still contemplating on the possibility of a PE, however because she is not hemodynamically unstable I feel either a chest CTA or even a VQ scan would not offer any benefit as I do not think this will global director air and climate change. I will also consider hematology consult for her anticoagulation regimen. Patient's chart, labs, images were reviewed and discussed with RN 9-13 Continue Xarelto 20 mg daily. Recommend indefinite anticoagulation evaluation for antiphospholipid syndrome with lupus anticoagulant, anticardiolip in antibody, antibeta-2 glycoprotein antibody D/C PLANNING 33 MIN Vitals Vitals Vital Signs Date Time Temp Pulse Resp B/P (MAP) Pulse Ox O2 Delivery O2 Flow Rate FiO2 07/23/21 09:10 20 96 Room Air 07/23/21 08:41 71 107/71 07/23/21 07:00 97.9 97.9 Physical Exam Physical Exam GEN: No apparent distress. Alert and oriented HEENT: Normal cephalic, atraumatic, external auditory canals are patent EYES: Extraocular muscles are intact, pupil are equally round and reactive to light and accommodation MUSCULOSKELETAL: Well developed , well nourished, good range of motion ENDOCRINE: No thyromegaly was palpated LYMPHATICS: No cervical chain or axillary nodes were noted HEMATOPOIETIC: No bruising NECK: Supple, no JVD, no thyromegaly was noted LUNGS: Clear to auscultation in all lung sam[place] without rhonchi or wheezing HEART: RRR, S!, S2 present. Peripheral pulses intact, no obvious murmurs noted ABDOMEN: Soft, nontender. Positive bowel sounds, no organomegaly, normal bowel sounds EXTREMITIES: Without clubbing, cyanosis, or edema. Pedal pulses intact. Negative Homans sign NEUROLOGIC: Normal speech and tone. A&O x 3, moves all extremities, no o bvious focal deficits PSYCHIATRIC: Normal affect, normal mood. Stable SKIN: No ulcerations or rashes, good skin turgor, no jaundice VASCULAR: Good capillary refill, neurovascular bundle appears to be intact General: Cooperative, No acute distress Heart: Regular rate Lungs: Clear, Other Abdomen: Normal bowel sounds Extremities: No cyanosis Labs LABS Laboratory Tests Test 07/23/21 04:40 White Blood Count 12.4 x10^3/uL (4.0-11.0) Red Blood Count 3.74 x10^6/uL (3.50-5.40) Hemoglobin 11.2 g/dL (12.0-15.5) Hematocrit 34.1 % (36.0-47.0) Mean Corpuscular Volume 91 fL (79-100) Mean Corpuscular Hemoglobin 30 pg (25-35) Mean Corpuscular Hemoglobin Concent 33 g/dL (31-37) Red Cell Distribution Width 12.8 % (11.5-14.5) Platelet Count 241 x10^3/uL (140-400) Assessment and Plan Assessmemt and Plan Problems Medical Problems: (1) Tachycardia Status: Acute Comment Review of Relevant I have reviewed the following items lady (where applicable) has been applied. Labs Laboratory Tests Test 07/21/21 12:25 07/21/21 15:35 07/22/21 03:30 07/23/21 04:40 Heparin Anti-Xa Act, Unfractionated > 1.10 IU/mL (0.30-0.70) Troponin I Quantitative < 0.017 ng/mL (0.000-0.055) < 0.017 ng/mL (0.000-0.055) < 0.017 ng/mL (0.000-0.055) Activated Partial Thromboplast Time 125 SEC (24-38) Sodium Level 140 mmol/L (136-145) Potassium Level 3.9 mmol/L (3.5-5.1) Chloride Level 106 mmol/L (98-107) Carbon Dioxide Level 23 mmol/L (21-32) Anion Gap 11 (6-14) Blood Urea Nitrogen 12 mg/dL (7-20) Creatinine 0.8 mg/dL (0.6-1.0) Estimated GFR (Cockcroft-Gault) 84.8 Glucose Level 144 mg/dL (70-99) Calcium Level 8.7 mg/dL (8.5-10.1) White Blood Count 12.4 x10^3/uL (4.0-11.0) Red Blood Count 3.74 x10^6/uL (3.50-5.40) Hemoglobin 11.2 g/dL (12.0-15.5) Hematocrit 34.1 % (36.0-47.0) Mean Corpuscular Volume 91 fL (79-100) Mean Corpuscular Hemoglobin 30 pg (25-35) Mean Corpuscular Hemoglobin Concent 33 g/dL (31-37) Red Cell Distribution Width 12.8 % (11.5-14.5) Platelet Count 241 x10^3/uL (140-400) Laboratory Tests Test 07/23/21 04:40 White Blood Count 12.4 x10^3/uL (4.0-11.0) Red Blood Count 3.74 x10^6/uL (3.50-5.40) Hemoglobin 11.2 g/dL (12.0-15.5) Hematocrit 34.1 % (36.0-47.0) Mean Corpuscular Volume 91 fL (79-100) Mean Corpuscular Hemoglobin 30 pg (25-35) Mean Corpuscular Hemoglobin Concent 33 g/dL (31-37) Red Cell Distribution Width 12.8 % (11.5-14.5) Platelet Count 241 x10^3/uL (140-400) Medications Current Medications Sodium Chloride 1,000 ml @ 1,000 mls/hr Q1H IV Last administered on 07/20/21at 22:58; Start 07/20/21 at 22:30; Stop 07/20/21 at 23:29; Status DC Diltiazem HCl (Cardizem Iv Push) 10 mg 1X ONCE IVP Last administered on 07/20/21at 22:57; Start 07/20/21 at 22:30; Stop 07/20/21 at 22:31; Status DC Metoclopramide HCl (Reglan Vial) 10 mg 1X ONCE IVP Last administered on 07/20/21at 23:32; Start 07/20/21 at 23:30; Stop 07/20/21 at 23:31; Status DC Diphenhydramine HCl (Benadryl) 50 mg STK-MED ONCE .ROUTE ; Start 07/20/21 at 23:14; Stop 07/20/21 at 23:14; Status DC Methylprednisolone Sodium Succinate (SOLU-Medrol 125MG VIAL) 125 mg 1X ONCE IV Last administered on 07/20/21at 23:41; Start 07/20/21 at 23:45; Stop 07/20/21 at 23:46; Status DC Diphenhydramine HCl (Benadryl) 50 mg 1X ONCE IV Last administered on 07/20/21at 23:30; Start 07/20/21 at 23:45; Stop 07/20/21 at 23:46; Status DC Famotidine (Pepcid Vial) 20 mg 1X ONCE IVP Last administered on 07/20/21at 23:38; Start 07/20/21 at 23:45; Stop 07/20/21 at 23:46; Status DC Epinephrine HCl (Adrenalin) 0.3 mg 1X ONCE IM Last administered on 07/20/21at 23:31; Start 07/20/21 at 23:45; Stop 07/20/21 at 23:46; Status DC Acetaminophen (Tylenol) 1,000 mg 1X ONCE PO ; Start 07/21/21 at 00:30; Stop 07/21/21 at 00:31; Status DC Morphine Sulfate (Morphine Sulfate) 4 mg 1X ONCE IVP Last administered on 07/21/21at 00:35; Start 07/21/21 at 01:00; Stop 07/21/21 at 01:01; Status DC Heparin Sodium/ Dextrose 250 ml @ 0 mls/hr CONT PRN IV PER PROTOCOL Last administered on 07/21/21at 10:18; Start 07/21/21 at 00:30; Stop 07/21/21 at 14:28; Status DC Heparin Sodium (Porcine) (Heparin Sodium) 4,300 unit PRN Q6HRS PRN IV FOR UFH LEVEL LESS THAN 0.2; Start 07/21/21 at 00:30; Stop 07/21/21 at 14:28; Status DC Heparin Sodium (Porcine) (Heparin Sodium) 2,150 unit PRN Q6HRS PRN IV FOR UFH LEVEL 0.2 - 0.29; Start 07/21/21 at 00:30; Stop 07/21/21 at 14:28; Status DC Morphine Sulfate (Morphine Sulfate) 4 mg PRN Q4HRS PRN IVP SEVERE PAIN 7-10 Last administered on 07/21/21at 22:16; Start 07/21/21 at 00:30; Stop 07/22/21 at 00:29; Status DC Acetaminophen (Tylenol) 650 mg PRN Q4HRS PRN PO FEVER > 100.3'F; Start 07/21/21 at 00:30; Stop 07/22/21 at 00:29; Status DC Info (Anti-Coagulation Monitoring By Pharmacy) 1 each PRN DAILY PRN MC PER PROTOCOL Last administered on 07/21/21at 03:23; Start 07/21/21 at 00:30 Diphenhydramine HCl (Benadryl) 25 mg PRN Q6HRS PRN IVP ITCHING Last administered on 07/23/21at 04:30; Start 07/21/21 at 13:15 Atenolol (Tenormin) 50 mg BID PO Last administered on 07/23/21at 08:41; Start 07/21/21 at 21:00 Lorazepam (Ativan) 4 mg BID PO Last administered on 07/21/21at 13:47; Start 07/21/21 at 14:00; Stop 07/21/21 at 15:01; Status DC Heparin Sodium/ Dextrose 250 ml @ 0 mls/hr CONT PRN IV PER PROTOCOL Last administered on 07/22/21at 00:23; Start 07/21/21 at 13:45; Stop 07/22/21 at 08:57; Status DC Heparin Sodium (Porcine) (Heparin Sodium) 30 UNITS / KG PRN Q6HRS PRN IV FOR PTT < 40; Start 07/21/21 at 13:45; Stop 07/22/21 at 08:57; Status DC Heparin Sodium (Porcine) (Heparin Sodium) 2,000 unit PRN Q6HRS PRN IV FOR PTT 40 - 58; Start 07/21/21 at 13:45; Stop 07/22/21 at 08:57; Status DC Heparin Sodium (Porcine) (Heparin Sodium) 1,000 unit PRN Q6HRS PRN IV FOR PTT 59 - 78; Start 07/21/21 at 13:45; Stop 07/22/21 at 08:57; Status DC Lorazepam (Ativan) 2 mg BID PO Last administered on 07/23/21at 08:41; Start 07/21/21 at 21:00 Alteplase, Recombinant (Cathflo For Central Catheter Clearance) 1 mg 1X ONCE INT CAT Last administered on 07/21/21at 22:00; Start 07/21/21 at 22:00; Stop 07/21/21 at 22:01; Status DC Alteplase, Recombinant (Cathflo For Central Catheter Clearance) 1 mg 1X ONCE INT CAT Last administered on 07/21/21at 22:00; Start 07/21/21 at 22:00; Stop 07/21/21 at 22:01; Status DC Morphine Sulfate (Morphine Sulfate) 4 mg PRN Q4HRS PRN IV SEVERE PAIN 7-10 Last administered on 07/23/21at 08:40; Start 07/22/21 at 01:30 Diphenhydramine HCl (Benadryl) 50 mg QHS PO ; Start 07/22/21 at 21:00; Stop 07/22/21 at 15:42; Status DC Enoxaparin Sodium (Lovenox 120mg Syringe) 120 mg BID SQ Last administered on 07/23/21at 08:41; Start 07/22/21 at 09:00 Famotidine (Pepcid) 20 mg BID PO Last administered on 07/23/21at 08:41; Start 07/22/21 at 09:00 Trazodone HCl (Desyrel) 50 mg PRN QHS PRN PO INSOMNIA Last administered on 07/22/21at 20:05; Start 07/22/21 at 08:15 Pramipexole Dihydrochloride (miraPEX) 0.25 mg BID PO Last administered on 07/23/21at 08:40; Start 07/22/21 at 09:00 Quetiapine Fumarate (SEROquel) 50 mg QHS PO Last administered on 07/22/21at 21:26; Start 07/22/21 at 21:00 Rivaroxaban (Xarelto) 20 mg DAILYWSUP PO ; Start 07/22/21 at 17:00; Stop 07/22/21 at 12:20; Status DC Methocarbamol (Robaxin) 750 mg PRN BID PRN PO MUSCLE SPASMS; Start 07/22/21 at 10:30 Diphenhydramine HCl (Benadryl) 12.5 mg 1X ONCE IV Last administered on 07/22/21at 15:30; Start 07/22/21 at 15:30; Stop 07/22/21 at 15:31; Status DC Active Scripts Active Trazodone Hcl 50 Mg Tablet 1 Tab PO PRN QHS PRN 30 Days Reported Xarelto (Rivaroxaban) 20 Mg Tablet 1 Tab PO BID 30 Days with food Lovenox (Enoxaparin Sodium) 120 Mg/0.8 Ml Disp.syrin 120 Mg SQ BID Promethazine Hcl 12.5 Mg Supp.rect 1 Supp RC Q4-6HRS 4 Days Atenolol 50 Mg Tablet 1 Tab PO BID Pepcid (Famotidine) 20 Mg Tablet 20 Mg PO BID Benadryl (Diphenhydramine Hcl) 25 Mg Capsule 2 Cap PO QHS 30 Days Ativan (Lorazepam) 2 Mg Tablet 4 Mg PO BID Quetiapine Fumarate 50 Mg Tablet 1 Tab PO QHS Pramipexole Dihydrochloride (Pramipexole Di-Hcl) 0.125 Mg Tablet 2 Tab PO BID Vitals/I & O Vital Sign - Last 24 Hours 07/22/21 07/22/21 07/22/21 07/22/21 11:00 15:00 19:26 20:05 Temp 98.3 98.2 98.3 98.3 98.2 98.3 Pulse 81 90 85 85 Resp 18 18 16 B/P (MAP) 107/55 (72) 118/84 (95) 133/78 (96) 133/78 Pulse Ox 94 98 97 O2 Delivery Nasal Cannula Room Air Room Air 07/22/21 07/22/21 07/22/21 07/23/21 20:28 20:36 22:20 03:03 Temp 97.5 98.3 97.5 98.3 Pulse 79 81 Resp 16 16 B/P (MAP) 112/77 (89) 91/55 (67) Pulse Ox 97 97 97 O2 Delivery Room Air Room Air Room Air Room Air 07/23/21 07/23/21 07/23/21 07/23/21 07:00 08:00 08:40 08:41 Temp 97.9 97.9 Pulse 71 71 Resp 16 20 B/P (MAP) 107/71 (83) 107/71 Pulse Ox 96 96 O2 Delivery Room Air Room Air Room Air 07/23/21 09:10 Resp 20 Pulse Ox 96 O2 Delivery Room Air Intake and Output 07/22/21 07/22/21 07/23/21 15:00 23:00 07:00 Intake Total 525 ml 400 ml 520 ml Balance 525 ml 400 ml 520 ml Justicifation of Admission Dx: Justifications for Admission: Justification of Admission Dx: Yes CAT CHRIS MD Jul 23, 2021 10:33
[2021-07-23 11:00] VITALS: BP 112/63
--- NOTE | 2021-07-23 11:39 | PDOC2 ---
CONSULT Date of Consult Date of Consult DATE: 07/23/21 TIME: 11:31 Reason for Consult Reason for Consult: History of recurrent VTE Referring Physician Referring Physician: Dr. Harris Identification/Chief Complaint Chief Complaint Tachycardia Source Source: Chart review, Patient History of Present Illness Reason for Visit: Kathy Shultz is a 31-year-old female who has been admitted to the hospital after presenting with tachycardia.Kathy reports a longstanding history of venous thromboembolism. She reports her first incidence of pulmonary embolism was when she was age of 16. She reports living in [facility] at the time. She is unsure of which hospital she was located at when she had this PE. She reports taking Lovenox injections for 3 to 6 months subsequently. She also developed left upper extremity DVT at the age of 24. She reports this was also in [place]. She only recalls taking a baby aspirin daily for 2 to 3 months after this DVT. She also notes being diagnosed with appendiceal carcinoma. This was at [facility]. She states that she underwent appendectomy. She established care with Dr. Quiroga subsequently. Surveillance CT scans and labs did not show any evidence of disease recurrence per her report. She developed pulmonary embolism 3 months ago at [facility] and she was admitted for further evaluation and management. She was discharged on Xarelto and continues to take it at this time. She does admit that Xarelto has been expensive and she pays $1400 a month for it. She has previously had difficulty with [facility] due to lack of payer source. She has recently switched employers and will have insurance in 30 days. She follows with Dr. Negro Mccormack. She prefers to have all of her medical team in the [place] system. She does not have a watch repairer and is interested in establishing care Kathy reports recent recurrent chest pain associated with epigastric pain. She describes the chest pain as a sharp pressure-like sensation over the chest. She notes radiation to the back. She also reports bright red blood per rectum. She does have a history of stomach ulcers 2 years ago. She has not had a repeat endoscopy since then. Past Medical History Cardiovascular: Other (Azmof-Xcrtbfjjs-Loraz syndrome.) Pulmonary: Asthma GI: GERD, Peptic Ulcer disease, Other Heme/Onc: Cancer Hepatobiliary: No pertinent hx Psych: Anxiety Rheumatologic: No pertinent hx Infectious disease: No pertinent hx Renal/: Acute renal failure Endocrine: No pertinent hx Past Surgical History Past Surgical History: Appendectomy, Cholecystectomy, Tonsillectomy, Hysterectomy, Other (An ablation for Flbwr-Wicpweynu-Bgaaa syndrome.) Family History Family History: Heart Disease Social History No ALCOHOL: none Drugs: None Lives: with Family Domestic Violence: Neg Current Problem List Problem List Problems Medical Problems: (1) Tachycardia Status: Acute Current Medications Current Medications Current Medications Sodium Chloride 1,000 ml @ 1,000 mls/hr Q1H IV Last administered on 07/20/21at 22:58; Start 07/20/21 at 22:30; Stop 07/20/21 at 23:29; Status DC Diltiazem HCl (Cardizem Iv Push) 10 mg 1X ONCE IVP Last administered on 07/20/21at 22:57; Start 07/20/21 at 22:30; Stop 07/20/21 at 22:31; Status DC Metoclopramide HCl (Reglan Vial) 10 mg 1X ONCE IVP Last administered on 07/20/21at 23:32; Start 07/20/21 at 23:30; Stop 07/20/21 at 23:31; Status DC Diphenhydramine HCl (Benadryl) 50 mg STK-MED ONCE .ROUTE ; Start 07/20/21 at 23:14; Stop 07/20/21 at 23:14; Status DC Methylprednisolone Sodium Succinate (SOLU-Medrol 125MG VIAL) 125 mg 1X ONCE IV Last administered on 07/20/21at 23:41; Start 07/20/21 at 23:45; Stop 07/20/21 at 23:46; Status DC Diphenhydramine HCl (Benadryl) 50 mg 1X ONCE IV Last administered on 07/20/21at 23:30; Start 07/20/21 at 23:45; Stop 07/20/21 at 23:46; Status DC Famotidine (Pepcid Vial) 20 mg 1X ONCE IVP Last administered on 07/20/21at 23:38; Start 07/20/21 at 23:45; Stop 07/20/21 at 23:46; Status DC Epinephrine HCl (Adrenalin) 0.3 mg 1X ONCE IM Last administered on 07/20/21at 23:31; Start 07/20/21 at 23:45; Stop 07/20/21 at 23:46; Status DC Acetaminophen (Tylenol) 1,000 mg 1X ONCE PO ; Start 07/21/21 at 00:30; Stop 07/21/21 at 00:31; Status DC Morphine Sulfate (Morphine Sulfate) 4 mg 1X ONCE IVP Last administered on 07/21/21at 00:35; Start 07/21/21 at 01:00; Stop 07/21/21 at 01:01; Status DC Heparin Sodium/ Dextrose 250 ml @ 0 mls/hr CONT PRN IV PER PROTOCOL Last administered on 07/21/21at 10:18; Start 07/21/21 at 00:30; Stop 07/21/21 at 14:28; Status DC Heparin Sodium (Porcine) (Heparin Sodium) 4,300 unit PRN Q6HRS PRN IV FOR UFH LEVEL LESS THAN 0.2; Start 07/21/21 at 00:30; Stop 07/21/21 at 14:28; Status DC Heparin Sodium (Porcine) (Heparin Sodium) 2,150 unit PRN Q6HRS PRN IV FOR UFH LEVEL 0.2 - 0.29; Start 07/21/21 at 00:30; Stop 07/21/21 at 14:28; Status DC Morphine Sulfate (Morphine Sulfate) 4 mg PRN Q4HRS PRN IVP SEVERE PAIN 7-10 Last administered on 07/21/21at 22:16; Start 07/21/21 at 00:30; Stop 07/22/21 at 00:29; Status DC Acetaminophen (Tylenol) 650 mg PRN Q4HRS PRN PO FEVER > 100.3'F; Start 07/21/21 at 00:30; Stop 07/22/21 at 00:29; Status DC Info (Anti-Coagulation Monitoring By Pharmacy) 1 each PRN DAILY PRN MC PER PROTOCOL Last administered on 07/21/21at 03:23; Start 07/21/21 at 00:30 Diphenhydramine HCl (Benadryl) 25 mg PRN Q6HRS PRN IVP ITCHING Last administered on 07/23/21at 11:29; Start 07/21/21 at 13:15 Atenolol (Tenormin) 50 mg BID PO Last administered on 07/23/21at 08:41; Start 07/21/21 at 21:00 Lorazepam (Ativan) 4 mg BID PO Last administered on 07/21/21at 13:47; Start 07/21/21 at 14:00; Stop 07/21/21 at 15:01; Status DC Heparin Sodium/ Dextrose 250 ml @ 0 mls/hr CONT PRN IV PER PROTOCOL Last administered on 07/22/21at 00:23; Start 07/21/21 at 13:45; Stop 07/22/21 at 08:57; Status DC Heparin Sodium (Porcine) (Heparin Sodium) 30 UNITS / KG PRN Q6HRS PRN IV FOR PTT < 40; Start 07/21/21 at 13:45; Stop 07/22/21 at 08:57; Status DC Heparin Sodium (Porcine) (Heparin Sodium) 2,000 unit PRN Q6HRS PRN IV FOR PTT 40 - 58; Start 07/21/21 at 13:45; Stop 07/22/21 at 08:57; Status DC Heparin Sodium (Porcine) (Heparin Sodium) 1,000 unit PRN Q6HRS PRN IV FOR PTT 59 - 78; Start 07/21/21 at 13:45; Stop 07/22/21 at 08:57; Status DC Lorazepam (Ativan) 2 mg BID PO Last administered on 07/23/21at 08:41; Start 07/21/21 at 21:00 Alteplase, Recombinant (Cathflo For Central Catheter Clearance) 1 mg 1X ONCE INT CAT Last administered on 07/21/21at 22:00; Start 07/21/21 at 22:00; Stop 07/21/21 at 22:01; Status DC Alteplase, Recombinant (Cathflo For Central Catheter Clearance) 1 mg 1X ONCE INT CAT Last administered on 07/21/21at 22:00; Start 07/21/21 at 22:00; Stop 07/21/21 at 22:01; Status DC Morphine Sulfate (Morphine Sulfate) 4 mg PRN Q4HRS PRN IV SEVERE PAIN 7-10 Last administered on 07/23/21at 08:40; Start 07/22/21 at 01:30 Diphenhydramine HCl (Benadryl) 50 mg QHS PO ; Start 07/22/21 at 21:00; Stop 07/22/21 at 15:42; Status DC Enoxaparin Sodium (Lovenox 120mg Syringe) 120 mg BID SQ Last administered on 07/23/21at 08:41; Start 07/22/21 at 09:00 Famotidine (Pepcid) 20 mg BID PO Last administered on 07/23/21at 08:41; Start 07/22/21 at 09:00 Trazodone HCl (Desyrel) 50 mg PRN QHS PRN PO INSOMNIA Last administered on 07/22/21at 20:05; Start 07/22/21 at 08:15 Pramipexole Dihydrochloride (miraPEX) 0.25 mg BID PO Last administered on 07/23/21at 08:40; Start 07/22/21 at 09:00 Quetiapine Fumarate (SEROquel) 50 mg QHS PO Last administered on 07/22/21at 21:26; Start 07/22/21 at 21:00 Rivaroxaban (Xarelto) 20 mg DAILYWSUP PO ; Start 07/22/21 at 17:00; Stop at 12:20; Status DC Methocarbamol (Robaxin) 750 mg PRN BID PRN PO MUSCLE SPASMS; Start 07/22/21 at 10:30 Diphenhydramine HCl (Benadryl) 12.5 mg 1X ONCE IV Last administered on 07/22/21at 15:30; Start 07/22/21 at 15:30; Stop 07/22/21 at 15:31; Status DC Active Scripts Active Trazodone Hcl 50 Mg Tablet 1 Tab PO PRN QHS PRN 30 Days Reported Xarelto (Rivaroxaban) 20 Mg Tablet 1 Tab PO BID 30 Days with food Lovenox (Enoxaparin Sodium) 120 Mg/0.8 Ml Disp.syrin 120 Mg SQ BID Promethazine Hcl 12.5 Mg Supp.rect 1 Supp RC Q4-6HRS 4 Days Atenolol 50 Mg Tablet 1 Tab PO BID Pepcid (Famotidine) 20 Mg Tablet 20 Mg PO BID Benadryl (Diphenhydramine Hcl) 25 Mg Capsule 2 Cap PO QHS 30 Days Ativan (Lorazepam) 2 Mg Tablet 4 Mg PO BID Quetiapine Fumarate 50 Mg Tablet 1 Tab PO QHS Pramipexole Dihydrochloride (Pramipexole Di-Hcl) 0.125 Mg Tablet 2 Tab PO BID Allergies Allergies: Coded Allergies: Fish Containing Products (Verified Allergy, Severe, Anaphylaxis, 09/27/20) Iodinated Contrast Media (Verified Allergy, Severe, Hives, 09/27/20) difficulty breathing and throat swelling the second time she had iv contrast per patient diltiazem (Verified Allergy, Severe, Anaphylaxis, 07/21/21) latex (Verified Allergy, Severe, Anaphylaxis, 09/27/20) ondansetron (Verified Allergy, Severe, Anaphylaxis, 09/27/20) shellfish derived (Verified Allergy, Severe, Anaphylaxis, 09/27/20) coconut (Verified Allergy, Intermediate, Hives, 09/27/20) fentanyl (Verified Allergy, Intermediate, ITCHY, 09/27/20) ketorolac (Verified Allergy, Intermediate, Hives, 09/27/20) tramadol (Verified Allergy, Intermediate, 09/27/20) ROS Review of System Negative unless stated otherwise in HPI Physical Exam Physical Exam General: Awake, alert, no distress Head: Atraumatic, no conjunctival icterus, normal oral cavity mucosa Neck: Supple Chest: No trauma noted Cardiovascular: No peripheral edema Respiratory:No accessory muscle use Abdominal: Abdomen is nondistended. Patient did not want me to examine due to tenderness in the abdomen Musculoskeletal: No deformity noted Extremities: No edema noted Skin: No rash or lesions Neurologic: Alert and oriented x3, no grossly evident neurologic deficits noted. Full neurological exam was not performed Psychiatric: Appropriate mood and affect Vitals VITALS Vital Signs Date Time Temp Pulse Resp B/P (MAP) Pulse Ox O2 Delivery O2 Flow Rate FiO2 07/23/21 11:00 98.2 85 16 112/63 (79) 97 Room Air 98.2 Labs Labs Laboratory Tests Test 07/21/21 12:25 07/21/21 15:35 07/22/21 03:30 07/23/21 04:40 Heparin Anti-Xa Act, Unfractionated > 1.10 IU/mL (0.30-0.70) Troponin I Quantitative < 0.017 ng/mL (0.000-0.055) < 0.017 ng/mL (0.000-0.055) < 0.017 ng/mL (0.000-0.055) Activated Partial Thromboplast Time 125 SEC (24-38) Sodium Level 140 mmol/L (136-145) Potassium Level 3.9 mmol/L (3.5-5.1) Chloride Level 106 mmol/L (98-107) Carbon Dioxide Level 23 mmol/L (21-32) Anion Gap 11 (6-14) Blood Urea Nitrogen 12 mg/dL (7-20) Creatinine 0.8 mg/dL (0.6-1.0) Estimated GFR (Cockcroft-Gault) 84.8 Glucose Level 144 mg/dL (70-99) Calcium Level 8.7 mg/dL (8.5-10.1) White Blood Count 12.4 x10^3/uL (4.0-11.0) Red Blood Count 3.74 x10^6/uL (3.50-5.40) Hemoglobin 11.2 g/dL (12.0-15.5) Hematocrit 34.1 % (36.0-47.0) Mean Corpuscular Volume 91 fL (79-100) Mean Corpuscular Hemoglobin 30 pg (25-35) Mean Corpuscular Hemoglobin Concent 33 g/dL (31-37) Red Cell Distribution Width 12.8 % (11.5-14.5) Platelet Count 241 x10^3/uL (140-400) Laboratory Tests Test 07/23/21 04:40 White Blood Count 12.4 x10^3/uL (4.0-11.0) Red Blood Count 3.74 x10^6/uL (3.50-5.40) Hemoglobin 11.2 g/dL (12.0-15.5) Hematocrit 34.1 % (36.0-47.0) Mean Corpuscular Volume 91 fL (79-100) Mean Corpuscular Hemoglobin 30 pg (25-35) Mean Corpuscular Hemoglobin Concent 33 g/dL (31-37) Red Cell Distribution Width 12.8 % (11.5-14.5) Platelet Count 241 x10^3/uL (140-400) Assessment/Plan Assessment/Plan Assessment: History of recurrent venous thromboembolism Chest pain, unclear etiology Abdominal pain Bright red blood per rectum WPW syndrome Normocytic anemia Recommendations: -Continue with Xarelto 20 mg daily. Recommend indefinite anticoagulation at this time -Recommend evaluation for antiphospholipid syndrome with lupus anticoagulant, anticardiolipin antibody, antibeta-2 glycoprotein antibody -Request records from [facility] in -Recommend GI consultation given patient's history of peptic ulcer disease and recent symptoms -No additional inpatient hematology work-up required. Patient was provided with contact information for my office for outpatient follow-up -Rest per Dr. Renae Earl MD Medical Oncology/Hematology Ph: [phone] VENTURA EARL MD Jul 23, 2021 11:39
--- NOTE | 2021-07-23 11:55 | NUR ---
SS following for discharge planning. SS reviewed pt chart and discussed with pt RN. Pt is from home and is currently on room air. COVID19 negative. Hematology signed off. GI consulted. Discharge plan is currently to home when medically ready for discharge. Self pay. Med Assist following. SS will continue to follow for discharge planning.
--- NOTE | 2021-07-23 12:00 | PDOC ---
SURYA GONZALEZ CLINICAL STUDY MANAGER 07/23/21 1200: CARDIO Progress Notes Date and Time Date of Service 07/23/21 Time of Evaluation 1120 Subjective Subjective: No Chest Pain, No shortness of breath, Other (had brief episode of dizziness this morning. Feels palpitations at night. ) Vitals Vitals Vital Signs Date Time Temp Pulse Resp B/P (MAP) Pulse Ox O2 Delivery O2 Flow Rate FiO2 07/23/21 11:00 98.2 85 16 112/63 (79) 97 Room Air 98.2 Weight Weight [ ] Input and Output Intake and Output Intake and Output 07/23/21 07:00 Intake Total 1445 ml Balance 1445 ml Intake Oral 1445 ml # Voids 5 Laboratory Labs Laboratory Tests Test 07/23/21 04:40 White Blood Count 12.4 x10^3/uL (4.0-11.0) Red Blood Count 3.74 x10^6/uL (3.50-5.40) Hemoglobin 11.2 g/dL (12.0-15.5) Hematocrit 34.1 % (36.0-47.0) Mean Corpuscular Volume 91 fL (79-100) Mean Corpuscular Hemoglobin 30 pg (25-35) Mean Corpuscular Hemoglobin Concent 33 g/dL (31-37) Red Cell Distribution Width 12.8 % (11.5-14.5) Platelet Count 241 x10^3/uL (140-400) Physical Exam HEENT: Neck Supple W Full Motion Chest: Symmetric LUNGS: Clear to Auscultation Abdomen: Soft N/T Extremities: No Edema Neurology: alert, oriented, follow commands Assessment Assessment 1. Syncopal episode; no acute arrhythmias noted on tele. [facility] 06/11/2021 at with normal coronaries as noted below. 2. H/o WPW s/p ablation 2015; reports some palpitations overnight, but no tachyarrhythmias noted on tele. 3. 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 4. H/o appendiceal carcinoma; s/p appendectomy Recommendations Outpatient event monitor and EP followup when insurance is obtained. Supportive care records obtained 05/29/21 - 2D + DOPPLER ECHO Interpretation Summary Left Ventricle: The left ventricular size is normal. Concentric remodeling. The left ventricular systolic function is normal. The visually estimated ejection fraction is 60%. There are no segmental wall motion abnormalities. Normal left ventricular diastolic function. Right Ventricle: Ventricle not well seen. The right ventricular systolic function is normal. Left Atrium: Normal size. Right Atrium: Normal size No hemodynamically significant valvular abnormalities. Grade 4, right to left shunt with agitated saline injection and Valsalva suggestive of PFO CARDIAC CATHETERIZATION REPORT 06/12/21 FINDINGS: HEMODYNAMICS: LVEDP was 20 mmHg. Central aortic pressure was 118/77 mmHg. CORONARY ANGIOGRAPHY: The coronary anatomy was right dominant. Left main coronary artery was normal. The LAD was a large vessel that was normal. Diagonal branches were normal. Left circumflex artery was a large, nondominant vessel and was normal. Marginal branch was normal. Ramus intermedius artery was normal. The right coronary artery was a dominant vessel, and it was normal. RPDA and RPLV were normal. CONCLUSIONS: Elevated LV filling pressure and normal central aortic pressure. Normal coronary arteries. Justicifation of Admission Dx: Justifications for Admission: Justification of Admission Dx: Yes JOSE SALVADOR MD 07/23/21 1732: CARDIO Progress Notes Assessment Assessment Patient seen and examined The patient is feeling better today. I agree with our nurse practitioners assessment and plan. Syncopal episode; no acute arrhythmias noted on tele. [facility] 06/11/2021 at with normal coronaries as noted below. Continue medical treatment. H/o WPW s/p ablation 2015; reports some palpitations overnight, but no tachyarrhythmias noted on tele. Outpatient monitor. EP follow-up. 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 H/o appendiceal carcinoma; s/p appendectomy SURYA GONZALEZ APRN Jul 23, 2021 12:00 JOSE SALVADOR MD Jul 23, 2021 17:32
--- NOTE | 2021-07-23 12:14 | PDOC2 ---
GI CONSULT Date of Service: DATE: 07/23/21 TIME: 12:13 Reason For Consult: blood in stool HPI: HPI: 31 y/o female who we've seen several times in the past. Chronic intermittent issues w/ nausea, dyspepsia, chest/abd pain (burning/cramping/bloating), hemoptysis/hematemesis, blood-streaked stools, diarrhea, constipation, and subjective fever. This time admitted through ER on 07/20 after syncope/fall on shoulder at home w/ concern for A Fib and vomiting (once at home, once here two days ago), then adverse reaction to Cardizem. Additional h/o DVT/PE (says diagnosed w/ PE @ [facility] a month ago - started on Lovenox and Xarelto). Saw hematology this morning re: this. She tells me that an inpatient EGD was recommended because she sees pinkish-reddish blood in stools and in underwear. Later in the conversation, she also reports she saw bits of blood in emesis. Mention of chest pain in other notes; she tells me upper/mid/left abdominal pain and reports poor appetite with some diarrhea. She takes Pepcid Q a.m. and Pantoprazole QHS. Denies NSAID use. She requests inpatient 'scopes because she is uninsured; her is a disabled vet and they just spent $9000 on a wheelchair so she feels it is unlikely she would be able to afford outpatient 'scopes. No GI bleeding witnessed per nursing. From past encounters/review of records: S/p cholecystectomy for biliary dyskinesia. 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 In 01/2017, she underwent laparoscopic robotic-assisted hysterectomy, bilateral salpingectomy, and right oophorectomy for dysfunctional uterine bleeding w/ post-operative complication of pelvic abscess requiring transvaginal drainage of seroma. EGD and colonoscopy path 12/2015 (Dr. Bishop): antral biopsy w/ reactive gastropathy (no H. pylori), and normal descending colon biopsy. EGD and colonoscopy 06/2016 (Dr. Parrish): normal except for internal hemorrhoids and prominent external hemorrhoidal vein. EGD, EUS, and colonoscopy 10/2016 (Dr. Garvin): normal EGD, normal pancreatobiliary exam, poor prep w/ solid stool (incomplete exam), and large internal hemorrhoids. SBS 10/2016: unremarkable. Abd US 10/2016: fatty liver, s/p cholecystectomy. Colonoscopy 12/2016 (Dr. Calhoun): granularity at appendiceal orifice (path w/o significant abnormalities). EGD 03/2017 (Dr. Calhoun): normal esophagus, bile-induced gastritis (no H. pylori or intestinal metaplasia), normal duodenum. 4 hour GES 04/2017: normal. Previous suggestions for Miralax, Metamucil, Levsin, and wet wipes. SBS negative 04/2017. BRYCE negative 04/2017, Cortisol 4.1 at that time, negative Hepatitis panel. Reportedly had EGD which revealed an ulcer at [facility] in 2018 for hematemesis after swallowing a quarter while doing a magic trick with her niece. CT A/P 04/2019: left-sided pelvic mass which is probably of ovarian origin (?cyst). Cortisol 1.3 in 04/2019. CT C/A/P 06/2019: mild right perinephric inflammation. (Interestingly, report says uterus is present.) Cortisol 3.5 in 06/2019. Treated w/ steroids here. She previously reported PCP advised stopping steroids when she followed-up after discharge. Never saw endocrinology. BRYCE and RF negative 06/2019. Tox screen always negative. CT A/P 09/2019: no acute abnormality. UGI series suggested in the past. C/A/P CT 09/2020: uterus is absent, cystic lesion at left adnexa, small amount of hyperdense material within gastric fundus, no radiopaque foreign body or evidence for obstruction or perforation is identified. EGD 09/[address] Stuart performed for possible toothpick ingestion: non-eros nadira gastritis (negative for H. pylori), superficial duodenal ulcer in bulb. Follow-up diagnostic laparoscopy was unrevealing. CT A/P 09/2020: no evidence of bowel perforation or obstruction, nonspecific tenting of the small bowel antimesenteric border in RUQ. CT A/P 05/2021: no acute abdominal or pelvic finding, 1 mm nonobstructing right renal stone, 1.8 cm physiologic dominant left ovarian follicle/follicular cyst. Laparoscopy 09/2020: unrevealing. There has been concern for opioid-dependency in the past; she has threatened legal action for defamation of character when this was discussed with her. 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 s/p appendectomy, laparoscopic robotic-assisted hysterectomy, bilateral salpingectomy, right oophorectomy, transvaginal drainage of seroma, tonsillectomy, wisdom teeth extraction, breast reduction, ACL/MCL repairs, port placement/removal, HD cath placement/removal FH: Family History: Cancer (adopted - biological father had colon cancer and biological mother had breast cancer) Social History: Smoke: No ALCOHOL: none Drugs: None ROS: GEN: Denies fevers, chills, sweats HEENT: Denies blurred vision, sore throat CV: Denies chest pain RESP: Denies shortness of air, cough GI: Per HPI : Denies hematuria, dysuria ENDO: possible weight loss NEURO: syncope prior to admission MSK: Denies weakness, joint pain/swelling SKIN: Denies jaundice, pruritus Vitals: Vitals: Vital Signs Date Time Temp Pulse Resp B/P (MAP) Pulse Ox O2 Delivery O2 Flow Rate FiO2 07/23/21 11:00 98.2 85 16 112/63 (79) 97 Room Air 98.2 Labs: Labs: Laboratory Tests Test 07/23/21 04:40 White Blood Count 12.4 x10^3/uL (4.0-11.0) Red Blood Count 3.74 x10^6/uL (3.50-5.40) Hemoglobin 11.2 g/dL (12.0-15.5) Hematocrit 34.1 % (36.0-47.0) Mean Corpuscular Volume 91 fL (79-100) Mean Corpuscular Hemoglobin 30 pg (25-35) Mean Corpuscular Hemoglobin Concent 33 g/dL (31-37) Red Cell Distribution Width 12.8 % (11.5-14.5) Platelet Count 241 x10^3/uL (140-400) Allergies: Coded Allergies: Fish Containing Products (Verified Allergy, Severe, Anaphylaxis, 09/27/20) Iodinated Contrast Media (Verified Allergy, Severe, Hives, 09/27/20) difficulty breathing and throat swelling the second time she had iv contrast per patient diltiazem (Verified Allergy, Severe, Anaphylaxis, 07/21/21) latex (Verified Allergy, Severe, Anaphylaxis, 09/27/20) ondansetron (Verified Allergy, Severe, Anaphylaxis, 09/27/20) shellfish derived (Verified Allergy, Severe, Anaphylaxis, 09/27/20) coconut (Verified Allergy, Intermediate, Hives, 09/27/20) fentanyl (Verified Allergy, Intermediate, ITCHY, 09/27/20) ketorolac (Verified Allergy, Intermediate, Hives, 09/27/20) tramadol (Verified Allergy, Intermediate, 09/27/20) Medications: Current Medications Medications (Trade) Dose Ordered Sig/Lyndsey Route PRN Reason Start Time Stop Time Status Last Admin Dose Admin Quetiapine Fumarate (SEROquel) 50 mg QHS PO 07/22/21 21:00 07/22/21 21:26 Diphenhydramine HCl (Benadryl) 12.5 mg 1X ONCE IV 07/22/21 15:30 07/22/21 15:31 DC 07/22/21 15:30 Imaging: Imaging: CXR 07/20 IMPRESSION: No acute cardiopulmonary process. Head/C-spine CT IMPRESSION: No acute abnormality evident in the cervical spine. Exposure: One or more of the following individualized dose reduction techniques were utilized for this examination: 1. Automated exposure control 2. Adjustment of the mA and/or kV according to patient size 3. Use of iterative reconstruction technique. Shoulder X-Ray IMPRESSION: No acute osseous abnormality. BLE US 07/22 Impression: There are no sonographic findings of deep venous thrombosis within the veins discussed above of the left lower extremity. Impression: There are no sonographic findings of deep venous thrombosis within the veins discussed above of the right lower extremity. UE US 07/22 Impression: There are no sonographic findings of deep venous thrombosis within the veins discussed above of either upper extremity. PE: GEN: NAD, walks from restroom to bed, has lunch tray full of special-ordered food (sandwich, chips, fruit, cake) HEENT: Atraumatic, PERRL LUNGS: CTAB HEART: RRR ABD: NABS, S/NT, obese EXTREMITY: No edema SKIN: No rashes, no jaundice NEURO/PSYCH: A & O 3 A/P: A/P: Syncope H/o PE/DVT on Xarelto Hematochezia/?hematemesis - not witnessed - chronic issue Leukocytosis (better), mild anemia (noted some in past) H/o superficial DU on EGD 09/2020 CRC screen, FH colon cancer - last colonoscopy 2016 S/p cholecystectomy Fatty liver BMI 60 COVID negative -- Reviewed w/ Dr. Stuart - no plans to pursue inpatient 'scopes. Outpatient follow-up recommended. Okay to DC per GI. Check anemia parameters for completeness. 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 Could try GI cocktail or similar for "chest" pain (which she did not mention to me) or consider Bentyl for abdominal pain. Extensive workup as above. ALONDRA COTA Jul 23, 2021 12:14
[2021-07-23 15:00] VITALS: BP 119/74
--- NOTE | 2021-07-23 15:48 | PDOC3 ---
Discharge Summary Date of Admission: Jul 21, 2021 Date of Discharge: Jul 23, 2021 Follow-Up: 3-5 days Admitting Diagnosis comment: Chief Complaint Chief Complaint DISCHARGE DX Syncope, cardiogenic, likely vasovagal etiology A. fib RVR Anaphylactic reaction to calcium channel lorne impression History of WPW status post cardiac ablation History of anxiety History of appendiceal carcinoma History of insomnia History of migraines Port-A-Cath placement Super super morbid obesity History of DVT/PE she has a history of Louau-Pnerrvlsj-Jvlfz and previous ablation. / treated for possible paroxysmal atrial fibrillation with atenolol and anticoagulation Pending DVT ultrasound of all extremities as she has had a history of a in her upper extremities Pending hematology consult Discontinued Xarelto Continue telemetry monitoring Resume home cardiac medications Appreciate cardiology recommendationscontinue with atenolol and anticoagulation. Consider outpatient EP evaluation Lovenox/Xarelto for DVT prophylaxis Protonix GI prophylaxis ADA diet CODE STATUS full Discussed with RN and SW Disposition inpatient management as above DPOA: History of Present Illness History of Present Illness 31-year-old female with a complicated past medical history which includes ovarian cancer that resulted in a TAHBSO chemotherapy, history of DVT/PE currently on Lovenox and Xarelto, WPW status post catheter ablation diagnosed when she was 11 years old, and morbid obesity who comes in after she fell in the bathroom after experiencing heart flutters. Apparently she was sleeping she went to the bathroom and she started experiencing heart palpitations and she knew that she have atrial fibrillation. She did have a nausea vomiting episode that she knows she is has atrial fibrillation's whenever she vomits. Her husba nd did witness her passing out and stated that she did hit her right shoulder on the bathtub. Denies any head trauma however patient did have loss of consciousness in the first thing she remembered when she woke up was arriving at the hospital. Currently patient does have some right-sided neck tightness and pain. She is on Lovenox and Xarelto for blood thinner she follows up with a solar energy engineer for this. Patient is unclear with his history for her anticoagulation, but apparently she states that she had a pulmonary embolism while she was on blood thinners as well. Currently denies any headaches, chest pain, abdominal pain, diarrhea, dysuria, fevers or chills or cough. 07/22/2021 No acute events overnight. No major telemetry events requiring increase in her rate control medications. Patient appears to have increased anxiety whenever her heart rate changes. However I have just not reported of any major telemetry events. I will order a DVT ultrasound of the extremities to rule out any new propagating clots. 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 I will also consider hematology consult for her anticoagulation regimen. Patient's chart, labs, images were reviewed and discussed with RN 9-13 Continue Xarelto 20 mg daily. Recommend indefinite anticoagulation evaluation for antiphospholipid syndrome with lupus anticoagulant, ant icardiolipin antibody, antibeta-2 glycoprotein antibody D/C PLANNING 33 MIN Vitals Vitals Vital Signs Date Time Temp Pulse Resp B/P (MAP) Pulse Ox O2 Delivery O2 Flow Rate FiO2 07/23/21 09:10 20 96 Room Air 07/23/21 08:41 71 107/71 07/23/21 07:00 97.9 97.9 Physical Exam Physical Exam GEN: No apparent distress. Alert and oriented HEENT: Normal cephalic, atraumatic, external auditory canals are patent EYES: Extraocular muscles are intact, pupil are equally round and reactive to light and accommodation MUSCULOSKELETAL: Well developed , well nourished, good range of motion ENDOCRINE: No thyromegaly was palpated LYMPHATICS: No cervical chain or axillary nodes were noted HEMATOPOIETIC: No bruising NECK: Supple, no JVD, no thyromegaly was noted LUNGS: Clear to auscultation in all lung samayoa without rhonchi or wheezing HEART: RRR, S!, S2 present. Peripheral pulses intact, no obvious murmurs noted ABDOMEN: Soft, nontender. Positive bowel sounds, no organomegaly, normal bowel sounds EXTREMITIES: Without clubbing, cyanosis, or edema. Pedal pulses intact. Negative Homans sign NEUROLOGIC: Normal speech and tone. A&O x 3, moves all extremities, no obvious focal deficits PSYCHIATRIC: Normal affect, normal mood. Stable SKIN: No ulcerations or rashes, good skin turgor, no jaundice VASCULAR: Good capillary refill, neurovascular bundle appears to be intact General: Cooperative, No acute distress Heart: Regular rate Lungs: Clear, Other Abdomen: Normal bowel sounds Extremities: No cyanosis FINAL DIAGNOSIS Problems Medical Problems: (1) Tachycardia Status: Acute Brief Hospital Course Ms. Shultz is a 31 old [sex] who presented with [SYNCOPE ] CONDITION AT DISCHARGE: Improved Discharge Medications Current Medications Sodium Chloride 1,000 ml @ 1,000 mls/hr Q1H IV Last administered on 07/20/21at 22:58; Start 07/20/21 at 22:30; Stop 07/20/21 at 23:29; Status DC Diltiazem HCl (Cardizem Iv Push) 10 mg 1X ONCE IVP Last administered on 07/20/21at 22:57; Start 07/20/21 at 22:30; Stop 07/20/21 at 22:31; Status DC Metoclopramide HCl (Reglan Vial) 10 mg 1X ONCE IVP Last administered on 07/20/21at 23:32; Start 07/20/21 at 23:30; Stop 07/20/21 at 23:31; Status DC Diphenhydramine HCl (Benadryl) 50 mg STK-MED ONCE .ROUTE ; Start 07/20/21 at 23:14; Stop 07/20/21 at 23:14; Status DC Methylprednisolone Sodium Succinate (SOLU-Medrol 125MG VIAL) 125 mg 1X ONCE IV Last administered on 07/20/21at 23:41; Start 07/20/21 at 23:45; Stop 07/20/21 at 23:46; Status DC Diphenhydramine HCl (Benadryl) 50 mg 1X ONCE IV Last administered on 07/20/21at 23:30; Start 07/20/21 at 23:45; Stop 07/20/21 at 23:46; Status DC Famotidine (Pepcid Vial) 20 mg 1X ONCE IVP Last administered on 07/20/21at 23:38; Start 07/20/21 at 23:45; Stop 07/20/21 at 23:46; Status DC Epinephrine HCl (Adrenalin) 0.3 mg 1X ONCE IM Last administered on 07/20/21at 23:31; Start 07/20/21 at 23:45; Stop 07/20/21 at 23:46; Status DC Acetaminophen (Tylenol) 1,000 mg 1X ONCE PO ; Start 07/21/21 at 00:30; Stop 07/21/21 at 00:31; Status DC Morphine Sulfate (Morphine Sulfate) 4 mg 1X ONCE IVP Last administered on 07/21/21at 00:35; Start 07/21/21 at 01:00; Stop 07/21/21 at 01:01; Status DC Heparin Sodium/ Dextrose 250 ml @ 0 mls/hr CONT PRN IV PER PROTOCOL Last administered on 07/21/21at 10:18; Start 07/21/21 at 00:30; Stop 07/21/21 at 14:28; Status DC Heparin Sodium (Porcine) (Heparin Sodium) 4,300 unit PRN Q6HRS PRN IV FOR UFH LEVEL LESS THAN 0.2; Start 07/21/21 at 00:30; Stop 07/21/21 at 14:28; Status DC Heparin Sodium (Porcine) (Heparin Sodium) 2,150 unit PRN Q6HRS PRN IV FOR UFH LEVEL 0.2 - 0.29; Start 07/21/21 at 00:30; Stop 07/21/21 at 14:28; Status DC Morphine Sulfate (Morphine Sulfate) 4 mg PRN Q4HRS PRN IVP SEVERE PAIN 7-10 Last administered on 07/21/21at 22:16; Start 07/21/21 at 00:30; Stop 07/22/21 at 00:29; Status DC Acetaminophen (Tylenol) 650 mg PRN Q4HRS PRN PO FEVER > 100.3'F; Start 07/21/21 at 00:30; Stop 07/22/21 at 00:29; Status DC Info (Anti-Coagulation Monitoring By Pharmacy) 1 each PRN DAILY PRN MC PER PROTOCOL Last administered on 07/21/21at 03:23; Start 07/21/21 at 00:30 Diphenhydramine HCl (Benadryl) 25 mg PRN Q6HRS PRN IVP ITCHING Last administered on 07/23/21at 11:29; Start 07/21/21 at 13:15 Atenolol (Tenormin) 50 mg BID PO Last administered on 07/23/21at 08:41; Start 07/21/21 at 21:00 Lorazepam (Ativan) 4 mg BID PO Last administered on 07/21/21at 13:47; Start 07/21/21 at 14:00; Stop 07/21/21 at 15:01; Status DC Heparin Sodium/ Dextrose 250 ml @ 0 mls/hr CONT PRN IV PER PROTOCOL Last administered on 07/22/21at 00:23; Start 07/21/21 at 13:45; Stop 07/22/21 at 08:57; Status DC Heparin Sodium (Porcine) (Heparin Sodium) 30 UNITS / KG PRN Q6HRS PRN IV FOR PT T < 40; Start 07/21/21 at 13:45; Stop 07/22/21 at 08:57; Status DC Heparin Sodium (Porcine) (Heparin Sodium) 2,000 unit PRN Q6HRS PRN IV FOR PTT 40 - 58; Start 07/21/21 at 13:45; Stop 07/22/21 at 08:57; Status DC Heparin Sodium (Porcine) (Heparin Sodium) 1,000 unit PRN Q6HRS PRN IV FOR PTT 59 - 78; Start 07/21/21 at 13:45; Stop 07/22/21 at 08:57; Status DC Lorazepam (Ativan) 2 mg BID PO Last administered on 07/23/21at 08:41; Start 07/21/21 at 21:00 Alteplase, Recombinant (Cathflo For Central Catheter Clearance) 1 mg 1X ONCE INT CAT Last administered on 07/21/21at 22:00; Start 07/21/21 at 22:00; Stop 07/21/21 at 22:01; Status DC Alteplase, Recombinant (Cathflo For Central Catheter Clearance) 1 mg 1X ONCE INT CAT Last administered on 07/21/21at 22:00; Start 07/21/21 at 22:00; Stop 07/21/21 at 22:01; Status DC Morphine Sulfate (Morphine Sulfate) 4 mg PRN Q4HRS PRN IV SEVERE PAIN 7-10 Last administered on 07/23/21at 12:52; Start 07/22/21 at 01:30 Diphenhydramine HCl (Benadryl) 50 mg QHS PO ; Start 07/22/21 at 21:00; Stop 07/22/21 at 15:42; Status DC Enoxaparin Sodium (Lovenox 120mg Syringe) 120 mg BID SQ Last administered on at 08:41; Start 07/22/21 at 09:00; Stop 07/23/21 at 15:33; Status DC Famotidine (Pepcid) 20 mg BID PO Last administered on 07/23/21at 08:41; Start 07/22/21 at 09:00 Trazodone HCl (Desyrel) 50 mg PRN QHS PRN PO INSOMNIA Last administered on 07/22/21at 20:05; Start 07/22/21 at 08:15 Pramipexole Dihydrochloride (miraPEX) 0.25 mg BID PO Last administered on 07/23/21at 08:40; Start 07/22/21 at 09:00 Quetiapine Fumarate (SEROquel) 50 mg QHS PO Last administered on 07/22/21at 21:26; Start 07/22/21 at 21:00 Rivaroxaban (Xarelto) 20 mg DAILYWSUP PO ; Start 07/22/21 at 17:00; Stop 07/22/21 at 12:20; Status DC Methocarbamol (Robaxin) 750 mg PRN BID PRN PO MUSCLE SPASMS; Start 07/22/21 at 10:30 Diphenhydramine HCl (Benadryl) 12.5 mg 1X ONCE IV Last administered on 07/22/21at 15:30; Start 07/22/21 at 15:30; Stop 07/22/21 at 15:31; Status DC Rivaroxaban (Xarelto) 20 mg DAILYWSUP PO ; Start 07/23/21 at 21:00 Active Scripts Active Trazodone Hcl 50 Mg Tablet 1 Tab PO PRN QHS PRN 30 Days Reported Xarelto (Rivaroxaban) 20 Mg Tablet 1 Tab PO BID 30 Days with food Lovenox (Enoxaparin Sodium) 120 Mg/0.8 Ml Disp.syrin 120 Mg SQ BID Promethazine Hcl 12.5 Mg Supp.rect 1 Supp RC Q4-6HRS 4 Days Atenolol 50 Mg Tablet 1 Tab PO BID Pepcid (Famotidine) 20 Mg Tablet 20 Mg PO BID Benadryl (Diphenhydramine Hcl) 25 Mg Capsule 2 Cap PO QHS 30 Days Ativan (Lorazepam) 2 Mg Tablet 4 Mg PO BID Quetiapine Fumarate 50 Mg Tablet 1 Tab PO QHS Pramipexole Dihydrochloride (Pramipexole Di-Hcl) 0.125 Mg Tablet 2 Tab PO BID Vital Signs Vital Signs Date Time Temp Pulse Resp B/P (MAP) Pulse Ox O2 Delivery O2 Flow Rate FiO2 07/23/21 15:34 20 Room Air 07/23/21 15:00 98.3 81 119/74 (89) 96 98.3 Labs Laboratory Tests Test 07/22/21 03:30 07/23/21 04:40 07/23/21 13:50 Activated Partial Thromboplast Time 125 SEC (24-38) Sodium Level 140 mmol/L (136-145) Potassium Level 3.9 mmol/L (3.5-5.1) Chloride Level 106 mmol/L (98-107) Carbon Dioxide Level 23 mmol/L (21-32) Anion Gap 11 (6-14) Blood Urea Nitrogen 12 mg/dL (7-20) Creatinine 0.8 mg/dL (0.6-1.0) Estimated GFR (Cockcroft-Gault) 84.8 Glucose Level 144 mg/dL (70-99) Calcium Level 8.7 mg/dL (8.5-10.1) Troponin I Quantitative < 0.017 ng/mL (0.000-0.055) White Blood Count 12.4 x10^3/uL (4.0-11.0) Red Blood Count 3.74 x10^6/uL (3.50-5.40) Hemoglobin 11.2 g/dL (12.0-15.5) Hematocrit 34.1 % (36.0-47.0) Mean Corpuscular Volume 91 fL (79-100) Mean Corpuscular Hemoglobin 30 pg (25-35) Mean Corpuscular Hemoglobin Concent 33 g/dL (31-37) Red Cell Distribution Width 12.8 % (11.5-14.5) Platelet Count 241 x10^3/uL (140-400) Iron Level 51 ug/dL (50-170) Total Iron Binding Capacity 262 ug/dL (250-450) Iron Saturation 19 % (15-34) Vitamin B12 Level 1471 pg/mL (247-911) Laboratory Tests Test 07/23/21 04:40 07/23/21 13:50 White Blood Count 12.4 x10^3/uL (4.0-11.0) Red Blood Count 3.74 x10^6/uL (3.50-5.40) Hemoglobin 11.2 g/dL (12.0-15.5) Hematocrit 34.1 % (36.0-47.0) Mean Corpuscular Volume 91 fL (79-100) Mean Corpuscular Hemoglobin 30 pg (25-35) Mean Corpuscular Hemoglobin Concent 33 g/dL (31-37) Red Cell Distribution Width 12.8 % (11.5-14.5) Platelet Count 241 x10^3/uL (140-400) Iron Level 51 ug/dL (50-170) Total Iron Binding Capacity 262 ug/dL (250-450) Iron Saturation 19 % (15-34) Vitamin B12 Level 1471 pg/mL (247-911) Allergies Allergies Coded Allergies Type Severity Reaction Last Updated Verified Fish Containing Products Allergy Severe Anaphylaxis 09/27/20 Yes Iodinated Contrast Media Allergy Severe Hives 09/27/20 Yes diltiazem Allergy Severe Anaphylaxis 07/21/21 Yes latex Allergy Severe Anaphylaxis 09/27/20 Yes ondansetron Allergy Severe Anaphylaxis 09/27/20 Yes shellfish derived Allergy Severe Anaphylaxis 09/27/20 Yes coconut Allergy Intermediate Hives 09/27/20 Yes fentanyl Allergy Intermediate ITCHY 09/27/20 Yes ketorolac Allergy Intermediate Hives 09/27/20 Yes tramadol Allergy Intermediate 09/27/20 Yes Disposition/Orders: D/C to Home Justicifation of Admission Dx: Justifications for Admission: Justification of Admission Dx: Yes CAT CHRIS MD Jul 23, 2021 15:48
[2021-07-23] MEDS ORDERED: TRAZ-118 PO (15:49)
--- NOTE | 2021-07-23 15:50 | DISCH ---
DISCHARGE INSTRUCTIONS Condition on Discharge Condition on Discharge: Stable Activity After Discharge Activity Instructions for Disc: Activity as tolerated Lifting Instructions after Dis: No heavy lifting Exercise Instruction after Dis: Progress as tolerated Driving Instructions after Dis: Do not drive today Weight Bearing Status after Di: As tolerated Diet after Discharge Diet after Discharge: Full Liquid Diet Texture: Regular Liquid Texture: Thin Liquid Swallowing Supervision: None needed Wound Incision Care Wound/Incision Care: Ice to area for comfort, May get incision wet Checks after Discharge Checks after discharge: Check blood press - daily, Check your Temp as needed Contacting the DR. after DC Call your doctor for: Concerns you may have Treatment/Equipment after DC Adaptive Equipment Issued: None CAT CHRIS MD Jul 23, 2021 15:50
--- NOTE | 2021-07-23 16:45 | NUR ---
DISCHARGED PATIENT TO HOME. DISCHARGE INSTRUCTIONS GIVEN. RIGHT CHEST PORT KESSLER NEEDLE REMOVED. ESCORTED PATIENT PER WHEELCHAIR INTO A PRIVATE VEHICLE.
[2021-07-23] MEDS ORDERED: RIVAROXABAN 10 MG TABLET. PO SCH (21:00)
[2021-07-31] MEDS ORDERED: METO50TA6 PO (12:46)
== END 2021-07-23 16:55 | disposition home or self-care (01) | DRG 309 ==
LOC: ER 21:48 → 6 SOUTH 07-21 00:20
PROVIDERS: ADMIT Internal Medicine; ATTEND Internal Medicine
DX: I48.91 Unspecified atrial fibrillation (principal); Z68.44 Body mass index [BMI] 60.0-69.9, adult; T78.2XXA Anaphylactic shock, unspecified, initial encounter; K62.5 Hemorrhage of anus and rectum; R55 Syncope and collapse; D64.9 Anemia, unspecified; E03.9 Hypothyroidism, unspecified; E66.01 Morbid (severe) obesity due to excess calories; F41.9 Anxiety disorder, unspecified; G47.00 Insomnia, unspecified; J45.909 Unspecified asthma, uncomplicated; K21.9 Gastro-esophageal reflux disease without esophagitis; G43.909 Migraine, unspecified, not intractable, without status migrainosus; I45.6 Pre-excitation syndrome; I48.0 Paroxysmal atrial fibrillation; K59.00 Constipation, unspecified; K76.0 Fatty (change of) liver, not elsewhere classified; T46.1X5A Adverse effect of calcium-channel blockers, initial encounter; Z79.82 Long term (current) use of aspirin; Z80.0 Family history of malignant neoplasm of digestive organs; Z80.3 Family history of malignant neoplasm of breast; Z85.038 Personal history of other malignant neoplasm of large intestine; Z85.43 Personal history of malignant neoplasm of ovary; Z86.711 Personal history of pulmonary embolism; Z86.718 Personal history of other venous thrombosis and embolism; Z87.11 Personal history of peptic ulcer disease; Z90.49 Acquired absence of other specified parts of digestive tract; Z90.710 Acquired absence of both cervix and uterus; Z90.721 Acquired absence of ovaries, unilateral; Z88.8 Allergy status to other drugs, medicaments and biological substances; Z91.041 Radiographic dye allergy status; Z91.040 Latex allergy status; Z91.013 Allergy to seafood
CPT/HCPCS: 36415; 70450; 71045; 72125; 73030; 80048; 80053; 82607; 83540; 83550; 83735; 83880; 84443; 84484; 85025; 85027; 85379; 85520; 85610; 85730; 86146; 86147; 87426; 93005; 93970; 96361; 96372; 96374; 96375; J0171; J1200; J1644; J1650; J2270; J2765; J2930; J2997; J3490; J7030; U0003; U0005; 99285-25; G0378

== ENCOUNTER 2021-07-28 14:04 | Emergency (ER) | payer SELFPAY ==
[~2021-07-28] VITALS: Ht 167.6 cm; Wt 144.0 kg
[~2021-07-28 14:04] MED LIST changes: +ATEN50TA PO; +ENOX120D SQ; +FAMO-63 PO; +PROM12.554 RC; +RIVA20TA2 PO
[2021-07-28] MEDS ORDERED: IV RINGERS,LACTATED 1000ML 1,000 ML IV SCH (14:30)
[2021-07-28] MEDS ORDERED: METOPROLOL TART IMMED RELEASE 25 MG TABLET. PO ONE (14:30)
--- NOTE | 2021-07-28 14:41 | EKG ---
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
--- NOTE | 2021-07-28 15:00 | PHYS DOC ---
Past Medical History Past Medical History: Anxiety, Cancer, Migraines, Renal Failure, Seizure, Other Additional Past Medical Histor: port Past Surgical History: Hysterectomy Additional Past Surgical Histo: Rt.knee repair acl/mcl, cardiac ablation, breast reduction, portacath Smoking Status: Never Smoker Alcohol Use: None Drug Use: None General Adult EDM: Chief Complaint: SYNCOPE HPI: HPI: 31-year-old female with a host of medical problems presents to the emergency room after a single episode approximately 1 hour ago. She reports now that she feels palpitations but does not have pain in her chest. She admits to some shortness of breath from the palpitations. She denies any further symptoms. She reports that she was sitting on the couch and her symptoms started spont aneously. She has had a history of cardiac ablation in the past. She takes atenolol at home and reports that her doctor is looking to increase her dose of atenolol. She reports that she was feeling normal before this all happened. The patient denies nausea, vomiting, fever, chills, chest pain, shortness of breath, abdominal pain, urinary symptoms, cough, recent trauma, or any other complaints. Review of Systems: Review of Systems: Constitutional: Denies fever or chills. Eyes: Denies change in vision, pain. HENT: Denies congestion or sore throat. Respiratory: Denies cough or shortness of breath. Cardiovascular: Denies chest pain, admits to palpitations, admits to syncope. GI: Denies abdominal pain, nausea. : Denies change in urination, dysuria. Musculoskeletal: Denies extremity pain, or trauma. Skin: Denies rash, skin change. Neurologic: Denies headache, focal weakness. Psychiatric: Denies depression or anxiety. All other systems reviewed as negative except for what was mentioned in the HPI. Heart Score: C/O Chest Pain: No Current Medications: Current Medications Medications (Trade) Dose Ordered Sig/Lyndsey Start Time Stop Time Status Last Admin Dose Admin Metoprolol Tartrate (Lopressor) 25 mg 1X ONCE 07/28/21 14:30 07/28/21 14:31 DC Ringer's Solution 1,000 ml @ 1,000 mls/hr Q1H 07/28/21 14:30 07/28/21 15:29 Allergies: Allergies: Allergies Coded Allergies Type Severity Reaction Last Updated Verified Fish Containing Products Allergy Severe Anaphylaxis 09/27/20 Yes Iodinated Contrast Media Allergy Severe Hives 09/27/20 Yes diltiazem Allergy Severe Anaphylaxis 07/21/21 Yes latex Allergy Severe Anaphylaxis 09/27/20 Yes ondansetron Allergy Severe Anaphylaxis 09/27/20 Yes shellfish derived Allergy Severe Anaphylaxis 09/27/20 Yes coconut Allergy Intermediate Hives 09/27/20 Yes fentanyl Allergy Intermediate ITCHY 09/27/20 Yes ketorolac Allergy Intermediate Hives 09/27/20 Yes tramadol Allergy Intermediate 09/27/20 Yes Physical Exam: PE: Constitutional: No acute distress, non-toxic appearance. Obese HENT: Atraumatic, bilateral external ears normal, nose normal. Eyes: PERRLA, EOMI, conjunctiva normal, no discharge. Neck: Normal range of motion, supple, no stridor. Cardiovascular: Tachycardic. 2+ radial pulses. <2 s cap refill Lungs & Thorax: No respiratory distress, symmetrical expansion. Bilateral breath sounds clear to auscultation Abdomen: Soft, no tenderness Skin: Warm, dry. Extremities: No tenderness, no cyanosis, ROM intact, no edema. Neurologic: Alert and oriented X 3, normal motor function, normal sensory function, no focal deficits noted. Non ataxic gait. GCS 15. Psychologic: Affect normal, judgment normal, mood normal. Current Patient Data: Labs: Laboratory Tests Test 07/28/21 15:00 07/28/21 16:37 White Blood Count 14.4 x10^3/uL (4.0-11.0) Red Blood Count 4.19 x10^6/uL (3.50-5.40) Hemoglobin 12.7 g/dL (12.0-15.5) Hematocrit 37.5 % (36.0-47.0) Mean Corpuscular Volume 90 fL (79-100) Mean Corpuscular Hemoglobin 30 pg (25-35) Mean Corpuscular Hemoglobin Concent 34 g/dL (31-37) Red Cell Distribution Width 13.0 % (11.5-14.5) Platelet Count 287 x10^3/uL (140-400) Neutrophils (%) (Auto) 69 % (31-73) Lymphocytes (%) (Auto) 22 % (24-48) Monocytes (%) (Auto) 8 % (0-9) Eosinophils (%) (Auto) 0 % (0-3) Basophils (%) (Auto) 1 % (0-3) Neutrophils # (Auto) 9.9 x10^3/uL (1.8-7.7) Lymphocytes # (Auto) 3.2 x10^3/uL (1.0-4.8) Monocytes # (Auto) 1.2 x10^3/uL (0.0-1.1) Eosinophils # (Auto) 0.0 x10^3/uL (0.0-0.7) Basophils # (Auto) 0.1 x10^3/uL (0.0-0.2) Sodium Level 139 mmol/L (136-145) Potassium Level 3.7 mmol/L (3.5-5.1) Chloride Level 104 mmol/L (98-107) Carbon Dioxide Level 26 mmol/L (21-32) Anion Gap 9 (6-14) Blood Urea Nitrogen 15 mg/dL (7-20) Creatinine 0.8 mg/dL (0.6-1.0) Estimated GFR (Cockcroft-Gault) 84.8 BUN/Creatinine Ratio 19 (6-20) Glucose Level 75 mg/dL (70-99) Calcium Level 8.9 mg/dL (8.5-10.1) Total Bilirubin 0.3 mg/dL (0.2-1.0) Aspartate Amino Transf (AST/SGOT) 11 U/L (15-37) Alanine Aminotransferase (ALT/SGPT) 24 U/L (14-59) Alkaline Phosphatase 99 U/L (46-116) Troponin I Quantitative < 0.017 ng/mL (0.000-0.055) RA-Wqm-X-Type Natriuretic Peptide 143 pg/mL (0-124) Total Protein 7.3 g/dL (6.4-8.2) Albumin 3.3 g/dL (3.4-5.0) Albumin/Globulin Ratio 0.8 (1.0-1.7) Lipase 182 U/L (73-393) Urine Collection Type Unknown Urine Color Yellow Urine Clarity Turbid Urine pH 5.5 (<5.0-8.0) Urine Specific [place] >=1.030 (1.000-1.030) Urine Protein Negative mg/dL (NEG-TRACE) Urine Glucose (UA) Negative mg/dL (NEG) Urine Ketones (Stick) Negative mg/dL (NEG) Urine Blood Trace (NEG) Urine Nitrite Negative (NEG) Urine Bilirubin Negative (NEG) Urine Urobilinogen Dipstick 1.0 mg/dL (0.2 mg/dL) Urine Leukocyte Esterase Small (NEG) Urine RBC 0 /HPF (0-2) Urine WBC Occ /HPF (0-4) Urine Squamous Epithelial Cells Mod /LPF Urine Amorphous Sediment Present /HPF Urine Bacteria Many /HPF (0-FEW) Urine Mucus Slight /LPF Urine Yeast Present /HPF Urine Test Negative (NEG) Urine Opiates Screen Pos (NEG) Urine Methadone Screen Neg (NEG) Urine Barbiturates Neg (NEG) Urine Phencyclidine Screen Neg (NEG) Urine Amphetamine/Methamphetamine Neg (NEG) Urine Benzodiazepines Screen Neg (NEG) Urine Cocaine Screen Neg (NEG) Urine Cannabinoids Screen Neg (NEG) Urine Ethyl Alcohol Neg (NEG) Vital Signs: Vital Signs Date Time Temp Pulse Resp B/P (MAP) Pulse Ox O2 Delivery O2 Flow Rate FiO2 07/28/21 16:59 96 18 118/72 (87) 99 Room Air 07/28/21 16:30 116 136/78 07/28/21 16:12 114 18 136/78 (97) 99 Room Air 07/28/21 15:35 115 18 112/62 (79) 99 Room Air 07/28/21 15:22 124 129/54 07/28/21 15:18 126 20 129/54 (79) 99 Room Air 07/28/21 14:35 138 22 122/80 (94) 99 Room Air 07/28/21 14:05 97.9 131 22 134/73 (93) 98 Room Air 97.9 EKG: EKG: Sinus tachycardia rate of 130, no ST-T wave changes, no ectopic beats, normal axis, normal ME, QRS, and QTc intervals. Impression: Sinus tachycardia. interpreted by me, Frida Parrish D.O. Radiology/Procedures: Radiology/Procedures: XR CHEST 1V History: Reason: chest discomfort, tachycardia Comparison: July 20, 2021 Findings: No consolidation or pleural effusion. Normal heart size. No pneumothorax. Stable right chest wall port. Impression: 1. No acute cardiopulmonary process. Electronically signed by: Modesto Beaver DO (07/28/2021 4:23 PM) Course & Med Decision Making: Course & Med Decision Making Per records of [facility], patient had old appearing bilateral subsegmental pulmonary emboli on a CT scan of the chest that was performed on 06/22/2021. She was placed on Xarelto at that time. She is on Xarelto 20 mg daily currently. She states that he is compliant with this. She was recently admitted 1 week ago for similar presentation. After beta-lorne she is down to less than 100 heart rate with stable blood pressure. She looks and appears well, does not appear to be in acute pain clinically. She is complaining of s ome discomfort, believed to be from her old PEs. I advised the patient that she needs to follow-up with her primary care provider as well as a pain management physician and I provided resources for her to follow-up with her primary care office. Departure Departure Impression: Primary Impression: Palpitations Disposition: HOME / SELF CARE / HOMELESS Condition: STABLE Referrals: CARY HI MD (PCP) Patient Instructions: Nonspecific Tachycardia Additional Instructions: You are seen in the emergency department for tachycardia today which responded well to beta-lorne medications. It is important that you follow-up with a primary care physician to address your medications. You were seen in the e mergency department and your health condition was deemed not to require admission to the hospital. It is important to realize that we can only evaluate you during the time that you are in her department. Occasionally health conditions can worsen upon leaving the emergency department. If this were to happen, please return to and allow us the opportunity to reevaluate you. It is a pleasure to take care of your health needs. Return to the ER if your symptoms worsen, do not improve, or if you develop additional symptoms that are concerning to you You have been given a prescription for oxycodone. This medication is a narcotic pain medicine, it is important for to take this medication only as needed and according to its instructions, and not to take at an increased frequency from what is prescribed. Do not mix with alcohol, drive, or operate heavy machinery while on this medication as they can be sedating. Scripts Oxycodone Hcl (OXYCODONE HCL) 5 Mg Capsule 5 MG PO PRN Q6HRS PRN for PAIN for 2 Days, #8 TAB 0 Refills Prov: FRIDA PARRISH DO 07/28/21 FRIDA PARRISH DO Jul 28, 2021 15:00
[2021-07-28 15:09] LABS: BASO # 0.1 x10^3/uL (0.0-0.2); BASO % 1 % (0-3); EOS % 0 % (0-3); HEMATOCRIT 37.5 % (36.0-47.0); HEMOGLOBIN 12.7 g/dL (12.0-15.5); LYMPH # 3.2 x10^3/uL (1.0-4.8); LYMPH % 22 % (24-48); MEAN CORPUSCULAR HEMOGLOBIN 30 pg (25-35); MEAN CORPUSCULAR HGB CONC 34 g/dL (31-37); MEAN CORPUSCULAR VOLUME 90 fL (79-100); MONO # 1.2 x10^3/uL (0.0-1.1); MONO % 8 % (0-9); NEUT # 9.9 x10^3/uL (1.8-7.7); NEUT % 69 % (31-73); PLATELET COUNT 287 x10^3/uL (140-400); RED BLOOD COUNT 4.19 x10^6/uL (3.50-5.40); WHITE BLOOD COUNT 14.4 x10^3/uL (4.0-11.0)
[2021-07-28] MEDS ORDERED: METOCLOPRAMIDE HCL 10 MG/2 ML VIAL. IVP ONE (15:15)
[2021-07-28 15:26] LABS: CALCIUM 8.9 mg/dL (8.5-10.1); CREATININE 0.8 mg/dL (0.6-1.0); GFR 84.8; POTASSIUM 3.7 mmol/L (3.5-5.1)
[2021-07-28 15:32] LABS: ALBUMIN 3.3 g/dL (3.4-5.0); ALBUMIN/GLOBULIN RATIO 0.8 (1.0-1.7); TOTAL BILIRUBIN 0.3 mg/dL (0.2-1.0); TOTAL PROTEIN 7.3 g/dL (6.4-8.2)
[2021-07-28] MEDS ORDERED: METOPROLOL IV PUSH 5 MG/5 ML VIAL. IVP ONE ×2 (15:45→16:30)
--- NOTE | 2021-07-28 16:25 | RAD ---
XR CHEST 1V History: Reason: chest discomfort, tachycardia Comparison: July 20, 2021 Findings: No consolidation or pleural effusion. Normal heart size. No pneumothorax. Stable right chest wall por t. Impression: 1. No acute cardiopulmonary process. Electronically signed by: Modesto Beaver DO (07/28/2021 4:23 PM) [facility]
[2021-07-28 17:09] LABS: BILIRUBIN,URINE NEGATIVE (NEG); CLARITY,URINE TURBID; COLOR,URINE YELLOW; NITRITE,URINE NEGATIVE (NEG); PH,URINE 5.5 (<5.0-8.0); PROTEIN,URINE NEGATIVE (NEG-TRACE)
[2021-07-28] MEDS ORDERED: OXYC5CAP PO (17:11)
[2021-07-28 17:13] LABS: U PREG PATIENT NEGATIVE (NEG)
[2021-07-28] MEDS ORDERED: MORPHINE SULFATE 10 MG/ML VIAL. IV ONE (17:15)
[2021-07-28 17:16] LABS: AMPHETAMINE/METHAMPHETAMINE NEG (NEG); BARBITURATES NEG (NEG); BENZODIAZEPINES NEG (NEG); CANNABINOIDS NEG (NEG); COCAINE NEG (NEG); METHADONE NEG (NEG); OPIATES POS (NEG); PHENCYCLIDINE NEG (NEG)
[2021-07-28 17:17] LABS: AMORPHOUS SEDIMENT,UR PRESENT /HPF; BACTERIA,URINE MANY /HPF (0-FEW); RBC,URINE 0 /HPF (0-2); WBC,URINE OCC /HPF (0-4); YEAST,URINE PRESENT /HPF
[2021-07-28 18:00] VITALS: BP 107/66
[2021-07-28] MEDS ORDERED: HEPARIN PF 500 UNIT/5 ML DISP.SYRIN. IVP ONE (18:01)
== END 2021-07-28 18:00 | disposition home or self-care (01) ==
LOC: ER 14:04
DX: R00.2 Palpitations (principal); G43.909 Migraine, unspecified, not intractable, without status migrainosus; Z91.040 Latex allergy status; Z91.041 Radiographic dye allergy status; Z88.5 Allergy status to narcotic agent; Z91.013 Allergy to seafood; Z88.4 Allergy status to anesthetic agent; Z88.6 Allergy status to analgesic agent; Z91.018 Allergy to other foods
CPT/HCPCS: 36415; 71045; 80053; 80307; 81001; 81025; 83690; 83880; 84484; 85025; 87086; 93005; 96361; 96374; 96375; 99285; J2270; J2765; J3490; J7120

== ENCOUNTER 2021-07-30 01:25 | Inpatient (IN) | payer SELFPAY ==
[~2021-07-30] VITALS: Ht 167.6 cm; Wt 168.4 kg
[~2021-07-30 01:25] MED LIST changes: +OXYC5CAP PO
--- NOTE | 2021-07-30 02:22 | ED.ADGEN ---
Past Medical History Past Medical History: Anxiety, Cancer, Migraines, Renal Failure, Seizure, Other Additional Past Medical Histor: port Past Surgical History: Hysterectomy Additional Past Surgical Histo: Rt.knee repair acl/mcl, cardiac ablation, breast reduction, portacath Smoking Status: Never Smoker Alcohol Use: None Drug Use: None General Adult EDM: Chief Complaint: RAPID HEART RATE HPI: HPI: Patient is a 31 year old female coming in for palpitations, racing heartbeat, and chest tightness starting 2 hours prior to arrival. Patient states she woke up with palpitations she felt nauseous and was going to the bathroom, then felt lightheaded and per was passed out for couple seconds. Fell and struck her right knee on her bed frame. Patient has a history of recurrent episodes of tachycardia and history of was her first time of her increased dose of atenolol from 50 to 75 mg. Patient has a history significant for appendiceal, ovarian cancers, WPW status post ablation about 5 years ago. She is on Xarelto, heparin, and a baby aspirin for bilateral PEs she is also had renal failure requiring dialysis secondary to sepsis but current kidney disease is stage I. Patient states she normally had episodes of sustained tachycardia every 6 months but this is her third ER visit this month for tachycardia that resulted in syncopal episode. Was admitted and discharged 1 week ago. Was seen again 2 days ago for tachycardia and treated with fluids and metoprolol with improvement. Review of Systems: Review of Systems: Constitutional: Denies fever or chills. [] Eyes: Denies change in visual acuity. [] HENT: Denies nasal congestion or sore throat. [] Respiratory: Denies cough or shortness of breath. [] Cardiovascular: Denies chest pain or edema. [] GI: Denies abdominal pain, nausea, vomiting, bloody stools or diarrhea. [] : Denies dysuria. [] Musculoskeletal: Denies back pain or joint pain. [] Integument: Denies rash. [] Neurologic: Denies headache, focal weakness or sensory changes. [] Endocrine: Denies polyuria or polydipsia. [] Lymphatic: Denies swollen glands. [] Psychiatric: Denies depression or anxiety. [] Current Medications: Current Medications Medications (Trade) Dose Ordered Sig/Lyndsey Start Time Stop Time Status Last Admin Dose Admin Metoclopramide HCl (Reglan Vial) 10 mg 1X ONCE 07/30/21 03:00 07/30/21 03:01 DC 07/30/21 03:08 10 MG Metoprolol Tartrate (Lopressor Vial) 5 mg 1X ONCE 07/30/21 02:30 07/30/21 02:31 DC 07/30/21 02:46 5 MG Morphine Sulfate (Morphine Sulfate) 4 mg 1X ONCE 07/30/21 03:00 07/30/21 03:01 DC 07/30/21 03:09 4 MG Sodium Chloride 1,000 ml @ 1,000 mls/hr 1X ONCE 07/30/21 02:30 07/30/21 03:29 DC 07/30/21 02:46 1,000 MLS/HR Allergies: Allergies: Allergies Coded Allergies Type Severity Reaction Last Updated Verified Fish Containing Products Allergy Severe Anaphylaxis 09/27/20 Yes Iodinated Contrast Media Allergy Severe Hives 09/27/20 Yes diltiazem Allergy Severe Anaphylaxis 07/21/21 Yes latex Allergy Severe Anaphylaxis 09/27/20 Yes ondansetron Allergy Severe Anaphylaxis 09/27/20 Yes shellfish derived Allergy Severe Anaphylaxis 09/27/20 Yes coconut Allergy Intermediate Hives 09/27/20 Yes fentanyl Allergy Intermediate ITCHY 09/27/20 Yes ketorolac Allergy Intermediate Hives 09/27/20 Yes tramadol Allergy Intermediate 09/27/20 Yes Physical Exam: PE: Constitutional: Well developed, well nourished, no acute distress, non-toxic appearance. [] HENT: Normocephalic, atraumatic, bilateral external ears normal, oropharynx moist, no oral exudates, nose normal. [] Eyes: PERRLA, EOMI, conjunctiva normal, no discharge. [] Neck: Normal range of motion, no tenderness, supple, no stridor. [] Cardiovascular:Heart rate regular rhythm, no murmur [] Lungs & Thorax: Bilateral breath sounds clear to auscultation [] Abdomen: Bowel sounds normal, soft, no tenderness, no masses, no pulsatile masses. [] Skin: Warm, dry, no erythema, no rash. [] Back: No tenderness, no CVA tenderness. [] Extremities: No tenderness, no cyanosis, no clubbing, ROM intact, no edema. [] Neurologic: Alert and oriented X 3, normal motor function, normal sensory function, no focal deficits noted. [] Psychologic: Affect normal, judgement normal, mood normal. [] Current Patient Data: Labs: Laboratory Tests Test 07/30/21 02:35 07/30/21 03:35 White Blood Count 13.7 x10^3/uL (4.0-11.0) H Red Blood Count 4.04 x10^6/uL (3.50-5.40) Hemoglobin 12.1 g/dL (12.0-15.5) Hematocrit 36.3 % (36.0-47.0) Mean Corpuscular Volume 90 fL (79-100) Mean Corpuscular Hemoglobin 30 pg (25-35) Mean Corpuscular Hemoglobin Concent 33 g/dL (31-37) Red Cell Distribution Width 12.7 % (11.5-14.5) Platelet Count 299 x10^3/uL (140-400) Neutrophils (%) (Auto) 70 % (31-73) Lymphocytes (%) (Auto) 22 % (24-48) L Monocytes (%) (Auto) 7 % (0-9) Eosinophils (%) (Auto) 0 % (0-3) Basophils (%) (Auto) 1 % (0-3) Neutrophils # (Auto) 9.5 x10^3/uL (1.8-7.7) H Lymphocytes # (Auto) 3.0 x10^3/uL (1.0-4.8) Monocytes # (Auto) 1.0 x10^3/uL (0.0-1.1) Eosinophils # (Auto) 0.0 x10^3/uL (0.0-0.7) Basophils # (Auto) 0.1 x10^3/uL (0.0-0.2) Prothrombin Time 13.0 SEC (11.7-14.0) Prothrombin Time INR 1.0 (0.8-1.1) D-Dimer (Mitzi) 0.48 ug/mlFEU (0.00-0.50) Sodium Level 137 mmol/L (136-145) Potassium Level 3.8 mmol/L (3.5-5.1) Chloride Level 103 mmol/L (98-107) Carbon Dioxide Level 27 mmol/L (21-32) Anion Gap 7 (6-14) Blood Urea Nitrogen 10 mg/dL (7-20) Creatinine 0.9 mg/dL (0.6-1.0) Estimated GFR (Cockcroft-Gault) 74.0 BUN/Creatinine Ratio 11 (6-20) Glucose Level 134 mg/dL (70-99) H Calcium Level 8.9 mg/dL (8.5-10.1) Phosphorus Level 3.7 mg/dL (2.6-4.7) Magnesium Level 2.2 mg/dL (1.8-2.4) Total Bilirubin 0.3 mg/dL (0.2-1.0) Aspartate Amino Transferase (AST) < 5 U/L (15-37) L Alanine Aminotransferase (ALT) 16 U/L (14-59) Alkaline Phosphatase 97 U/L (46-116) Troponin I Quantitative < 0.017 ng/mL (0.000-0.055) YK-Ode-D-Type Natriuretic Peptide 73 pg/mL (0-124) Total Protein 6.9 g/dL (6.4-8.2) Albumin 3.2 g/dL (3.4-5.0) L Albumin/Globulin Ratio 0.9 (1.0-1.7) L Urine Collection Type Unknown Urine Color Yellow Urine Clarity Clear Urine pH 6.5 (<5.0-8.0) Urine Specific [place] 1.020 (1.000-1.030) Urine Protein Negative mg/dL (NEG-TRACE) Urine Glucose (UA) Negative mg/dL (NEG) Urine Ketones (Stick) Negative mg/dL (NEG) Urine Blood Negative (NEG) Urine Nitrite Negative (NEG) Urine Bilirubin Negative (NEG) Urine Urobilinogen Dipstick 0.2 mg/dL (0.2 mg/dL) Urine Leukocyte Esterase Negative (NEG) Urine RBC 0 /HPF (0-2) Urine WBC 1-4 /HPF (0-4) Urine Squamous Epithelial Cells Many /LPF Urine Amorphous Sediment Present /HPF Urine Bacteria Few /HPF (0-FEW) Urine Mucus Slight /LPF Laboratory Tests 07/30/21 02:35 Laboratory Tests 07/30/21 02:35 Vital Signs: Vital Signs Date Time Temp Pulse Resp B/P (MAP) Pulse Ox O2 Delivery O2 Flow Rate FiO2 07/30/21 03:09 18 99 07/30/21 02:46 113 126/75 07/30/21 01:45 98.9 Room Air 98.9 EKG: EKG: Sinus tachycardia, heart rate 138 bpm, normal axis, no ST elevation or depression, no ectopy. [] Heart Score: C/O Chest Pain: Yes HEART Score for Chest Pain: HEART Score for Chest Pain Response (Comments) Value History Moderately Suspicious 1 ECG Nonspecific Repolarizatio 1 Age < 45 0 Risk Factors 1 or 2 Risk Factors 1 Troponin < Normal Limit 0 Total 3 Risk Factors: Risk Factors: DM, Current or recent (<one month) smoker, HTN, HLP, family history of CAD, obesity. Risk Scores: Score 0 - 3: 2.5% MACE over next 6 weeks - Discharge Home Score 4 - 6: 20.3% MACE over next 6 weeks - Admit for Clinical Observation Score 7 - 10: 72.7% MACE over next 6 weeks - Early Invasive Strategies Radiology/Procedures: Radiology/Procedures: Discussed with radiologist right knee x-ray, likely old Hellier-Schlatter disease, no acute fracture [] Course & Med Decision Making: Course & Med Decision Making Pertinent Labs and Imaging studies reviewed. (See chart for details) , Patient's heart rate down to low 100s. Discussed options for treatment with patient, she does not have a follow-up appointment with her primary care provider for 1.5 weeks due to him being out of town. Does not have a brace maker she follows with. Concern for these attacks being more frequent and causing syncope in a patient on 3 blood thinners and the potential for a significant injury from falling. [] Dragon Disclaimer: Dragon Disclaimer: This electronic medical record was generated, in whole or in part, using a voice recognition dictation system. Departure Departure Impression: Primary Impression: Contusion of right knee, initial encounter Additional Impressions: Tachycardia, paroxysmal Syncope and collapse Disposition: ADMITTED INPATIENT Admitting Physician: HIMS Condition: STABLE Referrals: CARY HI MD (PCP) Problem Qualifiers AMAYA MONTAGUE MD Jul 30, 2021 02:22
[2021-07-30] MEDS ORDERED: METOPROLOL IV PUSH 5 MG/5 ML VIAL. IVP ONE (02:30)
[2021-07-30] MEDS ORDERED: IV NORMAL SALINE 1000ML BAG 1,000 ML IV ONE (02:30)
[2021-07-30 02:43] LABS: BASO # 0.1 x10^3/uL (0.0-0.2); BASO % 1 % (0-3); EOS % 0 % (0-3); HEMATOCRIT 36.3 % (36.0-47.0); HEMOGLOBIN 12.1 g/dL (12.0-15.5); LYMPH % 22 % (24-48); MEAN CORPUSCULAR HEMOGLOBIN 30 pg (25-35); MEAN CORPUSCULAR HGB CONC 33 g/dL (31-37); MEAN CORPUSCULAR VOLUME 90 fL (79-100); MONO % 7 % (0-9); NEUT # 9.5 x10^3/uL (1.8-7.7); NEUT % 70 % (31-73); PLATELET COUNT 299 x10^3/uL (140-400); RED BLOOD COUNT 4.04 x10^6/uL (3.50-5.40); RED CELL DISTRIBUTION WIDTH 12.7 % (11.5-14.5); WHITE BLOOD COUNT 13.7 x10^3/uL (4.0-11.0)
[2021-07-30 02:54] LABS: ANION GAP 7 (6-14); BLOOD UREA NITROGEN 10 mg/dL (7-20); BUN/CREATININE RATIO 11 (6-20); CALCIUM 8.9 mg/dL (8.5-10.1); CARBON DIOXIDE 27 mmol/L (21-32); CHLORIDE 103 mmol/L (98-107); CREATININE 0.9 mg/dL (0.6-1.0); GLUCOSE 134 mg/dL (70-99); POTASSIUM 3.8 mmol/L (3.5-5.1); SODIUM 137 mmol/L (136-145)
[2021-07-30 02:59] LABS: ALBUMIN 3.2 g/dL (3.4-5.0); ALBUMIN/GLOBULIN RATIO 0.9 (1.0-1.7); ALK PHOS 97 U/L (46-116); ALT (SGPT) 16 U/L (14-59); MAGNESIUM 2.2 mg/dL (1.8-2.4); PHOSPHORUS 3.7 mg/dL (2.6-4.7); TOTAL BILIRUBIN 0.3 mg/dL (0.2-1.0); TOTAL PROTEIN 6.9 g/dL (6.4-8.2)
[2021-07-30 03:00] LABS: AST (SGOT) < 5 U/L (15-37)
[2021-07-30] MEDS ORDERED: METOCLOPRAMIDE HCL 10 MG/2 ML VIAL. IVP ONE ×2 (03:00→05:30)
[2021-07-30] MEDS ORDERED: MORPHINE SULFATE 4 MG/ML INJ. IV ONE (03:00)
[2021-07-30 03:01] LABS: D-DIMER 0.48 ug/mlFEU (0.00-0.50)
[2021-07-30 03:43] LABS: BILIRUBIN,URINE NEGATIVE (NEG); CLARITY,URINE CLEAR; COLOR,URINE YELLOW; NITRITE,URINE NEGATIVE (NEG); PH,URINE 6.5 (<5.0-8.0); PROTEIN,URINE NEGATIVE (NEG-TRACE); UROBILINOGEN,URINE 0.2 mg/dL (0.2 mg/dL)
[2021-07-30 04:06] LABS: AMORPHOUS SEDIMENT,UR PRESENT /HPF; BACTERIA,URINE FEW /HPF (0-FEW); RBC,URINE 0 /HPF (0-2)
--- NOTE | 2021-07-30 05:02 | RAD ---
EXAM: Right knee, 3 views HISTORY: Right knee pain, fall. COMPARISON: None. FINDINGS: No fractures are identified. Joint spaces are maintained. There are tiny osteophytes along the medial compartment. Alignment is normal. There is no joint effusion. IMPRESSION: 1. Early medial compartmental osteoarthritis. Electronically signed by: Arthur Issa MD (07/30/2021 4:59 AM) [facility]
[2021-07-30] MEDS: MORPHINE SULFATE 4 MG/ML INJ. IVP PRN ×5 (05:13→20:56)
[2021-07-30] MEDS ORDERED: ONDANSETRON PF 4 MG/2 ML VIAL. IVP PRN ×2 (05:15→14:15)
[2021-07-30] MEDS ORDERED: ACETAMINOPHEN 325 MG TABLET. PO PRN ×2 (05:15→14:15)
[2021-07-30 06:27] VITALS: BP 124/66
[2021-07-30] MEDS ORDERED: ATEN25TA PO ×2 (08:25)
[2021-07-30 11:00] VITALS: BP 133/85
--- NOTE | 2021-07-30 11:06 | PDOC ---
SURYA GONZALEZ COTTON AGENT 07/30/21 1106: CARDIO Progress Notes Date and Time Date of Service 07/30/21 Time of Evaluation 1100 Subjective Subjective: No Chest Pain, No shortness of breath, No Palpitations Vitals Vitals Vital Signs Date Time Temp Pulse Resp B/P (MAP) Pulse Ox O2 Delivery O2 Flow Rate FiO2 07/30/21 06:27 98.8 91 22 124/66 (85) 95 Room Air 98.8 Weight Weight [ ] Laboratory Labs Laboratory Tests Test 07/30/21 02:35 07/30/21 03:35 07/30/21 08:40 White Blood Count 13.7 x10^3/uL (4.0-11.0) Red Blood Count 4.04 x10^6/uL (3.50-5.40) Hemoglobin 12.1 g/dL (12.0-15.5) Hematocrit 36.3 % (36.0-47.0) Mean Corpuscular Volume 90 fL (79-100) Mean Corpuscular Hemoglobin 30 pg (25-35) Mean Corpuscular Hemoglobin Concent 33 g/dL (31-37) Red Cell Distribution Width 12.7 % (11.5-14.5) Platelet Count 299 x10^3/uL (140-400) Neutrophils (%) (Auto) 70 % (31-73) Lymphocytes (%) (Auto) 22 % (24-48) Monocytes (%) (Auto) 7 % (0-9) Eosinophils (%) (Auto) 0 % (0-3) Basophils (%) (Auto) 1 % (0-3) Neutrophils # (Auto) 9.5 x10^3/uL (1.8-7.7) Lymphocytes # (Auto) 3.0 x10^3/uL (1.0-4.8) Monocytes # (Auto) 1.0 x10^3/uL (0.0-1.1) Eosinophils # (Auto) 0.0 x10^3/uL (0.0-0.7) Basophils # (Auto) 0.1 x10^3/uL (0.0-0.2) Prothrombin Time 13.0 SEC (11.7-14.0) Prothromb Time International Ratio 1.0 (0.8-1.1) D-Dimer (Mitzi) 0.48 ug/mlFEU (0.00-0.50) Sodium Level 137 mmol/L (136-145) Potassium Level 3.8 mmol/L (3.5-5.1) Chloride Level 103 mmol/L (98-107) Carbon Dioxide Level 27 mmol/L (21-32) Anion Gap 7 (6-14) Blood Urea Nitrogen 10 mg/dL (7-20) Creatinine 0.9 mg/dL (0.6-1.0) Estimated GFR (Cockcroft-Gault) 74.0 BUN/Creatinine Ratio 11 (6-20) Glucose Level 134 mg/dL (70-99) Calcium Level 8.9 mg/dL (8.5-10.1) Phosphorus Level 3.7 mg/dL (2.6-4.7) Magnesium Level 2.2 mg/dL (1.8-2.4) Total Bilirubin 0.3 mg/dL (0.2-1.0) Aspartate Amino Transf (AST/SGOT) < 5 U/L (15-37) Alanine Aminotransferase (ALT/SGPT) 16 U/L (14-59) Alkaline Phosphatase 97 U/L (46-116) Troponin I Quantitative < 0.017 ng/mL (0.000-0.055) < 0.017 ng/mL (0.000-0.055) LJ-Qbq-F-Type Natriuretic Peptide 73 pg/mL (0-124) Total Protein 6.9 g/dL (6.4-8.2) Albumin 3.2 g/dL (3.4-5.0) Albumin/Globulin Ratio 0.9 (1.0-1.7) Urine Collection Type Unknown Urine Color Yellow Urine Clarity Clear Urine pH 6.5 (<5.0-8.0) Urine Specific [place] 1.020 (1.000-1.030) Urine Protein Negative mg/dL (NEG-TRACE) Urine Glucose (UA) Negative mg/dL (NEG) Urine Ketones (Stick) Negative mg/dL (NEG) Urine Blood Negative (NEG) Urine Nitrite Negative (NEG) Urine Bilirubin Negative (NEG) Urine Urobilinogen Dipstick 0.2 mg/dL (0.2 mg/dL) Urine Leukocyte Esterase Negative (NEG) Urine RBC 0 /HPF (0-2) Urine WBC 1-4 /HPF (0-4) Urine Squamous Epithelial Cells Many /LPF Urine Amorphous Sediment Present /HPF Urine Bacteria Few /HPF (0-FEW) Urine Mucus Slight /LPF Physical Exam HEENT: Neck Supple W Full Motion Chest: Symmetric LUNGS: Clear to Auscultation Heart: RRR Abdomen: Soft N/T Extremities: No Edema Neurology: alert, oriented, follow commands Assessment Assessment This is a 31 yo female, with a history of WPW s/p ablation therapy, who was seen by our service last week for palpitations. Please see consult from 07/21/21 for further details. Patient reports having brief syncopal episode 2 days ago associated with palpitations. Reports she was sitting on couch and began feeling heart race. Had brief syncopal event witnessed by . Was seen in our ED and treated with metoprolol and IVFs with improvement and was discharged home. Is on atenolol at home for HR control. Patient reports waking up early this morning with palpitations. Sat up and felt nauseated. Stood up to go to the bathroom and felt dizzy and subsequently passed out briefly. Reports hitting her right knee on bedside table. Did not hit head. Took extra dose of atenolol, but heart continued to beat fast so she came into the ED for further evaluation and treatment. Noted in ST with rate 130 upon arrival. Assessment 1. Recurrent syncopal episode; most probably vasovagal. LHC 06/11/2021 at with normal coronaries as noted below. No acute events on tele 2. Sinus tachycardia; presently SR/ST. on atenolol for rate control. Previously on metoprolol, but reports this did not improve HR 2. H/o WPW s/p ablation 2015 3. 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 4. H/o appendiceal carcinoma; s/p appendectomy Recommendations Discontinue atenolol Start Cardizem for rate control Needs outpatient event monitor and EP followup SS following Monitor tele Supportive care records 05/29/21 - 2D + DOPPLER ECHO Interpretation Summary Left Ventricle: The left ventricular size is normal. Concentric remodeling. The left ventricular systolic function is normal. The visually estimated ejection fraction is 60%. There are no segmental wall motion abnormalities. Normal left ventricular diastolic function. Right Ventricle: Ventricle not well seen. The right ventricular systolic function is normal. Left Atrium: Normal size. Right Atrium: Normal size No hemodynamically significant valvular abnormalities. Grade 4, right to left shunt with agitated saline injection and Valsalva suggestive of PFO CARDIAC CATHETERIZATION REPORT 06/12/21 FINDINGS: HEMODYNAMICS: LVEDP was 20 mmHg. Central aortic pressure was 118/77 mmHg. CORONARY ANGIOGRAPHY: The coronary anatomy was right dominant. Left main coronary artery was normal. The LAD was a large vessel that was normal. Diagonal branches were normal. Left circumflex artery was a large, nondominant vessel and was normal. Marginal branch was normal. Ramus intermedius artery was normal. The right coronary artery was a dominant vessel, and it was normal. RPDA and RPLV were normal. CONCLUSIONS: Elevated LV filling pressure and normal central aortic pressure. Normal coronary arteries. Justicifation of Admission Dx: Justifications for Admission: Justification of Admission Dx: Yes JOSE SALVADOR MD 07/30/212049: CARDIO Progress Notes Assessment Assessment The patient was seen and examined. I agree with our wall taper assessment and plan. The patient is feeling better this morning. Syncope. Continue monitoring. Change atenolol to cardizem. Increase activity. network services project manager consult. SURYA GONZALEZ APRN Jul 30, 2021 11:06 JOSE SALVADOR MD Jul 30, 2021 20:50
--- NOTE | 2021-07-30 11:25 | NUR ---
SW following. Discussed with RN, pt from home, room air, cardiac diet. Cardiology following. Med Assist following for self pay status. Pt is a high risk readmission. SW will continue to follow.
--- NOTE | 2021-07-30 12:44 | NUR ---
Pt notified Bianca Moran that she felt like she was having an "allergic reaction" to the food she ate at lunch. Pt arms are reddened with raised areas all over and pt states she feels extremely "itchy." Pt confirmed that she has never had an anaphylactic reaction, only hives and itching. One time order for 25mg of Benadryl IV given. Dr. Harris notified. Will continue to monitor.
[2021-07-30] MEDS ORDERED: diphenhydrAMINE 50 MG/ML VIAL IVP PRN (12:45)
[2021-07-30] MEDS ORDERED: traZODone 50 MG TABLET. PO PRN (14:15)
[2021-07-30] MEDS ORDERED: DEXTROSE 50% 25 GM / 50ML DISP.SYRIN. IV PRN (14:15)
[2021-07-30] MEDS ORDERED: SENNOSIDES 8.6 MG TABLET PO PRN (14:15)
[2021-07-30] MEDS ORDERED: ATENOLOL 25 MG TABLET. PO PRN (14:15)
[2021-07-30] MEDS ORDERED: DOCUSATE SODIUM 100 MG CAPSULE. PO PRN (14:15)
--- NOTE | 2021-07-30 14:18 | PDOC1 ---
History and Physical Date of Service: DOS: DATE: 07/30/21 TIME: 13:58 Chief Complaint: Chief Complain: Syncope. History of Present Illness: HPI: History obtained from discussion with the ED physician and chart review: 31 year old female coming in for palpitations, racing heartbeat, and chest tightness starting 2 hours prior to arrival. Patient states she woke up with palpitations she felt nauseous and was going to the bathroom, then felt lightheaded and per was passed out for couple seconds. Fell and struck her right knee on her bed frame. Patient has a history of recurrent episodes of tachycardia and history of was her first time of her increased dose of atenolol from 50 to 75 mg. Patient has a history significant for appendiceal, ovarian cancers, WPW status post ablation about 5 years ago. She is on Xarelto, heparin, and a baby aspirin for bilateral PEs she is also had renal failure re quiring dialysis secondary to sepsis but current kidney disease is stage I. Patient states she normally had episodes of sustained tachycardia every 6 months but this is her third ER visit this month for tachycardia that resulted in syncopal episode. Was admitted and discharged 1 week ago. Was seen again 2 days ago for tachycardia and treated with fluids and metoprolol with improvement. Of note, patient was admitted a week ago for work-up with cardiology she was placed back on atenolol she was given atenolol as needed for palpitation episodes. There was no reported arrhythmia events on telemetry. She was also evaluated by hematology and she was recommended just continue with Xarelto for anticoagulation for her PE episodes. Also her labs for BRYCE screen was negative and also her beta-2 glycoprotein and anticardiolipin for antiphospholipid syndrome results have returned but I am unable to see the final results of that. We will discuss further with hematology. Past Medical/Surgical History: PMH/PSH: Past Medical History: Anxiety, Cancer, Migraines, Renal Failure, Seizure, port Past Surgical History: Hysterectomy, Rt.knee repair acl/mcl, cardiac ablation, breast reduction, portacath Allergies: Allergies: Coded Allergies: Fish Containing Products (Verified Allergy, Severe, Anaphylaxis, 09/27/20) Iodinated Contrast Media (Verified Allergy, Severe, Hives, 09/27/20) difficulty breathing and throat swelling the second time she had iv contrast per patient diltiazem (Verified Allergy, Severe, Anaphylaxis, 07/21/21) latex (Verified Allergy, Severe, Anaphylaxis, 09/27/20) ondansetron (Verified Allergy, Severe, Anaphylaxis, 09/27/20) shellfish derived (Verified Allergy, Severe, Anaphylaxis, 09/27/20) coconut (Verified Allergy, Intermediate, Hives, 09/27/20) fentanyl (Verified Allergy, Intermediate, ITCHY, 09/27/20) ketorolac (Verified Allergy, Intermediate, Hives, 09/27/20) tramadol (Verified Allergy, Intermediate, 09/27/20) Family History: Family History: Reviewed with negative findings Social History: Social History: Smoking Status: Never Smoker Alcohol Use: None Drug Use: None Current Medications: Current Medications Current Medications Sodium Chloride 1,000 ml @ 1,000 mls/hr 1X ONCE IV Last administered on 07/30/21at 02:46; Start 07/30/21 at 02:30; Stop 07/30/21 at 03:29; Status DC Metoprolol Tartrate (Lopressor Vial) 5 mg 1X ONCE IVP Last administered on 07/30/21at 02:46; Start 07/30/21 at 02:30; Stop 07/30/21 at 02:31; Status DC Metoclopramide HCl (Reglan Vial) 10 mg 1X ONCE IVP Last administered on 07/30/21at 03:08; Start 07/30/21 at 03:00; Stop 07/30/21 at 03:01; Status DC Morphine Sulfate (Morphine Sulfate) 4 mg 1X ONCE IV Last administered on 07/30/21at 03:09; Start 07/30/21 at 03:00; Stop 07/30/21 at 03:01; Status DC Ondansetron HCl (Zofran) 4 mg PRN Q8HRS PRN IVP NAUSEA/VOMITING; Start 07/30/21 at 05:15; Stop 07/30/21 at 05:20; Status DC Morphine Sulfate (Morphine Sulfate) 4 mg PRN Q2HR PRN IVP PAIN Last administered on 07/30/21at 12:00; Start 07/30/21 at 05:15; Stop 07/31/21 at 05:14 Acetaminophen (Tylenol) 650 mg PRN Q4HRS PRN PO FEVER > 100.3'F; Start 07/30/21 at 05:15; Stop 07/31/21 at 05:14 Metoclopramide HCl (Reglan Vial) 10 mg PRN Q6HRS ONCE IVP Last administered on 07/30/21at 08:25; Start 07/30/21 at 05:30; Stop 07/30/21 at 05:31; Status DC Diphenhydramine HCl (Benadryl) 25 mg 1X PRN IVP ITCHING Last administered on 07/30/21at 12:45; Start 07/30/21 at 12:45 Active Scripts Active Oxycodone Hcl 5 Mg Capsule 5 Mg PO PRN Q6HRS PRN 2 Days Trazodone Hcl 50 Mg Tablet 50 Mg PO PRN QHS PRN 14 Days Reported Atenolol 25 Mg Tablet 1 Tab PO PRN DAILY PRN Atenolol 25 Mg Tablet 1 Tab PO BID Xarelto (Rivaroxaban) 20 Mg Tablet 1 Tab PO BID 30 Days with food Pepcid (Famotidine) 20 Mg Tablet 20 Mg PO BID Ativan (Lorazepam) 2 Mg Tablet 4 Mg PO BID Quetiapine Fumarate 50 Mg Tablet 1 Tab PO QHS Pramipexole Dihydrochloride (Pramipexole Di-Hcl) 0.125 Mg Tablet 2 Tab PO BID ROS: Review of Systems Review of System REVIEW OF SYSTEMS: GENERAL: Denies weakness SKIN: No bruising, hair changes or rashes. EYES: No blurred, double or loss of vision. NOSE AND THROAT: No history of nosebleeds, hoarseness or sore throat. HEART: No history of palpitations, chest pain or shortness of breath on exertion. LUNGS: Denies cough, hemoptysis, wheezing or shortness of breath. GASTROINTESTINAL: Denies changes in appetite, nausea, vomiting, diarrhea or constipation. GENITOURINARY: No history of frequency, urgency, hesitancy or nocturia. NEUROLOGIC: Denies history of numbness, tingling, or tremor. PSYCHIATRIC: No history of panic, anxiety or depression. ENDOCRINE: No history of heat or cold intolerance, polyuria or polydipsia. EXTREMITIES: Denies joint pain, pain on walking or stiffness. Physical Exam: Vital Signs: Vital Signs Date Time Temp Pulse Resp B/P (MAP) Pulse Ox O2 Delivery O2 Flow Rate FiO2 07/30/21 11:00 97.9 110 20 133/85 (101) 96 Room Air 97.9 Physcial Exam: GEN: No apparent distress. Alert and oriented HEENT: Normal cephalic, atraumatic, external auditory canals are patent EYES: Extraocular muscles are intact, pupil are equally round and reactive to light and accommodation MUSCULOSKELETAL: Well developed , well nourished, good range of motion ENDOCRINE: No thyromegaly was palpated LYMPHATICS: No cervical chain or axillary nodes were noted HEMATOPOIETIC: No bruising NECK: Supple, no JVD, no thyromegaly was noted LUNGS: Clear to auscultation in all lung [place] without rhonchi or wheezing HEART: RRR, S!, S2 present. Peripheral pulses intact, no obvious murmurs noted ABDOMEN: Soft, nontender. Positive bowel sounds, no organomegaly, normal bowel sounds EXTREMITIES: Without clubbing, cyanosis, or edema. Pedal pulses intact. Negative Homans sign NEUROLOGIC: Normal speech and tone. A&O x 3, moves all extremities, no obvious focal deficits PSYCHIATRIC: Normal affect, normal mood. Stable SKIN: No ulcerations or rashes, good skin turgor, no jaundice VASCULAR: Good capillary refill, neurovascular bundle appears to be intact Labs: Labs: Laboratory Tests Test 07/30/21 02:35 07/30/21 03:35 07/30/21 08:40 07/30/21 12:10 White Blood Count 13.7 x10^3/uL (4.0-11.0) Red Blood Count 4.04 x10^6/uL (3.50-5.40) Hemoglobin 12.1 g/dL (12.0-15.5) Hematocrit 36.3 % (36.0-47.0) Mean Corpuscular Volume 90 fL (79-100) Mean Corpuscular Hemoglobin 30 pg (25-35) Mean Corpuscular Hemoglobin Concent 33 g/dL (31-37) Red Cell Distribution Width 12.7 % (11.5-14.5) Platelet Count 299 x10^3/uL (140-400) Neutrophils (%) (Auto) 70 % (31-73) Lymphocytes (%) (Auto) 22 % (24-48) Monocytes (%) (Auto) 7 % (0-9) Eosinophils (%) (Auto) 0 % (0-3) Basophils (%) (Auto) 1 % (0-3) Neutrophils # (Auto) 9.5 x10^3/uL (1.8-7.7) Lymphocytes # (Auto) 3.0 x10^3/uL (1.0-4.8) Monocytes # (Auto) 1.0 x10^3/uL (0.0-1.1) Eosinophils # (Auto) 0.0 x10^3/uL (0.0-0.7) Basophils # (Auto) 0.1 x10^3/uL (0.0-0.2) Prothrombin Time 13.0 SEC (11.7-14.0) Prothromb Time International Ratio 1.0 (0.8-1.1) D-Dimer (Mitzi) 0.48 ug/mlFEU (0.00-0.50) Sodium Level 137 mmol/L (136-145) Potassium Level 3.8 mmol/L (3.5-5.1) Chloride Level 103 mmol/L (98-107) Carbon Dioxide Level 27 mmol/L (21-32) Anion Gap 7 (6-14) Blood Urea Nitrogen 10 mg/dL (7-20) Creatinine 0.9 mg/dL (0.6-1.0) Estimated GFR (Cockcroft-Gault) 74.0 BUN/Creatinine Ratio 11 (6-20) Glucose Level 134 mg/dL (70-99) Calcium Level 8.9 mg/dL (8.5-10.1) Phosphorus Level 3.7 mg/dL (2.6-4.7) Magnesium Level 2.2 mg/dL (1.8-2.4) Total Bilirubin 0.3 mg/dL (0.2-1.0) Aspartate Amino Transf (AST/SGOT) < 5 U/L (15-37) Alanine Aminotransferase (ALT/SGPT) 16 U/L (14-59) Alkaline Phosphatase 97 U/L (46-116) Troponin I Quantitative < 0.017 ng/mL (0.000-0.055) < 0.017 ng/mL (0.000-0.055) < 0.017 ng/mL (0.000-0.055) PM-Sfa-N-Type Natriuretic Peptide 73 pg/mL (0-124) Total Protein 6.9 g/dL (6.4-8.2) Albumin 3.2 g/dL (3.4-5.0) Albumin/Globulin Ratio 0.9 (1.0-1.7) Urine Collection Type Unknown Urine Color Yellow Urine Clarity Clear Urine pH 6.5 (<5.0-8.0) Urine Specific [place] 1.020 (1.000-1.030) Urine Protein Negative mg/dL (NEG-TRACE) Urine Glucose (UA) Negative mg/dL (NEG) Urine Ketones (Stick) Negative mg/dL (NEG) Urine Blood Negative (NEG) Urine Nitrite Negative (NEG) Urine Bilirubin Negative (NEG) Urine Urobilinogen Dipstick 0.2 mg/dL (0.2 mg/dL) Urine Leukocyte Esterase Negative (NEG) Urine RBC 0 /HPF (0-2) Urine WBC 1-4 /HPF (0-4) Urine Squamous Epithelial Cells Many /LPF Urine Amorphous Sediment Present /HPF Urine Bacteria Few /HPF (0-FEW) Urine Mucus Slight /LPF Laboratory Tests Test 07/30/21 02:35 07/30/21 03:35 07/30/21 08:40 07/30/21 12:10 White Blood Count 13.7 x10^3/uL (4.0-11.0) Red Blood Count 4.04 x10^6/uL (3.50-5.40) Hemoglobin 12.1 g/dL (12.0-15.5) Hematocrit 36.3 % (36.0-47.0) Mean Corpuscular Volume 90 fL (79-100) Mean Corpuscular Hemoglobin 30 pg (25-35) Mean Corpuscular Hemoglobin Concent 33 g/dL (31-37) Red Cell Distribution Width 12.7 % (11.5-14.5) Platelet Count 299 x10^3/uL (140-400) Neutrophils (%) (Auto) 70 % (31-73) Lymphocytes (%) (Auto) 22 % (24-48) Monocytes (%) (Auto) 7 % (0-9) Eosinophils (%) (Auto) 0 % (0-3) Basophils (%) (Auto) 1 % (0-3) Neutrophils # (Auto) 9.5 x10^3/uL (1.8-7.7) Lymphocytes # (Auto) 3.0 x10^3/uL (1.0-4.8) Monocytes # (Auto) 1.0 x10^3/uL (0.0-1.1) Eosinophils # (Auto) 0.0 x10^3/uL (0.0-0.7) Basophils # (Auto) 0.1 x10^3/uL (0.0-0.2) Prothrombin Time 13.0 SEC (11.7-14.0) Prothromb Time International Ratio 1.0 (0.8-1.1) D-Dimer (Mitzi) 0.48 ug/mlFEU (0.00-0.50) Sodium Level 137 mmol/L (136-145) Potassium Level 3.8 mmol/L (3.5-5.1) Chloride Level 103 mmol/L (98-107) Carbon Dioxide Level 27 mmol/L (21-32) Anion Gap 7 (6-14) Blood Urea Nitrogen 10 mg/dL (7-20) Creatinine 0.9 mg/dL (0.6-1.0) Estimated GFR (Cockcroft-Gault) 74.0 BUN/Creatinine Ratio 11 (6-20) Glucose Level 134 mg/dL (70-99) Calcium Level 8.9 mg/dL (8.5-10.1) Phosphorus Level 3.7 mg/dL (2.6-4.7) Magnesium Level 2.2 mg/dL (1.8-2.4) Total Bilirubin 0.3 mg/dL (0.2-1.0) Aspartate Amino Transf (AST/SGOT) < 5 U/L (15-37) Alanine Aminotransferase (ALT/SGPT) 16 U/L (14-59) Alkaline Phosphatase 97 U/L (46-116) Troponin I Quantitative < 0.017 ng/mL (0.000-0.055) < 0.017 ng/mL (0.000-0.055) < 0.017 ng/mL (0.000-0.055) LD-Fkm-Z-Type Natriuretic Peptide 73 pg/mL (0-124) Total Protein 6.9 g/dL (6.4-8.2) Albumin 3.2 g/dL (3.4-5.0) Albumin/Globulin Ratio 0.9 (1.0-1.7) Urine Collection Type Unknown Urine Color Yellow Urine Clarity Clear Urine pH 6.5 (<5.0-8.0) Urine Specific [place] 1.020 (1.000-1.030) Urine Protein Negative mg/dL (NEG-TRACE) Urine Glucose (UA) Negative mg/dL (NEG) Urine Ketones (Stick) Negative mg/dL (NEG) Urine Blood Negative (NEG) Urine Nitrite Negative (NEG) Urine Bilirubin Negative (NEG) Urine Urobilinogen Dipstick 0.2 mg/dL (0.2 mg/dL) Urine Leukocyte Esterase Negative (NEG) Urine RBC 0 /HPF (0-2) Urine WBC 1-4 /HPF (0-4) Urine Squamous Epithelial Cells Many /LPF Urine Amorphous Sediment Present /HPF Urine Bacteria Few /HPF (0-FEW) Urine Mucus Slight /LPF Assessment/Plan Assessment/Plan Syncope, cardiogenic, likely vasovagal etiology Early mild osteoarthritis in the right knee A. fib RVR Reactive leukocytosis Morbid obesity Moderate protein malnutrition History of WPW status post cardiac ablation 2015 History of anxiety History of appendiceal carcinoma History of insomnia History of migraines Port-A-Cath placement Super super morbid obesity History of DVT/PE now on Xarelto she has a history of Yznap-[id number]-Ojkji and previous ablation. / treated for possible paroxysmal atrial fibrillation with atenolol and anticoagulation Admit to hospitalist for further management Continue telemetry monitoring Cardiology consult Continue home atenolol dose Continue Xarelto PT OT Orthostatic vital signs Also her labs for BRYCE screen was negative and also her beta-2 glycoprotein and anticardiolipin for antiphospholipid syndrome results have returned but I am unable to see the final results of that. We will discuss further with hematology. Lovenox for DVT prophylaxis Protonix GI prophylaxis ADA diet CODE STATUS full Discussed with RN and SW Disposition inpatient management as above DPOA: Justifications for Admission Other Justification SHERRIE CHANEL MD Jul 30, 2021 14:18
[2021-07-30] MEDS ORDERED: diphenhydrAMINE HCL 25 MG CAPSULE PO PRN (14:45)
[2021-07-30] MEDS ORDERED: diphenhydrAMINE 50 MG/ML VIAL IVP ONE (14:45)
[2021-07-30 15:00] VITALS: BP 124/74
[2021-07-30] MEDS ORDERED: RIVA20TA2 PO (16:47)
[2021-07-30] MEDS ORDERED: RIVAROXABAN 10 MG TABLET. PO SCH (18:00)
[2021-07-30 19:00] VITALS: BP 115/59
[2021-07-30] MEDS: PROCHLORPERAZINE 10 MG/2 ML VIAL. IV PRN (20:55)
[2021-07-30] MEDS ORDERED: ATENOLOL 25 MG TABLET. PO SCH (21:00)
[2021-07-30] MEDS ORDERED: QUEtiapine 25 MG TABLET. PO SCH (21:00)
[2021-07-30] MEDS: FAMOTIDINE 20 MG TABLET. PO SCH (21:04)
[2021-07-30] MEDS: PRAMIPEXOLE 0.25 MG TABLET. PO SCH (21:04)
[2021-07-30] MEDS: METOPROLOL TART IMMED RELEASE 50 MG TABLET. PO SCH (21:05)
[2021-07-30] MEDS: oxyCODONE IR 5 MG TABLET PO PRN (22:25)
[2021-07-30 23:00] VITALS: BP 93/48
[2021-07-31 03:00] VITALS: BP 99/57
[2021-07-31] MEDS: oxyCODONE IR 5 MG TABLET PO PRN ×2 (04:21→11:28)
[2021-07-31 04:43] LABS: BASO # 0.1 x10^3/uL (0.0-0.2); BASO % 1 % (0-3); EOS # 0.2 x10^3/uL (0.0-0.7); EOS % 1 % (0-3); HEMATOCRIT 34.8 % (36.0-47.0); HEMOGLOBIN 11.4 g/dL (12.0-15.5); LYMPH # 3.3 x10^3/uL (1.0-4.8); LYMPH % 28 % (24-48); MEAN CORPUSCULAR HEMOGLOBIN 30 pg (25-35); MEAN CORPUSCULAR HGB CONC 33 g/dL (31-37); MEAN CORPUSCULAR VOLUME 91 fL (79-100); MONO # 0.8 x10^3/uL (0.0-1.1); MONO % 6 % (0-9); NEUT # 7.6 x10^3/uL (1.8-7.7); NEUT % 64 % (31-73); PLATELET COUNT 294 x10^3/uL (140-400); RED BLOOD COUNT 3.82 x10^6/uL (3.50-5.40); RED CELL DISTRIBUTION WIDTH 12.8 % (11.5-14.5); WHITE BLOOD COUNT 11.8 x10^3/uL (4.0-11.0)
[2021-07-31 04:56] LABS: CALCIUM 8.5 mg/dL (8.5-10.1); CREATININE 0.9 mg/dL (0.6-1.0); MAGNESIUM 2.1 mg/dL (1.8-2.4); PHOSPHORUS 4.3 mg/dL (2.6-4.7); POTASSIUM 4.1 mmol/L (3.5-5.1)
[2021-07-31] MEDS ORDERED: PANTOPRAZOLE 40 MG TABLET.DR. PO SCH (07:30)
[2021-07-31 07:35] VITALS: BP 112/76
[2021-07-31] MEDS: PROCHLORPERAZINE 10 MG/2 ML VIAL. IV PRN (09:03)
[2021-07-31] MEDS: FAMOTIDINE 20 MG TABLET. PO SCH (09:03)
[2021-07-31] MEDS: METOPROLOL TART IMMED RELEASE 50 MG TABLET. PO SCH (09:04)
[2021-07-31] MEDS: PRAMIPEXOLE 0.25 MG TABLET. PO SCH (09:04)
[2021-07-31 11:25] VITALS: BP 107/69
[2021-07-31] MEDS ORDERED: ANTI-COAG MONITOR BY PHARMACY. MC PRN (11:45)
[2021-07-31] MEDS ORDERED: METO50TA6 PO (12:46)
[2021-07-31] MEDS ORDERED: OXYC5TAB4 PO (12:46)
[2021-07-31] MEDS ORDERED: OXYC-325 PO (12:47)
--- NOTE | 2021-07-31 12:51 | DISCH ---
DISCHARGE INSTRUCTIONS Condition on Discharge Condition on Discharge: Stable Activity After Discharge Activity Instructions for Disc: No restrictions Lifting Instructions after Dis: No heavy lifting Exercise Instruction after Dis: Progress as tolerated Driving Instructions after Dis: Do not drive today Weight Bearing Status after Di: No restrictions Diet after Discharge Diet after Discharge: Regular Diet Texture: Regular Liquid Texture: Thin Liquid Swallowing Supervision: None needed Wound Incision Care Wound/Incision Care: Ice to area for comfort, May get incision wet Checks after Discharge Checks after discharge: Check blood press - daily, Check your Temp as needed Contacting the DR. after DC Call your doctor for: Concerns you may have Follow-Up Follow up with: PCP within 2 weeks of discharge Follow Up With: Women Nurse as scheduled or as needed Treatment/Equipment after DC Adaptive Equipment Issued: None SHERRIE CHANEL MD Jul 31, 2021 12:51
[2021-07-31] MEDS ORDERED: HEPARIN PF 500 UNIT/5 ML DISP.SYRIN. IVP ONE (13:45)
--- NOTE | 2021-07-31 13:45 | NUR ---
Per Bianca Moran, pt to discharge home on metoprolol 50mg BID.
--- NOTE | 2021-07-31 14:00 | NUR ---
Discharge Note: BRITT ALMAGUER [address] Discharge instructions and discharge home medications reviewed with Patient and a copy given. All questions have been answered and understanding verbalized. The following instructions and handouts were given: f/u with PCP within two weeks. F/U with cardiology as needed. Discontinued lines and drains: Peripheral IV intact. Patient discharged to Home or Self Care with Family Member via Ambulated. All patient belongings in her personal tote bag at the time of discharge.
--- NOTE | 2021-08-01 21:21 | PDOC3 ---
[facility]-Discharge Summary Date of Admission: Date of Admission: Jul 30, 2021 Date of Discharge: Date of Discharge: Jul 31, 2021 Discharge Diagnosis: Discharge Diagnosis: Syncope, cardiogenic, likely vasovagal etiology Early mild osteoarthritis in the right knee A. 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 / treated for possible paroxysmal atrial fibrillation with atenolol and anticoagulation Hospital Course: Hospital Course: 31 year old female coming in for palpitations, racing heartbeat, and chest tightness starting 2 hours prior to arrival. Patient states she woke up with palpitations she felt nauseous and was going to the bathroom, then felt lightheaded and per was passed out for couple seconds. Fell and struck her right knee on her bed frame. Patient has a history of recurrent episodes of tachycardia and history of was her first time of her increased dose of atenolol from 50 to 75 mg. Patient has a history significant for appendiceal, ovarian cancers, WPW status post ablation about 5 years ago. She is on Xarelto, heparin, and a baby aspirin for bilateral PEs she is also had renal failure requiring dialysis secondary to sepsis but current kidney disease is stage I. Patient states she normally had episodes of sustained tachycardia every 6 months but this is her third ER visit this month for tachycardia that resulted in syncopal episode. Was admitted and discharged 1 week ago. Was seen again 2 days ago for tachycardia and treated with fluids and metoprolol with improvement. Of note, patient was admitted a week ago for work-up with cardiology she was placed back on atenolol she was given atenolol as needed for palpitation episodes. There was no reported arrhythmia events on telemetry. She was also evaluated by hematology and she was recommended just continue with Xarelto for anticoagulation for her PE episodes. Also her labs for BRYCE screen was negative and also her beta-2 glycoprotein and anticardiolipin for antiphospholipid syndrome results have returned but I am unable to see the final results of that. We will discuss further with hematology. Pt was evaluated by cardiology and metoprolol was started and DC'd atenolol. By day of discharge, pt was clinically stable and ready for discharge. Rest of hospital course was uneventful Weight loss was encouraged. Disposition: Disposition/Orders: D/C to Home Activity: Activity: Resume previous activity Diet: Diet: Cardiac Medications: Home Meds Active Scripts Metoprolol Tartrate (METOPROLOL TARTRATE) 50 Mg Tablet, 50 MG PO BID for heart rate for 30 Days, #60 TAB 1 Refill Prov:SHERRIE CHANEL MD 07/31/21 Trazodone Hcl (TRAZODONE HCL) 50 Mg Tablet, 50 MG PO PRN QHS PRN for INSOMNIA for 14 Days, #14 TAB Prov:CAT CHRIS MD 07/23/21 Reported Medications Rivaroxaban (XARELTO) 20 Mg Tablet, 20 MG PO QPM, TAB 07/30/21 Famotidine (PEPCID) 20 Mg Tablet, 20 MG PO BID, TAB 07/21/21 Lorazepam (ATIVAN) 2 Mg Tablet, 4 MG PO BID, TAB 07/21/21 Quetiapine Fumarate (QUETIAPINE FUMARATE) 50 Mg Tablet, 1 TAB PO QHS for Insomnia 09/26/20 Pramipexole Di-Hcl (PRAMIPEXOLE DIHYDROCHLORIDE) 0.125 Mg Tablet, 2 TAB PO BID for RLS 09/26/20 Discontinued Reported Medications Atenolol (ATENOLOL) 25 Mg Tablet, 1 TAB PO PRN DAILY PRN for palpitations, #30 TAB 5 Refills 07/30/21 Atenolol (ATENOLOL) 25 Mg Tablet, 1 TAB PO BID for htn, #30 TAB 5 Refills 07/30/21 Rivaroxaban (XARELTO) 20 Mg Tablet, 1 TAB PO BID for 30 Days, #60 TAB 0 Refills with food 07/21/21 Atenolol (ATENOLOL) 50 Mg Tablet, 1 TAB PO BID, #30 TAB 5 Refills 07/21/21 Discontinued Scripts Oxycodone Hcl (OXYCODONE HCL) 5 Mg Capsule, 5 MG PO PRN Q6HRS PRN for PAIN for 2 Days, #8 TAB 0 Refills Prov:FRIDA WADE DO 07/28/21 Scheduled Famotidine (Pepcid), 20 MG PO BID, (Reported) Lorazepam (Ativan), 4 MG PO BID, (Reported) Metoprolol Tartrate (Metoprolol Tartrate), 50 MG PO BID Pramipexole Di-Hcl (Pramipexole Dihydrochloride), 2 TAB PO BID, (Reported) Quetiapine Fumarate (Quetiapine Fumarate), 1 TAB PO QHS, (Reported) Rivaroxaban (Xarelto), 20 MG PO QPM, (Reported) Scheduled PRN Trazodone Hcl (Trazodone Hcl), 50 MG PO PRN QHS PRN for INSOMNIA Discontinued Medications Atenolol (Atenolol), 1 TAB PO BID, (Reported) Atenolol (Atenolol), 1 TAB PO BID, (Reported) Atenolol (Atenolol), 1 TAB PO PRN DAILY PRN for palpitations, (Reported) Oxycodone Hcl (Oxycodone Hcl), 5 MG PO PRN Q6HRS PRN for PAIN Rivaroxaban (Xarelto), 1 TAB PO BID, (Reported) Discontinued Reason: DAILY Total Time: Total Time: Total time spent was 31 minutes in preparing scripts, discharge planning with SW and RN, and preparing this discharge summary. Patient seen and examined on day of discharge. Justicifation of Admission Dx: Justifications for Admission: Justification of Admission Dx: Yes SHERRIE CHANEL MD Aug 01, 2021 21:21
== END 2021-07-31 14:00 | disposition home or self-care (01) | DRG 312 ==
LOC: ER 01:25 → 5 NORTH 05:00
PROVIDERS: ADMIT Family Medicine; ATTEND Family Medicine
DX: R55 Syncope and collapse (principal); D68.61 Antiphospholipid syndrome; E44.0 Moderate protein-calorie malnutrition; Z68.43 Body mass index [BMI] 50.0-59.9, adult; S80.01XA Contusion of right knee, initial encounter; Z79.01 Long term (current) use of anticoagulants; D72.828 Other elevated white blood cell count; E66.01 Morbid (severe) obesity due to excess calories; M17.11 Unilateral primary osteoarthritis, right knee; W06.XXXA Fall from bed, initial encounter; Y92.003 Bedroom of unspecified non-institutional (private) residence as the place of occurrence of the external cause; Z85.038 Personal history of other malignant neoplasm of large intestine; Z86.711 Personal history of pulmonary embolism; Z86.718 Personal history of other venous thrombosis and embolism; Z90.49 Acquired absence of other specified parts of digestive tract; Z90.710 Acquired absence of both cervix and uterus; F41.9 Anxiety disorder, unspecified; G43.909 Migraine, unspecified, not intractable, without status migrainosus; I48.0 Paroxysmal atrial fibrillation; I12.9 Hypertensive chronic kidney disease with stage 1 through stage 4 chronic kidney disease, or unspecified chronic kidney disease; E11.22 Type 2 diabetes mellitus with diabetic chronic kidney disease; N18.1 Chronic kidney disease, stage 1; Z79.4 Long term (current) use of insulin
CPT/HCPCS: 36415; 73562; 80048; 80053; 81001; 83735; 83880; 84100; 84484; 85025; 85379; 85610; 96374; 96375; J0780; J1200; J1642; J2270; J2765; J3490; J7030; 97116-GP; 99285-25; G0378; Q0163

== ENCOUNTER 2021-08-14 13:39 | Emergency (ER) | payer SELFPAY ==
[~2021-08-14] VITALS: Ht 167.6 cm; Wt 162.7 kg
[~2021-08-14 13:39] MED LIST changes: +ATEN25TA PO; +METO50TA6 PO; +OXYC-325 PO; +OXYC5TAB4 PO
--- NOTE | 2021-08-14 14:29 | PHYS DOC ---
Past Medical History Past Medical History: Anxiety, Cancer, Migraines, Renal Failure, Seizure, Other Additional Past Medical Histor: port Past Surgical History: Hysterectomy Additional Past Surgical Histo: Rt.knee repair acl/mcl, cardiac ablation, breast reduction, portacath Smoking Status: Never Smoker Alcohol Use: None Drug Use: None General Adult EDM: Chief Complaint: Palpitations HPI: HPI: Patient is a 31 year old female who presents with multiple complaints. She reports for the past several days she has had urinary urgency and dysuria, so she thought she had a urinary tract infection. She admits that she has been feeling like her heart has been racing for the past few days, reportedly in association with these symptoms. About 30 minutes prior to arrival she reports that she was sitting down at work and felt sharp chest pain, just under her left breast and mid scapular back pain as well. She describes pleuritic pain. She reports "a little bit" of dyspnea. She denies cough or hemoptysis. She denies fevers or chills. She denies dizziness or diaphoresis. She denies abdominal pain or nausea or vomiting. She denies calf or leg pain or swelling. She has a history of sinus tachycardia. She has seen cardiology at [facility] multiple times. She reports that she was admitted in December of this year, as well as a few months ago. She reports that she has not undergone any provocat nadira testing, such as stress testing, nor has she had any imaging studies such as echocardiogram. She reports that a few months ago in another emergency department she was told that she "has old clots" in her lungs. She does have a history of pulmonary emboli, as well as DVT. She reports compliance with Xarelto. She is unaware of any specific thrombophilia diagnosis. Upon review of previous records and vital signs the patient has demonstrated sinus tachycardia frequently. The patient initially told the nursing staff that she has a history of atrial fibrillation, but upon further questioning, it does not sound like this is the case at all. In addition, it does not sound like she has been formally diagnosed with supraventricular tachycardia of any kind. She is reportedly taking beta-lorne medication for her sinus tachycardia. She denies any other constitutional symptoms such as night sweats, weight loss or weight gain. She denies acute anxiety, though admits to having chronic anxiety issues. She is taking anxiolytic medications, none of which are reportedly new or different dosing from baseline. She is changing primary care physicians next week and has an appointment next . She reports reports that she is planning on establishing care with cardiology services here and will no longer go to . She is unable to articulate to me if her current symptoms feel anything like her previous pulmonary emboli. She denies recent travel, surgery, or any other recent hospitalization. She does have a history of reported ovarian cancer, as well as what sounds like appendiceal carcinoid. She has had a hysterectomy and right oophorectomy as well as appendectomy. Review of Systems: Review of Systems: Constitutional: Denies fever or chills. [] Eyes: Denies change in visual acuity. [] HENT: Denies nasal congestion or sore throat. [] Respiratory: Admits to dyspnea. Denies cough. Cardiovascular: Admits to chest pain. Denies peripheral edema. Admits to palpitations. GI: Denies abdominal pain, nausea, vomiting, bloody stools or diarrhea. [] : DAdmits to dysuria and urinary urgency. Denies gross hematuria. Musculoskeletal: Admits to thoracic back pain. Denies limb pain or limb maggie ma. Integument: Denies rash. [] Neurologic: Denies headache, focal weakness or sensory changes. [] Endocrine: Denies polyuria or polydipsia. [] Lymphatic: Denies swollen glands. [] Psychiatric: Admits to chronic and unchanged anxiety. Denies SI or HI. Heart Score: C/O Chest Pain: Yes HEART Score for Chest Pain: HEART Score for Chest Pain Response (Comments) Value History Moderately Suspicious 1 ECG Nonspecific Repolarizatio 1 Age < 45 0 Risk Factors 1 or 2 Risk Factors 1 Troponin < Normal Limit 0 Total 3 Risk Factors: Risk Factors: DM, Current or recent (<one month) smoker, HTN, HLP, family history of CAD, obesity. Risk Scores: Score 0 - 3: 2.5% MACE over next 6 weeks - Discharge Home Score 4 - 6: 20.3% MACE over next 6 weeks - Admit for Clinical Observation Score 7 - 10: 72.7% MACE over next 6 weeks - Early Invasive Strategies Allergies: Allergies: Allergies Coded Allergies Type Severity Reaction Last Updated Verified Fish Containing Products Allergy Severe Anaphylaxis 09/27/20 Yes Iodinated Contrast Media Allergy Severe Hives 09/27/20 Yes diltiazem Allergy Severe Anaphylaxis 07/21/21 Yes latex Allergy Severe Anaphylaxis 09/27/20 Yes ondansetron Allergy Severe Anaphylaxis 09/27/20 Yes shellfish derived Allergy Severe Anaphylaxis 09/27/20 Yes coconut Allergy Intermediate Hives 09/27/20 Yes fentanyl Allergy Intermediate ITCHY 09/27/20 Yes ketorolac Allergy Intermediate Hives 09/27/20 Yes tramadol Allergy Intermediate 09/27/20 Yes Physical Exam: PE: Constitutional: Well developed, well nourished, no acute distress, non-toxic appearance. [] HENT: Normocephalic, atraumatic, bilateral external ears normal, mucous membranes are tachy. Eyes: PERRL, EOMI, conjunctiva normal, no discharge. [] Neck: Normal range of motion, no tenderness, supple, no stridor. [] Cardiovascular: Tachycardic but regular, in the 140s on my exam. +2 dorsalis pedis and radial pulses bilaterally. Well-perfused appearing. No peripheral edema. Lungs & Thorax: Bilateral breath sounds clear to auscultation. Equal chest rise. No rales, rhonchi or wheezes. No evidence of distress. Abdomen: Bowel sounds normal, soft, no tenderness, no masses, no pulsatile masses. [] Skin: Warm, dry, no erythema, no rash. [] Back: No tenderness, no CVA tenderness. [] Extremities: No tenderness, no cyanosis, no clubbing, ROM intact, no edema. No calf tenderness. Neurologic: Alert and oriented X 3, normal motor function, normal sensory function, no focal deficits noted. [] Psychologic: Mildly anxious. Cooperative and pleasant. EKG: EKG: []EKG was read at 1405 Rhythm: sinus tachycardia Rate: 140 bpm Norphlet: normal No STEMI Radiology/Procedures: Radiology/Procedures: [][facility] [address] [place], [place] [id number] IMAGING REPORT Signed PATIENT: BRITT ALMAGUER V ACCOUNT: [id number] : 1990 LOCATION: ER AGE: 31 SEX: F EXAM STATUS: PRE ER ORD. PHYSICIAN: LEE JORDAN DO REASON: chest pain PROCEDURE: PORTABLE CHEST 1V Single view of the chest. 08/14/2021 2:45 PM Indication: Reason: chest pain Comparison: Chest radiograph July 28, 2021 Findings: There is a right internal jugular port with tip at the cavoatrial junction. Lungs are clear. No pneumothorax, pleural effusion, or focal infiltrate is seen. No acute osseous changes are identified. IMPRESSION: No evidence of acute cardiopulmonary process is identified. Electronically signed by: Leonid Watson MD (08/14/2021 3:06 PM) [id number] DICTATED and SIGNED BY: LEONID WATSON MD DATE: 08/14/21 [id number] [facility] [address] [place] [address] IMAGING REPORT Signed PATIENT: BRITT ALMAGUER V ACCOUNT: [id number] : 1990 LOCATION: ER AGE: 31 SEX: F EXAM STATUS: REG ER ORD. PHYSICIAN: LEE JORDAN DO REASON: chest pain, dyspnea, tachycardia, hx of PE PROCEDURE: CT ANGIOGRAPHY CHEST CTA CHEST History: Chest pain, dyspnea, tachycardia, history of PE. Comparison: 09/25/2020 CT chest abdomen and pelvis Technique: CTA of the pulmonary arteries with intravenous contrast. Multiplanar reconstruction including MIPS are provided. Findings: Devices: Partially visualized Mediport catheter terminating at the right atrium. Pulmonary arteries: No pulmonary embolism. Aorta and great vessels: No aneurysm or dissection of the aortic arch or thoracic aorta. Thyroid: No significant abnormalities. Mediastinum and benoit: No mediastinal masses or adenopathy is seen. Esophagus: The visualized esophagus is normal. Heart: The heart is normal in size. There is no pericardial effusion. Airways, Lungs, Pleura: No airspace consolidation, pleural effusion or pneumothorax. Upper abdomen: Cholecystectomy clips. Osseous structures and soft tissues: Within normal limits for age. Impression: 1. No pulmonary embolism, aortic aneurysm or aortic dissection. ------ Exposure: One or more of the following individualized dose reduction techniques were utilized for this examination: 1. Automated exposure control 2. Adjustment of the mA and/or kV according to patient size 3. Use of iterative reconstruction technique. Electronically signed by: Ayad Varela MD (08/14/2021 4:55 PM) [facility] DICTATED and SIGNED BY: AYAD VARELA MD DATE: 08/14/21 [id number] 0 Course & Med Decision Making: Course & Med Decision Making Pertinent Labs and Imaging studies reviewed. (See chart for details) The patient is given IV with this. She is given IV morphine, per her request, for her pain. She requested pretreatment with Benadryl and Solu-Medrol prior to CT angiogram, so this was given. She tolerated CT angiogram well. CT demonstrates no evidence of pulmonary embolus. Serial troponin exams are negative. Her tachycardia is markedly improved. She is manifesting no evidence of distress. I have had multiple lengthy discussions with her regarding the findings, differential diagnosis and plan of care. I recommended that she continue to discuss these ongoing issues with her primary care physician at her appointment on next . I recommended that she follow-up with outpatient cardiology as well. Currently, there does not appear to be any indication for admission, or further invasive exams. I recommended she continue taking her prescription medications as directed. She does finally admit that there are some chronic anxiety issues that may be persisting and worsening, though she continues to deny SI or HI. She is not on any medications to treat generalized anxiety disorder, per her description. I recommend she discuss this with her primary care physician next week. She feels very comfortable to plan for discharge home. I given her very explicit and strict return precautions, and she verbalized understanding of all of these. Kenney Disclaimer: Kenney Disclaimer: This electronic medical record was generated, in whole or in part, using a voice recognition dictation system. Departure Departure Impression: Primary Impression: Atypical chest pain Additional Impression: Sinus tachycardia Disposition: HOME / SELF CARE / HOMELESS Condition: GOOD Referrals: CARY HI MD (PCP) Patient Instructions: Chest Pain (Nonspecific), Nonspecific Tachycardia Additional Instructions: Return for more severe pain, fever of 100.4 or higher, for coughing up blood, passing out, uncontrolled vomiting, dehydration, weakness or any other concerns. Please take your regularly prescribed medications as directed. Please continue to take your regularly prescribed medications as directed. Follow up with your primary care physician next week. Follow up with outpatient cardiology as well. Scripts Promethazine Hcl (PROMETHAZINE HCL) 25 Mg Tablet 1 TAB PO PRN Q6HRS, #20 TAB Prov: LEE JORDAN DO 08/14/21 LEE JORDAN DO Aug 14, 2021 14:29
[2021-08-14] MEDS ORDERED: IV NORMAL SALINE 1000ML BAG 1,000 ML IV SCH (14:30)
[2021-08-14] MEDS ORDERED: METOCLOPRAMIDE HCL 10 MG/2 ML VIAL. IVP ONE (14:30)
[2021-08-14] MEDS ORDERED: MORPHINE SULFATE 4 MG/ML INJ. IVP ONE ×2 (14:30→17:15)
[2021-08-14] MEDS ORDERED: diphenhydrAMINE 50 MG/ML VIAL IVP ONE (14:45)
[2021-08-14] MEDS ORDERED: methylPREDNISolone SOD SUCC PF 125 MG/2 ML VIAL. IV ONE (14:45)
[2021-08-14 14:55] LABS: BASO # 0.1 x10^3/uL (0.0-0.2); BASO % 1 % (0-3); EOS % 1 % (0-3); HEMATOCRIT 37.6 % (36.0-47.0); HEMOGLOBIN 12.6 g/dL (12.0-15.5); LYMPH # 1.6 x10^3/uL (1.0-4.8); LYMPH % 18 % (24-48); MEAN CORPUSCULAR HEMOGLOBIN 30 pg (25-35); MEAN CORPUSCULAR HGB CONC 34 g/dL (31-37); MEAN CORPUSCULAR VOLUME 89 fL (79-100); MONO # 0.7 x10^3/uL (0.0-1.1); MONO % 9 % (0-9); NEUT # 6.3 x10^3/uL (1.8-7.7); NEUT % 72 % (31-73); PLATELET COUNT 367 x10^3/uL (140-400); RED BLOOD COUNT 4.23 x10^6/uL (3.50-5.40); RED CELL DISTRIBUTION WIDTH 12.4 % (11.5-14.5); WHITE BLOOD COUNT 8.8 x10^3/uL (4.0-11.0)
[2021-08-14 15:09] LABS: CALCIUM 8.7 mg/dL (8.5-10.1); CREATININE 0.8 mg/dL (0.6-1.0); GFR 84.8; POTASSIUM 3.7 mmol/L (3.5-5.1)
--- NOTE | 2021-08-14 15:09 | RAD ---
Single view of the chest. 08/14/2021 2:45 PM Indication: Reason: chest pain Comparison: Chest radiograph July 28, 2021 Findings: There is a right internal jugular port with tip at the cavoatrial junction. Lungs are clear . No pneumothorax, pleural effusion, or focal infiltrate is seen. No acute osseous changes are identi fied. IMPRESSION: No evidence of acute cardiopulmonary process is identified. Electronically signed by: Leonid Miguel MD (08/14/2021 3:06 PM) [id number]
[2021-08-14 15:14] LABS: ALBUMIN 3.3 g/dL (3.4-5.0); ALBUMIN/GLOBULIN RATIO 0.8 (1.0-1.7); MAGNESIUM 2.2 mg/dL (1.8-2.4); TOTAL BILIRUBIN 0.4 mg/dL (0.2-1.0); TOTAL PROTEIN 7.2 g/dL (6.4-8.2)
[2021-08-14] MEDS ORDERED: IOHEXOL 350 MG/ML 100 ML VIAL. IV ONE (15:15)
--- NOTE | 2021-08-14 15:21 | EKG ---
[facility] [address] [place] [address] Test Date: 2021-08-14 Test Time: 14:01:47 Pat Name: BRITT ALMAGUER Department: Room: Gender: F [employer]: : 1990 Requested By: LEE JORDAN Order Number: [id number] Reading MD: Mk Roy Measurements Intervals [place] Rate: 140 P: WI: QRS: 29 QRSD: 72 T: 51 QT: 330 QTc: 508 Interpretive Statements SINUS TACHYCARDIA Electronically Signed On 08-14-2021 17:13:19 CDT by Mk Roy
[2021-08-14] MEDS ORDERED: IV NORMAL SALINE 1000ML BAG 1,000 ML IV ONE (15:45)
--- NOTE | 2021-08-14 16:57 | RAD ---
CTA CHEST History: Chest pain, dyspnea, tachycardia, history of PE. Comparison: 09/25/2020 CT chest abdomen and pelvis Technique: CTA of the pulmonary arteries with intravenous contrast. Multiplanar reconstruction includ ing MIPS are provided. Findings: Devices: Partially visualized Mediport catheter terminating at the right atrium. Pulmonary arteries: No pulmonary embolism. Aorta and great vessels: No aneurysm or dissection of the aortic arch or thoracic aorta. Thyroid: No significant abnormalities. Mediastinum and benoit: No mediastinal masses or adenopathy is seen. Esophagus: The visualized esophagus is normal. Heart: The heart is normal in size. There is no pericardial effusion. Airways, Lungs, Pleura: No airspace consolidation, pleural effusion or pneumothorax. Upper abdomen: Cholecystectomy clips. Osseous structures and soft tissues: Within normal limits for age. Impression: 1. No pulmonary embolism, aortic aneurysm or aortic dissection. ------ Exposure: One or more of the following individualized dose reduction techniques were utilized for thi s examination: 1. Automated exposure control 2. Adjustment of the mA and/or kV according to patient size 3. Use of iterative reconstruction technique. Electronically signed by: Ayad Eugene MD (08/14/2021 4:55 PM) [facility]
[2021-08-14 17:12] VITALS: BP 130/79
[2021-08-14 17:36] LABS: BILIRUBIN,URINE NEGATIVE (NEG); CLARITY,URINE CLEAR; COLOR,URINE YELLOW; NITRITE,URINE NEGATIVE (NEG); PROTEIN,URINE NEGATIVE (NEG-TRACE); UROBILINOGEN,URINE 0.2 mg/dL (0.2 mg/dL)
[2021-08-14 17:51] LABS: BACTERIA,URINE FEW /HPF (0-FEW)
[2021-08-14] MEDS ORDERED: PROM25TA10 PO (17:55)
== END 2021-08-14 18:30 | disposition home or self-care (01) ==
LOC: ER 13:39
DX: R39.15 Urgency of urination (principal); R07.89 Other chest pain; R00.0 Tachycardia, unspecified; G43.909 Migraine, unspecified, not intractable, without status migrainosus; Z91.040 Latex allergy status; Z88.4 Allergy status to anesthetic agent; Z88.5 Allergy status to narcotic agent; Z88.6 Allergy status to analgesic agent; Z91.041 Radiographic dye allergy status; Z91.013 Allergy to seafood; Z88.8 Allergy status to other drugs, medicaments and biological substances
CPT/HCPCS: 36415; 71045; 71275; 80053; 81001; 83690; 83735; 83880; 84443; 84484; 85025; 93005; 96361; 96374; 96375; 96376; 99285; J1200; J2270; J2765; J2930; J7030; Q9967

== ENCOUNTER 2021-11-14 13:10 | Emergency (ER) | payer OTHER ==
[~2021-11-14] VITALS: Ht 167.6 cm; Wt 168.0 kg
[~2021-11-14 13:10] MED LIST changes: +CYCL10TA19 PO; -CYCL10TA2 PO
[2021-11-14 13:38] VITALS: BP 131/82
--- NOTE | 2021-11-14 13:40 | PHYS DOC ---
Past Medical History Past Medical History: Anxiety, Cancer, Migraines, Renal Failure, Seizure, Other Additional Past Medical Histor: Ovarian and appendix cancer, Kidney failure w/temp dialysis Past Surgical History: Hysterectomy Additional Past Surgical Histo: Rt.knee repair acl/mcl, cardiac ablation, breast reduction, portacath Smoking Status: Never Smoker Alcohol Use: None Drug Use: None General Adult EDM: Chief Complaint: ALLERGIC REACTION HPI: HPI: Patient is a 31 year old female who present to ER due to allergic reaction. 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 Patient ate a salad last today at work she did not know that the cells were covered with coconut oil. She started having trouble breathing, trouble swallowing. Patient had an EpiPen because of severe pressure on injection of EpiPen 1 hour ago. Patient says she is not feeling any better yet. Patient denies any abdominal pain, no nausea vomiting Review of Systems: Review of Systems: Constitutional: Denies fever or chills. [] Eyes: Denies change in visual acuity. [] HENT: Denies nasal congestion or sore throat. Positive itchy throat and hard to swallow Respiratory: Denies cough or shortness of breath. [] Cardiovascular: Denies chest pain or edema. [] GI: Denies abdominal pain, nausea, vomiting, bloody stools or diarrhea. [] : Denies dysuria. [] Musculoskeletal: Denies back pain or joint pain. [] Integument: Denies rash. [] Neurologic: Denies headache, focal weakness or sensory changes. [] Endocrine: Denies polyuria or polydipsia. [] Lymphatic: Denies swollen glands. [] Psychiatric: Denies depression or anxiety. [] Heart Score: C/O Chest Pain: N/A Risk Factors: Risk Factors: DM, Current or recent (<one month) smoker, HTN, HLP, family history of CAD, obesity. Risk Scores: Score 0 - 3: 2.5% MACE over next 6 weeks - Discharge Home Score 4 - 6: 20.3% MACE over next 6 weeks - Admit for Clinical Observation Score 7 - 10: 72.7% MACE over next 6 weeks - Early Invasive Strategies Allergies: Allergies: Allergies Coded Allergies Type Severity Reaction Last Updated Verified Fish Containing Products Allergy Severe Anaphylaxis 09/27/20 Yes Iodinated Contrast Media Allergy Severe Hives 09/27/20 Yes diltiazem Allergy Severe Anaphylaxis 07/21/21 Yes latex Allergy Severe Anaphylaxis 09/27/20 Yes ondansetron Allergy Severe Anaphylaxis 09/27/20 Yes shellfish derived Allergy Severe Anaphylaxis 09/27/20 Yes coconut Allergy Intermediate Hives 09/27/20 Yes fentanyl Allergy Intermediate ITCHY 09/27/20 Yes ketorolac Allergy Intermediate Hives 09/27/20 Yes tramadol Allergy Intermediate 09/27/20 Yes Physical Exam: PE: Constitutional: Well developed, well nourished, no acute distress, non-toxic appearance. [] HENT: Normocephalic, atraumatic, bilateral external ears normal, oropharynx moist, no oral exudates, nose normal. [] Eyes: PERRLA, EOMI, conjunctiva normal, no discharge. [] Neck: Normal range of motion, no tenderness, supple, no stridor. [] Cardiovascular:Heart rate regular rhythm, no murmur [] Lungs & Thorax: Bilateral breath sounds clear to auscultation [] Abdomen: Bowel sounds normal, soft, no tenderness, no masses, no pulsatile masses. [] Skin: Warm, dry, no erythema, no rash. [] Back: No tenderness, no CVA tenderness. [] Extremities: No tenderness, no cyanosis, no clubbing, ROM intact, no edema. [] Neurologic: Alert and oriented X 3, normal motor function, normal sensory function, no focal deficits noted. [] Psychologic: Affect normal, judgement normal, mood normal. [] Current Patient Data: Labs: Current Medications Medications (Trade) Dose Ordered Sig/Lyndsey Route PRN Reason Start Time Stop Time Status Last Admin Dose Admin Epinephrine HCl (Adrenalin) 0.5 mg 1X ONCE IM 11/14/21 13:45 11/14/21 13:46 DC 11/14/21 13:54 Diphenhydramine HCl (Benadryl) 50 mg 1X ONCE IVP 11/14/21 13:45 11/14/21 13:46 DC 11/14/21 13:54 Methylprednisolone Sodium Succinate (SOLU-Medrol 125MG VIAL) 125 mg 1X ONCE IV 11/14/21 13:45 11/14/21 13:46 DC 11/14/21 13:53 Sodium Chloride 1,000 ml @ 1,000 mls/hr 1X ONCE IV 11/14/21 13:45 11/14/21 14:44 DC 11/14/21 13:53 Famotidine (Pepcid Vial) 20 mg 1X ONCE IVP 11/14/21 16:30 11/14/21 16:31 DC 11/14/21 16:35 Hydroxyzine HCl (Atarax) 50 mg 1X ONCE PO 11/14/21 16:30 11/14/21 16:31 DC 11/14/21 16:34 EKG: EKG: [] Radiology/Procedures: Radiology/Procedures: [] Course & Med Decision Making: Course & Med Decision Making Pertinent Labs and Imaging studies reviewed. (See chart for details) Patient is a 31-year-old female who present to ER for evaluation of food allergy. Patient has history of allergic reaction to coconut. Patient ate a salad today that covered with coconut oil that she did not know. Patient you her coworker at the pain to give her shot of EpiPen and and was brought here for evaluation. Patient was feeling like her tongue is swollen, she felt like her throat was swollen. Patient was given epinephrine, Solu-Medrol, Benadryl in the ER. On examination I did not observe any swelling of her tongue or throat. No angioedema. Lungs that were clear. Patient was observed in the ER for 4 hours and 30 minutes, patient was in no acute distress. Patient was on the phone talking fluently without any problem, patient with able to swallow without any problem. Patient says she had EpiPen at home. Patient will be discharged home with prednisone, Pepcid. Patient was recommended take Benadryl 25 to 50 mg every 4-6 hours as needed for itching or swelling. Patient was amenable to plan of care. Dragon Disclaimer: Dragon Disclaimer: This electronic medical record was generated, in whole or in part, using a voice recognition dictation system. Departure Departure Impression: Primary Impression: Allergic reaction Disposition: HOME / SELF CARE / HOMELESS Condition: IMPROVED Referrals: CARY HI MD (PCP) fOLLOW UP WITH YOUR DOCTOR THIS WEEK Patient Instructions: Food Allergy Additional Instructions: Thank you for visiting our Emergency Department. We appreciate you trusting us with your care. If any additional problems come up don't hesitate to return to visit us. Please follow up with your primary care provider so they can plan additional care if needed and know about the problem that you had. If symptoms worsen come back to the Emergency Department. Any concerning symptoms that start such as chest pain, shortness of air, weakness or numbness on one side of the body, running high fevers or any other concerning symptoms return to the ER. Scripts Prednisone (PREDNISONE) 20 Mg Tablet 1 TAB PO DAILY for 5 Days, #5 TAB Prov: DARRYL COON DO 11/14/21 Famotidine (PEPCID) 20 Mg Tablet 20 MG PO HS for 5 Days, #5 TAB Prov: DARRYL COON DO 11/14/21 DARRYL COON DO Nov 14, 2021 13:40
[2021-11-14] MEDS ORDERED: methylPREDNISolone SOD SUCC PF 125 MG/2 ML VIAL. IV ONE (13:45)
[2021-11-14] MEDS ORDERED: diphenhydrAMINE 50 MG/ML VIAL IVP ONE (13:45)
[2021-11-14] MEDS ORDERED: EPINEPHrine 1 MG/ML VIAL IM ONE (13:45)
[2021-11-14] MEDS ORDERED: IV NORMAL SALINE 1000ML BAG 1,000 ML IV ONE (13:45)
[2021-11-14] MEDS ORDERED: FAMOTIDINE 20 MG/2 ML VIAL IVP ONE (16:30)
[2021-11-14] MEDS ORDERED: hydrOXYzine 25 MG TABLET PO ONE (16:30)
[2021-11-14] MEDS ORDERED: PRED20TA PO (17:49)
[2021-11-14] MEDS ORDERED: FAMO-63 PO (17:49)
== END 2021-11-14 17:57 | disposition home or self-care (01) ==
LOC: ER 13:10
DX: T78.40XA Allergy, unspecified, initial encounter (principal); G43.909 Migraine, unspecified, not intractable, without status migrainosus; Z90.710 Acquired absence of both cervix and uterus; Z99.2 Dependence on renal dialysis; Z91.041 Radiographic dye allergy status; Z91.040 Latex allergy status; Z88.4 Allergy status to anesthetic agent; Z88.6 Allergy status to analgesic agent; Z88.5 Allergy status to narcotic agent; Z91.013 Allergy to seafood; Z91.018 Allergy to other foods; Z88.8 Allergy status to other drugs, medicaments and biological substances
CPT/HCPCS: 96361; 96372; 96374; 96375; 99284; J0171; J1200; J2930; J3490; J7030